=== PATIENT | male | born 1955 | race Caucasian/White ===

== ENCOUNTER 2025-04-08 09:00 | Outpatient (RCR) | payer SELFPAY ==
[2025-04-01 09:08] VITALS: BP 176/82; PULSE 68; RESP 16; TEMP 35.9; BMI 25.4
--- NOTE | 2025-04-01 12:28 | PCM.WC.HP ---
History of Present Illness Date of Service: 04/01/25 Chief Complaint: Right great toe ulceration, left great toe ulceration status post amputation with surgical wound dehiscence History of Wound: Chronic wound to the bilateral lower extremity Progress of Wound: Mr. Pritchard is a 69-year-old diabetic male presenting to wound care center today after being referred by Dr. Silver after he exhausted all surgical and conservative treatment. Per the patient he admits that the initial surgeon was doing wound care in his office and referred the patient to the wound care center [facility] for continued care as well as for expert treatment. The patient was recently hospitalized due to the infection to the bilateral lower extremity. He has a full-thickness wound to the right great toe, with evidence of status post hallux amputation with delayed primary closure with sutures intact to left lower extremity. There is evidence of a mild to moderate surgical wound dehiscence to the left foot. There is mild concern for infection to the left lower extremity when compared to the right. The patient's most recent A1c approximately 1 week ago was greater than 11%. He admits that his blood sugar has been well-controlled between 101 75 mg/dL at home. He denies any trauma. Denies constitutional symptoms. No other pedal complaints at this time. [facility] Home Medications Medication Instructions Recorded Last Taken Type doxycycline hyclate 100 mg tablet 100 mg PO BID 2 weeks #28 tabs 04/01/25 Unknown Rx Social History Smoking Status: Never smoker Vital Signs Vital Signs Vital Signs: 04/01/25 09:08 Temperature 96.7 F L Temperature Source Temporal Pulse Rate 68 Respiratory Rate 16 Blood Pressure 176/82 H Blood Pressure Mean 113 Blood Pressure Source Monitor Blood Pressure Position Sitting Blood Pressure Location Left Arm Oxygen Delivery Method Room Air Weight Weight: 85.275 kg Body Mass Index (BMI) 25.4 Physical Exam Narrative Vascular: DP and PT pulses are palpable to bilateral lower extremity. CFT is brisk. Skin temperature great is warm to warm from proximal ankles to distal digit bilateral. No focal increase in warmth is appreciated bilateral lower extremity. Neurological: Light touch intact. Patient does respond to painful stimuli. Dermatological: Full-thickness wound to the medial aspect of the right hallux measuring 2.5 x 1.3 x 0.2 cm. Wound base is fibrogranular nature. Negative probe to bone. No sign of infection. Full-thickness wound to the amputation site to the left foot at the level of the metatarsophalangeal joint of the first. Mild surgical wound dehiscence is noted. Wound measures on the left foot 0.4 x 3.5 x 0.7 cm. Positive probe to bone. No drainage. No malodor. Excisional debridement down to including subcutaneous tissue with a number 3 mm dermal curette to the right hallux and without incident. Predebridement measurement was 3.3 x 1.0 x 0.1 cm. Postdebridement measurement is 2.5 x 1.3 x 0.2 cm. Excisional debridement down to and including subcutaneous tissue, fascia muscle and bone to the left foot status post left hallux amputation site done with a number 3 mm dermal curette without incident. Predebridement measurement was 0.3 x 3.3 x 0.5 cm. Post right measurement 0.4 x 3.5 x 0.7 cm. Musculoskeletal: Mild pain to palpation to the bilateral full-thickness wounds. No pain with calf pressure. Debridement Note Debridement Note Debridement Free Text: Excisional debridement down to including subcutaneous tissue with a number 3 mm dermal curette to the right hallux and without incident. Predebridement measurement was 3.3 x 1.0 x 0.1 cm. Postdebridement measurement is 2.5 x 1.3 x 0.2 cm. Excisional debridement down to and including subcutaneous tissue, fascia muscle and bone to the left foot status post left hallux amputation site done with a number 3 mm dermal curette without incident. Predebridement measurement was 0.3 x 3.3 x 0.5 cm. Post right measurement 0.4 x 3.5 x 0.7 cm. Post-Debridement Measurements and Additional Note: Post-Debridement Measurements/Treatment - Nurse 1 - General Ulcer Assessment Start: 04/01/25 09:03 Freq: Status: Active Protocol: PETE Activity Type Activity Date Activity User E-sign Co-sign Detail Recorded Client Recorded Date Recorded By Document 04/01/25 09:08 [id number] 04/01/25 09:33 04/01/25 09:08 - Today's Visit Information Type of service Initial Visit Arrival Mode Ambulatory Patient Identification Verified (Name & Yes ) Patient Requires Transmission-Based No Precautions Height and Weight Height 6 ft Weight 85.275 kg Weight in Pounds 188.0 lbs Weight Measurement Method Estimated by Patient Body Mass Index (BMI) 25.4 BMI Classification Overweight Vital Signs Temperature (97.8 F-99.1 F) 96.7 F L Temperature Source Temporal Pulse Rate (60-100) 68 Pulse Location Monitor Respiratory Rate (12-18) 16 Respiratory rate source Observation Oxygen Delivery Method Room Air Blood Pressure (90/60-120/80) 176/82 H Blood Pressure Mean 113 Source Monitor Position Sitting Blood Pressure Location Left Arm History Since Last Visit- (Skip if this is Patient's initial visit) Signs or symptoms of abuse and/or No neglect since last visit Left Footwear Surgical Shoe with pressure relief insole Right Footwear Surgical Shoe with pressure relief insole Pain Scale: 0-10 Numeric Is Patient Pain Free? Yes Lower Extremity Assessment/ Foot Assessment/ Toe Nail Assessment Right -Posterior Tibial Palpable No -Posterior Tibial Doppler Multiphasic -Dorsalis Pedis Palpable No -Dorsalis Pedis Doppler Multiphasic -Extremity Color Red -Hair Growth on Legs Yes -Hair Growth on Toes Yes -Temperature of Extremity Warm -Capillary Refill Less than 3 Seconds -Dependent Rubor No -Blanched when Elevated No -Lipodermatosclerosis No -Other Deformity No -Prior Foot Ulcer No -Charcot Joint No -Prior Amputation No -Thick No -Discolored No -Deformed No -Improper Length & Hygeine No Left -Posterior Tibial Palpable No -Posterior Tibial Doppler Multiphasic -Dorsalis Pedis Palpable No -Dorsalis Pedis Doppler Multiphasic -Extremity Color Red -Hair Growth on Legs Yes -Hair Growth on Toes Yes -Temperature of Extremity Warm -Capillary Refill Less than 3 Seconds -Dependent Rubor No -Blanched when Elevated No -Lipodermatosclerosis No -Other Deformity No -Prior Foot Ulcer No -Charcot Joint No -Prior Amputation Yes -Thick No -Discolored No -Deformed No -Improper Length & Hygeine No Teaching Assessment Preferences Verbal,Written Barriers to Learning None Readiness To Learn Excellent Willingness to Engage in Self Management High Activies Readiness to Engage in Self Management High Activities Anxiety Level Calm Cooperation Cooperative Perception Coherent Interest in Health Problem Asks Questions Education Importance Acknowledges Need Does Patient Smoke tobacco or other No substances Smoking Status Never smoker Is Patient Diabetic Yes Functional Assessment Recent Decline in Ability to Perform Denies Any Declines Assistive Device With Patient No Teaching: Wound Center *Welcome to the Wound Center -Person Taught Patient -Teaching Method Discussion -Response to teaching Verbalize Understanding - Nurse 1 - General Ulcer Measurement Start: 04/01/25 09:03 Freq: Status: Active Protocol: Activity Type Activity Date Activity User E-sign Co-sign Detail Recorded Client Recorded Date Recorded By Document 04/01/25 09:08 [id number] 04/01/25 09:33 04/01/25 09:08 Wound Center Nurse 1 Left Hallux amputation site -Current Size (cm) - Length 0.1 -Current Size (cm) - Width 0.1 -Current Size (cm) - Depth 0.1 -Total Square Cm 0.01 -Date of Last Picture (Recall this 04/01/25 field) -Photo Taken Yes -Tunneling No -Undermining/Tunneling No -Circular Undermining No -Exudate Amt Medium -Exudate Type Yellow/Green -Granulation Amt None Present (0 %) -Slough/Fibrin Yes -Necrosis Amt Large (67-100%) -Necrotic Tissue Type Adherent Slough -Texture (Leda-wound Skin Appearance) Assessed -Moisture (Leda-wound Skin Appearance) Assessed -Color (Leda-wound Skin Appearance) Assessed -Temperature (Leda-wound Skin No Abnormality Appearance) (Pt Warm) -Tenderness on Palpation (Leda-wound Yes Skin Appearance) -Ulcer Cleansing Soap and Water -Foul Odor after Cleansing No -Anesthetic Used 5% Lidocaine Gel Right Hallux -Combined with other wound No -Current Size (cm) - Length 2.5 -Current Size (cm) - Width 1.3 -Current Size (cm) - Depth 0.3 -Total Square Cm 3.25 -Date of Last Picture (Recall this 04/01/25 field) -Photo Taken Yes -Tunneling No -Undermining/Tunneling No -Circular Undermining No -Exudate Amt Medium -Exudate Type Yellow/Green -Wound Margin Distinct, Outline Attached -Slough/Fibrin Yes -Necrosis Amt Large (67-100%) -Necrotic Tissue Type Adherent Slough -Texture (Leda-wound Skin Appearance) Assessed -Moisture (Leda-wound Skin Appearance) Assessed -Color (Leda-wound Skin Appearance) Assessed -Temperature (Leda-wound Skin No Abnormality Appearance) (Pt Warm) -Tenderness on Palpation (Leda-wound Yes Skin Appearance) -Ulcer Cleansing Soap and Water -Foul Odor after Cleansing No -Anesthetic Used 5% Lidocaine Gel Right Calf (cm) 38.5 Right Ankle (cm) 24 Left Calf (cm) 39.2 Left Ankle (cm) 26 WC - Nurse 2 - General Ulcer CM Notes Start: 04/01/25 09:03 Freq: Status: Active Protocol: Activity Type Activity Date Activity User E-sign Co-sign Detail Recorded Client Recorded Date Recorded By Document 04/01/25 09:49 JASPER [id number] 04/01/25 09:57 JASPER 04/01/25 09:49 Wound Center Nurse 2 Left Hallux amputation site -Time 09:49 -Correct Patient Yes -Correct Side, Site, Position Yes -Correct Procedure Yes -Procedure Performed Yes -Type of Procedure Debridement -Clinical Debridement Bone -Tissue Removed Non-viable tissue -Post Debridement (cm) - Length 0.4 -Post Debridement (cm) - Width 3.5 -Post Debridement (cm) - Depth 0.7 -Total Square (Post) (cm) 1.40 -Area of Debridement (cm) - Length 0.4 -Area of Debridement (cm) - Width 3.5 -Total Square (Area) (cm) 1.40 -Tunneling No -Undermining/Tunneling No -Circular Undermining No -Wound/Ulcer Outcome Not Healed -Ulcer Cleansing Rinsed/ Irrigated with Saline -Foul Odor after Cleansing No -Bioengineered Tissue No -Bleeding Controlled with Pressure -Treatment Response Procedure Tolerated Well -Offloading Yes -Type of Offloading Surgical Shoe -Debridement - Bone, 1st 20sq cm Yes Right Hallux -Time 09:49 -Correct Patient Yes -Correct Side, Site, Position Yes -Correct Procedure Yes -Procedure Performed Yes -Type of Procedure Debridement -Clinical Debridement Subcutaneous -Tissue Removed Subcutaneous -Post Debridement (cm) - Length 2.5 -Post Debridement (cm) - Width 1.3 -Post Debridement (cm) - Depth 0.2 -Total Square (Post) (cm) 3.25 -Area of Debridement (cm) - Length 2.5 -Area of Debridement (cm) - Width 1.3 -Total Square (Area) (cm) 3.25 -Tunneling No -Undermining/Tunneling No -Circular Undermining No -Wound/Ulcer Outcome Not Healed -Ulcer Cleansing Rinsed/ Irrigated with Saline -Foul Odor after Cleansing No -Bioengineered Tissue No -Bleeding Controlled with Pressure -Treatment Response Procedure Tolerated Well -Offloading Yes -Type of Offloading Surgical Shoe -Debridement - Subq, 1st 20sq cm Yes Pain Scale: 0-10 Numeric Is Patient Pain Free? Yes WC - Nurse 3 - General Ulcer D/C NN Start: 04/01/25 09:03 Freq: Status: Active Protocol: Activity Type Activity Date Activity User E-sign Co-sign Detail Recorded Client Recorded Date Recorded By Document 04/01/25 10:07 KW [id number] 04/01/25 10:07 KW Edit Result 04/01/25 10:07 KW (1) [id number] 04/01/25 10:08 KW (1) BLE - Tubular Bandage => Single Layer - Size of Tubigrip Used => Size E - Size E ($) => 2 - Other => single layer to => each leg 04/01/25 10:07 Wound Care Center Nurse 3 Left Hallux amputation site -Other Dressing betadine -Primary Dressing Covered/Secured with Dry Gauze & Roll Gauze, Secured with Tape Right Hallux -Other Dressing betadine -Primary Dressing Covered/Secured with Dry Gauze & Roll Gauze, Secured with Tape BLE -Tubular Bandage Single Layer -Size of Tubigrip Used Size E -Size E ($) 2 -Other single layer to each leg Pain Scale: 0-10 Numeric Is Patient Pain Free? Yes WC - Visit Discharge Discharge Condition Stable Ambulatory Status Ambulatory Transportation Private Auto Medication Reconcilliation completed & No provided to patient/care provider Clinical Summary of Care Provided Yes Assessment/Plan Assessment/Plan (1) Type 2 diabetes mellitus with foot ulcer: CODE(S): E11.621 - Type 2 diabetes mellitus with foot ulcer; L97.509 - Non-pressure chronic ulcer of other part of unspecified foot with unspecified severity PLAN: Patient was examined and evaluated. All findings were discussed with the patient. All questions were answered to the patient's satisfaction. Excisional debridement down to including subcutaneous tissue with a number 3 mm dermal curette to the right hallux and without incident. Predebridement measurement was 3.3 x 1.0 x 0.1 cm. Postdebridement measurement is 2.5 x 1.3 x 0.2 cm. Excisional debridement down to and including subcutaneous tissue, fascia muscle and bone to the left foot status post left hallux amputation site done with a number 3 mm dermal curette without incident. Predebridement measurement was 0.3 x 3.3 x 0.5 cm. Post right measurement 0.4 x 3.5 x 0.7 cm. Culture was taken to the bilateral lower extremity. The patient will be placed on doxycycline to cover MRSA due to his diabetes. Patient will continue his Augmentin as prescribed. The wounds were wiped clean and patted dry. All wounds were dressed with Betadine soaked gauze dry sterile dressing and compression wraps were donned. Patient will continue to wear his surgical shoe. Recommend the patient to be off for at least 1 week from work to allow his soft tissue to heal. Stressed the importance of strict blood sugar control between 100-150 mg/dL. Patient did understand the need for better glucose control and we will order HbA1c in approximately 2 months for further evaluation and to see how the patient is responding to his eating habits. Consult through nutrition was made today in office. I did discuss with the patient that there is a chance for additional surgery to the left foot as well as to the right great toe if needed. Conditions were set regarding healing potential and the need for possible surgery if the patient's blood sugar is not controlled as we will need to do first ray amputation to the left foot as needed. Follow-up at the wound care center with Dr. Mcgregor in 1 week. (2) Non-pressure chronic ulcer of other part of right foot with fat layer exposed: CODE(S): L97.512 - Non-pressure chronic ulcer of other part of right foot with fat layer exposed (3) Non-pressure chronic ulcer of other part of left foot with necrosis of bone: CODE(S): L97.524 - Non-pressure chronic ulcer of other part of left foot with necrosis of bone (4) Other specified peripheral vascular diseases: CODE(S): I73.89 - Other specified peripheral vascular diseases
--- NOTE | 2025-04-01 14:15 | WC ---
PHOTO 04/01/25 RIGHT HALLUX
--- NOTE | 2025-04-01 14:18 | WC ---
PHOTO 04/01/25
[2025-04-08 09:12] VITALS: BP 160/82; PULSE 69; RESP 18; TEMP 36; BMI 25.4
--- NOTE | 2025-04-08 12:43 | PN.PCM_ITS ---
History of Present Illness Date of Service: 04/08/25 Chief Complaint: Right great toe ulceration, left great toe ulceration status post amputation with surgical wound dehiscence History of Wound: Chronic wound to the bilateral lower extremity Progress of Wound: Stable bilateral foot wounds. Subjective Subjective Patient is 69-year-old diabetic male presenting to clinic today follow-up rajesh luation of full-thickness wound to the right great toe and full-thickness wound to the surgical wound dehiscence area to the left hallux amputation site. Patient has been doing dressing changes as discussed. He is taking oral antibiotics as prescribed. He admits things are improving. His blood sugars well-controlled. Denies trauma. Denies constitutional symptoms. No other pedal complaints at this time. Objective Data Objective Data Vital Signs: Vital Signs Temp Pulse Resp BP O2 Del Method 96.8 F L 69 18 160/82 H Room Air 04/08/25 09:12 04/08/25 09:12 04/08/25 09:12 04/08/25 09:12 04/08/25 09:12 Oxygen Delivery Method Room Air Weight: 85.275 kg Body Mass Index (BMI) 25.4 Lab / Micro Data Micro: Microbiology 04/01/25 09:47 Ulcer, Decubitus - Right Foot Gram Stain - Final 04/01/25 09:47 Ulcer, Decubitus - Right Foot Wound Culture - Final Escherichia coli Staphylococcus epidermidis Staphylococcus haemolyticus Strep anginosus 04/01/25 09:47 Ulcer, Decubitus - Right Foot Anaerobic Culture - Final Prevotella bivia Physical Exam Narrative Vascular: DP and PT pulses are palpable to bilateral lower extremity. CFT is b risk. Skin temperature great is warm to warm from proximal ankles to distal digit bilateral. No focal increase in warmth is appreciated bilateral lower extremity. No erythema. Neurological: Light touch intact. Patient does respond to painful stimuli. Dermatological: Full-thickness wound to the medial aspect of the right hallux measuring 2.1 x 0.8 x 0.2 cm wound base is fibrogranular nature. Negative probe to bone. No sign of infection. Full-thickness wound to the amputation site of the left hallux at the level of the first metatarsophalangeal joint measuring 0.5 x 3.2 x 1.0 cm. Positive probe to bone. No erythema Excisional debridement down to including subcutaneous tissue with a number 3 mm dermal curette to the right hallux and without incident. Predebridement measurement was 2.0 x 0.7 x 0.1 cm. Postdebridement measurement is 2.1 x 0.8 x 0.2 cm. Excisional debridement down to and including subcutaneous tissue, fascia muscle and bone to the left foot status post left hallux amputation site done with a number 3 mm dermal curette without incident. Predebridement measurement was 0.3 x 3.0 x 0.6 cm.. Post right measurement 0.5 x 3.2 x 1.0 cm. Musculoskeletal: Mild pain to palpation to the bilateral full-thickness wounds. No pain with calf pressure. Debridement Note Debridement Note Debridement Free Text: Excisional debridement down to including subcutaneous tissue with a number 3 mm dermal curette to the right hallux and without incident. Predebridement measurement was 2.0 x 0.7 x 0.1 cm. Postdebridement measurement is 2.1 x 0.8 x 0.2 cm. Excisional debridement down to and including subcutaneous tissue, fascia muscle and bone to the left foot status post left hallux amputation site done with a number 3 mm dermal curette without incident. Predebridement measurement was 0.3 x 3.0 x 0.6 cm.. Post right measurement 0.5 x 3.2 x 1.0 cm. Post-Debridement Measurements and Additional Note: Post-Debridement Measurements/Treatment - Nurse 1 - General Ulcer Assessment Start: 04/01/25 09:03 Freq: Status: Active Protocol: WC.LOWEXT Activity Type Activity Date Activity User E-sign Co-sign Detail Recorded Client Recorded Date Recorded By Document 04/01/25 09:08 [id number] 04/01/25 09:33 Document 04/08/25 09:12 KW [id number] 04/08/25 09:24 KW 04/01/25 04/08/25 09:08 09:12 - Today's Visit Information Type of service Initial Visit Follow-up Visit (Physician/[facility] ) Arrival Mode Ambulatory Ambulatory Patient Identification Verified (Name & Yes Yes ) Patient Requires Transmission-Based No Precautions Height and Weight Height 6 ft Weight 85.275 kg Weight in Pounds 188.0 lbs Weight Measurement Method Estimated by Patient Body Mass Index (BMI) 25.4 25.4 BMI Classification Overweight Overweight Vital Signs Temperature (97.8 F-99.1 F) 96.7 F L 96.8 F L Temperature Source Temporal Temporal Pulse Rate (60-100) 68 69 Pulse Location Monitor Monitor Respiratory Rate (12-18) 16 18 Respiratory rate source Observation Observation Oxygen Delivery Method Room Air Room Air Blood Pressure (90/60-120/80) 176/82 H 160/82 H Blood Pressure Mean (mm Hg) 113 108 Source Monitor Monitor Position Sitting Semi-Fowlers Blood Pressure Location Left Arm Right Arm History Since Last Visit- (Skip if this is Patient's initial visit) Have you changed medications since your No last visit? Any new allergies or adverse reactions No Had a fall/change in ADL's that may No increase risk of falls Signs or symptoms of abuse and/or No No neglect since last visit Have you been in the hospital since your No last visit? Has dressing in place as prescribed Yes Has compression in place as prescribed Yes Has offloadiing in place as prescribed Yes Experienced any changes in pain level or No management Left Footwear Surgical Shoe Surgical Shoe with pressure with pressure relief insole relief insole Right Footwear Surgical Shoe Surgical Shoe with pressure with pressure relief insole relief insole Pain Scale: 0-10 Numeric Is Patient Pain Free? Yes Yes Lower Extremity Assessment/ Foot Assessment/ Toe Nail Assessment Right -Posterior Tibial Palpable No -Posterior Tibial Doppler Multiphasic -Dorsalis Pedis Palpable No -Dorsalis Pedis Doppler Multiphasic -Extremity Color Red -Hair Growth on Legs Yes -Hair Growth on Toes Yes -Temperature of Extremity Warm -Capillary Refill Less than 3 Seconds -Dependent Rubor No -Blanched when Elevated No -Lipodermatosclerosis No -Other Deformity No -Prior Foot Ulcer No -Charcot Joint No -Prior Amputation No -Thick No -Discolored No -Deformed No -Improper Length & Hygeine No Left -Posterior Tibial Palpable No -Posterior Tibial Doppler Multiphasic -Dorsalis Pedis Palpable No -Dorsalis Pedis Doppler Multiphasic -Extremity Color Red -Hair Growth on Legs Yes -Hair Growth on Toes Yes -Temperature of Extremity Warm -Capillary Refill Less than 3 Seconds -Dependent Rubor No -Blanched when Elevated No -Lipodermatosclerosis No -Other Deformity No -Prior Foot Ulcer No -Charcot Joint No -Prior Amputation Yes -Thick No -Discolored No -Deformed No -Improper Length & Hygeine No Teaching Assessment Preferences Verbal,Written Barriers to Learning None Readiness To Learn Excellent Willingness to Engage in Self Management High Activies Readiness to Engage in Self Management High Activities Anxiety Level Calm Cooperation Cooperative Perception Coherent Interest in Health Problem Asks Questions Education Importance Acknowledges Need Does Patient Smoke tobacco or other No substances Smoking Status Never smoker Is Patient Diabetic Yes Functional Assessment Recent Decline in Ability to Perform Denies Any Declines Assistive Device With Patient No Teaching: Wound Center *Welcome to the Wound Center -Person Taught Patient -Teaching Method Discussion -Response to teaching Verbalize Understanding - Nurse 1 - General Ulcer Measurement Start: 04/01/25 09:03 Freq: Status: Active Protocol: Activity Type Activity Date Activity User E-sign Co-sign Detail Recorded Client Recorded Date Recorded By Document 04/01/25 09:08 [id number] 04/01/25 09:33 Document 04/08/25 09:12 [id number] 04/08/25 09:24 04/01/25 04/08/25 09:08 09:12 Wound Center Nurse 1 Left Hallux amputation site -Current Size (cm) - Length 0.1 3 -Current Size (cm) - Width 0.1 0.3 -Current Size (cm) - Depth 0.1 0.7 -Total Square Cm 0.01 0.9 -Date of Last Picture (Recall this 04/01/25 04/08/25 field) -Photo Taken Yes -Tunneling No -Undermining/Tunneling No -Circular Undermining No -Exudate Amt Medium Medium -Exudate Type Yellow/Green Serosanguineous -Wound Margin Distinct, Outline Attached -Granulation Amt None Present (0 Small (1-33%) %) -Granulation Quality Red -Slough/Fibrin Yes -Necrosis Amt Large (67-100%) Large (67-100%) -Necrotic Tissue Type Adherent Slough Adherent Slough -Texture (Leda-wound Skin Appearance) Assessed Assessed -Moisture (Leda-wound Skin Appearance) Assessed Assessed,Dry/ Scaly -Color (Leda-wound Skin Appearance) Assessed Assessed -Temperature (Leda-wound Skin No Abnormality No Abnormality Appearance) (Pt Warm) (Pt Warm) -Tenderness on Palpation (Leda-wound Yes Yes Skin Appearance) -Ulcer Cleansing Soap and Water Soap and Water -Foul Odor after Cleansing No No -Anesthetic Used 5% Lidocaine 5% Lidocaine Gel Gel Right Hallux -Combined with other wound No -Current Size (cm) - Length 2.5 2.2 -Current Size (cm) - Width 1.3 0.8 -Current Size (cm) - Depth 0.3 0.2 -Total Square Cm 3.25 1.76 -Date of Last Picture (Recall this 04/01/25 04/08/25 field) -Photo Taken Yes -Tunneling No -Undermining/Tunneling No -Circular Undermining No -Exudate Amt Medium Small -Exudate Type Yellow/Green Serosanguineous -Wound Margin Distinct, Distinct, Outline Outline Attached Attached -Granulation Amt Small (1-33%) -Granulation Quality Red -Slough/Fibrin Yes -Necrosis Amt Large (67-100%) Large (67-100%) -Necrotic Tissue Type Adherent Slough Adherent Slough -Texture (Leda-wound Skin Appearance) Assessed Assessed -Moisture (Leda-wound Skin Appearance) Assessed Assessed -Color (Leda-wound Skin Appearance) Assessed Assessed -Temperature (Leda-wound Skin No Abnormality No Abnormality Appearance) (Pt Warm) (Pt Warm) -Tenderness on Palpation (Leda-wound Yes Yes Skin Appearance) -Ulcer Cleansing Soap and Water Soap and Water -Foul Odor after Cleansing No No -Anesthetic Used 5% Lidocaine 5% Lidocaine Gel Gel Right Calf (cm) 38.5 Right Ankle (cm) 24 Left Calf (cm) 39.2 Left Ankle (cm) 26 WC - Nurse 2 - General Ulcer CM Notes Start: 04/01/25 09:03 Freq: Status: Active Protocol: Activity Type Activity Date Activity User E-sign Co-sign Detail Recorded Client Recorded Date Recorded By Document 04/01/25 09:49 JF [id number] 04/01/25 09:57 JF Document 04/08/25 10:03 JF [id number] 04/08/25 10:10 04/01/25 04/08/25 09:49 10:03 Wound Center Nurse 2 Left Hallux amputation site -Time 09:49 10:04 -Correct Patient Yes Yes -Correct Side, Site, Position Yes Yes -Correct Procedure Yes Yes -Procedure Performed Yes Yes -Type of Procedure Debridement Debridement -Clinical Debridement Bone Bone -Tissue Removed Non-viable Non-viable tissue tissue -Post Debridement (cm) - Length 0.4 0.5 -Post Debridement (cm) - Width 3.5 3.2 -Post Debridement (cm) - Depth 0.7 1.0 -Total Square (Post) (cm) 1.40 1.60 -Area of Debridement (cm) - Length 0.4 0.5 -Area of Debridement (cm) - Width 3.5 3.2 -Total Square (Area) (cm) 1.40 1.60 -Tunneling No No -Undermining/Tunneling No No -Circular Undermining No No -Wound/Ulcer Outcome Not Healed Not Healed -Ulcer Cleansing Rinsed/ Rinsed/ Irrigated with Irrigated with Saline Saline -Foul Odor after Cleansing No No -Bioengineered Tissue No No -Bleeding Controlled with Pressure Pressure -Treatment Response Procedure Procedure Tolerated Well Tolerated Well -Offloading Yes Yes -Type of Offloading Surgical Shoe Surgical Shoe -Debridement - Bone, 1st 20sq cm Yes Yes Right Hallux -Time 09:49 10:07 -Correct Patient Yes Yes -Correct Side, Site, Position Yes Yes -Correct Procedure Yes Yes -Procedure Performed Yes Yes -Type of Procedure Debridement Debridement -Clinical Debridement Subcutaneous Subcutaneous -Tissue Removed Subcutaneous Subcutaneous -Post Debridement (cm) - Length 2.5 2.1 -Post Debridement (cm) - Width 1.3 0.8 -Post Debridement (cm) - Depth 0.2 0.2 -Total Square (Post) (cm) 3.25 1.68 -Area of Debridement (cm) - Length 2.5 2.1 -Area of Debridement (cm) - Width 1.3 0.8 -Total Square (Area) (cm) 3.25 1.68 -Tunneling No No -Undermining/Tunneling No No -Circular Undermining No No -Wound/Ulcer Outcome Not Healed Not Healed -Ulcer Cleansing Rinsed/ Rinsed/ Irrigated with Irrigated with Saline Saline -Foul Odor after Cleansing No No -Bioengineered Tissue No No -Bleeding Controlled with Pressure Pressure -Treatment Response Procedure Procedure Tolerated Well Tolerated Well -Offloading Yes Yes -Type of Offloading Surgical Shoe Surgical Shoe -Debridement - Subq, 1st 20sq cm Yes Yes Pain Scale: 0-10 Numeric Is Patient Pain Free? Yes Yes - Nurse 3 - General Ulcer D/C NN Start: 04/01/25 09:03 Freq: Status: Active Protocol: Activity Type Activity Date Activity User E-sign Co-sign Detail Recorded Client Recorded Date Recorded By Document 04/01/25 10:07 KW [id number] 04/01/25 10:07 KW Edit Result 04/01/25 10:07 KW (1) [id number] 04/01/25 10:08 KW Document 04/08/25 10:23 KW [id number] 04/08/25 10:25 KW (1) BLE - Tubular Bandage => Single Layer - Size of Tubigrip Used => Size E - Size E ($) => 2 - Other => single layer to => each leg 04/01/25 04/08/25 10:07 10:23 Wound Care Center Nurse 3 Left Hallux amputation site -Other Dressing betadine betadine pack -Primary Dressing Covered/Secured with Dry Gauze & Dry Gauze & Roll Gauze, Roll Gauze, Secured with Secured with Tape Tape Right Hallux -Other Dressing betadine betadine painted -Primary Dressing Covered/Secured with Dry Gauze & Dry Gauze & Roll Gauze, Roll Gauze, Secured with Secured with Tape Tape BLE -Tubular Bandage Single Layer Double Layer -Size of Tubigrip Used Size E Size E -Size E ($) 2 4 -Other single layer to each leg Pain Scale: 0-10 Numeric Is Patient Pain Free? Yes Yes WC - Visit Discharge Discharge Condition Stable Stable Ambulatory Status Ambulatory Ambulatory Transportation Private Auto Private Auto Medication Reconcilliation completed & No No provided to patient/care provider Clinical Summary of Care Provided Yes Yes Assessment/Plan Assessment/Plan (1) Type 2 diabetes mellitus with foot ulcer: CODE(S): E11.621 - Type 2 diabetes mellitus with foot ulcer; L97.509 - Non -pressure chronic ulcer of other part of unspecified foot with unspecified severity PLAN: Patient was examined and evaluated. All findings were discussed with the patient. All questions were answered to the patient's satisfaction. Excisional debridement down to including subcutaneous tissue with a number 3 mm dermal curette to the right hallux and without incident. Predebridement m easurement was 2.0 x 0.7 x 0.1 cm. Postdebridement measurement is 2.1 x 0.8 x 0.2 cm. Excisional debridement down to and including subcutaneous tissue, fascia muscle and bone to the left foot status post left hallux amputation site done with a number 3 mm dermal curette without incident. Predebridement measurement was 0.3 x 3.0 x 0.6 cm.. Post right measurement 0.5 x 3.2 x 1.0 cm. The bilateral lower extremities were cleaned and patted dry. Patient will continue his antibiotic as prescribed. Both incision dressed with Betadine soaked gauze dry sterile dressing and light compression wrap. Patient will continue daily dressing changes and continue strict blood sugar control. Patient will follow-up with me in private office due to the patient not having medical insurance as well as this being more affordable for the patient. (2) Non-pressure chronic ulcer of other part of right foot with fat layer exposed: CODE(S): L97.512 - Non-pressure chronic ulcer of other part of right foot with fat layer exposed (3) Non-pressure chronic ulcer of other part of left foot with necrosis of bone: CODE(S): L97.524 - Non-pressure chronic ulcer of other part of left foot with necrosis of bone (4) Other specified peripheral vascular diseases: CODE(S): I73.89 - Other specified peripheral vascular diseases
--- NOTE | 2025-04-09 10:21 | WC ---
PHOTO 04/08/25 LT TRISTA ACEVEDO
--- NOTE | 2025-04-09 10:25 | WC ---
PHOTO 04/08/25 RIGHT HALLUX
== END 2025-04-20 23:59 | disposition home or self-care (01) ==
LOC: WC 09:00
PROVIDERS: PCP Family Medicine; Referring Provider Podiatrist Foot & Ankle Surgery; Visit Provider Podiatrist Foot & Ankle Surgery
DX: E11.621 Type 2 diabetes mellitus with foot ulcer (principal); L97.524 Non-pressure chronic ulcer of other part of left foot with necrosis of bone; L97.512 Non-pressure chronic ulcer of other part of right foot with fat layer exposed; T87.81 Dehiscence of amputation stump; E11.51 Type 2 diabetes mellitus with diabetic peripheral angiopathy without gangrene; Y83.5 Amputation of limb(s) as the cause of abnormal reaction of the patient, or of later complication, without mention of misadventure at the time of the procedure
CPT/HCPCS: 11042; 11044; 87070; 87075; 87077; 87186; 87205; 99214; G0463

== ENCOUNTER → 2025-05-12 | Outpatient (CLI) | payer SELFPAY | END | disposition home or self-care (01) | PROVIDERS: PCP Family Medicine; Referring Provider Podiatrist Foot & Ankle Surgery; Visit Provider Podiatrist Foot & Ankle Surgery | DX: L97.519 Non-pressure chronic ulcer of other part of right foot with unspecified severity (principal) | CPT/HCPCS: 87070; 87077; 87186; 87205 ==

== ENCOUNTER 2025-05-22 07:03 | Day surgery (SDC) | payer SELFPAY ==
[2025-05-22] VITALS (10 sets, daily range): BP systolic 124–159; BP diastolic 65–85; PULSE 59–93; RESP 16–20; TEMP 36.2–36.7; O2SAT 95–99; BMI 25.0
--- OUTSIDE RECORDS SUMMARY | 2025-05-22 07:15 | XMS RPT_ITS | CCD ---
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 Name Role Phone Unavailable Primary Care Provider UnavailESDRAS Love Attending Unavailable Hesham Alvarez MD Unavailable Romulo GEAR LAPPER, July Unavailable Maurice CONTRERAS, Ángela Saravia Unavailable [phone] Day GEAR LAPPER, Angela Unavailable Unavailable Dev GEAR LAPPER, Carole E Unavailable Unavailable Romel AZUL, Felicia Unavailable Unavailable Tom PASTOR, Narda Wilkinson Unavailable Unavaila ble Bass GEAR LAPPER, Faiza Unavailable Unavailable Wallace, Isi L Unavailable Lizandro REFINERY OPERATOR ASSISTANT, Lani Unavailable Unavailable Marco GEAR LAPPER, Francy M Unavailable Unavailab le Aubrey GEAR LAPPER, Lily Unavailable Unavailab le Zaugg GEAR LAPPER, Mary Unavailable Unavailable Unavailable Unavailable Tj AZUL, Nery Unavailable Unavailable Sissy Borja Unavailable Unavailable Edwin GEAR LAPPER, Melania Unavailable Unavailable [facility] Unavailable Unavailable Unavailable Bruno GEAR LAPPER, Ja Unavailable Unavailable MALLORY COWAN Admitting Unavailable MALLORY COWAN Primary Care Unavailable MALLORY COWAN Attending Unavailable HESHAM ALVAREZ Consulting Unavailable PROVIDER, UNKNOWN Consulting Unavailable PROVIDER, UNKNOWN Consulting Unavailable PROVIDER, UNKNOWN Consulting Unavailable MALLORY COWAN Admitting Unavailable MALLORY COWAN Primary Care Unavailable MALLORY COWAN Attending Unavailable HESHAM ALVAREZ Consulting Unavailable PROVIDER, UNKNOWN Consulting Unavailable PROVIDER, UNKNOWN Consulting Unavailable PROVIDER, UNKNOWN Consulting Unavailable Portillo ANAYA, Dr. Lakesha Vazquez Unavailable HESHAM ALVAREZ MD Primary Care Physician [phone] HESHAM ALVAREZ MD Primary Care Unavailable NEO PÉREZ DPM Attending Unavailable HESHAM ALVAREZ MD Primary Care Unavailable SUPPAN DPM, NEO Almonte Attending Unavailable CHOLO DROP TESTER-SEED CORN PRODUCTION MANAGER, TASHA M Consulting Unavailnathan ALVAREZ MD, HESHAM Khan Primary Care Unavailable SUPPAN DPM, NEO Almonte Attending Unavailable SUPPAN DPM, NEO Almonte Admitting Unavailable ASHUTOSH RAJAN FAC, NEO Cherry Consulting Unavail able KIM RAJAN, HESHAM Khan Primary Care Unavailable SUPPAN DPM, NEO Almonte Attending Unavailable Mcgregor DPM, Dr. Shaw Attending Provider Kim RAJAN, Dr. Dahl Primary Care Provider Suppcassandra DPM, Dr. Larson Referring Provider Amara Bassett Unavailable UnavailBert REAVESM, Dr. Shaw Referring Provider Hesham Alvarez [facility] Care Unavailable Neo Pérez Referring Unavailable Colin Mcgregor Attending Unavailable Colin Mcgregor Attending Unavailable Hesham Alvarez [facility] Unavailable Neo Pérez Referring Unavailable Colin Mcgregor Attending Unavailable Hesham Alvarez [facility] Care Unavailable Colin Mcgregor Referring Unavailable Colin Mcgregor Attending Unavailable Hesham Alvarez [facility] Unavailable Colin Mcgregor Referring Unavailable Allergies Allergy Classification Reported Allergen(s) Allergy Type Date of Onset Reaction(s) Facility Angiotensin Converting Enzyme (KAYLENE) Inhibitors (1 source) Lisinopril Drug Allergy Cough [facility]. (20 sources) Lisinopril Drug Allergy Cough [facility], [facility].; [facility], [facility]. (1 source) Lisinopril Drug Allergy [facility] Repository (1 source) Lisinopril Drug Allergy 05-20-2025 [facility] Repository Medications Current Medications Medication Drug Class(es) Dates Sig (Normalized) Sig (Original) 0.5 ML tirzepatide 10 MG/ML Auto-Injector [Mounjaro] (1 source) Start: 03-19-2025 inject 5 mg by subcutaneous injection every week Mounjaro 5 mg/0.5 mL subcutaneous solution INJECT 5mg DOSE (0.5ml) SUBCUTANEOUSLY ONCE A WEEK Start Date: 03/19/25 Status: Ordered Repeat number: 1 acetaminophen 325 mg / oxyCODONE hydrochloride 5 mg oral tablet (5 sources) Opioid Agonist Start: 05-12-2025 take 1 tablet by mouth every twelve hours as needed for pain Oxycodone-Acetaminop hen (Percocet) 5-325 mg tablet Active 1 {tbl} PO Q12H as needed for pain 28 7 0 May 12, 2025 Right foot pain Pain in right foot Start: 03-24-2025 End: 03-27-2025 take 1 tablet by mouth every six hours as needed for pain acetaminophen-oxyCODONE 325 mg-5 mg oral tablet Dose = 1 tab(s), Oral, q6h, PRN for pain, X 3 day(s), # 12 tab(s), 0 Refill(s), Pharmacy: [facility] Wound of left foot, 182.9, cm, 03/20/25 6:17:00 EDT, Height, 86.4, kg, 03/20/25 6:17:00 EDT, Dosing Weight Start Date: 03/24/25 Stop Date: 03/27/25 Status: Ordered Quantity: 12.0 Unit: tab(s) Repeat number: 1 Indications: Unspecified open wound, left foot, initial encounter; Start: 03-10-2025 take 1 tablet by pretty th every six hours as needed acetaminophen-oxyCODONE 325 mg-5 mg oral tablet TAKE ONE TABLET BY MOUTH EVERY 6 HOURS NEEDED Start Date: 03/19/25 Status: Ordered Repeat number: 1 DME MISCellaneous (1 source) Start: 03-24-2025 DME MISCellane ous See Instructions, Please dispense 30 needle caps for use with Lantus solostart pens - enough for 30 day supply., # 1 EA, 0 Refill(s), Pharmacy: [facility] 182.9, cm, 03/20/25 6:17:00 EDT, Height, 86.4, kg, 03/20/25 6:17:00 EDT, Dosing Weight Start Date: 03/24/25 Status: Ordered Quantity: 1.0 Unit: EA Repeat number: 1 doxycycline hyclate 100 mg oral tablet (3 sources) Tetracycline -class Drug Start: 04-01-2025 take 1 tablet by mouth twice daily Doxycycline Hyclate 100 mg tablet Active 100 mg PO TWICE A DAY 28 14 0 April 01, 2025 12:00am Start: 03-24-2025 End: 03-31-2025 doxycycline hyclate 100 mg o ral capsule Dose : 100 mg = 1 cap(s), Oral, BID, X 7 day(s), # 14 cap(s), 0 Refill(s), 03/31/25 9:57:00 AM EDT, Pharmacy: [facility] 182.9, cm, 03/20/25 6:17:00 EDT, Height, 86.4, kg, 03/20/25 6:17:00 EDT, Dosing Weight Start Date: 03/24/25 Stop Date: 03/31/25 Status: Ordered Quantity: 14.0 Unit: cap(s) Repeat number: 1 FreeStyle Essie 3+ Sensors (1 source) Start: 03-24-2025 FreeStyle Essie 3+ Sensors See Instructions, Place once sensor to the back of the upper arm every 15 days. Use reader or phone rose marie for daily blood sugar checks. 1 month supply, # 2 EA, 0 Refill(s), Pharmacy: [facility] 182.9, cm, 03/20/25 6:17:00 EDT, Height, 86.4, kg, 03/20/25 6:17:00 EDT, Dosing Weight Start Date: 03/24/25 Status: Ordered Quantity: 2.0 Unit: EA Repeat number: 1 3 ml insulin glargine 100 unt/ml pen injector (1 source) Insulin Analog Start: 03-24-2025 inject 1 dose by subcutaneous injection once daily at bedtime Lantus Solostar Pen 100 units/mL 3 mL Pen Dose : 15 unit(s) =, Subcutaneous, qHS, # 3 mL, 0 Refill(s), Pharmacy: [facility] 182.9, cm, 03/20/25 6:17:00 EDT, Height, kg, 03/20/25 6:17:00 EDT, Dosing Weight Start Date: 03/24/25 Status: Ordered Quantity: 3.0 Unit: mL Repeat number: 1 levoFLOXacin 500 mg oral tablet (2 sources) Quinolone Antimicrobial Start: 04-03-2025 take 1 tablet by mouth once daily Levofloxacin 500 mg tablet Active 500 mg PO DAILY 14 April 03, 2025 12:00am losartan potassium 25 mg oral tablet (20 sources) Angiotensin 2 Receptor Rivera Start: 03-10-2025 losartan 25 mg oral tablet Dose : 25 mg = 1 tab(s), Oral, Daily, # 100 tab(s), 0 Refill(s) Start Date: 03/10/25 Status: Ordered Quantity: 100.0 Unit: tab(s) Repeat number: 1 Start: 01-26-2025 losartan 50 mg tablet ; 1 (one) Tablet qd for 0 days Quantity: 90 {Tablet} Refills: 1 Ordered: 26-Jan-2025 MD Hesham Alvarez Start: 26-Jan-2025 Start: 10-23-2024 losartan 50 mg tablet ; 1 (one) Tablet qd for 0 days Quantity: 90 {Tablet} Refills: 1 Ordered: 23-Oct-2024 DIANE Richards Start: 23-Oct-2024 Start: 07-24-2024 losartan 50 mg tablet ; 1 (one) Tablet qd for 0 days Quantity: 90 {Tablet} Refills: 1 Ordered: 24-Jul-2024 MD Venancio Douglas Start: 24-Jul-2024 Start: 07-16-2023 losartan 50 mg tablet ; 1 (one) Tablet qd for 0 days Quantity: 90 {Tablet} Refills: 1 Ordered: 07-Nov-2023 MD Hesham Alvarez Start: 07-Nov-2023 Start: 08-02-2022 take 1 tablet by pretty once daily losartan (COZAAR) 50 mg tablet Take 50 mg by mouth once daily. 0 08/02/2022 Active Comment on above: Take 50 mg by mouth once daily. metFORMIN hydrochloride 500 mg oral tablet (20 sources) Biguanide Start: 03-10-2025 MetFORMIN (Eqv-Fortamet) 500 mg oral tablet, EXTENDED RELEASE Dose : 500 mg = 1 tab(s), Oral, BID, Okay to substitute for generic Glucophage XR, # 30 tab(s), 0 Refill(s) Start Date: 03/10/25 Status: Ordered Quantity: 30.0 Unit: tab(s) Repeat number: 1 Start: 02-20-2025 metFORMIN 500 mg tablet ; 2 Tablet bid for 0 days Quantity: 360 {Tablet} Refills: 1 Ordered: 20-Feb-2025 MD Hesham Alvarez Start: 20-Feb-2025 Start: 10-23-2024 metFORMIN 500 mg tablet ; 2 Tablet bid for 0 days Quantity: 360 {Tablet} Refills: 1 Ordered: 23-Oct-2024 DIANE Richards Start: 23-Oct-2024 Start: 04-28-2024 metFORMIN 500 mg tablet ; 2 Tablet bid for 0 days Quantity: 360 {Tablet} Refills: 1 Ordered: 28-Apr-2024 MD Hesham Alvarez Start: 28-Apr-2024 Start: 05-14-2023 metFORMIN 500 mg tablet ; 2 Tablet bid for 0 days Quantity: 360 {Tablet} Refills: 1 Ordered: 07-Nov-2023 MD Hesham Alvarez Start: 07-Nov-2023 Mounjaro 2.5 mg/0.5 mL subcutaneous pen injector (4 sources) Start: 10-13-2024 inject 2.5 mg by subcutaneous injection every week Mounjaro 2.5 mg/0.5 mL subcutaneous pen injector ; 2.5 Milligram q week for 0 days Quantity: 4 {Each} Refills: 1 Ordered: 13-Oct-2024 MD Hesham Alvarez Start: 13-Oct-2024 Comments: prefilled pen syringes Start: 09-16-2024 inject 2.5 mg by sub cutaneous injection every week Mounjaro 2.5 mg/0.5 mL subcutaneous pen injector ; 2.5 Milligram q week for 0 days Quantity: 4 {Each} Refills: 0 Ordered: 16-Sep-2024 MD Hesham Alvarez Start: 16-Sep-2024 Comments: prefilled pen syringes Start: 08-22-2024 inject 2.5 mg by sub cutaneous injection every week Mounjaro 2.5 mg/0.5 mL subcutaneous pen injector ; 2.5 Milligram q week for 0 days Quantity: 4 {Each} Refills: 0 Ordered: 22-Aug-2024 MD Hesham Alvarez Start: 22-Aug-2024 Comments: prefilled pen syringes Comment on above: prefilled pen syring es Mounjaro 5 mg/0.5 mL subcutaneous pen injector (20 sources) Start: 2024 inject 5 mg by subcutaneous injection every week Mounjaro 5 mg/0.5 mL subcutaneous pen injector ; 5 mg q week for 0 days Quantity: 4 {Each} Refills: 5 Ordered: 05-Nov-2024 MD Hesham Alvarez Start: 05-Nov-2024 Comments: prefilled pens injectors Comment on above: prefilled pens injec tors sulfamethoxazole 800 mg / trimethoprim 160 mg oral tablet (20 sources) Dihydrofolate Reductase Inhibitor Antibacterial, Sulfonamide Antimicrobial Start: 2024 take 1 tablet by mouth twice daily sulfamethoxazole-t rimethoprim 800 mg-160 mg oral tablet TAKE ONE TABLET BY MOUTH TWICE DAILY Start Date: 03/19/25 Status: Ordered Repeat number: 1 Start: 07-04-2017 End: 07-14-2017 take 1 tablet by mouth twice daily Bactrim DS 800-160 MG Oral Tablet ; 1 Tab Tab two times daily for 10 days Quantity: 20 {Tablet} Refills: 0 Ordered: 04-Jul-2017 TYRONE Méndez Start: 04-Jul-2017 End: 14-Jul-2017 Status: Inactive Trulicity 3 mg/0.5 mL subcutaneous pen injector (4 sources) Start: 05-05-2024 inject 3 mg by subcutaneous injection every week Trulicity 3 mg/0.5 mL subcutaneous pen injector ; 3 (three) Milligram q week for 0 days Quantity: 4 {Each} Refills: 5 Ordered: 05-May-2024 MD Hesham Alvarez Start: 05-May-2024 Comments: predosed pen injectors Start: 04-28-2024 inject 3 mg by subcu taneous injection every week Trulicity 3 mg/0.5 mL subcutaneous pen injector ; 3 (three) Milligram q week for 0 days Quantity: 4 {Each} Refills: 5 Ordered: 28-Apr-2024 MD Hesham Alvarez Start: 28-Apr-2024 Comments: predosed pen injectors Start: 02-13-2024 inject 3 mg by subcu taneous injection every week Trulicity 3 mg/0.5 mL subcutaneous pen injector ; 3 (three) Milligram q week for 0 days Quantity: 4 {Each} Refills: 5 Ordered: 13-Feb-2024 MD Hesham Alvarez Start: 13-Feb-2024 Comments: predosed pen injectors Comment on above: predosed pen injecto rs Completed/Discontinued Medications Medication Drug Class(es) Dates Sig (Normalized) Sig (Original) acyclovir 800 mg oral tablet (20 sources) Herpesvirus Nucleoside Analog DNA Polymerase Inhibitor, Herpes Simplex Virus Nucleoside Analog DNA Polymerase Inhibitor, Herpes Zoster Virus Nucleoside Analog DNA Polymerase Inhibitor Start: 11-18-2021 End: 01-05-2022 Acyclovir 800 MG Oral Tablet ; 1 (one) Tablet 5 times a day ( every 4 hours) for 0 days Quantity: 35 {Tablet} Refills: 0 Ordered: 05-Jan-2022 Lizandro, CHRISTINE Lani Start: 18-Nov-2021 End: 05-Jan-2022 Status: Discontinued amoxicillin 875 mg / clavulanate 125 mg oral tablet (20 sources) Penicillin-class Antibacterial Start: 12-19-2024 End: 12-26-2024 amoxicillin 875 mg-potassium clavulanate 125 mg tablet ; 1 (one) Tablet bid for 7 days Quantity: 14 {Tablet} Refills: 0 Ordered: 19-Dec-2024 MD Hesham Alvarez Start: 19-Dec-2024 End: 26-Dec-2024 Status: Inactive Comments: take w food Start: 12-08-2024 amoxicillin 87 5 mg-potassium clavulanate 125 mg tablet ; 1 (one) Tablet bid for 10 days Quantity: 20 {Tablet} Refills: 0 Ordered: 08-Dec-2024 MD Hesham Alvarez Start: 08-Dec-2024 Comments: take w food Start: 03-29-2021 End: 04-08-2021 take 1 tablet by mouth twice daily Amoxicillin-Pot Clavulanate 875-125 MG Oral Tablet ; 1 (one) Tablet bid for 10 days Quantity: 20 {Tablet} Refills: 0 Ordered: 29-Mar-2021 MD Hesham Alvarez Start: 29-Mar-2021 End: 08-Apr-2021 Status: Inactive Comments: take w food Comment on above: take w food cephalexin 500 mg oral capsule (20 sources) Cephalosporin Antibacterial Start: End: cephALEXin 500 mg capsule ; 2 (two) capsule bid for 10 days Quantity: 40 {Capsule} Refills: 0 Ordered: 07-Nov-2023 MD Hesham Alvarez Start: 07-Nov-2023 End: 17-Nov-2023 Status: Inactive 0.5 ml dulaglutide 3 mg/ml auto-injector (20 sources) GLP-1 Receptor Agonist Start: 024 End: inject 1.5 mg by subcutaneous injection every week Trulicity 1.5 mg/0.5 mL subcutaneous pen injector ; 1.5 Milligram q week for 0 days Quantity: 4 {Each} Refills: 5 Ordered: 22-Aug-2024 MD Hesham Alvarez Start: 03-Jun-2024 End: 22-Aug-2024 Status: Inactive Comments: prefilled pens Start: 05-14-2024 inject 1.5 mg by sub cutaneous injection every week Trulicity 1.5 mg/0.5 mL subcutaneous pen injector ; 1.5 Milligram q week for 0 days Quantity: 4 {Film} Refills: 5 Ordered: 14-May-2024 MD Hesham Alvarez Start: 14-May-2024 Comments: prefilled pens Start: 05-14-2024 inject 1.5 mg by sub cutaneous injection every week Trulicity 1.5 mg/0.5 mL subcutaneous pen injector ; 1.5 Milligram q week for 0 days Quantity: 4 {Film} Refills: 5 Ordered: 14-May-2024 MD Hesham Alvarez Start: 14-May-2024 Comments: prefilled pens Start: 05-05-2024 inject 0.75 mg by graham bcutaneous injection every week Trulicity 0.75 mg/0.5 mL subcutaneous pen injector ; 0.75 mg every week for 0 days Quantity: 2 {Each} Refills: 0 Ordered: 05-May-2024 MD Hesham Alvarez Start: 05-May-2024 Comments: pre filled pen syringes Start: 11-07-2023 inject 0.75 mg by graham bcutaneous injection every week Trulicity 0.75 mg/0.5 mL subcutaneous pen injector ; 0.75 Milligram q week for 0 days Quantity: 4 {Each} Refills: 5 Ordered: 07-Nov-2023 MD Hesham Alvarez Start: 07-Nov-2023 Comments: predosed pen injectors Comment on above: predosed pen injecto rs pre filled pen syrin ges prefilled pens famciclovir 500 mg oral tablet (20 sources) Herpes Simplex Virus Nucleoside Analog DNA Polymerase Inhibitor Start: End: take 1 tablet by mouth twice daily Famciclovir 500 MG Oral Tablet ; 1 (one) Tablet two times daily for 7 days Quantity: 14 {Tablet} Refills: 0 Ordered: 01-Dec-2021 DIANE Richards Start: 01-Dec-2021 End: 08-Dec-2021 Status: Inactive gabapentin 300 mg oral capsule (20 sources) Anti-epileptic Agent Start: End: gabapentin 300 mg capsule ; 1 (one) Capsule tid prn for 0 days Quantity: 90 {Capsule} Refills: 1 Ordered: 06-Jun-2023 TYRONE Lara Start: 13-Jun-2022 End: 06-Jun-2023 Status: Inactive lidocaine hydrochloride 0.02 mg/mg topical gel (1 source) Antiarrhythmic, Amide Local Anesthetic Start: End: lidocaine urojet 2 % 10 mL topical gel (XYLOCAINE, GLYDO) lisinopril 5 mg oral tablet (20 sources) Angiotensin Converting Enzyme Inhibitor Start: End: take 1 tablet by mouth once daily Lisinopril 5 MG Oral Tablet ; 1 (one) Tablet qd for 0 days Quantity: 90 {Tablet} Refills: 1 Ordered: 05-Dec-2017 MD Hesham Alvarez Start: 15-May-2017 End: 05-Dec-2017 Status: Inactive pioglitazone 45 mg oral tablet (20 sources) Peroxisome Proliferator Receptor alpha Agonist, Peroxisome Proliferator Receptor gamma Agonist, Thiazolidinedione Start: End: pioglitazone 45 mg tablet ; 1 (one) Tablet qd for 0 days Quantity: 90 {Tablet} Refills: 1 Ordered: 07-Nov-2023 MD Hesham Alvarez Start: 06-Jun-2023 End: 07-Nov-2023 Status: Inactive sildenafil 20 mg oral tablet (20 sources) Phosphodiesterase 5 Inhibitor Start: 023 End: sildenafil (pulmonary hypertension) 20 mg tablet ; 5 Tablet qd prn for 0 days Quantity: 60 {Tablet} Refills: 5 Ordered: 23-Oct-2023 TYRONE Burgos Savanah Stone Start: 10-Jan-2023 End: 23-Oct-2023 Status: Inactive tadalafil 20 mg oral tablet (20 sources) Phosphodiesterase 5 Inhibitor Start: 023 End: 025 Cialis 20 mg tablet ; 1 (one) tablet q 3 days prn , take 60 minutes prior to intercourse for 0 days Quantity: 4 {Tablet} Refills: 0 Ordered: 05-Nov-2024 Bruno TYRONE Ja Start: 24-Sep-2023 End: 05-Nov-2024 Status: Inactive Problems Active Problems Problem Classification Problem Date Documented Da te Episodic/Chronic Acute and unspecified renal failure (3 sources) Acute kidney failure, unspecified; Translations: [Acute renal failure syndrome] Onset: 03-19-2025 Episodic Chronic ulcer of skin (16 sources) Non-pressure chronic ulcer of other part of right foot with unspecified severity; Translations: [Non-pressure chronic ulcer of other part of left foot with necrosis of bone] Onset: 03-19-2025 04-01-2025 Chronic Complications of surgical procedures or medical care (4 sources) Postoperative urethral stricture; Translations: [Postprocedural fossa navicularis urethral stricture] Onset: 09-25-2022 Episodic Diabetes mellitus with complications (20 sources) Hyperglycemia due to type 2 diabetes mellitus; Translations: [Type 2 diabetes mellitus with hyperglycemia] Onset: 03-19-2025 06-06-2023 Chronic Comment on above: 12.3 to 11.6 to 10.9 Diabetes mellitus without complication (20 sources) Diabetes mellitus without mention of complication, type II or unspecified type, not stated as uncontrolled; Translations: [Diabetes mellitus] Onset: 03-19-2025 01-05-2022 Chronic E Codes: Natural/environment (20 sources) Tick bite; Translations: [Bitten or stung by nonvenomous insect and other nonvenomous arthropods, initial encounter] 01-05-2022 Episodic Essential hypertension (20 sources) Benign hypertension; Translations: [Essential (primary) hypertension] Onset: 03-19-2025 06-06-2023 Chronic Genitourinary symptoms and ill-defined conditions (20 sources) Urinary symptoms ; Translations: [Unspecified symptoms and signs involving the genitourinary system] 01-05-2022 Episodic Hyperplasia of prostate (20 sources) Benign prostatic hypertrophy with outflow obstruction; Translations: [Benign prostatic hyperplasia with lower urinary tract symptoms] Onset: 09-25-2022 Chronic Immunizations and screening for infectious disease (20 sources) Requires varicella vaccination; Translations: [Encounter for immunization] 01-05-2022 Episodic Infective arthritis and osteomyelitis (except that caused by tuberculosis or sexually transmitted disease) (2 sources) Other acute osteomyelitis, left ankle and foot; Translations: [Other acute osteomyelitis, left ankle and foot] Onset: 03-18-2025 Chronic Inflammatory conditions of male genital organs (20 sources) Epididymitis; Translations: [Epididymitis] 01-05-2022 Episodic Open wounds of extremities (20 sources) Laceration of upper limb; Translations: [Laceration without foreign body of unspecified upper arm, initial encounter] Onset: 03-19-2025 01-05-2022 Episodic Other aftercare (1 source) 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) use of oral hypoglycemic drugs; Translations: [correction (current) use of oral hypoglycemic drugs] Onset: 03-19-2025 Episodic Other bone disease and musculoskeletal deformities (1 source) Acquired absence of left great toe; Translations: [Acquired absence of left great toe] Onset: 03-19-2025 Chronic Other bone disease and musculoskeletal deformities (8 sources) Absence of toe; Translations: [Acquired absence of left great toe] 05-05-2025 Chronic Other circulatory disease (4 sources) Peripheral vascular disease; Translations: [Other specified peripheral vascular diseases] 04-01-2025 Chronic Other circulatory disease (2 sources) Other specified peripheral vascular diseases; Translations: [Other specified peripheral vascular diseases] Onset: 04-21-2025 Chronic Other connective tissue disease (1 source) Foot pain; Translations: [Pain in right foot] 05-12-2025 Episodic Other diseases of bladder and urethra (2 sources) Overactive bladder; Translations: [Overactive bladder] Onset: 09-25-2022 Chronic Other diseases of bladder and urethra (1 source) Overactive bladder; Translations: [OAB (overactive bladder)] Onset: 09-25-2022 Chronic Other diseases of kidney and ureters (1 source) Other obstructive and reflux uropathy; Translations: [BPH with obstruction/lower urinary tract symptoms] Onset: 09-25-2022 Episodic Other gastrointestinal disorders (1 source) Constipation, unspecified; Translations: [Constipation, unspecified] Onset: 03-19-2025 Episodic Other injuries and conditions due to external causes (20 sources) Knee, leg, ankle, and foot injury 09-27-2012 Episodic Other male genital disorders (20 sources) Male erectile dysfunction, unspecified; Translations: [Impotence of organic origin] 09-24-2023 Chronic Other male genital disorders (20 sources) Swelling of testicle; Translations: [Other specified disorders of the male genital organs] 01-05-2022 Episodic Other male genital disorders (20 sources) Disorder of male genital organ; Translations: [Hydrocele, unspecified] 07-06-2017 Episodic Other screening for suspected conditions (not mental disorders or infectious disease) (20 sources) Patient encounter status; Translations: [Encounter for screening for malignant neoplasm of prostate] 10-25-2023 Episodic Other skin disorders (20 sources) Skin lesion; Translations: [Disorder of the skin and subcutaneous tissue, unspecified] 05-14-2024 Episodic Other skin disorders (1 source) Disorder of the skin and subcutaneous tissue, unspecified; Translations: [Disorder of the skin and subcutaneous tissue, unspecified] Onset: 05-29-2024 Episodic Other upper respiratory infections (20 sources) Sinusitis; Translations: [Chronic sinusitis, unspecified] 11-07-2023 Chronic Residual codes; unclassified (20 sources) Influenza vaccination declined; Translations: [Immunization not carried out because of patient refusal] 08-13-2018 Episodic Screening and history of mental health and substance abuse codes (1 source) Personal history of nicotine dependence; Translations: [Personal history of nicotine dependence] Onset: 03-19-2025 Episodic Skin and subcutaneous tissue infections (20 sources) Cellulitis; Translations: [Cellulitis, unspecified] 03-29-2021 Episodic Unclassified (20 sources) Follow up for multiple chronic conditions - The patient is here for follow-up of diabetes and hypertension. The patient always takes the prescribed medications. No side effects noted. The patient engages in regular exercise program 1-3 times per week. The patient's out of office blood pressure checks occur rarely and dietary compliance is fair often eating foods not normally recommended. The patient states that there is no recent angina or dyspnea, weight is unchanged and they do not have headaches. The patient states that the disease has no overall impact. Note for Multiple chronic conditions follow-up: reviewed by [facility] 06-06-2023 Unclassified (20 sources) Follow Up for Multiple Chronic Conditions - The patient is here for follow-up of diabetes, hypertension and other condition(s) (BPH, Ed). The patient always takes the prescribed medications. No side effects noted (does not need refills). The patient engages in regular exercise program 3-5 times per week (elliptical and walks). The patient's glucose levels are monitored on rare occasion, out of office blood pressure checks occur rarely and dietary compliance is fairly good usually adhering to recommendations. The patient states that there is no recent angina or dyspnea, weight is unchanged and headaches are rarely noted. 02-14-2023 Unclassified (20 sources) Follow up for multiple chronic conditions - The patient is here for follow-up of diabetes and hypertension. The patient usually takes the prescribed medications. No side effects noted. The patient has an active lifestyle but no regular exercise program. The patient's out of office blood pressure checks occur rarely. Note for Multiple chronic conditions follow-up: reviewed by [facility] 10-18-2022 Unclassified (20 sources) Follow Up for Multiple Chronic Conditions - The patient is here for follow-up of diabetes and hypertension. The patient always takes the prescribed medications. No side effects noted (needs refill). The patient engages in regular exercise program 3-5 times per week (stationary bike). The patient's glucose levels are monitored on rare occasion and out of office blood pressure checks occur rarely. The patient states that there is no recent angina or dyspnea, there are no vision changes or weakness (up to date with eye exam), weight has decreased (down 6 pounds) and headaches have been noticed occasionally. Note for Multiple chronic conditions follow-up: reviewed by [facility] 06-15-2022 Unclassified (20 sources) Follow Up for Multiple Chronic Conditions - The patient is here for follow-up of diabetes and hypertension. The patient always takes the prescribed medications. No side effects noted (would like a refill on medication for nerve pain due to s/p shingles). The patient engages in regular exercise program 1-3 times per week. The patient's glucose levels are monitored several time(s) per week, out of office blood pressure checks occur occasionally and dietary compliance is fairly good usually adhering to recommendations. The patient states that weight has decreased. 01-05-2022 Unclassified (20 sources) Follow Up for Multiple Chronic Conditions - The patient is here for follow-up of diabetes and hypertension. The patient always takes the prescribed medications. No side effects noted (does not need refills). The patient has an active lifestyle but no regular exercise program. The patient's glucose levels are monitored several time(s) per week, out of office blood pressure checks occur occasionally and dietary compliance is fairly good usually adhering to recommendations. The patient states that weight has decreased (1#). 06-30-2021 Unclassified (20 sources) Follow Up for Multiple Chronic Conditions - The patient is here for follow-up of diabetes, hypertension and other condition(s) (ED). The patient always takes the prescribed medications. No side effects noted (needs refill). The patient engages in regular exercise program 3-5 times per week (eliptical). The patient's glucose levels are monitored on rare occasion, out of office blood pressure checks occur rarely and dietary compliance is fairly good usually adhering to recommendations. The patient states that there is no recent angina or dyspnea, there are no vision changes or weakness (Last eye exam 07/2019.), weight has increased (up 3 pounds) and headaches are rarely noted. Note for Multiple chronic conditions follow-up: reviewed by [facility] 09-30-2019 Unclassified (20 sources) Follow Up for Multiple Chronic Conditions - The patient is here for follow-up of diabetes and hypertension. The patient always takes the prescribed medications. No side effects noted (does not need refills). The patient has an active lifestyle but no regular exercise program. The patient's glucose levels are monitored several time(s) a month (checks once a week) and out of office blood pressure checks occur occasionally. The patient states that there is no recent angina or dyspnea, there are no vision changes or weakness (up to date with eye exam), weight has decreased (down 3 pounds) and headaches are rarely noted. Note for Multiple chronic conditions follow-up: reviewed by [facility] 04-08-2019 Unclassified (20 sources) Follow Up for Multiple Chronic Conditions - The patient is here for follow-up of diabetes and hypertension. The patient usually takes the prescribed medications. No side effects noted (needs refills). The patient engages in regular exercise program 1-3 times per week (eliptical). The patient's glucose levels are monitored several time(s) per week, out of office blood pressure checks occur rarely and dietary compliance is fairly good usually adhering to recommendations. The patient states that there is no recent angina or dyspnea, there are no vision changes or weakness (Last eye exam 05/2018.), weight has decreased (down 9 pounds) and headaches are rarely noted. 12-10-2018 Unclassified (20 sources) Follow Up for Multiple Chronic Conditions - The patient is here for follow-up of diabetes, hypertension and other condition(s). The patient usually takes the prescribed medications. No side effects noted (does not need refills). The patient engages in regular exercise program 3-5 times per week (stationary bike). The patient's glucose levels are monitored on rare occasion, out of office blood pressure checks occur rarely and dietary compliance is fairly good usually adhering to recommendations. The patient states that there is no recent angina or dyspnea, there are no vision changes or weakness (last eye exam 05/2018.), weight has decreased (down 1 pound) and headaches are rarely noted. Note for Multiple chronic conditions follow-up: reviewed by [facility] 08-13-2018 Unclassified (20 sources) Follow Up for Multiple Chronic Conditions - The patient is here for follow-up of diabetes and hypertension. The patient often forgets doses of medications. No other problems have been observed (will forget a couple of times a week.). The patient engages in regular exercise program 3-5 times per week (stationary bike). The patient's glucose levels are monitored on rare occasion, out of office blood pressure checks occur rarely and dietary compliance is fairly good usually adhering to recommendations. The patient states that there is no recent angina or dyspnea, there are no vision changes or weakness (is up to date with eye exam.), weight has decreased (down 2 pounds) and headaches are rarely noted. 04-09-2018 Unclassified (20 sources) Follow up for multiple chronic conditions - The patient is here for follow-up of diabetes and hypertension. The patient always takes the prescribed medications. No side effects noted. The patient has an active lifestyle but no regular exercise program. The patient's glucose levels are monitored on rare occasion, out of office blood pressure checks occur rarely and dietary compliance is fairly good usually adhering to recommendations. The patient states that there is no recent angina or dyspnea, there are no vision changes or weakness and they do not have headaches. Note for Multiple chronic conditions follow-up: has been to eye dr in past year. He had not been exercising due to a knee injury. 12-05-2017 Unclassified (20 sources) Follow Up for Multiple Chronic Conditions - The patient is here for follow-up of hypertension and diabetes. The patient always takes the prescribed medications. No side effects noted (needs refills.). The patient has an active lifestyle but no regular exercise program. The patient's glucose levels are monitored several time(s) a month (4 times per month. FBS 146 this morning.), out of office blood pressure checks occur rarely and dietary compliance is fairly good usually adhering to recommendations. The patient states that there is no recent angina or dyspnea, there are no vision changes or weakness (Last eye exam April 30 2017.), weight has decreased (down 12 pounds) and headaches are rarely noted. Note for Multiple chronic conditions follow-up: Is fasting today. 05-15-2017 Unclassified (20 sources) Follow Up for Multiple Chronic Conditions - The patient is here for follow-up of hypertension and diabetes. The patient often forgets doses of medications. No other problems have been observed (needs refill). The patient has an active lifestyle but no regular exercise program. The patient's glucose levels are monitored on rare occasion and out of office blood pressure checks occur occasionally. The patient states that there is no recent angina or dyspnea, there are no vision changes or weakness (Has early eye exam. Will be due this spring.), weight has increased (up 4 pounds) and headaches are rarely noted. Note for Multiple chronic conditions follow-up: reviewed by [facility] 01-16-2017 Unclassified (20 sources) Follow Up for Multiple Chronic Conditions - The patient is here for follow-up of hypertension and diabetes. The patient engages in regular exercise program 3-5 times per week. The patient's dietary compliance is fair often eating foods not normally recommended. The patient states that there is no recent angina or dyspnea, there are no vision changes or weakness (Was at eye doctor 2 months ago. No changes at that time.) and weight has increased (up 4# from last visit.). The patient states that the disease has no overall impact. Note for Multiple chronic conditions follow-up: UTD with Pneumovax and TDAP. Pt is not currently on any medication. Diet and exercise controlled for DM and HTN. Does not take out of office BP's or Blood Sugars. reviewed by [facility] 07-17-2016 Unclassified (20 sources) Follow Up for Multiple Chronic Conditions - The patient is here for follow-up of hypertension and diabetes. The patient engages in regular exercise program 3-5 times per week (exercise bike ). The patient's glucose levels are monitored on rare occasion, out of office blood pressure checks occur occasionally and dietary compliance is fairly good usually adhering to recommendations. The patient states that there is no recent angina or dyspnea, there are no vision changes or weakness (Is up to date with eye exam), weight has decreased (down 7 pounds) and headaches are rarely noted. Note for Multiple chronic conditions follow-up: reviewed by [facility] 11-16-2015 Unclassified (20 sources) Follow Up for Multiple Chronic Conditions - The patient is here for follow-up of hypertension and diabetes. The patient engages in regular exercise program 3-5 times per week (stationary bike). The patient's glucose levels are monitored on rare occasion, out of office blood pressure checks occur rarely and dietary compliance is fairly good usually adhering to recommendations. The patient states that there is no recent angina or dyspnea, there are no vision changes or weakness (Last eye exam was in the end of February.), weight has decreased (down 5 pounds.) and headaches are rarely noted. Note for Multiple chronic conditions follow-up: reviewed by [facility] 04-21-2015 Unclassified (20 sources) Follow Up for Multiple Chronic Conditions - The patient is here for follow-up of hypertension and diabetes. The patient engages in regular exercise program 3-5 times per week (stationary bike 5 to 6 mornings a week.). The patient's out of office blood pressure checks occur rarely and dietary compliance is fairly good usually adhering to recommendations. The patient states that there is no recent angina or dyspnea, there are no vision changes or weakness, weight has increased (Up 8 pounds) and they do not have headaches. Note for Multiple chronic conditions follow-up: Is fasting today. 12-11-2014 Unclassified (20 sources) Follow Up for Multiple Chronic Conditions - The patient is here for follow-up of hypertension and diabetes (Type II.). The patient engages in regular exercise program 3-5 times per week (Pt ties to exercise 4-5 times a week however past couple months he has not been exercising as he should.). The patient's dietary compliance is fairly good usually adhering to recommendations. The patient states that there is no recent angina or dyspnea, there are no vision changes or weakness, weight has decreased (Down 5# from last visit.) and they do not have headaches. The patient states that the disease has no overall impact (Pt states is doing well. Pt built a new house so he has just been very busy.). Note for Multiple chronic conditions follow-up: Pt is not on any medication. He has been watching diet and exercising. Does not check out office BP's or Blood sugars. FBS today is 188 and HGB A1C is 7.8. Pt up once a night to urinate. No excessive thirst. Declines flu vaccine. UTD with Tdap and Pneumovax. reviewed by [facility] 08-14-2014 Unclassified (20 sources) Follow Up for Multiple Chronic Conditions - The patient is here for follow-up of hypertension and diabetes. The patient engages in regular exercise program 3-5 times per week. The patient's glucose levels are monitored on rare occasion and out of office blood pressure checks occur rarely. The patient states that there is no recent angina or dyspnea, there are no vision changes or weakness (LAst eye exam was last Fall. No changes made at that time. Is due for 6 month f/u.), weight has increased (Weight up 3# from last visit.) and they do not have headaches. Note for Multiple chronic conditions follow-up: Pt is diet and exercise controlled for both HTN abd DM. UTD on Tdap and Pneumovax. Has no concerns for today- feels is doing well. 04-10-2014 Unclassified (20 sources) Follow Up for Multiple Chronic Conditions - The patient is here for follow-up of hypertension and depression. The patient engages in regular exercise program 3-5 times per week (stationary bike). The patient's glucose levels are monitored on rare occasion, out of office blood pressure checks occur rarely and dietary compliance is fairly good usually adhering to recommendations. The patient states that there are no vision changes or weakness (Is due for eye exam in Nov.), weight has increased (Up 3 pounds.) and they do not have headaches. Note for Multiple chronic conditions follow-up: Is fasting today. reviewed by [facility] 10-03-2013 Unclassified (20 sources) Follow Up for Multiple Chronic Conditions - The patient is here for follow-up of hypertension and diabetes. The patient engages in regular exercise program 3-5 times per week (DOes exercise bike at home). The patient's dietary compliance is fairly good usually adhering to recommendations. The patient states that there is no recent angina or dyspnea, there are no vision changes or weakness (Last visit to eye doctor was about 6-8 weeks ago. No changes in eyes.), weight is unchanged and they do not have headaches. Note for Multiple chronic conditions follow-up: DOes not Pt is diet controlled for DM and HTN. Does not check Home Blood sugars or Blood pressures. Todays FBS was 158. Pt feels he is doing well. No concerns today. reviewed by [facility] 03-28-2013 Unclassified (20 sources) Follow Up for Multiple Chronic Conditions - The patient is here for follow-up of hypertension and diabetes. The patient engages in regular exercise program 3-5 times per week. The patient's glucose levels are monitored on rare occasion (Average at home 150's.) and dietary compliance is good with close adherance to recommendations. The patient states that there is no recent angina or dyspnea, there are no vision changes or weakness (Pt goes yearly and will be due in 2012. Pt does not see a technical proposal writer.), weight has decreased (Pt is down 13# from last visit.) and they do not have headaches. Note for Multiple chronic conditions follow-up: Diet and exercise control for both HTN and DM. Pt doing well.Declines flu shot.Pt has been having right knee pain. He took a fall about 2 months ago and landed right on a stone. Says he can feel something moving around. DOes not notice much of anything until he knees on that knee. Swollen at initial fall but no swelling since then. reviewed by [facility] 09-27-2012 Unclassified (20 sources) Follow Up for Multiple Chronic Conditions - The patient is here for follow-up of hypertension and diabetes. The patient engages in regular exercise program 3-5 times per week. The patient's glucose levels are monitored on rare occasion (and average is about 140-150's. Todays fasting was 151.), out of office blood pressure checks occur rarely and dietary compliance is fair often eating foods not normally recommended. The patient states that there is no recent angina or dyspnea, there are no vision changes or weakness (was just at eye doctor couple months ago and no changes. Has never been to technical proposal writer.), weight has increased (Up about 4#.) and they are still having trouble sleeping. Note for Follow Up for Multiple Chronic Conditions: Pt is diet and exercised controlled at this point. Pt has no concerns. States is doing fairly well. Has been fasting today. reviewed by [facility] 03-22-2012 Unclassified (20 sources) Follow Up for Multiple Chronic Conditions - The patient is here for follow-up of hypertension and diabetes. The patient engages in regular exercise program 3-5 times per week. The patient's glucose levels are monitored on rare occasion (Average fasting at home is about 122-150. Today was 177.) and out of office blood pressure checks occur rarely (Average BP's been running high 130's/80's. Today was 142/85.). The patient states that there is no recent angina or dyspnea, there are no vision changes or weakness, weight is unchanged and they do not have headaches. Note for Follow Up for Multiple Chronic Conditions: Pt is not on medication. Trying to control by diet and exercise. Pt has no concerns today. Declines flu shot. 09-29-2011 Unclassified (20 sources) Follow up for multiple chronic conditions - The patient is here for follow-up of hypertension (Pt on no medications at this time.) and other condition(s) (Diabestes and proteinuria.). The patient engages in regular exercise program 3-5 times per week (Averages 5-6 mornings a week on exercise bike- goes 10 miles per day.). The patient's glucose levels are monitored daily (Pt states that it was 153 at home today but has not checked it much since last visit. Does not have any list with him.) and out of office blood pressure checks occur rarely (Checks BP very seldom. Was 130 /80 couple weeks ago before giving blood.). The patient states that they do not have headaches (Also denies chest pain or sob. States is doing well. Will obtain urine today for proteinuria. HGB A1c is 6.5.). Note for Follow up for multiple chronic conditions: Pt gets yearly eye exams and has been normal. 03-31-2011 Unclassified (20 sources) Follow up for multiple chronic conditions - The patient is here for follow-up of diabetes, hypertension and other condition(s) (ED). The patient always takes the prescribed medications. No side effects noted. The patient has an active lifestyle but no regular exercise program. The patient states that the disease has no overall impact. Note for Multiple chronic conditions follow-up: Pt has area on left upper arm he wants looked at, present fro several years 05-14-2024 Unclassified (20 sources) Well adult male - The patient feels well with no complaints. The patient has a balanced diet. The patient exercises none (Active). The patient sleeps 7 hours per night. 11-05-2024 Unclassified (4 sources) Follow up for multiple chronic conditions - The patient is here for follow-up of diabetes and hypertension. The patient always takes the prescribed medications. No side effects noted. The patient has a sedentary lifestyle. The patient's glucose levels are monitored daily, out of office blood pressure checks occur rarely and dietary compliance is fairly good usually adhering to recommendations. 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 05-05-2025 Viral infection (20 sources) Herpes zoster; Translations: [Zoster without complications] 01-05-2022 Episodic Past or Other Problems Problem Classification Problem Date Documented Da te Episodic/Chronic Unclassified (20 sources) Rash - The onset of the rash has been sudden and has been occurring in a persistent pattern for 2 weeks. The course has been increasing. The rash is characterized as red. There has been associated itching and pain, while there has been no associated drainage, erythema or edema. Note for Rash: He was in the office on 11/03/2021 and diagnosed with shingles he was started on acyclovir and he has completed the course of that antiviral. Reports that it greatly helped his symptoms for the week that he was taking it.He now reports that the rash on the back of his neck never fully resolved and has started to become painful and itchy again through this week. He denies any swelling, discharge, fever, or chills. 11-18-2021 Unclassified (20 sources) Rash - The onset of the rash has been gradual and has been occurring in a persistent pattern for 1 week. The course has been increasing. The rash is characterized as red, pustular, raised above the skin and grouped in crops. The rash was first seen on the scalp (left back side of head). It spread to the scalp, the neck, the trunk (upper left chest) and the upper extremity (left shoulder). There has been associated itching, pain, drainage (Little damp) and erythema, while there has been no associated edema. There has been associated itching and pain, while there has been no alopecia, anorexia, chills, fatigue, fever, kidney disease, liver disease, loss of sensation, lymphadenopathy, malaise, mucous membrane lesions, nail changes or weight loss. 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 Went to [facility] and got stitches. Was not prescribed an antibiotic. Started with left hand pain and swelling yesterday.). Note for Hand pain: reviewed by [facility] 03-29-2021 Unclassified (20 sources) Follow Up for Multiple Chronic Conditions - The patient is here for follow-up of diabetes and hypertension. The patient always takes the prescribed medications. No side effects noted (stopped Metformin in June and is taking something natural instead. Has also been out of Losartan for several months.). The patient has an active lifestyle but no regular exercise program. The patient's glucose levels are monitored several time(s) per week, out of office blood pressure checks occur occasionally and dietary compliance is fairly good usually adhering to recommendations. The patient states that weight has increased (Up 6 pounds). 12-21-2020 Unclassified (20 sources) [ADDITIONAL REASON] Transition into care - The patient is transitioning into care from another physician (Urology) and a summary of care was reviewed. 12-21-2020 Unclassified (20 sources) Foot pain - The pain is in the right foot. The onset of the foot pain was sudden following no specific incident and has been occurring in a persistent pattern for 4 days. The course has been increasing. The pain is moderate. The pain is characterized as a dull aching. The symptoms have been associated with muscle swelling. Note for Foot pain: reviewed by [facility] 07-01-2019 Unclassified (20 sources) Insect Bite/Sting - This occurred 5 day(s) ago while hiking. The patient sustained the insect bite/sting to the abdomen (belly button). The insect causing the bite/sting is thought to be a tick. Presenting symptoms included insect bite/sting. Current symptoms include pain at the site of the bite or sting and redness at the site of the bite or sting. Onset was sudden. Associated symptoms do not include fever. Note for Insect bite/sting: patient has tick with him. pull out this am reviewed by B 09-12-2017 Unclassified (20 sources) Follow up diagnostic procedure results - Diagnostic tests performed on : (07/05/2017.) include ultrasound (Scrotal). Note for Diagnostic procedure results follow-up: Pain has improved but still of left testivcle. Currently on Bactrim for UTI symptoms. Only for UTI is some frequency which has improved as well. reviewed by B 07-06-2017 Unclassified (20 sources) Testicular symptoms - Symptoms include testicular pain. Symptoms are located in the left testicle. Onset was sudden 2 week(s) ago (bladder symptoms 2 weeks, testicularl pain days). There is no known event that preceded symptom onset. The symptoms occur frequently. The episodes occur daily. The patient describes this as moderate in severity and worsening. Symptoms are not exacerbated by prolonged sitting or urination. Symptoms are relieved by rest. Associated symptoms include fever and chills. Note for Testicular symptoms: has not taken lisinopril in 1 week, also having urinary frequency . Chilling at night as well. 06-22-2017 Unclassified (20 sources) Routine for NIDDM and HTN - Pt here for routine visit for NIDDM and HTN. FAstings blood sugars at home average about 125-130. Fasting today was 158. Does not moitor home BP very often so does not have an average for those. Denies chest pain or SOB. Denies vision changes or dizziness. Is due for annual eye axam. Does not see a technical proposal writer at all. Diet and exericse controlled for DM and HTN and is doing ok with that although not as well as he should. No major problems or concerns today. 12-02-2010 Unclassified (17 sources) Transition into care - The patient is transitioning into care from another physician (Urology) and a summary of care was reviewed. 12-21-2020 Unclassified (17 sources) [ADDITIONAL REASON] Follow Up for Multiple Chronic Conditions - The patient is here for follow-up of diabetes and hypertension. The patient always takes the prescribed medications. No side effects noted (stopped Metformin in June and is taking something natural instead. Has also been out of Losartan for several months.). The patient has an active lifestyle but no regular exercise program. The patient's glucose levels are monitored several time(s) per week, out of office blood pressure checks occur occasionally and dietary compliance is fairly good usually adhering to recommendations. The patient states that weight has increased (Up 6 pounds). 12-21-2020 Unclassified (1 source) Well adult male 11-07-2023 Unclassified (1 source) [ADDITIONAL REASON] MCR Well Adult 11-07-2023 Unclassified (20 sources) Well adult male - The patient feels well with minor complaints (has a cold for the last 3 weeks), has good energy level and is sleeping well. The patient has a balanced diet. The patient exercises 3 - 4 times per week. The patient sleeps 7 (7.5) hours per night. 11-07-2023 Unclassified (20 sources) Skin ulcer/open sore - Symptoms include drainage, erythema, an open sore, pain, skin ulceration, swelling and tenderness. Onset was 2 week(s) ago. Onset followed a blister. The patient describes this as worsening. Note for Skin ulceration: Left great toe. Pt denies pain. Pt Diabetic. reviewed by [facility] 12-08-2024 Unclassified (18 sources) Toe infection - Pt seen for left great toe infection 12/08/24 given amoxicillin. Pt completed ATX, wants rechecked. It has been about 1 month, has been on Augmentin, overall he feels it is improved 01-05-2025 Results Test Name Value Interpretation Reference Range Facility Wound Cultureon 05-16-2025 WC RIGHT FOOT ULCER Wound Culture Pseudomonas aeruginosa Amount Growth Rare Pseudomonas aeruginosa: REACTION Cefepime Islt LUIS CARLOS 0.5 Ciprofloxacin Islt LUIS CARLOS 2 R levoFLOXacin Islt LUIS CARLOS 4 I Meropenem Islt LUIS CARLOS 1 S Pip+Tazo Islt LUIS CARLOS <=4 S Pseudomonas aeruginosa: REACTION Amikacin Islt LUIS CARLOS <=1 Imipenem Islt LUIS CARLOS 1 S Tobramycin Islt LUIS CARLOS <=1 S Normal [facility] Comment on above: Performed By: #### M 100.2000, M100.3000 #### [facility] [address] [place], [address] Gram Stainon 05-13-2025 GS RIGHT FOOT ULCER Gram Stain No organisms seen 1+ White Blood Cells 3+ Red Blood Cells Normal [facility] Comment on above: Performed By: #### M 100.2000, M100.3000 #### [facility] [address] [place], [address] Gram stainOrdered By: Marry Mcgregor on 05-12-2025 Microscopic observation Gram stain Nom (Unsp spec) [facility] - Hematology and Cell countson 05-05-2025 HbA1c (Bld) [Mass fraction] 7.5 % Abnormal 4.6 - 7.1 % [facility], [facility], [facility]. Culture, Anaerobic Any Sourc reina 04-06-2025 CUAN RIGHT FOOT ULCER Prevotella species are generally SUSCEPTIBLE to Cefoxitin, Chloramphenicol, and Metronidazole and are usually RESISTANT to Penicillin. Prevotella bivia Beta Lactamase-Reportable Positive Normal [facility] Comment on above: Performed By: #### M 100.3000, M100.2000, M100.4001 #### [facility] [address] [place], [place], [address] Wound Cultureon 04-05-2025 WC RIGHT FOOT ULCER Escherichia coli Amount Growth 1+ Staphylococcus epidermidis Staphylococcus epidermidis GAURANG Amount Growth 1+ Staphylococcus haemolyticus Amount Growth 1+ Escherichia coli: REACTION Strep anginosus Ampicillin+Sulbac Islt LUIS CARLOS 8 Cefepime Islt LUIS CARLOS <=0.12 S cefTRIAXone Islt LUIS CARLOS <=0.25 Ciprofloxacin Islt LUIS CARLOS <=0.06 S B-Lactamase Extended Susc Islt NEG Gentamicin Islt LUIS CARLOS <=1 S levoFLOXacin Islt LUIS CARLOS <=0.12 S Meropenem Islt LUIS CARLOS <=0.25 S Pip+Tazo Islt LUIS CARLOS <=4 S TMP SMX Islt LUIS CAROLS >=320 R Staphylococcus epidermidis: REACTION cefOXitin Susc Islt POS Doxycycline Islt LUIS CARLOS 8 I Clindamycin Islt LUIS CARLOS <=0.12 S Clindamycin.induced Susc Islt Erythromycin Islt LUIS CARLOS >=8 R Gentamicin Islt LUIS CARLOS <=0.5 S Linezolid Islt LUIS CARLOS 1 S Oxacillin Susc Islt >=4 R Tetracycline Islt LUIS CARLOS >=16 R TMP SMX Islt LUIS CARLOS <=10 S Vancomycin Islt LUIS CARLOS 1 S Staphylococcus haemolyticus: REACTION cefOXitin Susc Islt POS Doxycycline Islt LUIS CARLOS >=16 R Clindamycin Islt LUIS CARLOS 0.25 S Clindamycin.induced Susc Islt Erythromycin Islt LUIS CARLOS <=0.25 S Gentamicin Islt LUIS CARLOS 1 S Linezolid Islt LUIS CARLOS 2 S Oxacillin Susc Islt >=4 R Tetracycline Islt LUIS CARLOS >=16 R TMP SMX Islt LUIS CARLOS >=320 R Vancomycin Islt LUIS CARLOS <=0.5 S Strep anginosus: REACTION Ampicillin Islt LUIS CARLOS <=0.25 S Penicillin G Islt LUIS CARLOS <=0.06 S Cefotaxime Islt LUIS CARLOS <=0.12 S cefTRIAXone Islt LUIS CARLOS <=0.12 Clindamycin Islt LUIS CARLOS <=0.25 S Erythromycin Islt LUIS CARLOS 0.5 I Vancomycin Islt LUIS CARLOS 0.5 S Normal [facility] Comment on above: Performed By: #### M 100.3000, M100.2000, M100.4001 #### [facility] [address] [place], [place], [id number] Gram Stainon 04-02-2025 GS RIGHT FOOT ULCER Gram Stain No organisms seen No White Blood Cells No Epithelial cells Normal [facility] Comment on above: Performed By: #### M 100.3000, M100.2000, M100.4001 #### [facility] [address] [place], [address] Anaerobic cultureOrdered By: Colin Mcgregor on 04-01-2025 Bacteria identified Anaer cx Nom (Unsp spec) Prevotella bivia Abnormal [facility] Gram stainOrdered By: Marry Mcgregor on 04-01-2025 Microscopic observation Gram stain Nom (Unsp spec) [facility] Routine wound cultureOrdered By: Colin Mcgregor on 04-01-2025 Microbial culture, routine Staphylococcus epidermidis Abnormal [facility] Microbial culture, routine Staphylococcus haemolyticus Abnormal [facility] History AND Physic vianey 04-01-2025 Wound Ctr History & Physical [facility] [address] [place] [address] H P Exam - Wound Care 04/01/25 1228 MR#: [id number] Acct: [id number] Name: JORY PRITCHARD Rep #: [id number] : 1955 69 From: Colin Mcgregor DPM PCP: Dr. Hesham Alvarez MD Status:REG RCR Location: History of Present Illness Date of Service: 04/01/25 Chief Complaint: Right great toe ulceration, left great toe ulceration status post amputation with surgical wound dehiscence History of Wound: Chronic wound to the bilateral lower extremity Progress of Wound: Mr. Pritchard is a 69-year-old diabetic male presenting to wound care center today after being referred by Dr. Pérez after he exhausted all surgical and conservative treatment. Per the patient he admits that the initial surgeon was doing wound care in his office and referred the patient to the wound care center [facility] for continued care as well as for expert treatment. The patient was recently hospitalized due to the infection to the bilateral lower extremity. He has a full- thickness wound to the right great toe, with evidence of status post hallux amputation with delayed primary closure with sutures intact to left lower extremity. There is evidence of a mild to moderate surgical wound dehiscence to the left foot. There is mild concern for infection to the left lower extremity when compared to the right. The patient's most recent A1c approximately 1 week ago was greater than 11%. He admits that his blood sugar has been well-controlled between 101 75 mg/dL at home. He denies any trauma. Denies constitutional symptoms. No other pedal complaints at this time. PFSH Home Medications ???Medication ???Instructions ???Recorded ???Last Taken ???Type doxycycline hyclate 100 mg tablet 100 mg PO BID 2 weeks #28 tabs Unknown Rx Social History Smoking Status: Never smoker Vital Signs Vital Signs Vital Signs: 04/01/25 09:08 Temperature 96.7 F L Temperature Source Temporal Pulse Rate 68 Respiratory Rate 16 Blood Pressure 176/82 H Blood Pressure Mean 113 Blood Pressure Source Monitor Blood Pressure Position Sitting Blood Pressure Location Left Arm Oxygen Delivery Method Room Air Weight Weight: 85.275 kg Body Mass Index (BMI) 25.4 Physical Exam Narrative Vascular: DP and PT pulses are palpable to bilateral lower extremity. CFT is brisk. Skin temperature great is warm to warm from proximal ankles to distal digit bilateral. No focal increase in warmth is appreciated bilateral lower extremity. Neurological: Light touch intact. Patient does respond to painful stimuli. Dermatological: Full-thickness wound to the medial aspect of the right hallux measuring 2.5 x 1.3 x 0.2 cm. Wound base is fibrogranular nature. Negative probe to bone. No sign of infection. Full- thickness wound to the amputation site to the left foot at the level of the metatarsophalangeal joint of the first. Mild surgical wound dehiscence is noted. Wound measures on the left foot 0.4 x 3.5 x 0.7 cm. Positive probe to bone. No drainage. No malodor. Excisional debridement down to including subcutaneous tissue with a number 3 mm dermal curette to the right hallux and without incident. Predebridement measurement was 3.3 x 1.0 x 0.1 cm. Postdebridement measurement is 2.5 x 1.3 x 0.2 cm. Excisional debridement down to and including subcutaneous tissue, fascia muscle and bone to the left foot status post left hallux amputation site done with a number 3 mm dermal curette without incident. Predebridement measurement was 0.3 x 3.3 x 0.5 cm. Post right measurement 0.4 x 3.5 x 0.7 cm. Musculoskeletal: Mild pain to palpation to the bilateral full-thickness wounds. No pain with calf pressure. Debridement Note Debridement Note Debridement Free Text: Excisional debridement down to including subcutaneous tissue with a number 3 mm dermal curette to the right hallux and without incident. Predebridement measurement was 3.3 x 1.0 x 0.1 cm. Postdebridement measurement is 2.5 x 1.3 x 0.2 cm. Excisional debridement down to and including subcutaneous tissue, fascia muscle and bone to the left foot status post left hallux amputation site done with a number 3 mm dermal curette without incident. Predebridement measurement was 0.3 x 3.3 x 0.5 cm. Post right measurement 0.4 x 3.5 x 0.7 cm. Post-Debridement Measurements and Additional Note: Post-Debridement Measurements/Treatment WC - Nurse 1 - General Ulcer Assessment Start: 04/01/25 09:03 Freq: Status: Active Protocol: PETE Activity Type Activity Date Activity User E-sign Co-sign Detail Recorded Client Recorded Date Recorded By Document 04/01/25 09:08 [id number] 04/01/25 09:33 04/01/25 09:08 - Today's Visit I (more content not included)... Normal [facility] LABORATORYOrdered By: Alisha Meelndez on 03-24-2025 Blood Glucose Testing Reason Routine (03/24/25 7:43 AM) [facility] Glucose [Mass/Vol] 170 mg/dL High 82 - 115 mg/dL [facility] .GFRon 03-23-2025 Estimated Glomerular Filtration Rate 66 ml/min/1.73sqm Normal [facility] Comment on above: Result Comment: Stages of Chronic Kidney Disease (CKD) Stage Description eGFR(ml/min/1.73 sq.m.) CKD 1 Normal kidney function or >=90 normal kindney function with possible kidney damage (ex. Proteinuria) CKD 2 Kidney damage with mild loss 60-89 of kidney function CKD 3a Mild to moderate loss of kidney 45-59 function CKD 3b Moderate to severe loss of 30-44 of kindey function CKD 4 Severe loss of kidney function 15-29 CKD 5 Kidney failure <15 Note: (go live 2024) the eGFR calculation was updated to the 2020 CKD-EPI creatinine equation without a race factor to calculate the eGFR results. Performed By: #### A SMITH, CBC, ADIFF, BMP, MG, GFR #### [id number] [place], [place] [address] BMPon 03-23-2025 BUN/Creatinine Ratio 19 ratio Normal 7-27 [facility] Comment on above: Performed By: #### A SMITH, CBC, ADIFF, BMP, MG, GFR #### [facility] [address] [place], [place] [address] Calcium [Mass/Vol] 9.4 mg/dL Normal 8.4-10.2 [facility] Comment on above: Performed By: #### A SMITH, CBC, ADIFF, BMP, MG, GFR #### [address] [address] Chloride [Moles/Vol] 100 mmol/L Normal 98-107 [facility] Comment on above: Performed By: #### A SMITH, CBC, ADIFF, BMP, MG, GFR #### [address] [address] CO2 [Moles/Vol] 28 mmol/L Normal 23-31 [facility] Comment on above: Performed By: #### A SMITH, CBC, ADIFF, BMP, MG, GFR #### [address] [address] Creatinine [Mass/Vol] 1.18 mg/dL High 0.67-1.17 [facility] Comment on above: Performed By: #### A SMITH, CBC, ADIFF, BMP, MG, GFR #### [address] [address] Electrolyte Balance 5.0 mEq/L Normal 4.0-15.0 [facility] Comment on above: Performed By: #### A SMITH, CBC, ADIFF, BMP, MG, GFR #### [address] [address] Glucose [Mass/Vol] 193 mg/dL High 83-110 [facility] Comment on above: Performed By: #### A SMITH, CBC, ADIFF, BMP, MG, GFR #### [address] [address] Potassium [Moles/Vol] 4.2 mmol/L Normal 3.5-5.1 [facility] Comment on above: Performed By: #### A SMITH, CBC, ADIFF, BMP, MG, GFR #### [address] [address] Sodium [Moles/Vol] 133 mmol/L Low 136-145 [facility] Comment on above: Performed By: #### A SMITH, CBC, ADIFF, BMP, MG, GFR #### [address] [place], [place] [address] Urea nitrogen [Mass/Vol] 22 mg/dL High 7-18 [facility] Comment on above: Performed By: #### A SMITH, CBC, ADIFF, BMP, MG, GFR #### [address] [place], [place] [address] LABORATORYOrdered By: John Rivero on 03-23-2025 Blood Glucose Testing Reason Routine (03/23/25 9:10 PM) [facility] Glucose [Mass/Vol] 260 mg/dL High 82 - 115 mg/dL [facility] LABORATORYOrdered By: Pedro Palmer on 03-23-2025 Blood Glucose Testing Reason Routine (03/23/25 4:15 PM) [facility] Glucose [Mass/Vol] 186 mg/dL High 82 - 115 mg/dL [facility] LABORATORYOrdered By: SYSTEM SYSTEM on 03-23-2025 Calcium [Mass/Vol] 9.4 mg/dL Normal 8.4 - 10. 2 mg/dL AO ADM SS Chloride [Moles/Vol] 100 mmol/L Normal 98 - 10 7 mmol/L AO ADM SS CO2 [Moles/Vol] 28 mmol/L Normal 23 - 31 mmol/L AO ADM SS Creatinine [Mass/Vol] 1.18 mg/dL High 0.67 - 1.17 mg/dL AO ADM SS Electrolyte Balance 5.0 mEq/L Normal 4.0 - 15 .0 mEq/L AO ADM SS Estimated Glomerular Filtration Rate 66 ml/min/1.73sqm Invalid Interpretation Code AO Chemistry S Comment on above: Interpretive Data: Stages of Chronic Kidney Disease (CKD) Stage Description eGFR(ml/min/1.73 sq.m.) CKD 1 Normal kidney function or >=90 normal kindney function with possible kidney damage (ex. Proteinuria) CKD 2 Kidney damage with mild loss 60-89 of kidney function CKD 3a Mild to moderate loss of kidney 45-59 function CKD 3b Moderate to severe loss of 30-44 of kindey function CKD 4 Severe loss of kidney function 15-29 CKD 5 Kidney failure <15 Note: (go live 2024) the eGFR calculation was updated to the 2020 CKD-EPI creatinine equation without a race factor to calculate the eGFR results. Glucose [Mass/Vol] 193 mg/dL High 83 - 110 mg/dL AO ADM SS Magnesium [Mass/Vol] 1.5 mg/dL Low 1.8 - 2 .4 mg/dL AO ADM SS Potassium [Moles/Vol] 4.2 mmol/L Normal 3.5 - 5.1 mmol/L AO ADM SS Sodium [Moles/Vol] 133 mmol/L Low 136 - 145 mmol/L AO ADM SS Urea nitrogen [Mass/Vol] 22 mg/dL High 7 - 18 mg/dL AO ADM SS Urea nitrogen/Creatinine [Mass ratio] 19 ratio Normal 7 - 27 ratio AO ADM SS Vancomycin trough [Mass/Vol] 12.9 ug/mL Normal 10.0 - 20.0 mcg/mL AO ADM SS LABORATORYOrdered By: Colleen Winters on 03-23-2025 LDose Vancomycin:(trough) See eMAR (03/23/25 5:24 AM) Normal AO Chemistry S MGon 03-23-2025 Magnesium [Mass/Vol] 1.5 mg/dL Low 1.8-2.4 [facility] Comment on above: Performed By: #### A SMITH, CBC, ADIFF, BMP, MG, GFR #### [address] [address] [facility] 03-23-2025 LDose Vancomycin:(trough) See eMAR Normal [facility] Comment on above: Performed By: #### A SMITH, CBC, ADIFF, BMP, MG, GFR #### [address] [address] Vancomycin Tr 12.9 mcg/mL Normal 10.0-20.0 [facility] Comment on above: Performed By: #### A SMITH, CBC, ADIFF, BMP, MG, GFR #### Lauren [address] [address] .GFRon 03-22-2025 Estimated Glomerular Filtration Rate 61 ml/min/1.73sqm Normal [facility] Comment on above: Result Comment: Stages of Chronic Kidney Disease (CKD) Stage Description eGFR(ml/min/1.73 sq.m.) CKD 1 Normal kidney function or >=90 normal kindney function with possible kidney damage (ex. Proteinuria) CKD 2 Kidney damage with mild loss 60-89 of kidney function CKD 3a Mild to moderate loss of kidney 45-59 function CKD 3b Moderate to severe loss of 30-44 of kindey function CKD 4 Severe loss of kidney function 15-29 CKD 5 Kidney failure <15 Note: (go live 2024) the eGFR calculation was updated to the 2020 CKD-EPI creatinine equation without a race factor to calculate the eGFR results. Performed By: #### H H, BMP, GFR #### [address] [address] BMPon 03-22-2025 BUN/Creatinine Ratio 17 ratio Normal 7-27 [facility] Comment on above: Performed By: #### H H, BMP, GFR #### [address] [address] Calcium [Mass/Vol] 9.2 mg/dL Normal 8.4-10.2 [facility] Comment on above: Performed By: #### H H, BMP, GFR #### [address] [address] Chloride [Moles/Vol] 101 mmol/L Normal 98-107 [facility] Comment on above: Performed By: #### H H, BMP, GFR #### [address] [address] CO2 [Moles/Vol] 26 mmol/L Normal 23-31 [facility] Comment on above: Performed By: #### H H, BMP, GFR #### [address] [address] Creatinine [Mass/Vol] 1.26 mg/dL High 0.67-1.17 [facility] Comment on above: Performed By: #### H H, BMP, GFR #### [address] [address] Electrolyte Balance 6.0 mEq/L Normal 4.0-15.0 [facility] Comment on above: Performed By: #### H H, BMP, GFR #### [address] [address] Glucose [Mass/Vol] 167 mg/dL High 83-110 [facility] Comment on above: Performed By: #### H H, BMP, GFR #### [address] [address] Potassium [Moles/Vol] 4.1 mmol/L Normal 3.5-5.1 [facility] Comment on above: Performed By: #### H H, BMP, GFR #### [address] [address] Sodium [Moles/Vol] 133 mmol/L Low 136-145 [facility] Comment on above: Performed By: #### H H, BMP, GFR #### [address] [address] Urea nitrogen [Mass/Vol] 21 mg/dL High 7-18 [facility] Comment on above: Performed By: #### H H, BMP, GFR #### [address] [address] [facility] 03-22-2025 Hematocrit (Bld) [Volume fraction] 35.6 % Low 40.0-52.0 [facility] Comment on above: Performed By: #### H H, BMP, GFR #### [address] [address] Hgb 12.3 G/dL Low 13.0-17.5 [facility] Comment on above: Performed By: #### H H, BMP, GFR #### [address] [address] LABORATORYOrdered By: SYSTEM SYSTEM on 03-22-2025 Calcium [Mass/Vol] 9.2 mg/dL Normal 8.4 - 10. 2 mg/dL AO ADM SS Chloride [Moles/Vol] 101 mmol/L Normal 98 - 10 7 mmol/L AO ADM SS CO2 [Moles/Vol] 26 mmol/L Normal 23 - 31 mmol/L AO ADM SS Creatinine [Mass/Vol] 1.26 mg/dL High 0.67 - 1.17 mg/dL AO ADM SS Electrolyte Balance 6.0 mEq/L Normal 4.0 - 15 .0 mEq/L AO ADM SS Estimated Glomerular Filtration Rate 61 ml/min/1.73sqm Invalid Interpretation Code AO Chemistry S Comment on above: Interpretive Data: Stages of Chronic Kidney Disease (CKD) Stage Description eGFR(ml/min/1.73 sq.m.) CKD 1 Normal kidney function or >=90 normal kindney function with possible kidney damage (ex. Proteinuria) CKD 2 Kidney damage with mild loss 60-89 of kidney function CKD 3a Mild to moderate loss of kidney 45-59 function CKD 3b Moderate to severe loss of 30-44 of kindey function CKD 4 Severe loss of kidney function 15-29 CKD 5 Kidney failure <15 Note: (go live 2024) the eGFR calculation was updated to the 2020 CKD-EPI creatinine equation without a race factor to calculate the eGFR results. Glucose [Mass/Vol] 167 mg/dL High 83 - 110 mg/dL AO ADM SS Hematocrit (Bld) [Volume fraction] 35.6 % Low 40.0 - 52.0 % AO Workflow SS Hemoglobin (Bld) [Mass/Vol] 12.3 G/dL Low 13.0 - 17.5 G/dL AO Workflow SS Potassium [Moles/Vol] 4.1 mmol/L Normal 3.5 - 5.1 mmol/L AO ADM SS Sodium [Moles/Vol] 133 mmol/L Low 136 - 145 mmol/L AO ADM SS Urea nitrogen [Mass/Vol] 21 mg/dL High 7 - 18 mg/dL AO ADM SS Urea nitrogen/Creatinine [Mass ratio] 17 ratio Normal 7 - 27 ratio AO ADM SS No Panel Informationon 03-22 Culture Wound Deep Panel No growth to date [facility] GS 2+ Polymorphonuclear cells 2+ Mononuclear cells No organisms seen. [facility] LABORATORYOrdered By: Mar Wilcox on 03-21-2025 LDose Vancomycin:(trough) See eMAR (03/21/25 12:23 PM) Normal AO Chemistry S LABORATORYOrdered By: SYSTEM SYSTEM on 03-21-2025 Vancomycin trough [Mass/Vol] 6.5 ug/mL Low 10.0 - 20.0 mcg/mL AO ADM SS [facility] 03-21-2025 LDose Vancomycin:(trough) See eMAR Normal [facility] Comment on above: Order Comment: Pleas e draw trough prior to hanging dose. Performed By: #### A SMITH, CBC, ADIFF, BMP, MG, GFR #### [address] [address] Vancomycin Tr 6.5 mcg/mL Low 10.0-20.0 [facility] Comment on above: Order Comment: Pleas e draw trough prior to hanging dose. Performed By: #### A SMITH, CBC, ADIFF, BMP, MG, GFR #### [address] [address] .Auto Diffon 03-20-2025 Basophil, Absolute 0.0 10 3/mcL Normal 0.0-0.3 [facility] Comment on above: Performed By: #### A SMITH, CBC, ADIFF, BMP, MG, GFR #### [address] [address] Basophils/100 WBC (Bld) 0.6 % Normal 0.0-2.5 [facility] Comment on above: Performed By: #### A SMITH, CBC, ADIFF, BMP, MG, GFR #### [address] [address] Eosinophil, Absolute 0.1 10 3/mcL Normal 0.0-0.7 [facility] Comment on above: Performed By: #### A SMITH, CBC, ADIFF, BMP, MG, GFR #### [address] [address] Eosinophils/100 WBC (Bld) 1.9 % Normal 0.0-6.0 [facility] Comment on above: Performed By: #### A SMITH, CBC, ADIFF, BMP, MG, GFR #### [address] [address] Lymphocyte, Absolute 1.3 10 3/mcL Normal 0.9-4.3 [facility] Comment on above: Performed By: #### A SMITH, CBC, ADIFF, BMP, MG, GFR #### [address] [address] Lymphocytes/100 WBC (Bld) 17.2 % Low 20.0-40.0 [facility] Comment on above: Performed By: #### A SMITH, CBC, ADIFF, BMP, MG, GFR #### [address] [address] Monocyte, Absolute 0.5 10 3/mcL Normal 0.1-1.4 [facility] Comment on above: Performed By: #### A SMITH, CBC, ADIFF, BMP, MG, GFR #### [address] [address] Monocytes/100 WBC (Bld) 6.4 % Normal 2.0-13.0 [facility] Comment on above: Performed By: #### A SMITH, CBC, ADIFF, BMP, MG, GFR #### [address] [address] Neutrophils/100 WBC (Bld) 73.9 % Normal 50.0-75.0 [facility] Comment on above: Performed By: #### A SMITH, CBC, ADIFF, BMP, MG, GFR #### [address] [address] .GFRon 03-20-2025 Estimated Glomerular Filtration Rate 52 ml/min/1.73sqm Normal [facility] Comment on above: Result Comment: Stages of Chronic Kidney Disease (CKD) Stage Description eGFR(ml/min/1.73 sq.m.) CKD 1 Normal kidney function or >=90 normal kindney function with possible kidney damage (ex. Proteinuria) CKD 2 Kidney damage with mild loss 60-89 of kidney function CKD 3a Mild to moderate loss of kidney 45-59 function CKD 3b Moderate to severe loss of 30-44 of kindey function CKD 4 Severe loss of kidney function 15-29 CKD 5 Kidney failure <15 Note: (go live 2024) the eGFR calculation was updated to the 2020 CKD-EPI creatinine equation without a race factor to calculate the eGFR results. Performed By: #### A SMITH, CBC, ADIFF, BMP, MG, GFR #### [address] [address] .NEUABSon 03-20-2025 Neutrophil, Absolute 5.8 10 3/mcL Normal 2.3-8.1 [facility] Comment on above: Performed By: #### A SMITH, CBC, ADIFF, BMP, MG, GFR #### [place] [address] BMPon 03-20-2025 BUN/Creatinine Ratio 19 ratio Normal 7-27 [facility] Comment on above: Performed By: #### A SMITH, CBC, ADIFF, BMP, MG, GFR #### [address] [address] Calcium [Mass/Vol] 8.9 mg/dL Normal 8.4-10.2 [facility] Comment on above: Performed By: #### A SMITH, CBC, ADIFF, BMP, MG, GFR #### [address] [address] Chloride [Moles/Vol] 102 mmol/L Normal 98-107 [facility] Comment on above: Performed By: #### A SMITH, CBC, ADIFF, BMP, MG, GFR #### [address] [address] CO2 [Moles/Vol] 24 mmol/L Normal 23-31 [facility] Comment on above: Performed By: #### A SMITH, CBC, ADIFF, BMP, MG, GFR #### [address] [address] Creatinine [Mass/Vol] 1.45 mg/dL High 0.67-1.17 [facility] Comment on above: Performed By: #### A SMITH, CBC, ADIFF, BMP, MG, GFR #### [address] [address] Electrolyte Balance 11.0 mEq/L Normal 4.0-15.0 [facility] Comment on above: Performed By: #### A SMITH, CBC, ADIFF, BMP, MG, GFR #### [address] [address] Glucose [Mass/Vol] 196 mg/dL High 83-110 [facility] Comment on above: Performed By: #### A SMITH, CBC, ADIFF, BMP, MG, GFR #### [address] [address] Potassium [Moles/Vol] 4.3 mmol/L Normal 3.5-5.1 [facility] Comment on above: Performed By: #### A SMITH, CBC, ADIFF, BMP, MG, GFR #### [place] [address] Sodium [Moles/Vol] 137 mmol/L Normal 136-145 [facility] Comment on above: Performed By: #### A SMITH, CBC, ADIFF, BMP, MG, GFR #### [place] [address] Urea nitrogen [Mass/Vol] 28 mg/dL High 7-18 [facility] Comment on above: Performed By: #### A SMITH, CBC, ADIFF, BMP, MG, GFR #### [place] [id number] CBCon 03-20-2025 Erythrocyte distribution width (RBC) [Ratio] 12.7 % Normal 11.5-15.5 [facility] Comment on above: Performed By: #### A SMITH, CBC, ADIFF, BMP, MG, GFR #### [place] [address] Hematocrit (Bld) [Volume fraction] 36.8 % Low 40.0-52.0 [facility] Comment on above: Performed By: #### A SMITH, CBC, ADIFF, BMP, MG, GFR #### [address] [address] Hgb 12.8 G/dL Low 13.0-17.5 [facility] Comment on above: Performed By: #### A SMITH, CBC, ADIFF, BMP, MG, GFR #### [address] [address] MCH (RBC) [Entitic mass] 31.3 pg Normal 27.0-33.0 [facility] Comment on above: Performed By: #### A SMITH, CBC, ADIFF, BMP, MG, GFR #### [address] [address] MCHC 34.7 G/dL Normal 32.0-36.0 [facility] Comment on above: Performed By: #### A SMITH, CBC, ADIFF, BMP, MG, GFR #### [address] [address] MCV (RBC) [Entitic vol] 90.5 fL Normal 81.0-100.0 [facility] Comment on above: Performed By: #### A SMITH, CBC, ADIFF, BMP, MG, GFR #### [address] [address] Platelet 327 10 3/mcL Normal 150-450 [facility] Comment on above: Performed By: #### A SMITH, CBC, ADIFF, BMP, MG, GFR #### [address] [address] Platelet mean volume (Bld) [Entitic vol] 6.6 fL Normal 6.4-10.5 [facility] Comment on above: Performed By: #### A SMITH, CBC, ADIFF, BMP, MG, GFR #### [address] [address] RBC 4.07 10 6/mcL Low 4.50-6.00 [facility] Comment on above: Performed By: #### A SMITH, CBC, ADIFF, BMP, MG, GFR #### [place] [id number] WBC 7.8 10 3/mcL Normal 4.5-10.8 [facility] Comment on above: Performed By: #### A SMITH, CBC, ADIFF, BMP, MG, GFR #### [place] [id number] [place], [place] [address] LABORATORYOrdered By: SYSTEM SYSTEM on 03-20-2025 Basophils (Bld) [#/Vol] 0.0 103/mcL Normal 0.0 - 0.3 10^3/mcL AO Workflow SS Basophils/100 WBC (Bld) 0.6 % Normal 0.0 - 2.5 % AO Workflow SS Calcium [Mass/Vol] 8.9 mg/dL Normal 8.4 - 10. 2 mg/dL AO ADM SS Chloride [Moles/Vol] 102 mmol/L Normal 98 - 10 7 mmol/L AO ADM SS CO2 [Moles/Vol] 24 mmol/L Normal 23 - 31 mmol/L AO ADM SS Creatinine [Mass/Vol] 1.45 mg/dL High 0.67 - 1.17 mg/dL AO ADM SS Electrolyte Balance 11.0 mEq/L Normal 4.0 - 15 .0 mEq/L AO ADM SS Eosinophil, Absolute 0.1 103/mcL Normal 0.0 - 0 .7 10^3/mcL AO Workflow SS Eosinophils/100 WBC (Bld) 1.9 % Normal 0.0 - 6.0 % AO Workflow SS Erythrocyte distribution width (RBC) [Ratio] 12.7 % Normal 11.5 - 15.5 % AO Workflow SS Estimated Glomerular Filtration Rate 52 ml/min/1.73sqm Invalid Interpretation Code AO Chemistry S Comment on above: Interpretive Data: Stages of Chronic Kidney Disease (CKD) Stage Description eGFR(ml/min/1.73 sq.m.) CKD 1 Normal kidney function or >=90 normal kindney function with possible kidney damage (ex. Proteinuria) CKD 2 Kidney damage with mild loss 60-89 of kidney function CKD 3a Mild to moderate loss of kidney 45-59 function CKD 3b Moderate to severe loss of 30-44 of kindey function CKD 4 Severe loss of kidney function 15-29 CKD 5 Kidney failure <15 Note: (go live 2024) the eGFR calculation was updated to the 2020 CKD-EPI creatinine equation without a race factor to calculate the eGFR results. Glucose [Mass/Vol] 196 mg/dL High 83 - 110 mg/dL AO ADM SS Hematocrit (Bld) [Volume fraction] 36.8 % Low 40.0 - 52.0 % AO Workflow SS Hemoglobin (Bld) [Mass/Vol] 12.8 G/dL Low 13.0 - 17.5 G/dL AO Workflow SS Lymphocytes (Bld) [#/Vol] 1.3 103/mcL Normal 0.9 - 4.3 10^3/mcL AO Workflow SS Lymphocytes/100 WBC (Bld) 17.2 % Low 20.0 - 40.0 % AO Workflow SS Magnesium [Mass/Vol] 1.7 mg/dL Low 1.8 - 2 .4 mg/dL AO ADM SS MCH (RBC) [Entitic mass] 31.3 pg Normal 27.0 - 33.0 pg AO Workflow SS MCHC 34.7 G/dL Normal 32.0 - 36.0 G/dL AO Workflow SS MCV (RBC) [Entitic vol] 90.5 fL Normal 81.0 - 100.0 fL AO Workflow SS Monocytes (Bld) [#/Vol] 0.5 103/mcL Normal 0.1 - 1.4 10^3/mcL AO Workflow SS Monocytes/100 WBC (Bld) 6.4 % Normal 2.0 - 13.0 % AO Workflow SS Neutrophils (Bld) [#/Vol] 5.8 103/mcL Normal 2.3 - 8.1 10^3/mcL AO Workflow SS Neutrophils/100 WBC (Bld) 73.9 % Normal 50.0 - 75.0 % AO Workflow SS Platelet mean volume (Bld) [Entitic vol] 6.6 fL Normal 6.4 - 10.5 fL AO Workflow SS Platelets (Bld) [#/Vol] 327 103/mcL Normal 150 - 450 10^3/mcL AO Workflow SS Potassium [Moles/Vol] 4.3 mmol/L Normal 3.5 - 5.1 mmol/L AO ADM SS RBC (Bld) [#/Vol] 4.07 106/mcL Low 4.50 - 6.0 0 10^6/mcL AO Workflow SS Sodium [Moles/Vol] 137 mmol/L Normal 136 - 145 mmol/L AO ADM SS Urea nitrogen [Mass/Vol] 28 mg/dL High 7 - 18 mg/dL AO ADM SS Urea nitrogen/Creatinine [Mass ratio] 19 ratio Normal 7 - 27 ratio AO ADM SS WBC (Bld) [#/Vol] 7.8 103/mcL Normal 4.5 - 10.8 10^3/mcL AO Workflow SS MGon 03-20-2025 Magnesium [Mass/Vol] 1.7 mg/dL Low 1.8-2.4 [facility] Comment on above: Performed By: #### A SMITH, CBC, ADIFF, BMP, MG, GFR #### [facility] [address] [place], [place] [address] XR FOOT MINIMUM 3 VIEWS LEFT on 03-19-2025 XR FOOT MINIMUM 3 VIEWS LEFT ORIGINAL EXAMINATION: THREE XRAY VIEWS OF THE LEFT FOOT03/19/2025 12:21 pm COMPARISON: None HISTORY: ORDERING SYSTEM PROVIDED HISTORY: Reason for Exam: pain FINDINGS: Amputation changes of the 1st digit. No cortical lucencies or erosions at the head of the 1st metatarsal to suggest osteomyelitis. No fracture or dislocation is seen. Vascular calcifications. Soft tissue swelling about the amputation site. IMPRESSION: No radiographic evidence of osteomyelitis about the 1st digit amputation site. I have personally reviewed the images of this examination and agree with the resident's findings and interpretation. Interpreted by: Jose Dewitt Preliminary Report By: Norma Lang Electronically signed By Jose Dewitt Dictated Date: 03/19/2025 2:36:42 PM Prelim Date: 03/19/2025 2:51:03 PM Sign Date: 03/19/2025 2:51:03 PM Ordering Provider: NEO Bray [facility] XR FOOT MINIMUM 3 VIEWS RIGH Ton 03-19-2025 XR FOOT MINIMUM 3 VIEWS RIGHT ORIGINAL EXAMINATION: THREE XRAY VIEWS OF THE RIGHT FOOT03/19/2025 12:21 pm COMPARISON: None HISTORY: ORDERING SYSTEM PROVIDED HISTORY: Reason for Exam: pain FINDINGS: No fracture or dislocation is seen. Cortical haziness and erosive changes are noted at the medial base of the 1st distal phalanx. The joint spaces are preserved and normal alignment. Widespread atherosclerotic calcifications. No suspicious osseous lesions seen. Soft tissue swelling of the 1st distal phalanx.. IMPRESSION: No acute fracture or dislocation. Erosive changes at the base of the 1st distal phalanx concerning for osteomyelitis. I have personally reviewed the images of this examination and agree with the resident's findings and interpretation. Interpreted by: Jose Dewitt Preliminary Report By: Norma Lang Electronically signed By Jose Dewitt Dictated Date: 03/19/2025 1:13:34 PM Prelim Date: 03/19/2025 1:48:20 PM Sign Date: 03/19/2025 1:48:20 PM Ordering Provider: NEO Bray [facility] .Auto Diffon 03-18-2025 Basophil, Absolute 0.0 10 3/mcL Normal 0.0-0.3 [facility] Comment on above: Performed By: #### A SMITH, CBC, ADIFF, BMP, MG, GFR #### [address] [address] Basophils/100 WBC (Bld) 0.5 % Normal 0.0-2.5 [facility] Comment on above: Performed By: #### A SMITH, CBC, ADIFF, BMP, MG, GFR #### [address] [address] Eosinophil, Absolute 0.2 10 3/mcL Normal 0.0-0.7 [facility] Comment on above: Performed By: #### A SMITH, CBC, ADIFF, BMP, MG, GFR #### [address] [address] Eosinophils/100 WBC (Bld) 1.5 % Normal 0.0-6.0 [facility] Comment on above: Performed By: #### A SMITH, CBC, ADIFF, BMP, MG, GFR #### [address] [address] Lymphocyte, Absolute 1.3 10 3/mcL Normal 0.9-4.3 [facility] Comment on above: Performed By: #### A SMITH, CBC, ADIFF, BMP, MG, GFR #### [address] [address] Lymphocytes/100 WBC (Bld) 12.4 % Low 20.0-40.0 [facility] Comment on above: Performed By: #### A SMITH, CBC, ADIFF, BMP, MG, GFR #### [address] [address] Monocyte, Absolute 0.6 10 3/mcL Normal 0.1-1.4 [facility] Comment on above: Performed By: #### A SMITH, CBC, ADIFF, BMP, MG, GFR #### [address] [address] Monocytes/100 WBC (Bld) 5.9 % Normal 2.0-13.0 [facility] Comment on above: Performed By: #### A SMITH, CBC, ADIFF, BMP, MG, GFR #### [address] [address] Neutrophils/100 WBC (Bld) 79.7 % High 50.0-75.0 [facility] Comment on above: Performed By: #### A SMITH, CBC, ADIFF, BMP, MG, GFR #### [address] [address] .GFRon 03-18-2025 Estimated Glomerular Filtration Rate 54 ml/min/1.73sqm Normal [facility] Comment on above: Result Comment: Stages of Chronic Kidney Disease (CKD) Stage Description eGFR(ml/min/1.73 sq.m.) CKD 1 Normal kidney function or >=90 normal kindney function with possible kidney damage (ex. Proteinuria) CKD 2 Kidney damage with mild loss 60-89 of kidney function CKD 3a Mild to moderate loss of kidney 45-59 function CKD 3b Moderate to severe loss of 30-44 of kindey function CKD 4 Severe loss of kidney function 15-29 CKD 5 Kidney failure <15 Note: (go live 2024) the eGFR calculation was updated to the 2020 CKD-EPI creatinine equation without a race factor to calculate the eGFR results. Performed By: #### A SMITH, CBC, ADIFF, BMP, MG, GFR #### [address] [address] .NEUABSon 03-18-2025 Neutrophil, Absolute 8.3 10 3/mcL High 2.3-8.1 [facility] Comment on above: Performed By: #### A SMITH, CBC, ADIFF, BMP, MG, GFR #### [place] [address] A1Con 03-18-2025 Glucose [Mass/Vol] 272 mg/dL Normal [facility] Comment on above: Result Comment: Angelita mated Average Glucose calculated by equation ((28.7xA1C)-46.7) Estimated average glucose (eAG) is a calculated value from Hemoglobin A1C and is sales representative meats of the average blood glucose level in the last 2-3 month period. Normal range: less than 114 mg/dL Performed By: #### A SMITH, CBC, ADIFF, BMP, MG, GFR #### [place] [address] HbA1c (Bld) [Mass fraction] 11.1 % High 4.3-6.4 [facility] Comment on above: Performed By: #### A SMITH, CBC, ADIFF, BMP, MG, GFR #### [place] [address] CBCon 03-18-2025 Erythrocyte distribution width (RBC) [Ratio] 12.2 % Normal 11.5-15.5 [facility] Comment on above: Performed By: #### A SMITH, CBC, ADIFF, BMP, MG, GFR #### [place] [address] Hematocrit (Bld) [Volume fraction] 37.7 % Low 40.0-52.0 [facility] Comment on above: Performed By: #### A SMITH, CBC, ADIFF, BMP, MG, GFR #### [place] [address] Hgb 13.0 G/dL Normal 13.0-17.5 [facility] Comment on above: Performed By: #### A SMITH, CBC, ADIFF, BMP, MG, GFR #### [place] [address] MCH (RBC) [Entitic mass] 31.4 pg Normal 27.0-33.0 [facility] Comment on above: Performed By: #### A SMITH, CBC, ADIFF, BMP, MG, GFR #### [address] [address] MCHC 34.6 G/dL Normal 32.0-36.0 [facility] Comment on above: Performed By: #### A SMITH, CBC, ADIFF, BMP, MG, GFR #### [address] [address] MCV (RBC) [Entitic vol] 90.7 fL Normal 81.0-100.0 [facility] Comment on above: Performed By: #### A SMITH, CBC, ADIFF, BMP, MG, GFR #### [address] [address] Platelet 353 10 3/mcL Normal 150-450 [facility] Comment on above: Performed By: #### A SMITH, CBC, ADIFF, BMP, MG, GFR #### [address] [address] Platelet mean volume (Bld) [Entitic vol] 6.8 fL Normal 6.4-10.5 [facility] Comment on above: Performed By: #### A SMITH, CBC, ADIFF, BMP, MG, GFR #### [address] [address] RBC 4.15 10 6/mcL Low 4.50-6.00 [facility] Comment on above: Performed By: #### A SMITH, CBC, ADIFF, BMP, MG, GFR #### [address] [address] WBC 10.5 10 3/mcL Normal 4.5-10.8 [facility] Comment on above: Performed By: #### A SMITH, CBC, ADIFF, BMP, MG, GFR #### [address] [address] CMPon 03-18-2025 Albumin Level 3.0 G/dL Low 3.4-4.8 [facility] Comment on above: Performed By: #### A SMITH, CBC, ADIFF, BMP, MG, GFR #### [address] [address] Albumin/Globulin [Mass ratio] 0.7 {ratio} Low 1.1-2.5 [facility] Comment on above: Performed By: #### A SMITH, CBC, ADIFF, BMP, MG, GFR #### [address] [address] ALP [Catalytic activity/Vol] 89 U/L Normal 40-135 [facility] Comment on above: Performed By: #### A SMITH, CBC, ADIFF, BMP, MG, GFR #### [place] [address] ALT [Catalytic activity/Vol] 26 U/L Normal 16-63 [facility] Comment on above: Performed By: #### A SMITH, CBC, ADIFF, BMP, MG, GFR #### [place] [address] AST [Catalytic activity/Vol] 14 U/L Normal 10-40 [facility] Comment on above: Performed By: #### A SMITH, CBC, ADIFF, BMP, MG, GFR #### [place] [address] Bili Total 0.6 mg/dL Normal 0.2-1.0 [facility] Comment on above: Result Comment: Use of this assay is not recommended for patients undergoing treatment with eltrombopag due to the potential for falsely elevated results. Performed By: #### A SMITH, CBC, ADIFF, BMP, MG, GFR #### [place] [address] BUN/Creatinine Ratio 21 ratio Normal 7-27 [facility] Comment on above: Performed By: #### A SMITH, CBC, ADIFF, BMP, MG, GFR #### [place] [address] Calcium [Mass/Vol] 9.6 mg/dL Normal 8.4-10.2 [facility] Comment on above: Performed By: #### A SMITH, CBC, ADIFF, BMP, MG, GFR #### [place] [id number] Chloride [Moles/Vol] 97 mmol/L Low 98-107 [facility] Comment on above: Performed By: #### A SMITH, CBC, ADIFF, BMP, MG, GFR #### [address] [address] CO2 [Moles/Vol] 28 mmol/L Normal 23-31 [facility] Comment on above: Performed By: #### A SMITH, CBC, ADIFF, BMP, MG, GFR #### [address] [address] Creatinine [Mass/Vol] 1.40 mg/dL High 0.67-1.17 [facility] Comment on above: Performed By: #### A SMITH, CBC, ADIFF, BMP, MG, GFR #### [address] [address] Electrolyte Balance 6.0 mEq/L Normal 4.0-15.0 [facility] Comment on above: Performed By: #### A SMITH, CBC, ADIFF, BMP, MG, GFR #### [address] [address] Globulin 4.5 G/dL High 2.7-4.4 [facility] Comment on above: Performed By: #### A SMITH, CBC, ADIFF, BMP, MG, GFR #### [address] [address] Glucose [Mass/Vol] 300 mg/dL High 83-110 [facility] Comment on above: Performed By: #### A SMITH, CBC, ADIFF, BMP, MG, GFR #### [address] [address] Potassium [Moles/Vol] 4.5 mmol/L Normal 3.5-5.1 [facility] Comment on above: Performed By: #### A SMITH, CBC, ADIFF, BMP, MG, GFR #### [place] [id number] Sodium [Moles/Vol] 131 mmol/L Low 136-145 [facility] Comment on above: Performed By: #### A SMITH, CBC, ADIFF, BMP, MG, GFR #### [place] [address] [place], [place] [address] Total Protein 7.5 G/dL Normal 6.4-8.2 [facility] Comment on above: Performed By: #### A SMITH, CBC, ADIFF, BMP, MG, GFR #### [place] [address] [place], [place] [address] Urea nitrogen [Mass/Vol] 30 mg/dL High 7-18 [facility] Comment on above: Performed By: #### A SMITH, CBC, ADIFF, BMP, MG, GFR #### [place] [id number] LABORATORYOrdered By: SYSTEM SYSTEM on 03-18-2025 25-hydroxyvitamin D3 [Mass/Vol] 84.9 ng/mL Invalid Interpretation Code AO ADM SS Comment on above: Interpretive Data: I nterpretive Values Based on Total 25(OH) Vitamin D: Deficient <20 ng/mL Insufficient 20 - <30 ng/mL Sufficient 30-100 ng/mL Albumin BCP dye [Mass/Vol] 3.0 G/dL Low 3.4 - 4.8 G/dL AO ADM SS Albumin/Globulin [Mass ratio] 0.7 {ratio} Low 1.1 - 2.5 ratio AO ADM SS ALP [Catalytic activity/Vol] 89 U/L Normal 40 - 135 U/L AO ADM SS ALT With P-5'-P [Catalytic activity/Vol] 26 U/L Normal 16 - 63 U/L AO ADM SS AST With P-5'-P [Catalytic activity/Vol] 14 U/L Normal 10 - 40 U/L AO ADM SS Basophils (Bld) [#/Vol] 0.0 103/mcL Normal 0.0 - 0.3 10^3/mcL AO Workflow SS Basophils/100 WBC (Bld) 0.5 % Normal 0.0 - 2.5 % AO Workflow SS Bilirubin [Mass/Vol] 0.6 mg/dL Normal 0.2 - 1 .0 mg/dL AO ADM SS Comment on above: Interpretive Data: U se of this assay is not recommended for patients undergoing treatment with eltrombopag due to the potential for falsely elevated results. Calcium [Mass/Vol] 9.6 mg/dL Normal 8.4 - 10. 2 mg/dL AO ADM SS Chloride [Moles/Vol] 97 mmol/L Low 98 - 10 7 mmol/L AO ADM SS CO2 [Moles/Vol] 28 mmol/L Normal 23 - 31 mmol/L AO ADM SS Creatinine [Mass/Vol] 1.40 mg/dL High 0.67 - 1.17 mg/dL AO ADM SS Electrolyte Balance 6.0 mEq/L Normal 4.0 - 15 .0 mEq/L AO ADM SS Eosinophil, Absolute 0.2 103/mcL Normal 0.0 - 0 .7 10^3/mcL AO Workflow SS Eosinophils/100 WBC (Bld) 1.5 % Normal 0.0 - 6.0 % AO Workflow SS Erythrocyte distribution width (RBC) [Ratio] 12.2 % Normal 11.5 - 15.5 % AO Workflow SS Estimated Glomerular Filtration Rate 54 ml/min/1.73sqm Invalid Interpretation Code AO Chemistry S Comment on above: Interpretive Data: Stages of Chronic Kidney Disease (CKD) Stage Description eGFR(ml/min/1.73 sq.m.) CKD 1 Normal kidney function or >=90 normal kindney function with possible kidney damage (ex. Proteinuria) CKD 2 Kidney damage with mild loss 60-89 of kidney function CKD 3a Mild to moderate loss of kidney 45-59 function CKD 3b Moderate to severe loss of 30-44 of kindey function CKD 4 Severe loss of kidney function 15-29 CKD 5 Kidney failure <15 Note: (go live 2024) the eGFR calculation was updated to the 2020 CKD-EPI creatinine equation without a race factor to calculate the eGFR results. Globulin 4.5 G/dL High 2.7 - 4.4 G/dL AO ADM SS Glucose [Mass/Vol] 300 mg/dL High 83 - 110 mg/dL AO ADM SS Glucose [Mass/Vol] 272 mg/dL Invalid Interpretation Code AO Chemistry S Comment on above: Interpretive Data: E stimated average glucose (eAG) is a calculated value from Hemoglobin A1C and is sales representative meats of the average blood glucose level in the last 2-3 month period. Normal range: less than 114 mg/dL HbA1c (Bld) [Mass fraction] 11.1 % High 4.3 - 6.4 % AO ADM SS Hematocrit (Bld) [Volume fraction] 37.7 % Low 40.0 - 52.0 % AO Workflow SS Hemoglobin (Bld) [Mass/Vol] 13.0 G/dL Normal 13.0 - 17.5 G/dL AO Workflow SS Lymphocytes (Bld) [#/Vol] 1.3 103/mcL Normal 0.9 - 4.3 10^3/mcL AO Workflow SS Lymphocytes/100 WBC (Bld) 12.4 % Low 20.0 - 40.0 % AO Workflow SS MCH (RBC) [Entitic mass] 31.4 pg Normal 27.0 - 33.0 pg AO Workflow SS MCHC 34.6 G/dL Normal 32.0 - 36.0 G/dL AO Workflow SS MCV (RBC) [Entitic vol] 90.7 fL Normal 81.0 - 100.0 fL AO Workflow SS Monocytes (Bld) [#/Vol] 0.6 103/mcL Normal 0.1 - 1.4 10^3/mcL AO Workflow SS Monocytes/100 WBC (Bld) 5.9 % Normal 2.0 - 13.0 % AO Workflow SS Neutrophils (Bld) [#/Vol] 8.3 103/mcL High 2.3 - 8.1 10^3/mcL AO Workflow SS Neutrophils/100 WBC (Bld) 79.7 % High 50.0 - 75.0 % AO Workflow SS Platelet mean volume (Bld) [Entitic vol] 6.8 fL Normal 6.4 - 10.5 fL AO Workflow SS Platelets (Bld) [#/Vol] 353 103/mcL Normal 150 - 450 10^3/mcL AO Workflow SS Potassium [Moles/Vol] 4.5 mmol/L Normal 3.5 - 5.1 mmol/L AO ADM SS Protein [Mass/Vol] 7.5 G/dL Normal 6.4 - 8.2 G/dL AO ADM SS RBC (Bld) [#/Vol] 4.15 106/mcL Low 4.50 - 6.0 0 10^6/mcL AO Workflow SS Sodium [Moles/Vol] 131 mmol/L Low 136 - 145 mmol/L AO ADM SS Urea nitrogen [Mass/Vol] 30 mg/dL High 7 - 18 mg/dL AO ADM SS Urea nitrogen/Creatinine [Mass ratio] 21 ratio Normal 7 - 27 ratio AO ADM SS WBC (Bld) [#/Vol] 10.5 103/mcL Normal 4.5 - 10.8 10^3/mcL AO Workflow SS No Panel Informationon 03-18 Culture Wound Deep Panel 1 colony normal skin cassandra present. Sensitivity testing not indicated. No anaerobes isolated to date. [facility] GS 3+ Gram Positive [facility] VIDHon 03-18-2025 Vit. D 25-Hydroxy 84.9 ng/mL Normal [facility] Comment on above: Result Comment: Inte rpretive Values Based on Total 25(OH) Vitamin D: Deficient <20 ng/mL Insufficient 20 - <30 ng/mL Sufficient 30-100 ng/mL Performed By: #### A SMITH, CBC, ADIFF, BMP, MG, GFR #### [place] [id number] [place], [place] [address] Final Surgical Pathology Rep [facility] 03-13-2025 Final Surgical Pathology Report . Pathology Reports Accession: Collected Date/Time: Received Date/Time: Pathologist: [id number] 03/10/2025 11:45 EDT 03/11/2025 09:03 EDT ONEAL ZELAYA MD Final Surgical Pathology Report DIAGNOSIS: LEFT GREAT TOE: - NECROTIZING INFLAMMATION OF SKIN AND SUBCUTANEOUS TISSUE OF TOE - UNDERLYING BONE WITH OSTEOMYELITIS CLINICAL INFORMATION: Procedure: AMPUTATION GREAT TOE, LEFT Preoperative diagnosis: OSTEOMYELITIS, LEFT GREAT TOE Postoperative diagnosis: OSTEOMYELITIS, LEFT GREAT TOE SPECIMEN: A LEFT GREAT TOE GROSS DESCRIPTION: All parts labelled with patient name and [id number] Received in formalin and designated left great toe is a portion of great toe, 7.3 x 3.5 x 3.0 cm. The skin and soft tissue margin of resection grossly appears to be viable. The bone margin of resection is firm and hard. The toenail is absent. Identified on the medial aspect of the toe is a joseph-rehman ulcerative area, 3.0 x 2.5 cm. The underlying bone is firm. The remainder of the skin is joseph and unremarkable. Correction Officer sections are submitted with cassette A1 having the skin ulcer and underlying bone for decalcification in cassette A2 having the bone margin of resection for decalcification.. RS-[address], Pathologists ' Acquisitions Analyst (ASCP) Performed by Narda Lane MICROSCOPIC DESCRIPTION: The microscopic examination is performed, except in the case of Gross Only. Verified by Pathology Report verified by [facility] ONEAL ZELAYA Sign out Date: 03/13/2025 14:40 Performing Lab: [facility], [facility] [address] [place] [address] Pathology Dept Disclaimer If ancillary studies were utilized, the following Laboratory Developed Test (LDT) disclaimer will apply: Under CLIA requirements, [facility]ology Laboratory is qualified to perform high complexity testing. For all ancillary stains, positive and negative controls stain appropriately. Performance characteristics of immunohistochemical and chromogenic in-situ hybridization tests have been determined by [facility]. These tests are used for clinical purposes, They should not be regarded as investigational or for research. Normal [facility]dered By: Savanah Russell on 03-10-2025 Glucose [Mass/Vol] 189 mg/dL High 82 - 115 mg/dL [facility] No Panel Informationon 03-10 GS 1+ Polymorphonuclear cells 3+ Gram Positive Cocci [facility] LIPID PANEL, STANDARDon 10-22 Cholesterol [Mass/Vol] 189 mg/dL Normal <200 [facility] Comment on above: Performed By: #### 2 [id number], 3507 #### [facility] [address], [address] [place] [phone] Electrical Continuity Tester: Chandra Bella MD Cholesterol in HDL [Mass/Vol] 44 mg/dL Normal > OR = 40 [facility] Comment on above: Performed By: #### 5 004, 4154 #### [facility] [address], [address] [place] [phone] Electrical Continuity Tester: Chandra Bella MD Cholesterol in LDL [Mass/Vol] 117 mg/dL High [facility] Comment on above: Result Comment: Refe rence range: <100 Desirable range <100 mg/dL for primary prevention; <70 mg/dL for patients with CHD or diabetic patients with > or = 2 CHD risk factors. LDL-C is now calculated using the Leida calculation, which is a validated novel method providing better accuracy than the Friedewald equation in the estimation of LDL-C. Denis GOMEZ et al. JENNA. 2013;310(19): 8019-9116 (http://education.[employer]/faq/CUL488) Performed By: #### 5 153, 5780 #### [facility] [place] [address] Electrical Continuity Tester: Chandra Bella MD Cholesterol.total/Ch olesterol in HDL [Mass ratio] 4.3 {ratio} Normal <5.0 [facility] Comment on above: Performed By: #### 5 363, 7600 #### [facility] [place] [address] Electrical Continuity Tester: Chandra Bella MD NON HDL CHOLESTEROL 145 mg/dL (calc) High <130 [facility] Comment on above: Result Comment: For patients with diabetes plus 1 major ASCVD risk factor, treating to a non-HDL-C goal of <100 mg/dL (LDL-C of <70 mg/dL) is considered a therapeutic option. Performed By: #### 5 528, 7600 #### [facility] [place] [address] Electrical Continuity Tester: Chandra Bella MD Triglyceride [Mass/Vol] 160 mg/dL High <150 [facility] Comment on above: Performed By: #### 5 363, 7600 #### [facility] [place] [address] Electrical Continuity Tester: Chandra Bella MD PSA, TOTALon 11-06-2024 PSA, TOTAL 2.40 ng/mL Normal < OR = 4.00 [facility] Comment on above: Result Comment: The total PSA value from this assay system is standardized against the WHO standard. The test result will be approximately 20% lower when compared to the equimolar-standardized total PSA (Lily Cristal). Comparison of serial PSA results should be interpreted with this fact in mind. This test was performed using the Siemens chemiluminescent method. Values obtained from different assay methods cannot be used interchangeably. PSA levels, regardless of value, should not be interpreted as absolute evidence of the presence or absence of disease. Performed By: #### 5 363, 3367 #### [facility] [address] [facility], [address] [place] [address] Electrical Continuity Tester: Chandra Bella MD Laboratory - Chemistry and C hemistry - challengeon 11-05-2024 Cholesterol [Mass/Vol] 189 mg/dL Normal [facility]. Cholesterol in HDL [Mass/Vol] 44 mg/dL Normal [employer]. Cholesterol in LDL [Mass/Vol] 117 mg/dL Abnormal [employer].; [employer], [employer]. Triglyceride [Mass/Vol] 160 mg/dL Abnormal [employer].; [employer]. Laboratory - Hematology and Cell countson 11-05-2024 HbA1c (Bld) [Mass fraction] 10.3 % Abnormal 4.6 - 7.1 % [employer] [facility].; [facility]. No Panel Informationon 11-05 CHOL/HDLC RATIO 4.3 Normal [email or web address].; [employer]. NON HDL CHOLESTEROL 145 Abnormal [facility] [employer] [facility].; [employer]. PSA, TOTAL 2.40 ng/mL Normal [employer].; [employer]. Final Surgical Pathology Rep [facility] 06-05-2024 Final Surgical Pathology Report . Pathology Reports Accession: Collected Date/Time: Received Date/Time: Pathologist: [id number] 06/04/2024 09:00 EDT 06/04/2024 14:04 EDT FAUSTINO CHRISTENSEN MD Final Surgical Pathology Report DIAGNOSIS: LEFT UPPER ARM STITCH SUPERIOR: - BASAL CELL CARCINOMA. MARGINS ARE FREE. COMMENT: [facility] [id number] CLINICAL INFORMATION: BENIGN NEOPLASM OF UHNSPECIFIED UPPER LIMB SPECIMEN: A. LEFT UPPER AMR SKIN LESION - SUPERIOR STITCH GROSS DESCRIPTION: All parts labelled with patient name and [id number] Received in formalin labelled left upper arm stitch superior Is a oriented wide skin ellipse measuring 5.9 x 3.5 and excised to maximum depth of 1.6 cm. Skin surface is a a joseph-rehman raised lesion measuring 2.4 x 2.3 cm. The skin is inked: Superior tip -blue, inferior tip -green, medial -orange, lateral -yellow and deep-black. A1 -blue inked superior skin tip, A2 -orange inked medial margin with tumor, A3 -lateral margin with tumor, A4 -A5 -tumor with black inked posterior margin, A6 -green inked inferior skin tip. RS-6 Janice Rgoers, Pathologists' Acquisitions Analyst (ASCP) Performed by JANICE ROGERS MICROSCOPIC DESCRIPTION: The microscopic examination is performed, except in the case of Gross Only. Electronically Signed by Pathology Report verified by [facility] FAUSTINO CHRISTENSEN Sign out Date: 06/05/2024 14:54 Performing Lab: [facility], [address] [place] [address] Pathology Dept Disclaimer If ancillary studies were utilized, the following Laboratory Developed Test (LDT) disclaimer will apply: Under CLIA requirements, [facility] Pathology Laboratory is qualified to perform high complexity testing. For all ancillary stains, positive and negative controls stain appropriately. Performance characteristics of immunohistochemical and chromogenic in-situ hybridization tests have been determined by [facility]. These tests are used for clinical purposes, They should not be regarded as investigational or for research. Normal [facility] ([place]) Laboratory - Hematology and Cell countson 05-14-2024 HbA1c (Bld) [Mass fraction] 10.3 % Abnormal 4.6 - 7.1 % [facility], [facility].; [employer] [employer] Laboratory - Hematology and Cell countsOrdered By: Nery Spencer on 01-03-2024 HbA1c (Bld) [Mass fraction] 11.2 % Abnormal 4.6 - 7.1 % [facility], [facility].; [employer] [facility] Laboratory - Chemistry and C hemistry - challengeon 10-31-2023 Albumin [Mass/Vol] 4.1 g/dL Normal 3.6 - 5.1 g/dL [facility], [facility].; [employer] Albumin/Globulin [Mass ratio] 1.6 {ratio} Normal 1.0 - 2.5 [email or web address].; [email or web address]. ALP [Catalytic activity/Vol] 76 U/L Normal 35 - 144 U/L [email or web address].; [facility], [facility]. ALT [Catalytic activity/Vol] 18 U/L Normal 9 - 46 U/L [facility], [facility].; [facility], [facility]. AST [Catalytic activity/Vol] 14 U/L Normal 10 - 35 U/L [email or web address].; [place] [employer] [email or web address]. Bilirubin [Mass/Vol] 1.2 mg/dL Normal 0.2 - 1 .2 mg/dL [email or web address].; [facility], [facility]. Calcium [Mass/Vol] 9.2 mg/dL Normal 8.6 - 10. 3 mg/dL [email or web address].; [facility], [facility]. Chloride [Moles/Vol] 101 mmol/L Normal 98 - 11 0 mmol/L [email or web address].; [facility] [employer], [facility]. Cholesterol [Mass/Vol] 216 mg/dL Abnormal [email or web address].; [facility], [facility]. Cholesterol in HDL [Mass/Vol] 52 mg/dL Normal [email or web address].; [facility]. Cholesterol in LDL [Mass/Vol] 129 mg/dL Abnormal [email or web address].; [employer], [employer]. CO2 [Moles/Vol] 25 mmol/L Normal 20 - 32 mmol/L [email or web address].; [employer], [employer]. Creatinine [Mass/Vol] 1.12 mg/dL Normal 0.70 - 1.35 mg/dL [email or web address].; [place] [employer] [facility], [facility]. GFR/1.73 sq M.predicted among non-blacks MDRD (S/P/Bld) [Vol rate/Area] 72 mL/min/{1.73_m2} Normal [facility], [facility].; [employer] Glucose [Mass/Vol] 305 mg/dL Abnormal 65 - 99 mg/dL [email or web address].; [employer], [employer]. Potassium [Moles/Vol] 4.1 mmol/L Normal 3.5 - 5.3 mmol/L [facility].; [email or web address] Protein [Mass/Vol] 6.6 g/dL Normal 6.1 - 8.1 g/dL [facility]; [facility], [facility] Sodium [Moles/Vol] 137 mmol/L Normal 135 - 146 mmol/L [facility]; [facility], [facility] Triglyceride [Mass/Vol] 213 mg/dL Abnormal [facility]; [email or web address] Urea nitrogen [Mass/Vol] 17 mg/dL Normal 7 - 25 mg/dL [facility]; [employer] [email or web address] Laboratory - Hematology and Cell countson 10-31-2023 HbA1c (Bld) [Mass fraction] 11.6 % Abnormal [facility]; [employer] [facility], [facility] No Panel Informationon 10-31 BUN/CREATININE RATIO SEE NOTE: Normal 6 - 22 [facility]; [facility], [facility] CHOL/HDLC RATIO 4.2 Normal [facility]; [email or web address] GLOBULIN 2.5 Normal 1.9 - 3.7 [facility]; [employer] [email or web address] NON HDL CHOLESTEROL 164 Abnormal [facility]; [employer] [email or web address] PSA, TOTAL 2.46 ng/mL Normal [facility]; [employer] [email or web address]. Laboratory - Hematology and Cell countson 06-06-2023 HbA1c (Bld) [Mass fraction] 10.9 % Abnormal 4.6 - 7.1 % [email or web address]; [place] [employer] [facility]. Laboratory - Chemistry and C hemistry - challengeon 02-14-2023 Albumin DL <= 20 mg/L (U) [Mass/Vol] 30 mg/dL Abnormal [email or web address].; [place] [employer] [facility], [facility]. Albumin/Creatinine (U) [Mass ratio] 30-300 mg/g Abnormal [email or web address].; [employer], [employer]. Creatinine (U) [Mass/Vol] 300 mg/dL Normal [email or web address].; [place] [employer] [facility]. Laboratory - Hematology and Cell countson 02-14-2023 HbA1c (Bld) [Mass fraction] 11.6 % Abnormal 4.6 - 7.1 % [facility], [facility].; [facility], [facility]. Laboratory - Hematology and Cell countson 10-18-2022 HbA1c (Bld) [Mass fraction] 12.3 % Abnormal 4.6 - 7.1 % [facility], [facility].; [facility], [facility]. CNOVon 09-25-2022 CNOV Office Visit (URMASS ) JORY PRITCHARD ([id number]) 1955 M Date Time Provider Department 09/25/22 2:30 PM SEDRAS HENDRICKSON During your visit today, we recorded the following information about you: Respiration Weight Height 16/minute 93 kg 1.829 m Esdras Hendrickson MD 09/25/2022 3:55 PM Signed ESTABLISHED PATIENT OFFICE VISIT The patient is here for evaluation of lower urinary tract symptoms. He is status post aqua ablation approximately 3 years ago. Over the past 6 months he has noticed an increase in urinary urgency and frequency as well as nocturia. He does have a good force of stream. He denies hematuria. LAB RESULTS Creatinine Date Value Ref Range Status 11/17/2020 1.17 0.5 - 1.4 MG/DL Final Comment: NOTE NEW NORMAL RANGE DUE TO REAGENT CHANGE Patients receiving either N-Acetylcysteine (NAC) or Metamizole prior to venipuncture, may have falsely depressed results. No results found for: PSA, PSASC GLUCOSE UA (POCT) (mg/dL) Date Value 09/25/2022 >=1000 (A) BILIRUBIN UA (POCT) (no units) Date Value 09/25/2022 Negative KETONE UA (POCT) (mg/dL) Date Value 09/25/2022 Negative SPECIFIC GRAVITY UA (POCT) (no units) Date Value 09/25/2022 1.020 HEMOGLOBIN/BLOOD UA (POCT) (no units) Date Value 09/25/2022 Negative PH UA (POCT) (no units) Date Value 09/25/2022 5.0 PROTEIN UA (POCT) (mg/dL) Date Value 09/25/2022 Negative UROBILINOGEN UA (POCT) (E.U./dL) Date Value 09/25/2022 0.2 NITRITE UA (POCT) (no units) Date Value 09/25/2022 Negative LEUKOCYTES UA (POCT) (no units) Date Value 09/25/2022 Negative COLOR UA (POCT) (no units) Date Value 09/25/2022 Yellow CLARITY UA (POCT) (no units) Date Value 09/25/2022 Clear ] ALLERGIES No Known Allergies MEDICATIONS: losartan (COZAAR) 50 mg tablet Take 50 mg by mouth once daily. REVIEW OF SYSTEMS GENERAL: No unintentional weight loss, malaise or fevers. NEUROLOGIC: pt is alert and oriented GASTROINTESTINAL: No nausea, vomiting, or diarrhea GENITOURINARY: See history of present illness MUSCULOSKELETAL: Negative for joint pain or swelling, back pain or muscle pain SKIN: Negative for lesions, rash, and itching. 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 No family history on file. No past surgical history on file. SOCIAL HISTORY Social History Tobacco Use Smoking status: Never Smokeless tobacco: Never PHYSICAL EXAMINATION General appearance: Well appearing, alert, in no acute distress, well-hydrated, well nourished Psych Alert and oriented to person, place and time ASSESSMENT/PLAN: 1. BPH with obstruction/lower urinary tract symptoms - ICD9: 600.01, 599.69, ICD10: N40.1, N13.8 (primary diagnosis) Cystoscopy today showed his prostatic urethra was open. He did have narrowing at the fossa navicularis which I dilated with Erica sounds. 2. 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 3. OAB (overactive bladder) - ICD9: 596.51, ICD10: N32.81 I discussed Kegel exercises. I will trial oxybutynin XR 10 mg. MD Esdras Acuña MD 09/25/2022 3:55 PM Signed CYSTOSCOPY PROCEDURE NOTE : Jory Pritchard is a 66 year old male who presents with urinary urgency and frequency. PRE-OP/PRE-PROCEDURE DIAGNOSIS: Urinary frequency POST-OP/POST-PROCEDURE DIAGNOSIS: Urinary frequency; fossa navicularis stricture SURGERY/PROCEDURE(S): Urethral dilation and cystoscopy Pt ID verified with patient: Yes Procedure verified with patient: Yes Procedure confirmed with physician and customer support coordinator: Yes The benefits, risks, alternatives of the cystoscopy procedure and personnel were discussed with the patient. The verbal consent was obtained and the patient agrees to proceed. Procedure: The patient was placed on the procedure table in the supine position and prepped and draped in the usual sterile fashion. 2% Lidocaine Jelly was placed per urethra as an anesthetic in the standard fashion. Once adequate local anesthesia was achieved, I attempted to place the flexible cystoscope however the meatus would not accept this. I dilated the fossa navicularis with [place] sounds starting with 10 Barbadian up to 20 Barb[place]. The tip of the flexible cystoscope was carefully placed into the urethra under direct visual guidance. The scope was negotiated through the pendulous urethra to the level of the bulbar urethra with no evidence of stricture. The verumontanum came into view and the scope was negotiated through the prostatic urethra which showed evidence of a patent prostatic urethra. The bladder was entered and careful murcia endoscopy was carried out. (more content not included)... Normal [facility] UA DIP, URINE (POC)on 2021 BILIRUBIN UA (POCT) Negative Negative [facility] CLARITY UA (POCT) Clear [facility] COLOR UA (POCT) Yellow [facility] GLUCOSE UA (POCT) >=1000 Abnormal Negative mg/dL [facility] HEMOGLOBIN/BLOOD UA (POCT) Negative Negative [facility] KETONE UA (POCT) Negative Negative mg/dL [facility] LEUKOCYTES UA (POCT) Negative Negative [facility] NITRITE UA (POCT) Negative Negative [facility] PH UA (POCT) 5.0 4.5 - 8.0 [facility] Protein Ql (U) Negative Negative mg/dL [facility] SPECIFIC GRAVITY UA (POCT) 1.020 1.005 - 1.030 [facility] UROBILINOGEN UA (POCT) 0.2 E.U./dL Normal E.U./dL [facility] Laboratory - Hematology and Cell countson 06-15-2022 HbA1c (Bld) [Mass fraction] 11.3 % Abnormal 4.6 - 7.1 % [facility]; [email or web address] Laboratory - Chemistry and C hemistry - challengeon 01-05-2022 Albumin/Creatinine DL <= 20 mg/L (U) [Mass ratio] mg/g Normal [facility]; [email or web address] Creatinine (U) [Mass/Vol] 200 mg/dL Normal [facility]; [email or web address] Laboratory - Hematology and Cell countson 01-05-2022 HbA1c (Bld) [Mass fraction] 8.8 % Abnormal 4.6 - 7.1 % [facility]; [email or web address] Laboratory - Urinalysison Protein Ql (U) Negative Normal [facility]; [employer] [email or web address] Laboratory - Hematology and Cell countson 06-30-2021 HbA1c (Bld) [Mass fraction] 7.1 % Normal 4.6 - 7.1 % [facility]; [email or web address] Laboratory - Chemistry and C hemistry - challengeon 12-21-2020 Albumin [Mass/Vol] 4.6 g/dL Normal 3.6 - 5.1 g/dL [facility]; [facility], [facility] Albumin/Creatinine DL <= 20 mg/L (U) [Mass ratio] 30-300 mg/g Abnormal [facility]; [facility], [facility] Albumin/Globulin [Mass ratio] 1.8 {ratio} Normal 1.0 - 2.5 [facility]; [email or web address] ALP [Catalytic activity/Vol] 59 U/L Normal 35 - 144 U/L [facility]; [employer] [email or web address] ALT [Catalytic activity/Vol] 23 U/L Normal 9 - 46 U/L [email or web address]; [facility] AST [Catalytic activity/Vol] 18 U/L Normal 10 - 35 U/L [facility], [facility].; [facility], [facility]. Bilirubin [Mass/Vol] 1.2 mg/dL Normal 0.2 - 1 .2 mg/dL [facility], [facility].; [facility], [facility]. Calcium [Mass/Vol] 9.5 mg/dL Normal 8.6 - 10. 3 mg/dL [facility].; [facility], [facility]. Chloride [Moles/Vol] 100 mmol/L Normal 98 - 11 0 mmol/L [facility].; [facility], [facility]. Cholesterol [Mass/Vol] 205 mg/dL Abnormal [facility].; [facility], [facility]. Cholesterol in HDL [Mass/Vol] 53 mg/dL Normal [facility].; [facility], [facility]. Cholesterol in LDL [Mass/Vol] 124 mg/dL Abnormal [facility].; [facility], [facility]. CO2 [Moles/Vol] 26 mmol/L Normal 20 - 32 mmol/L [email or web address].; [facility], [facility]. Creatinine (U) [Mass/Vol] 200 mg/dL Normal [email or web address].; [facility], [facility]. Creatinine [Mass/Vol] 1.08 mg/dL Normal 0.70 - 1.25 mg/dL [facility], [facility].; [facility], [facility]. GFR/1.73 sq M.predicted among blacks MDRD (S/P/Bld) [Vol rate/Area] 82 mL/min/{1.73_m2} Normal [facility], [facility].; [employer] [facility], [facility]. Glucose [Mass/Vol] 190 mg/dL Abnormal 65 - 99 mg/dL [facility], [facility].; [facility], [facility]. Potassium [Moles/Vol] 4.4 mmol/L Normal 3.5 - 5.3 mmol/L [facility], [facility].; [employer] [facility], [facility]. Protein [Mass/Vol] 7.1 g/dL Normal 6.1 - 8.1 g/dL [facility], [facility].; [facility], [facility]. Sodium [Moles/Vol] 135 mmol/L Normal 135 - 146 mmol/L [email or web address]; [employer] Triglyceride [Mass/Vol] 167 mg/dL Abnormal [email or web address]; [employer] [email or web address] Urea nitrogen [Mass/Vol] 19 mg/dL Normal 7 - 25 mg/dL [email or web address]; [employer] Laboratory - Hematology and Cell countson 12-21-2020 HbA1c (Bld) [Mass fraction] 6.9 % Normal 4.6 - 7.1 % [email or web address]; [employer] [facility] - Urinalysison Protein Ql (U) 30 mg/dL Abnormal [email or web address]; [place] [employer] [facility] No Panel Informationon 12-21 BUN/CREATININE RATIO NOT APPLICABLE Normal 6 - [email or web address]; [place] [employer] CHOL/HDLC RATIO 3.9 Normal [facility]; [place] [employer] eGFR NON-AFR. PERUVIAN 71 Normal [email or web address]; [place] [employer] GLOBULIN 2.5 Normal 1.9 - 3.7 [email or web address]; [place] [employer] NON HDL CHOLESTEROL 152 Abnormal [facility]; [place] [employer] Laboratory - Hematology and Cell countson 09-30-2019 HbA1c (Bld) [Mass fraction] 8.1 % Abnormal 4.6 - 7.1 % [email or web address]; [place] [employer]. Laboratory - Chemistry and C hemistry - challengeon 04-01-2019 Albumin [Mass/Vol] 4.2 g/dL Normal 3.6 - 5.1 g/dL [email or web address].; [place] [employer]. Albumin/Globulin [Mass ratio] 1.7 {ratio} Normal 1.0 - 2.5 [email or web address]; [employer]. ALP [Catalytic activity/Vol] 59 U/L Normal 40 - 115 U/L [email or web address].; [employer]. ALT [Catalytic activity/Vol] 18 U/L Normal 9 - 46 U/L [email or web address].; [facility], [facility]. AST [Catalytic activity/Vol] 15 U/L Normal 10 - 35 U/L [facility].; [facility], [facility]. Bilirubin [Mass/Vol] 1.1 mg/dL Normal 0.2 - 1 .2 mg/dL [facility].; [facility], [facility]. Calcium [Mass/Vol] 9.3 mg/dL Normal 8.6 - 10. 3 mg/dL [facility].; [facility], [facility]. Chloride [Moles/Vol] 104 mmol/L Normal 98 - 11 0 mmol/L [facility].; [facility], [facility]. Cholesterol [Mass/Vol] 196 mg/dL Normal [facility].; [facility], [facility]. Cholesterol in HDL [Mass/Vol] 50 mg/dL Normal [facility].; [facility], [facility]. Cholesterol in LDL [Mass/Vol] 117 mg/dL Abnormal 0 - 100 mg/dL [facility].; [facility], [facility]. Cholesterol non HDL [Mass/Vol] 146 mg/dL Abnormal [email or web address].; [facility], [facility]. Cholesterol.total/Ch olesterol in HDL [Mass ratio] 3.9 {ratio} Normal [facility].; [facility], [facility]. CO2 [Moles/Vol] 26 mmol/L Normal 20 - 32 mmol/L [facility].; [facility], [facility]. Creatinine [Mass/Vol] 1.12 mg/dL Normal 0.70 - 1.25 mg/dL [facility], [facility].; [facility], [facility]. GFR/1.73 sq M.predicted among blacks MDRD (S/P/Bld) [Vol rate/Area] 80 {ML/MIN/1.73M2} Normal [facility], [facility].; [facility], [facility]. GFR/1.73 sq M.predicted MDRD (S/P/Bld) [Vol rate/Area] 69 {ML/MIN/1.73M2} Normal [facility], [facility].; [facility], [facility]. Globulin (S) [Mass/Vol] 2.5 g/dL Normal 1.9 - 3.7 g/dL [facility].; [email or web address] Glucose [Mass/Vol] 186 mg/dL Abnormal 65 - 99 mg/dL [facility]; [email or web address] Potassium [Moles/Vol] 4.3 mmol/L Normal 3.5 - 5.3 mmol/L [facility]; [facility] Protein [Mass/Vol] 6.7 g/dL Normal 6.1 - 8.1 g/dL [facility]; [email or web address] Sodium [Moles/Vol] 138 mmol/L Normal 135 - 146 mmol/L [facility]; [email or web address] Triglyceride [Mass/Vol] 171 mg/dL Abnormal [email or web address]; [facility] Urea nitrogen [Mass/Vol] 24 mg/dL Normal 7 - 25 mg/dL [facility]; [facility] Urea nitrogen/Creatinine [Mass ratio] 21.5 mg/mg Normal 6 - 22 [facility]; [place] [employer] [facility] Laboratory - Hematology and Cell countson 04-01-2019 HbA1c (Bld) [Mass fraction] 7.3 % Abnormal 0 - 5.6 % [facility]; [facility] Laboratory - Chemistry and C hemistry - challengeon 12-10-2018 Albumin/Creatinine DL <= 20 mg/L (U) [Mass ratio] mg/g Normal [facility]; [facility] Creatinine (U) [Mass/Vol] 200 mg/dL Normal [email or web address]; [place] [employer] [facility] Laboratory - Hematology and Cell countson 12-10-2018 HbA1c (Bld) [Mass fraction] 7.5 % Abnormal 4.6 - 7.1 % [facility]; [place] [employer] [facility] Laboratory - Urinalysison Protein Ql (U) Negative Normal [facility].; [place] [employer] Laboratory - Hematology and Cell countson 08-13-2018 HbA1c (Bld) [Mass fraction] 9.6 % Abnormal 4.6 - 7.1 % [facility].; [place] [employer] Laboratory - Hematology and Cell countson 04-09-2018 HbA1c (Bld) [Mass fraction] 10.1 % Abnormal 4.6 - 7.1 % [facility].; [place] [employer] Laboratory - Chemistry and C hemistry - challengeon 12-05-2017 Albumin/Creatinine DL <= 20 mg/L (U) [Mass ratio] mg/g Normal [email or web address].; [place] [employer] Creatinine (U) [Mass/Vol] 100 mg/dL Normal [place] [employer] [facility].; [employer]. Laboratory - Hematology and Cell countson 12-05-2017 HbA1c (Bld) [Mass fraction] 10.6 % Abnormal 4.6 - 7.1 % [facility].; [employer]. Laboratory - Urinalysison Protein Ql (U) 80 mg/dL Normal [facility] [employer] Laboratory - Chemistry and C hemistry - challengeon 06-22-2017 Bilirubin Ql (U) Negative Normal [facility].; [employer]. Ketones Ql (U) Negative Normal [facility].; [employer]. pH (U) 5.5 [pH] Normal [facility].; [employer]. Specific gravity (U) [Rel density] 1.020 Normal [place] [employer].; [employer]. Urobilinogen Qn (U) 0.2 mg/dL Normal [facility].; [employer]. Laboratory - Hematology and Cell countson 06-22-2017 Hemoglobin Ql (U) trace, hemolyzed Abnormal [facility].; [place] [employer] Laboratory - Specimen inform ationon 06-22-2017 Appearance (U) cloudy Abnormal [facility].; [employer]. Color (U) yellow Normal [place] [employer].; [employer]. Laboratory - Urinalysison Glucose Test strip (U) [Mass/Vol] Negative Normal [facility].; [place] [employer]. Leukocyte esterase Test strip Ql (U) moderate Abnormal [facility].; [place] [employer]. Nitrite Ql (U) Positive Abnormal [facility].; [place] [employer]. Protein Ql (U) Negative Normal [facility].; [place] [employer] Laboratory - Hematology and Cell countson 05-15-2017 HbA1c (Bld) [Mass fraction] 7.0 % Normal 4.6 - 7.1 % [facility].; [place] [employer] Laboratory - Hematology and Cell countson 01-16-2017 HbA1c (Bld) [Mass fraction] 9.3 % Abnormal 4.6 - 7.1 % [facility].; [place] [employer] Laboratory - Chemistry and C hemistry - challengeon 07-17-2016 Albumin/Creatinine DL <= 20 mg/L (U) [Mass ratio] mg/g Normal [facility].; [place] [employer] Creatinine (U) [Mass/Vol] 200 mg/dL Normal [facility].; [employer]. Laboratory - Hematology and Cell countson 07-17-2016 HbA1c (Bld) [Mass fraction] 9.1 % Abnormal 4.6 - 7.1 % [facility].; [employer]. Laboratory - Urinalysison Protein Ql (U) 30 mg/dL Abnormal [facility].; [place] [employer] Laboratory - Hematology and Cell countson 11-16-2015 HbA1c (Bld) [Mass fraction] 8.1 % Abnormal 4.6 - 7.1 % [facility].; [employer]. Laboratory - Chemistry and C hemistry - challengeon 04-21-2015 Albumin/Creatinine DL <= 20 mg/L (U) [Mass ratio] mg/g Normal [email or web address].; [place] [employer]. Cholesterol [Mass/Vol] 183 mg/dL Normal 0 - 200.0 mg/dL [facility] [employer] [place] [employer]. Cholesterol in HDL [Mass/Vol] 43 mg/dL Abnormal 30.0 - 40.0 mg/dL [facility]; [facility] Cholesterol in LDL [Mass/Vol] 100 mg/dL Normal 50.0 - 130.0 mg/dL [facility]; [facility] Cholesterol non HDL [Mass/Vol] 100 mg/dL Normal [facility]; [facility] Cholesterol.total/Ch olesterol in HDL [Mass ratio] 4.4 {ratio} Normal 0 - 5.0 [facility]; [facility] Creatinine (U) [Mass/Vol] 300 mg/dL Normal [facility]; [facility] Triglyceride [Mass/Vol] 218 mg/dL Abnormal 40 - 150 mg/dL [facility]; [place] [employer] [facility] Laboratory - Hematology and Cell countson 04-21-2015 HbA1c (Bld) [Mass fraction] 7.6 % Abnormal 4.6 - 7.1 % [facility]; [place] [employer] [facility] Laboratory - Urinalysison Protein Ql (U) Negative Normal [facility]; [facility] Laboratory - Hematology and Cell countson 12-11-2014 HbA1c (Bld) [Mass fraction] 9.9 % Abnormal 4.6 - 7.1 % [facility]; [facility] Laboratory - Chemistry and C hemistry - challengeon 08-14-2014 Glucose Glucometer (BldC) [Moles/Vol] 188 Abnormal 60 - 120 [facility]; [place] [employer] [facility] Laboratory - Hematology and Cell countson 08-14-2014 HbA1c (Bld) [Mass fraction] 7.2 % Abnormal 4.6 - 7.1 % [facility]; [facility] Laboratory - Chemistry and C hemistry - challengeon 04-10-2014 Albumin/Creatinine DL <= 20 mg/L (U) [Mass ratio] mg/g Normal [facility]; [facility] Creatinine (U) [Mass/Vol] 300 mg/dL Normal [facility].; [place] [employer] Laboratory - Hematology and Cell countson 04-10-2014 HbA1c (Bld) [Mass fraction] 8.9 % Abnormal 4.6 - 7.1 % [facility].; [place] [employer] Laboratory - Urinalysison Protein Ql (U) 30 mg/dL Abnormal [facility].; [place] [employer] Laboratory - Hematology and Cell countson 10-03-2013 HbA1c (Bld) [Mass fraction] 7.0 % Normal 4.6 - 7.1 % [facility].; [place] [employer] [facility]. Laboratory - Chemistry and C hemistry - challengeon 03-28-2013 Albumin/Creatinine DL <= 20 mg/L (U) [Mass ratio] mg/g Normal [facility].; [place] [employer] Creatinine (U) [Mass/Vol] 200 mg/dL Normal [facility].; [place] [employer]. Glucose Glucometer (BldC) [Moles/Vol] 158 Abnormal 60 - 120 [facility].; [place] [employer] Laboratory - Hematology and Cell countson 03-28-2013 HbA1c (Bld) [Mass fraction] 6.7 % Normal 4.6 - 7.1 % [facility].; [employer] Laboratory - Urinalysison Protein Ql (U) 30 mg/dL Abnormal [facility].; [place] [employer] Laboratory - Chemistry and C hemistry - challengeon 09-27-2012 Glucose Glucometer (BldC) [Moles/Vol] 147 Abnormal 60 - 120 [facility].; [employer]. Laboratory - Hematology and Cell countson 09-27-2012 HbA1c (Bld) [Mass fraction] 6.8 % Normal 4.6 - 7.1 % [facility].; [employer]. Laboratory - Chemistry and C hemistry - challengeon 03-22-2012 Albumin/Creatinine DL <= 20 mg/L (U) [Mass ratio] Normal Normal [facility].; [place] [employer] Bilirubin Ql (U) Negative Normal [facility].; [employer] Cholesterol [Mass/Vol] 169 mg/dL Normal 0 - 200.0 mg/dL [facility].; [place] [employer] [facility]. Cholesterol in HDL [Mass/Vol] 32 mg/dL Normal 30.0 - 40.0 mg/dL [facility].; [place] [employer] Cholesterol in LDL [Mass/Vol] 96 mg/dL Normal 50.0 - 130.0 mg/dL [facility].; [employer] Cholesterol non HDL [Mass/Vol] 136 mg/dL Normal [place] [employer] [facility].; [employer] Cholesterol.total/Ch olesterol in HDL [Mass ratio] 5.2 {ratio} Abnormal 0 - 5.0 [facility]; [employer] Creatinine (U) [Mass/Vol] 200 mg/dL Abnormal [place] [employer]; [employer]. Ketones Ql (U) Negative Normal [facility].; [employer]. pH (U) 5.5 [pH] Normal 4.6 - 8.0 [place] [employer]; [employer] Specific gravity (U) [Rel density] 1.030 Abnormal 1.001 - 1.[address] [place] [employer] [facility].; [employer] Triglyceride [Mass/Vol] 198 mg/dL Abnormal 40 - 150 mg/dL [place] [employer].; [employer]. Laboratory - Hematology and Cell countson 03-22-2012 HbA1c (Bld) [Mass fraction] 7.3 % Abnormal 4.6 - 7.1 % [place] [employer].; [employer]. Hemoglobin Ql (U) Negative Normal [employer].; [employer]. Laboratory - Specimen inform ationon 03-22-2012 Appearance (U) Clear Normal [facility] [employer].; [employer] Color (U) Yellow Normal [email or web address]; [employer]. Laboratory - Urinalysison Glucose Test strip (U) [Mass/Vol] Negative Normal [facility].; [place] [employer] [facility]. Leukocyte esterase Test strip Ql (U) Negative Normal [facility].; [place] [employer] [facility]. Nitrite Ql (U) Negative Normal [facility].; [place] [employer] [facility], [employer]. Protein Ql (U) Negative Normal [facility].; [place] [employer]. No Panel Informationon 03-22 UA - UROBILINOGEN 0.2 mg/dL Normal [facility].; [place] [employer] [facility]. Laboratory - Chemistry and C hemistry - challengeon 09-29-2011 Glucose Glucometer (BldC) [Moles/Vol] 177 Abnormal 60 - 120 [facility]; [facility] Laboratory - Hematology and Cell countson 09-29-2011 HbA1c (Bld) [Mass fraction] 6.6 % Normal 4.6 - 7.1 % [facility]; [place] [employer] Laboratory - Chemistry and C hemistry - challengeon 03-31-2011 Albumin/Creatinine DL <= 20 mg/L (U) [Mass ratio] Normal Normal [facility].; [place] [employer]. Creatinine (U) [Mass/Vol] 200mg Normal [facility].; [place] [employer] Laboratory - Hematology and Cell countson 03-31-2011 HbA1c (Bld) [Mass fraction] 6.5 % Normal 4.6 - 7.1 % [facility].; [place] [employer] Laboratory - Urinalysison Protein Ql (U) Negative Normal [facility].; [place] [employer] Laboratory - Chemistry and C hemistry - challengeon 12-02-2010 Albumin DL <= 20 mg/L (U) [Mass/Vol] - Normal [facility].; [place] [employer]. Creatinine (U) [Mass/Vol] 200mg Normal [place] [employer] [facility].; [employer], [employer]. Laboratory - Hematology and Cell countson 12-02-2010 HbA1c (Bld) [Mass fraction] 6.9 % Normal 4.6 - 7.1 % [facility].; [facility] Laboratory - Chemistry and C hemistry - challengeon 12-30-2007 Cholesterol [Mass/Vol] 176 mg/dL Normal 0 - 200 mg/dL [facility]; [facility] Cholesterol in HDL [Mass/Vol] 43 mg/dL Normal 40 - 60 mg/dL [facility].; [facility] Cholesterol in LDL [Mass/Vol] 96 mg/dL Normal 50.0 - 130.0 mg/dL [facility].; [facility] Cholesterol.total/Ch olesterol in HDL [Mass ratio] 4.1 {ratio} Normal 0 - 5.0 [facility].; [place] [employer] [facility] Triglyceride [Mass/Vol] 184 mg/dL Abnormal 40 - 150 mg/dL [facility].; [place] [employer] Vital Signs Date Time Vital Sign Value Performing Clinician Facility 05-05-2025 08:00-0400 Body weight 86.14 kg Hesham Alvarez MD Work Phone: [facility].; [place] [employer] [facility] 05-05-2025 08:00-0400 Diastolic blood pressure 70 mm[Hg] Hesham Alvarez MD Work Phone: [facility].; [place] [employer] [facility]. Comment on above: Patient Position: Sitting; Cuff Location : Left Arm; Cuff Size: Standard 05-05-2025 08:00-0400 Heart rate 73 /min Hesham Alvarez MD Work Phone: [facility].; [place] [employer]. Comment on above: Pattern: Regular 05-05-2025 08:00-0400 Systolic blood pressure 132 mm[Hg] Hesham Alvarez MD Work Phone: [facility].; [place] [employer]. Comment on above: Patient Position: Sitting; Cuff Location : Left Arm; Cuff Size: Standard 04-08-2025 09:12-0400 Body mass index (BMI) [Ratio] 25.4 kg/m2 Dr. Hesham Alvarez MD Work Phone: [facility] 04-08-2025 09:12-0400 Body temperature 96.8 [degF] Dr. Hesham Alvarez MD Work Phone: [facility] 04-08-2025 09:12-0400 Diastolic blood pressure 82 mm[Hg] Dr. Hesham Alvarez MD Work Phone: [facility] 04-08-2025 09:12-0400 Heart rate 69 /min Dr. Hesham lAvarez MD Work Phone: [phone] [place] [address] 04-08-2025 09:12-0400 Respiratory rate 18 /min Dr. Hesham Alvarez MD Work Phone: [phone] [place] [address] 04-08-2025 09:12-0400 Systolic blood pressure 160 mm[Hg] Dr. Hesham Alvarez MD Work Phone: 4([phone] [place] [address] 04-01-2025 09:08-0400 Body height 182.[address] Hesham Alvarez MD Work Phone: 4([phone])[phone] [place] [address] 04-01-2025 09:08-0400 Body weight 85.[address] Hesham Alvarez MD Work Phone: [phone] [address] 01-05-2025 09:34-0400 Body height 185.42 cm Ja Carr LPN [facility], [facility].; [facility], [facility]. 01-05-2025 09:34-0400 Body mass index (BMI) [Ratio] 25.73 kg/m2 Ja Carr [employer] [facility], [facility].; [facility]. 01-05-2025 09:34-0400 Body surface area Derived from formula 2.13 m2 Ja Carr [employer] [facility], [facility].; [facility]. 01-05-2025 09:34-0400 Body weight 88.45 kg Ja Carr [employer] [facility], [facility].; [facility], [facility]. 01-05-2025 09:34-0400 Diastolic blood pressure 77 mm[Hg] Ja Carr [employer] [facility], [facility].; [facility], [facility]. Comment on above: Patient Position: Sitting; Cuff Location : Left Arm; Cuff Size: Standard 01-05-2025 09:34-0400 Heart rate 89 /min Ja Carr LPN [facility] [place] [employer] [facility], [employer]. Comment on above: Pattern: Regular 01-05-2025 09:34-0400 Systolic blood pressure 164 mm[Hg] Ja Carr LPN [facility] [place] [employer] [facility], [employer]. Comment on above: Patient Position: Sitting; Cuff Location : Left Arm; Cuff Size: Standard 12-08-2024 14:37-0500 Body height 185.42 cm Ja Carr LPN [facility], [facility].; [facility], [facility]. 12-08-2024 14:37-0500 Body mass index (BMI) [Ratio] 26.65 kg/m2 Ja Carr LPN [facility] [place] [employer] [facility], [facility]. 12-08-2024 14:37-0500 Body surface area Derived from formula 2.16 m2 Ja Carr LPN [facility], [facility].; [place] [employer] [facility], [facility]. 12-08-2024 14:37-0500 Body temperature 96.2 [degF] Ja Carr LPN [facility], [facility].; [facility], [facility]. 12-08-2024 14:37-0500 Body weight 91.63 kg aJ Carr LPN [facility] [place] [employer] [facility], [facility]. 12-08-2024 14:37-0500 Diastolic blood pressure 76 mm[Hg] Ja Carr LPN [facility], [facility].; [employer] [facility], [employer]. Comment on above: Patient Position: Sitting; Cuff Location : Left Arm; Cuff Size: Standard 12-08-2024 14:37-0500 Heart rate 73 /min Ja Carr LPN [facility] [facility] [employer] [facility], [facility]. Comment on above: Pattern: Regular 12-08-2024 14:37-0500 Systolic blood pressure 162 mm[Hg] Ja Carr LPN [facility] [employer], [employer]. Comment on above: Patient Position: Sitting; Cuff Location : Left Arm; Cuff Size: Standard 11-05-2024 08:13-0500 Body height 185.42 cm Ja Carr [facility], [facility].; [facility], [facility]. 11-05-2024 08:13-0500 Body mass index (BMI) [Ratio] 27.05 kg/m2 Ja Carr [facility], [facility].; [facility], [facility]. 11-05-2024 08:13-0500 Body surface area Derived from formula 2.17 m2 Ja Carr [facility], [facility].; [facility], [facility]. 11-05-2024 08:13-0500 Body weight 92.99 kg Ja Carr [facility], [facility].; [facility], [facility]. 11-05-2024 08:13-0500 Diastolic blood pressure 75 mm[Hg] Ja Carr [facility], [facility].; [facility], [facility]. Comment on above: Patient Position: Sitting; Cuff Location : Left Arm; Cuff Size: Standard 11-05-2024 08:13-0500 Heart rate 74 /min Ja Carr [facility], [facility].; [facility], [facility]. Comment on above: Pattern: Regular 11-05-2024 08:13-0500 Systolic blood pressure 138 mm[Hg] Ja Carr [facility], [facility].; [facility], [facility]. Comment on above: Patient Position: Sitting; Cuff Location : Left Arm; Cuff Size: Standard 05-14-2024 06:59-0400 Body height 185.42 cm Hesham Alvarez MD Work Phone: [facility], [facility].; [facility], [facility]. 05-14-2024 06:59-0400 Body mass index (BMI) [Ratio] 27.05 kg/m2 Hesham Alvarez MD Work Phone: [facility], [facility].; [facility], [facility]. 05-14-2024 06:59-0400 Body surface area Derived from formula 2.17 m2 Hesham Alvarez MD Work Phone: [facility], [facility].; [facility], [facility]. 05-14-2024 06:59-0400 Body weight 92.99 kg Hesham Alvaerz MD Work Phone: [employer] [facility] 05-14-2024 06:59-0400 Diastolic blood pressure 72 mm[Hg] Hesham Alvarez MD Work Phone: [employer] [facility]. Comment on above: Patient Position: Sitting; Cuff Location : Left Arm; Cuff Size: Standard 05-14-2024 06:59-0400 Heart rate 68 /min Hesham Alvarez MD Work Phone: [employer] [facility]. Comment on above: Pattern: Regular 05-14-2024 06:59-0400 Systolic blood pressure 134 mm[Hg] Hesham Alvarez MD Work Phone: [employer] [facility]. Comment on above: Patient Position: Sitting; Cuff Location : Left Arm; Cuff Size: Standard 11-07-2023 08:28-0500 Body height 185.42 cm Hesham Alvarez MD Work Phone: [employer] [facility]. 11-07-2023 08:28-0500 Body mass index (BMI) [Ratio] 27.57 kg/m2 Hesham Alvarez MD Work Phone: [employer]. 11-07-2023 08:28-0500 Body surface area Derived from formula 2.19 m2 Hesham Alvarez MD Work Phone: [employer]. 11-07-2023 08:28-0500 Body weight 94.8 kg Hesham Alvarez MD Work Phone: [employer].; [facility]. 11-07-2023 08:28-0500 Diastolic blood pressure 72 mm[Hg] Hesham Alvarez MD Work Phone: [employer]. Comment on above: Patient Position: Sitting; Cuff Location : Left Arm; Cuff Size: Standard 11-07-2023 08:28-0500 Heart rate 76 /min Hesham Alvarez MD Work Phone: [facility]. Comment on above: Pattern: Regular 11-07-2023 08:28-0500 Systolic blood pressure 136 mm[Hg] Hesham Alvarez MD Work Phone: [facility]. Comment on above: Patient Position: Sitting; Cuff Location : Left Arm; Cuff Size: Standard 06-06-2023 07:02-0400 Body height 185.42 cm Hesham Alvarez MD Work Phone: [facility] 06-06-2023 07:02-0400 Body mass index (BMI) [Ratio] 27.71 kg/m2 Hesham Alvarez MD Work Phone: [facility] 06-06-2023 07:02-0400 Body surface area Derived from formula 2.2 m2 Hesham Alvarez MD Work Phone: [facility].; [facility]. 06-06-2023 07:02-0400 Body weight 95.26 kg Hesham Alvarez MD Work Phone: [facility]. 06-06-2023 07:02-0400 Diastolic blood pressure 76 mm[Hg] Hesham Alvarez MD Work Phone: [facility]. Comment on above: Patient Position: Sitting; Cuff Location : Left Arm; Cuff Size: Standard 06-06-2023 07:02-0400 Heart rate 81 /min Hesham Alvarez MD Work Phone: [facility]. Comment on above: Pattern: Regular 06-06-2023 07:02-0400 Systolic blood pressure 136 mm[Hg] Hesham Alvarez MD Work Phone: [facility]. Comment on above: Patient Position: Sitting; Cuff Location : Left Arm; Cuff Size: Standard 02-14-2023 06:57-0400 Body height 185.42 cm Hesham Alvarez MD Work Phone: [email or web address]; [facility]. 02-14-2023 06:57-0400 Body mass index (BMI) [Ratio] 27.44 kg/m2 Hesham Alvarez MD Work Phone: [employer] 02-14-2023 06:57-0400 Body surface area Derived from formula 2.19 m2 Hesham Alvarez MD Work Phone: [employer].; [employer] 02-14-2023 06:57-0400 Body weight 94.35 kg Hesham Alvarez MD Work Phone: [employer].; [employer] 02-14-2023 06:57-0400 Diastolic blood pressure 78 mm[Hg] Hesham Alvarez MD Work Phone: [employer]. Comment on above: Patient Position: Sitting; Cuff Location : Left Arm; Cuff Size: Large 02-14-2023 06:57-0400 Heart rate 75 /min Hesham Alvarez MD Work Phone: [employer].; [facility]. Comment on above: Pattern: Regular 02-14-2023 06:57-0400 Systolic blood pressure 142 mm[Hg] Hesham Alvarez MD Work Phone: [employer]. Comment on above: Patient Position: Sitting; Cuff Location : Left Arm; Cuff Size: Large 10-18-2022 06:58-0500 Body height 185.42 cm Hesham Alvarez MD Work Phone: [employer].; [facility]. 10-18-2022 06:58-0500 Body mass index (BMI) [Ratio] 27.44 kg/m2 Hesham Alvarez MD Work Phone: [facility] [place] [employer] 10-18-2022 06:58-0500 Body surface area Derived from formula 2.19 m2 Hesham Alvarez MD Work Phone: [facility] [employer]. 10-18-2022 06:58-0500 Body weight 94.35 kg Hesham Alvarez MD Work Phone: [facility] [employer] 10-18-2022 06:58-0500 Diastolic blood pressure 76 mm[Hg] Hesham Alvarez MD Work Phone: [facility] [employer].; [employer]. Comment on above: Patient Position: Sitting; Cuff Location : Left Arm; Cuff Size: Standard 10-18-2022 06:58-0500 Heart rate 72 /min Hesham Alvarez MD Work Phone: [facility] [employer]; [employer]. Comment on above: Pattern: Regular 10-18-2022 06:58-0500 Systolic blood pressure 132 mm[Hg] Hesham Alvarez MD Work Phone: [facility]; [employer]. Comment on above: Patient Position: Sitting; Cuff Location : Left Arm; Cuff Size: Standard 09-25-2022 14:52-0500 Body height 182.9 cm Esdras Hendrickson MD Work Phone: [facility] 09-25-2022 14:52-0500 Body weight 92.99 kg Esdras Hendrickson MD Work Phone: [facility] 09-25-2022 14:52-0500 Respiratory rate 16 /min Esdras Hendrickson MD Work Phone: [facility] 06-15-2022 06:57-0400 Body height 185.42 cm Hesham Alvarez MD Work Phone: [facility] [employer].; [employer] 06-15-2022 06:57-0400 Body mass index (BMI) [Ratio] 27.84 kg/m2 Hesham Alvarez MD Work Phone: [employer] 06-15-2022 06:57-0400 Body surface area Derived from formula 2.2 m2 Hesham Alvarez MD Work Phone: [employer]. 06-15-2022 06:57-0400 Body weight 95.71 kg Hesham Alvarez MD Work Phone: [employer]. 06-15-2022 06:57-0400 Diastolic blood pressure 76 mm[Hg] Hesham Alvarez MD Work Phone: [facility]. Comment on above: Patient Position: Sitting; Cuff Location : Left Arm; Cuff Size: Large 06-15-2022 06:57-0400 Heart rate 77 /min Hesham Alvarez MD Work Phone: [employer] [facility]. Comment on above: Pattern: Regular 06-15-2022 06:57-0400 Systolic blood pressure 134 mm[Hg] Hesham Alvarez MD Work Phone: [facility]. Comment on above: Patient Position: Sitting; Cuff Location : Left Arm; Cuff Size: Large 01-05-2022 07:11-0400 Body weight 98.43 kg Hesham Alvarez MD Work Phone: [employer]. 01-05-2022 07:11-0400 Diastolic blood pressure 78 mm[Hg] Hesham Alvarez MD Work Phone: [employer] [facility]. Comment on above: Patient Position: Sitting; Cuff Location : Left Arm; Cuff Size: Standard 01-05-2022 07:11-0400 Heart rate 74 /min Hesham Alvarez MD Work Phone: [employer].; [facility]. Comment on above: Pattern: Regular 01-05-2022 07:11-0400 Systolic blood pressure 145 mm[Hg] Hesham Alvarez MD Work Phone: [facility].; [employer] [facility] Comment on above: Patient Position: Sitting; Cuff Location : Left Arm; Cuff Size: Standard 11-18-2021 08:16-0500 Body height 558.8 cm Faiza Bass LPN [facility], [facility].; [employer] [facility], [facility]. 11-18-2021 08:16-0500 Body mass index (BMI) [Ratio] 1.06 kg/m2 Faiza Bass LPN [facility], [facility].; [employer] [facility], [facility]. 11-18-2021 08:16-0500 Body surface area Derived from formula 3.12 m2 Faiza Bass LPN [facility].; [employer] [facility], [facility]. 11-18-2021 08:16-0500 Body temperature 97.8 [degF] Faiza Bass [facility], [facility].; [facility] [employer] [facility]. Comment on above: Method: Tympanic 11-18-2021 08:16-0500 Body weight 33.11 kg Faiza Bass LPN [facility], [facility].; [employer], [employer]. 11-18-2021 08:16-0500 Diastolic blood pressure 78 mm[Hg] Faiza Bass LPN [facility], [facility].; [employer]. Comment on above: Patient Position: Sitting; Cuff Location : Left Arm; Cuff Size: Standard 11-18-2021 08:16-0500 Heart rate 73 /min Faiza Bass LPN [facility], [facility].; [employer]. Comment on above: Pattern: Regular 11-18-2021 08:16-0500 Systolic blood pressure 151 mm[Hg] Faiza Bass LPN [facility], [facility].; [employer]. Comment on above: Patient Position: Sitting; Cuff Location : Left Arm; Cuff Size: Standard 11-03-2021 15:23-0500 Body height 185.42 cm Lani Bone CMA [facility], [facility].; [employer] 11-03-2021 15:23-0500 Body mass index (BMI) [Ratio] 29.03 kg/m2 [facility] 11-03-2021 15:23-0500 Body surface area Derived from formula 2.24 m2 [facility] 11-03-2021 15:23-0500 Body temperature 99 [degF] [facility]ani [facility]. Comment on above: Method: Tympanic 11-03-2021 15:23-0500 Body weight 99.79 kg [facility]ani [facility] 11-03-2021 15:23-0500 Diastolic blood pressure 90 mm[Hg] [facility]ani [facility]. Comment on above: Patient Position: Sitting; Cuff Location : Left Arm; Cuff Size: Small 11-03-2021 15:23-0500 Heart rate 100 /min [facility]ani Bone [facility]. Comment on above: Pattern: Regular 11-03-2021 15:23-0500 Systolic blood pressure 164 mm[Hg] [facility]ani [facility]. Comment on above: Patient Position: Sitting; Cuff Location : Left Arm; Cuff Size: Small 06-30-2021 07:00-0400 Body height 185.42 cm Hesham Alvarez MD Work Phone: [email or web address]; [facility] 06-30-2021 07:00-0400 Body mass index (BMI) [Ratio] 28.76 kg/m2 Hesham Alvarez MD Work Phone: [employer]. 06-30-2021 07:00-0400 Body surface area Derived from formula 2.23 m2 Hesham Alvarez MD Work Phone: [employer].; [facility]. 06-30-2021 07:00-0400 Body weight 98.88 kg Hesham Alvarez MD Work Phone: [facility].; [facility] 06-30-2021 07:00-0400 Diastolic blood pressure 88 mm[Hg] Hesham Alvarez MD Work Phone: [facility].; [place] [employer] [facility] Comment on above: Patient Position: Sitting; Cuff Location : Left Arm; Cuff Size: Standard 06-30-2021 07:00-0400 Heart rate 80 /min Hesham Alvarez MD Work Phone: [email or web address].; [employer] Comment on above: Pattern: Regular 06-30-2021 07:00-0400 Systolic blood pressure 154 mm[Hg] Hesham Alvarez MD Work Phone: [facility].; [employer] Comment on above: Patient Position: Sitting; Cuff Location : Left Arm; Cuff Size: Standard 03-29-2021 09:11-0400 Body height 185.42 cm Lily Aubrey [facility], [facility].; [place] [employer] [facility], [facility]. 03-29-2021 09:11-0400 Body mass index (BMI) [Ratio] 28.89 kg/m2 [facility], [facility].; [place] [employer] [facility] 03-29-2021 09:11-0400 Body surface area Derived from formula 2.24 m2 [facility], [facility].; [employer] [facility], [facility]. 03-29-2021 09:11-0400 Body temperature 97.6 [degF] [facility].; [employer]. Comment on above: Method: Tympanic 03-29-2021 09:11-0400 Body weight 99.[address] [facility] Aubrey [facility], [facility].; [place] [employer] [facility], [facility]. 03-29-2021 09:11-0400 Diastolic blood pressure 87 mm[Hg] Lily Stuckey [facility], [facility].; [employer]. Comment on above: Patient Position: Sitting; Cuff Location : Left Arm; Cuff Size: Large 03-29-2021 09:11-0400 Heart rate 76 /min [facility]. Comment on above: Pattern: Regular 03-29-2021 09:11-0400 Systolic blood pressure 165 mm[Hg] Savanah Burgos [employer].; [facility]. Comment on above: Patient Position: Sitting; Cuff Location : Left Arm; Cuff Size: Large 12-21-2020 07:58-0500 Body height 185.42 cm Hesham Alvarez MD Work Phone: [facility] 12-21-2020 07:58-0500 Body mass index (BMI) [Ratio] 28.23 kg/m2 Hesham Alvarez MD Work Phone: [facility].; [facility] 12-21-2020 07:58-0500 Body surface area Derived from formula 2.21 m2 Hesham Alvarez MD Work Phone: [facility].; [facility] 12-21-2020 07:58-0500 Body weight 97.07 kg Hesham Alvarez MD Work Phone: [facility] 12-21-2020 07:58-0500 Diastolic blood pressure 88 mm[Hg] Hesham Alvarez MD Work Phone: [facility]. Comment on above: Patient Position: Sitting; Cuff Location : Left Arm; Cuff Size: Large 12-21-2020 07:58-0500 Heart rate 83 /min Hesham Alvarez MD Work Phone: [facility]. Comment on above: Pattern: Regular 12-21-2020 07:58-0500 Systolic blood pressure 152 mm[Hg] Hesham Alvarez MD Work Phone: [facility]. Comment on above: Patient Position: Sitting; Cuff Location : Left Arm; Cuff Size: Large 12-10-2019 08:13-0500 Body height 185.42 cm Hesham Alvarez MD Work Phone: [facility] 09-30-2019 08:13-0500 Body mass index (BMI) [Ratio] 27.44 kg/m2 Hesham Alvarez MD Work Phone: [facility] 09-30-2019 08:13-0500 Body surface area Derived from formula 2.19 m2 Hesham Alvarez MD Work Phone: [facility] 09-30-2019 08:13-0500 Body weight 94.35 kg Hesham Alvarez MD Work Phone: [facility] 09-30-2019 08:13-0500 Diastolic blood pressure 78 mm[Hg] Hesham Alvarez MD Work Phone: [facility].; [facility]. Comment on above: Patient Position: Sitting; Cuff Location : Left Arm; Cuff Size: Standard 09-30-2019 08:13-0500 Heart rate 72 /min Hesham Alvarez MD Work Phone: [facility]. Comment on above: Pattern: Regular 09-30-2019 08:13-0500 Systolic blood pressure 132 mm[Hg] Hesham Alvarez MD Work Phone: [facility]. Comment on above: Patient Position: Sitting; Cuff Location : Left Arm; Cuff Size: Standard 07-01-2019 10:30-0400 Body height 185.42 cm Savanah Burgos [employer] [facility] 07-01-2019 10:30-0400 Body mass index (BMI) [Ratio] 27.05 kg/m2 Savanah Burgos [employer] [facility] 07-01-2019 10:30-0400 Body surface area Derived from formula 2.17 m2 Savanah Burgos LPN [employer] [facility] [employer] 07-01-2019 10:30-0400 Body temperature 98.7 [degF] Savanah Burgos [employer] [place] [employer] [facility] [employer] Comment on above: Method: Tympanic 07-01-2019 10:30-0400 Body weight 92.99 kg Savanah Burgos [employer] [facility] [employer] 07-01-2019 10:30-0400 Diastolic blood pressure 75 mm[Hg] Savanah Burgos [facility] [employer] [facility] [employer] Comment on above: Patient Position: Sitting; Cuff Location : Left Arm; Cuff Size: Large 07-01-2019 10:30-0400 Heart rate 80 /min Savanah Burgos [employer] [facility] [employer] Comment on above: Pattern: Regular 07-01-2019 10:30-0400 Systolic blood pressure 124 mm[Hg] Savanah Burgos LPN [employer] [facility] [employer] Comment on above: Patient Position: Sitting; Cuff Location : Left Arm; Cuff Size: Large 04-08-2019 07:52-0400 Body height 185.42 cm Savanah Burgos [employer] [facility] [employer] 04-08-2019 07:52-0400 Body mass index (BMI) [Ratio] 26.39 kg/m2 Savanah Burgos [facility] [employer] [facility] [employer] 04-08-2019 07:52-0400 Body surface area Derived from formula 2.15 m2 Savanah Burgos [facility] [employer] [facility] [employer] 04-08-2019 07:52-0400 Body weight 90.72 kg Savanah Burgos [employer] [facility] [employer] 04-08-2019 07:52-0400 Diastolic blood pressure 75 mm[Hg] Savanah Burgos [facility] [employer] [facility] [employer] Comment on above: Patient Position: Sitting; Cuff Location : Left Arm; Cuff Size: Large 04-08-2019 07:52-0400 Heart rate 75 /min Savanah Burgos [employer] [facility]. Comment on above: Pattern: Regular 04-08-2019 07:52-0400 Systolic blood pressure 134 mm[Hg] Savanah Burgos LPN [facility]. Comment on above: Patient Position: Sitting; Cuff Location : Left Arm; Cuff Size: Large 12-10-2018 08:03-0500 Body height 185.42 cm Hesham Alvarez MD Work Phone: [facility] 12-10-2018 08:03-0500 Body mass index (BMI) [Ratio] 26.78 kg/m2 Hesham Alvarez MD Work Phone: [facility] 12-10-2018 08:03-0500 Body surface area Derived from formula 2.17 m2 Hesham Alvarez MD Work Phone: [facility] 12-10-2018 08:03-0500 Body weight 92.08 kg Hesham Alvarez MD Work Phone: [facility] 12-10-2018 08:03-0500 Diastolic blood pressure 76 mm[Hg] Hesham Alvarez MD Work Phone: [facility] Comment on above: Patient Position: Sitting; Cuff Location : Left Arm; Cuff Size: Large 12-10-2018 08:03-0500 Heart rate 66 /min Hesham Alvarez MD Work Phone: [facility]. Comment on above: Pattern: Regular 12-10-2018 08:03-0500 Systolic blood pressure 136 mm[Hg] Hesham Alvarez MD Work Phone: [facility]. Comment on above: Patient Position: Sitting; Cuff Location : Left Arm; Cuff Size: Large 08-13-2018 07:49-0400 Body height 185.42 cm Hesham Alvarez MD Work Phone: [facility] 08-13-2018 07:49-0400 Body mass index (BMI) [Ratio] 27.97 kg/m2 Hesham Alvarez MD Work Phone: [facility] 08-13-2018 07:49-0400 Body surface area Derived from formula 2.21 m2 Hesham Alvarez MD Work Phone: [facility] 08-13-2018 07:49-0400 Body weight 96.16 kg Hesham Alvarez MD Work Phone: [facility] 08-13-2018 07:49-0400 Diastolic blood pressure 78 mm[Hg] Hesham Alvarez MD Work Phone: [facility]. Comment on above: Patient Position: Sitting; Cuff Location : Left Arm; Cuff Size: Large 08-13-2018 07:49-0400 Heart rate 75 /min Hesham Alvarez MD Work Phone: [facility]. Comment on above: Pattern: Regular 08-13-2018 07:49-0400 Systolic blood pressure 130 mm[Hg] Hesham Alvarez MD Work Phone: [facility]. Comment on above: Patient Position: Sitting; Cuff Location : Left Arm; Cuff Size: Large 04-09-2018 07:58-0400 Body height 185.42 cm Hesham Alvarez MD Work Phone: [facility] 04-09-2018 07:58-0400 Body mass index (BMI) [Ratio] 28.1 kg/m2 Hesham Alvarez MD Work Phone: [facility].; [facility] 04-09-2018 07:58-0400 Body surface area Derived from formula 2.21 m2 Hesham Alvarez MD Work Phone: [facility] 04-09-2018 07:58-0400 Body weight 96.62 kg Hesham Alvarez MD Work Phone: [facility] [employer] 04-09-2018 07:58-0400 Diastolic blood pressure 76 mm[Hg] Hesham Alvarez MD Work Phone: [facility]. Comment on above: Patient Position: Sitting; Cuff Location : Left Arm; Cuff Size: Large 04-09-2018 07:58-0400 Heart rate 80 /min Hesham Alvarez MD Work Phone: [facility]. Comment on above: Pattern: Regular 04-09-2018 07:58-0400 Systolic blood pressure 134 mm[Hg] Hesham Alvarez MD Work Phone: [facility].; [facility]. Comment on above: Patient Position: Sitting; Cuff Location : Left Arm; Cuff Size: Large 12-05-2017 07:32-0500 Body height 185.42 cm Hesham Alvarez MD Work Phone: [facility] 12-05-2017 07:32-0500 Body mass index (BMI) [Ratio] 28.37 kg/m2 Hesham Alvarez MD Work Phone: [facility] 12-05-2017 07:32-0500 Body surface area Derived from formula 2.22 m2 Hesham Alvarez MD Work Phone: [facility] 12-05-2017 07:32-0500 Body weight 97.52 kg Hesham Alvarez MD Work Phone: [facility] 12-05-2017 07:32-0500 Diastolic blood pressure 78 mm[Hg] Hesham Alvarez MD Work Phone: [facility].; [facility]. Comment on above: Patient Position: Sitting; Cuff Location : Left Arm; Cuff Size: Standard 12-05-2017 07:32-0500 Heart rate 76 /min Hesham Alvarez MD Work Phone: [facility]. Comment on above: Pattern: Regular 12-05-2017 07:32-0500 Systolic blood pressure 132 mm[Hg] Hesham Alvarez MD Work Phone: [facility]. Comment on above: Patient Position: Sitting; Cuff Location : Left Arm; Cuff Size: Standard 09-12-2017 10:57-0500 Body height 185.42 cm Hesham Alvarez MD Work Phone: [facility] 09-12-2017 10:57-0500 Body mass index (BMI) [Ratio] 27.97 kg/m2 Heshma Alvarez MD Work Phone: [facility] 09-12-2017 10:57-0500 Body surface area Derived from formula 2.21 m2 Hesham Alvarez MD Work Phone: [facility] 09-12-2017 10:57-0500 Body temperature 97.7 [degF] Hesham Alvarez MD Work Phone: [facility] 09-12-2017 10:57-0500 Body weight 96.16 kg Hesham Alvarez MD Work Phone: [facility] 07-06-2017 10:38-0400 Body temperature 97.5 [degF] Carole Méndez LPN [facility] 07-06-2017 10:38-0400 Body weight 90.27 kg Carole Méndez LPN [facility] 07-06-2017 10:38-0400 Diastolic blood pressure 71 mm[Hg] Carole Méndez [employer] [facility] Comment on above: Patient Position: Sitting; Cuff Location : Left Arm; Cuff Size: Standard 07-06-2017 10:38-0400 Heart rate 73 /min Carole Méndez [employer] [facility] [employer] Comment on above: Pattern: Regular 07-06-2017 10:38-0400 Systolic blood pressure 122 mm[Hg] Carole Méndez [employer] Comment on above: Patient Position: Sitting; Cuff Location : Left Arm; Cuff Size: Standard 06-22-2017 08:55-0400 Body temperature 98.6 [degF] Hesham Alvarez MD Work Phone: [employer] 06-22-2017 08:55-0400 Body weight 92.08 kg Hesham Alvarez MD Work Phone: [employer] [facility] 06-22-2017 08:55-0400 Diastolic blood pressure 82 mm[Hg] Hesham Alvarez MD Work Phone: [employer] [facility]. Comment on above: Patient Position: Sitting; Cuff Location : Left Arm; Cuff Size: Standard 06-22-2017 08:55-0400 Heart rate 80 /min Hesham Alvarez MD Work Phone: [employer] [facility] Comment on above: Pattern: Regular 06-22-2017 08:55-0400 Systolic blood pressure 144 mm[Hg] Hesham Alvarez MD Work Phone: [employer] [facility]. Comment on above: Patient Position: Sitting; Cuff Location : Left Arm; Cuff Size: Standard 05-15-2017 08:18-0400 Body height 185.42 cm Savanah Burgos [employer] 05-15-2017 08:18-0400 Body mass index (BMI) [Ratio] 26.78 kg/m2 Savanah Burgos [employer] [facility] [employer] 05-15-2017 08:18-0400 Body surface area Derived from formula 2.17 m2 Savanah Burgos [employer] 05-15-2017 08:18-0400 Body weight 92.08 kg Savanah Burgos [employer] 05-15-2017 08:18-0400 Diastolic blood pressure 77 mm[Hg] [facility] [employer]. Comment on above: Patient Position: Sitting; Cuff Location : Left Arm; Cuff Size: Large 05-15-2017 08:18-0400 Heart rate 71 /min Savanah Burgos GE[employer] [facility] [employer]. Comment on above: Pattern: Regular 05-15-2017 08:18-0400 Systolic blood pressure 122 mm[Hg] Savanah Burgos GE[employer] Comment on above: Patient Position: Sitting; Cuff Location : Left Arm; Cuff Size: Large 01-16-2017 07:57-0400 Body height 185.42 cm Hesham Alvarez MD Work Phone: [employer] 01-16-2017 07:57-0400 Body mass index (BMI) [Ratio] 28.37 kg/m2 Hesham Alvarez MD Work Phone: [facility] [employer] 01-16-2017 07:57-0400 Body surface area Derived from formula 2.22 m2 Hesham Alvarez MD Work Phone: [employer] 01-16-2017 07:57-0400 Body weight 97.52 kg Hesham Alvarez MD Work Phone: [facility] 01-16-2017 07:57-0400 Diastolic blood pressure 86 mm[Hg] Hesham Alvarez MD Work Phone: [employer] [facility] Comment on above: Patient Position: Sitting; Cuff Location : Left Arm; Cuff Size: Large 01-16-2017 07:57-0400 Heart rate 70 /min Hesham Alvarez MD Work Phone: [employer] Comment on above: Pattern: Regular 01-16-2017 07:57-0400 Systolic blood pressure 152 mm[Hg] Hesham Alvarez MD Work Phone: [facility]. Comment on above: Patient Position: Sitting; Cuff Location : Left Arm; Cuff Size: Large 07-17-2016 08:29-0400 Body weight 95.71 kg Hesham Alvarez MD Work Phone: [facility] 07-17-2016 08:29-0400 Diastolic blood pressure 82 mm[Hg] Hesham Alvarez MD Work Phone: [facility]. Comment on above: Patient Position: Sitting; Cuff Location : Left Arm; Cuff Size: Standard 07-17-2016 08:29-0400 Heart rate 80 /min Hesham Alvarez MD Work Phone: [facility]. Comment on above: Pattern: Regular 07-17-2016 08:29-0400 Systolic blood pressure 136 mm[Hg] Hesham Alvarez MD Work Phone: [facility]. Comment on above: Patient Position: Sitting; Cuff Location : Left Arm; Cuff Size: Standard 11-16-2015 08:00-0500 Body height 185.42 cm Hesham Alvarez MD Work Phone: [facility] 11-16-2015 08:00-0500 Body mass index (BMI) [Ratio] 27.31 kg/m2 Hesham Alvarez MD Work Phone: [facility] 11-16-2015 08:00-0500 Body surface area Derived from formula 2.18 m2 Hesham Alvarez MD Work Phone: [facility] 11-16-2015 08:00-0500 Body weight 93.9 kg Hesham Alvarez MD Work Phone: [facility] 11-16-2015 08:00-0500 Diastolic blood pressure 83 mm[Hg] Hesham Alvarez MD Work Phone: [employer] [facility]. Comment on above: Patient Position: Sitting; Cuff Location : Left Arm; Cuff Size: Large 11-16-2015 08:00-0500 Heart rate 68 /min Hesham Alvarez MD Work Phone: [employer] [facility] Comment on above: Pattern: Regular 11-16-2015 08:00-0500 Systolic blood pressure 132 mm[Hg] Hesham Alvarez MD Work Phone: [facility]. Comment on above: Patient Position: Sitting; Cuff Location : Left Arm; Cuff Size: Large 04-21-2015 07:15-0400 Body height 185.42 cm Hesham Alvarez MD Work Phone: [facility] 04-21-2015 07:15-0400 Body mass index (BMI) [Ratio] 28.23 kg/m2 Hesham Alvarez MD Work Phone: [facility] 04-21-2015 07:15-0400 Body surface area Derived from formula 2.21 m2 Hesham Alvarez MD Work Phone: [facility]. 04-21-2015 07:15-0400 Body weight 97.07 kg Hesham Alvarez MD Work Phone: [facility] 04-21-2015 07:15-0400 Diastolic blood pressure 78 mm[Hg] Hesham Alvarez MD Work Phone: [employer] [facility]. Comment on above: Patient Position: Sitting; Cuff Location : Left Arm; Cuff Size: Large 04-21-2015 07:15-0400 Heart rate 70 /min Hesham Alvarez MD Work Phone: [employer] [facility]. Comment on above: Pattern: Regular 04-21-2015 07:15-0400 Systolic blood pressure 122 mm[Hg] Hesham Alvarez MD Work Phone: [employer] [facility]. Comment on above: Patient Position: Sitting; Cuff Location : Left Arm; Cuff Size: Large 12-11-2014 07:19-0500 Body height 185.42 cm Hesham Alvarez MD Work Phone: [employer] [facility] 12-11-2014 07:19-0500 Body mass index (BMI) [Ratio] 28.89 kg/m2 Hesham Alvarez MD Work Phone: [employer] [facility]. 12-11-2014 07:19-0500 Body surface area Derived from formula 2.24 m2 Hesham Alvarez MD Work Phone: [employer] [facility]. 12-11-2014 07:19-0500 Body weight 99.34 kg Hesham Alvarez MD Work Phone: [employer] [facility]. 12-11-2014 07:19-0500 Diastolic blood pressure 80 mm[Hg] Hesham Alvarez MD Work Phone: [employer] [facility]. Comment on above: Patient Position: Sitting; Cuff Location : Left Arm; Cuff Size: Large 12-11-2014 07:19-0500 Heart rate 69 /min Hesham Alvarez MD Work Phone: [employer] [facility]. Comment on above: Pattern: Regular 12-11-2014 07:19-0500 Systolic blood pressure 132 mm[Hg] Hesham Alvarez MD Work Phone: [employer] [facility]. Comment on above: Patient Position: Sitting; Cuff Location : Left Arm; Cuff Size: Large 08-14-2014 07:39-0400 Body weight 95.71 kg Carole Méndez LPN [employer] [facility] 08-14-2014 07:39-0400 Diastolic blood pressure 80 mm[Hg] Carole Méndez LPN [employer] [facility]. Comment on above: Patient Position: Sitting; Cuff Location : Left Arm; Cuff Size: Standard 08-14-2014 07:39-0400 Heart rate 65 /min Carole Méndez LPN [employer] [facility]. Comment on above: Pattern: Regular 08-14-2014 07:39-0400 Systolic blood pressure 127 mm[Hg] Carole Méndez LPN [employer] [facility]. Comment on above: Patient Position: Sitting; Cuff Location : Left Arm; Cuff Size: Standard 04-10-2014 07:06-0400 Body weight 97.98 kg Hesham Alvarez MD Work Phone: [employer] [facility]. 04-10-2014 07:06-0400 Diastolic blood pressure 82 mm[Hg] Hesham Alvarez MD Work Phone: [employer] [facility]. Comment on above: Patient Position: Sitting; Cuff Location : Left Arm; Cuff Size: Standard 04-10-2014 07:06-0400 Heart rate 73 /min Hesham Alvarez MD Work Phone: [employer] [facility]. Comment on above: Pattern: Regular 04-10-2014 07:06-0400 Systolic blood pressure 135 mm[Hg] Hesham Alvarez MD Work Phone: [employer] Comment on above: Patient Position: Sitting; Cuff Location : Left Arm; Cuff Size: Standard 10-03-2013 07:02-0500 Body weight 96.62 kg Hesham Alvarez MD Work Phone: [employer] [facility] 10-03-2013 07:02-0500 Diastolic blood pressure 84 mm[Hg] Hesham Alvarez MD Work Phone: [employer] [facility]. Comment on above: Patient Position: Sitting; Cuff Location : Left Arm; Cuff Size: Large 10-03-2013 07:02-0500 Heart rate 77 /min Hesham Alvarez MD Work Phone: [employer] [facility]. Comment on above: Pattern: Regular 10-03-2013 07:02-0500 Systolic blood pressure 126 mm[Hg] Hesham Alvarez MD Work Phone: [employer] [facility]. Comment on above: Patient Position: Sitting; Cuff Location : Left Arm; Cuff Size: Large 03-28-2013 07:03-0400 Body weight 95.26 kg Hesham Alvarez MD Work Phone: [employer] [facility] 03-28-2013 07:03-0400 Diastolic blood pressure 78 mm[Hg] Hesham Alvarez MD Work Phone: [employer] [facility]. Comment on above: Patient Position: Sitting; Cuff Location : Left Arm; Cuff Size: Standard 03-28-2013 07:03-0400 Heart rate 80 /min Hesham Alvarez MD Work Phone: [employer] [facility]. Comment on above: Pattern: Regular 03-28-2013 07:03-0400 Systolic blood pressure 126 mm[Hg] Hesham Alvarez MD Work Phone: [employer] [facility]. Comment on above: Patient Position: Sitting; Cuff Location : Left Arm; Cuff Size: Standard 09-27-2012 06:58-0500 Body weight 95.26 kg Hesham Alvarez MD Work Phone: [facility] 09-27-2012 06:58-0500 Diastolic blood pressure 80 mm[Hg] Hesham Alvarez MD Work Phone: [facility]. Comment on above: Patient Position: Sitting; Cuff Location : Left Arm; Cuff Size: Standard 09-27-2012 06:58-0500 Heart rate 76 /min Hesham Alvarez MD Work Phone: [facility]. Comment on above: Pattern: Regular 09-27-2012 06:58-0500 Systolic blood pressure 132 mm[Hg] Hesham Alvarez MD Work Phone: [facility]. Comment on above: Patient Position: Sitting; Cuff Location : Left Arm; Cuff Size: Standard 03-22-2012 07:03-0400 Body weight 101.15 kg Hesham Alvarez MD Work Phone: [facility] 03-22-2012 07:03-0400 Diastolic blood pressure 86 mm[Hg] Hesham Alvarez MD Work Phone: [facility]. Comment on above: Patient Position: Sitting; Cuff Location : Left Arm; Cuff Size: Standard 03-22-2012 07:03-0400 Heart rate 72 /min Hesham Alvarez MD Work Phone: [facility]. Comment on above: Pattern: Regular 03-22-2012 07:03-0400 Systolic blood pressure 126 mm[Hg] Hesham Alvarez MD Work Phone: [facility]. Comment on above: Patient Position: Sitting; Cuff Location : Left Arm; Cuff Size: Standard 09-29-2011 07:46-0500 Body weight 99.34 kg Hesham Alvarez MD Work Phone: [employer] [facility]. 09-29-2011 07:46-0500 Diastolic blood pressure 80 mm[Hg] Hesham Alvarez MD Work Phone: [employer] [facility]. Comment on above: Patient Position: Sitting; Cuff Location : Left Arm; Cuff Size: Standard 09-29-2011 07:46-0500 Heart rate 87 /min Hesham Alvarez MD Work Phone: [employer] [facility]. Comment on above: Pattern: Regular 09-29-2011 07:46-0500 Systolic blood pressure 132 mm[Hg] Hesham Alvarez MD Work Phone: [employer] [facility]. Comment on above: Patient Position: Sitting; Cuff Location : Left Arm; Cuff Size: Standard 03-31-2011 07:10-0400 Body weight 99.34 kg Hesham Alvarez MD Work Phone: [employer] [facility]. 03-31-2011 07:10-0400 Diastolic blood pressure 68 mm[Hg] Hesham Alvarez MD Work Phone: [employer] [facility]. Comment on above: Patient Position: Sitting; Cuff Location : Left Arm; Cuff Size: Standard 03-31-2011 07:10-0400 Heart rate 73 /min Hesham Alvarez MD Work Phone: [employer] [facility]. Comment on above: Pattern: Regular 03-31-2011 07:10-0400 Systolic blood pressure 128 mm[Hg] Hesham Alvarez MD Work Phone: [employer] [facility]. Comment on above: Patient Position: Sitting; Cuff Location : Left Arm; Cuff Size: Standard 12-02-2010 07:12-0500 Body weight 101.61 kg Carole Méndez LPN [facility] 12-02-2010 07:12-0500 Diastolic blood pressure 67 mm[Hg] Carole Méndez LPN [facility], [facility], [employer]. Comment on above: Patient Position: Sitting; Cuff Location : Left Arm; Cuff Size: Standard 12-02-2010 07:12-0500 Heart rate 77 /min Carole Jaden Méndez LPN [facility] [employer] [facility] Comment on above: Pattern: Regular 12-02-2010 07:12-0500 Systolic blood pressure 122 mm[Hg] Carole Méndez GEAR LAP[employer] [facility] [employer] [facility], [employer]. Comment on above: Patient Position: Sitting; Cuff Location : Left Arm; Cuff Size: Standard Encounters Encounter Date Encounter Type Care Provider Facility Start: 05-22-2025 ambulatory [facility] Facility: [facility] Start: 05-21-2025 Encounter for other preprocedural examination [facility] Start: 05-19-2025 Review Hesham Alvarez MD Work Phone: [facility], [facility] Start: 05-12-2025 End: 05-12-[address] Hesham Alvarez MD Work Phone: -Laboratory Specimen Start: 05-12-2025 End: 05-12-[address] Colin Mcgregor DPM -Laboratory Specimen Work Phone: Start: 05-12-2025 End: 05-12-2025 [facility] Facility:[facility] Start: 05-05-2025 End: 05-05-2025 Office outpatient visit 15 minutes Hesham Alvarez MD Work Phone: [facility], [facility] Start: 05-01-2025 ambulatory [facility] Facility: [facility] Start: 04-28-2025 End: 04-28-2025 Historical Summary [facility]esham Alvarez MD [email or web address] Start: 04-08-2025 End: 04-20-[address] Hesham Alvarez MD Work Phone: [facility] Start: 04-08-2025 End: 04-20-[address] [facility] Work Phone: Start: 03-25-2025 End: 03-25-2025 Telephone follow-up Hesham Alvarez MD Work Phone: [employer] Start: 03-19-2025 End: 03-24-2025 Evaluation and management of inpatient TASHA EMMANUEL [employer] Facility:[facility] Start: 03-18-2025 End: 03-18-2025 Patient encounter procedure NEO PÉREZ DPM [facility] Start: 03-18-2025 End: 03-22-2025 ambulatory HESHAM ALVAREZ MD Facility:[facility] Start: 03-18-2025 End: 03-22-2025 Outreach Lab NEO P[facility]REZ DPM [facility] Start: 03-10-2025 End: 03-10-2025 ambulatory HESHAM ALVAREZ MD Facility:[facility] Start: 03-10-2025 End: 03-10-2025 SAME DAY STAY NEO PÉERZ DPM [facility] Start: 01-05-2025 End: 01-05-2025 Office outpatient visit 10 minutes Hesham Alvarez MD Work Phone: [employer] Start: 12-08-2024 End: 12-08-2024 Office outpatient visit 15 minutes Hesham Alvarez MD Work Phone: [employer] Start: 11-24-2024 End: 11-24-2024 Historical Summary Hesham Alvarez MD Work Phone: [employer] Start: 11-05-2024 End: 11-05-2024 Orders Hesham Alvarez MD Work Phone: [employer] Start: 11-05-2024 End: 11-05-2024 Periodic preventive med est patient 65yrs& older Hesham Alvarez MD Work Phone: [employer] Start: 11-05-2024 End: 11-05-2024 Physical examination Hesham Alvarez MD Work Phone: [employer] [facility] Start: 08-22-2024 End: 08-22-2024 Medication Hesham Alvarez MD Work Phone: [employer] Start: 06-04-2024 End: 06-04-2024 ambulatory [facility] Start: 05-29-2024 End: 05-29-2024 ambulatory [facility] Start: 05-14-2024 End: 05-14-2024 Patient encounter procedure Hesham Alvarez MD Work Phone: [employer] Start: 05-14-2024 Follow-up encounter Hesham almonte MD Work Phone: [employer] Start: 05-05-2024 Review Hesham Alvarez MD Work Phone: [facility] Start: 11-07-2023 End: 11-07-2023 Periodic preventive med est patient 65yrs& older Hesham Alvarez MD Work Phone: [facility] Start: 11-07-2023 End: 11-07-2023 Physical examination Hesham Alvarez MD Work Phone: [employer] [facility] Start: 11-07-2023 Physical examination Melania Pineda LPN [employer] Start: 10-31-2023 End: 10-31-2023 Orders Hesham Alvarez MD Work Phone: [facility] Start: 10-25-2023 End: 10-26-2023 Orders Hesham Alvarez MD Work Phone: [facility] Start: 09-24-2023 End: 09-24-2023 Medication Hesham Alvarez MD Work Phone: [employer] Start: 06-06-2023 End: 08-16-2023 Office outpatient visit 15 minutes Hesham Alvarez MD Work Phone: [employer] Start: 02-14-2023 End: 02-14-2023 Office outpatient visit 15 minutes Hesham Alvarez MD Work Phone: [employer] Start: 10-18-2022 End: 10-18-2022 Patient encounter procedure Hesham Alvarez MD Work Phone: [employer] Start: 10-18-2022 End: 10-18-2022 Office outpatient visit 15 minutes Hesham Alvarez MD Work Phone: [employer] 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 Start: 01-05-2022 End: 01-05-2022 Office outpatient visit 15 minutes Hesham Alvarez MD Work Phone: [employer] Start: 12-19-2021 End: 12-19-2021 Medication Hesham Alvarez MD Work Phone: [facility] Start: 12-01-2021 End: 12-01-2021 Medication Hesham Alvarez MD Work Phone: [facility] Start: 11-25-2021 End: 11-25-2021 Orders Hesham Alvarez MD Work Phone: [employer] Start: 11-18-2021 End: 11-18-2021 Office outpatient visit 15 minutes Hesham Alvarez MD Work Phone: [employer] Start: 11-03-2021 End: 11-03-2021 Office outpatient visit 15 minutes Hesham Alvarez MD Work Phone: [facility] Start: 06-30-2021 End: 06-30-2021 Office outpatient visit 15 minutes Hesham Alvarez MD Work Phone: [facility] Start: 04-12-2021 End: 04-12-2021 Telephone follow-up Hesham Alvarez MD Work Phone: [facility] Start: 03-29-2021 End: 03-29-2021 Office outpatient visit 15 minutes Hesham Alvarez MD Work Phone: [facility] Start: 12-21-2020 End: 12-21-2020 Office outpatient visit 15 minutes Hesham Alvarez MD Work Phone: [facility] Start: 05-21-2020 End: 05-21-2020 Medication Hesham Alvarez MD Work Phone: [facility] Start: 09-30-2019 End: 09-30-2019 Office outpatient visit 25 minutes Hesham Alvarez MD Work Phone: [facility] Start: 07-01-2019 End: 07-01-2019 Office outpatient visit 15 minutes Hesham Alvarez MD Work Phone: [employer] Start: 04-08-2019 End: 04-07-2019 Historical Summary Hesham Alvarez MD Work Phone: [facility] Start: 04-08-2019 End: 04-08-2019 Office outpatient visit 15 minutes Hesham Alvarez MD Work Phone: [facility] Start: 04-01-2019 End: 04-01-2019 Orders Hesham Alvarez MD Work Phone: [facility] Start: 12-10-2018 End: 12-10-2018 Office outpatient visit 15 minutes Hesham Alvarez MD Work Phone: [facility] Start: 10-04-2018 End: 10-04-2018 Nursing evaluation of patient and report Hesham Alvarez MD Work Phone: [facility] Start: 09-27-2018 End: 09-27-2018 Office outpatient visit 15 minutes Hesham Alvarez MD Work Phone: [facility] Start: 08-13-2018 End: 08-13-2018 Office outpatient visit 15 minutes Hesham Alvarez MD Work Phone: [facility] Start: 06-11-2018 End: 06-11-2018 Medication Hesham Alvarez MD Work Phone: [facility] Start: 04-09-2018 End: 04-09-2018 Office outpatient visit 15 minutes Hesham Alvarez MD Work Phone: [facility] Start: 12-05-2017 End: 12-05-2017 Office outpatient visit 15 minutes Hesham Alvarez MD Work Phone: [facility] Start: 09-12-2017 End: 09-12-2017 Office outpatient visit 15 minutes Hesham Alvarez MD Work Phone: [facility] Start: 07-06-2017 End: 07-06-2017 Office outpatient visit 15 minutes Hesham Alvarez MD Work Phone: [facility]. Start: 07-04-2017 End: 07-04-2017 Orders Hesham Alvarez MD Work Phone: [facility]. Start: 06-22-2017 End: 06-22-2017 Office outpatient visit 15 minutes Hesham Alvarez MD Work Phone: [facility] Start: 05-15-2017 End: 05-15-2017 Office outpatient visit 15 minutes Hesham Alvarez MD Work Phone: [facility] Start: 01-16-2017 End: 01-16-2017 Office outpatient visit 15 minutes Hesham Alvarez MD Work Phone: [facility] Start: 07-17-2016 End: 07-17-2016 Office outpatient visit 15 minutes Hesham Alvarez MD Work Phone: [facility] Start: 11-16-2015 End: 11-16-2015 Office outpatient visit 15 minutes Hesham Alvarez MD Work Phone: [employer] Start: 04-21-2015 End: 04-21-2015 Office outpatient visit 15 minutes Hesham Alvarez MD Work Phone: [facility] Start: 12-11-2014 End: 12-11-2014 Office outpatient visit 15 minutes Hesham Alvarez MD Work Phone: [facility] Start: 08-14-2014 End: 08-14-2014 Office outpatient visit 15 minutes Hesham Alvarez MD Work Phone: [employer] Start: 04-10-2014 End: 04-10-2014 Patient encounter procedure Hesham Alvarez MD Work Phone: [employer] Start: 10-03-2013 End: 10-03-2013 Patient encounter procedure Hesham Alvarez MD Work Phone: [employer] Start: 05-12-2013 End: 05-12-2013 Historical Summary Hesham Alvarez MD Work Phone: [employer] Start: 03-28-2013 End: 03-28-2013 Patient encounter procedure Hesham Alvarez MD Work Phone: [facility] Start: 03-25-2013 End: 03-25-2013 Historical Summary Hesham Alvarez MD Work Phone: [employer] Start: 09-27-2012 End: 09-27-2012 Patient encounter procedure Hesham Alvarez MD Work Phone: [facility]. Start: 03-25-2012 End: 03-25-2012 Laboratory examination ordered as part of a routine general medical examination Hesham Alvarez MD Work Phone: [employer] [facility] Start: 03-25-2012 End: 03-25-2012 Orders Hesham Alvarez MD Work Phone: [employer] Start: 03-22-2012 End: 03-22-2012 Patient encounter procedure Hesham Alvarez MD Work Phone: [employer] Start: 09-29-2011 End: 09-29-2011 Orders Hesham Alvarez MD Work Phone: [email or web address] Start: 09-29-2011 End: 09-29-2011 Patient encounter procedure Hesham Alvarez MD Work Phone: [employer] Start: 03-31-2011 End: 03-31-2011 Patient encounter procedure Hesham Alvarez MD Work Phone: [employer] Start: 12-02-2010 End: 12-02-2010 Patient encounter procedure Hesham Alvarez MD Work Phone: [employer] Start: 11-29-2010 End: 11-29-2010 Historical Summary Hesham Alvarez MD Work Phone: [employer] Laboratory examinati on ordered as part of a routine general medical examination Lani Bone CMA [email or web address]; [facility] Physical examination Hesham marks MD Work Phone: [email or web address]; Drug Response Dx Procedures Date Procedure Procedure Detail Performing Clinician Start: 05-12-2025 Gram stain microscopy Anil Alvarez MD Work Phone: Start: 05-12-2025 End: 05-12-2025 Microbial culture, routine Dr. Hesham marks MD Work Phone: Start: 04-28-2025 End: 04-28-2025 Most Recent Endo Report Hesham Alvarez MD Work Phone: Comment on above: no records Start: 04-01-[address] Hesham Alvarez MD Work Phone: Start: 04-01-2025 Gram stain microscopy Anil Alvarez MD Work Phone: Start: 04-01-2025 End: 04-01-2025 Microbial culture, routine Dr. Hesham marks MD Work Phone: Start: 03-20-2025 Debridement NEO SUPP AN DPM Comment on above: bilateral foot wound s Start: 11-21-2024 End: 11-21-2024 FIT DNA test Felicia Urena LATHA Comment on above: Normal. Negative Fin ding. Cologuard Start: 11-05-2024 End: 11-24-2024 Oncology colorectal screening jules 10 dna markrs Hesham Alvarez MD Work Phone: Start: 11-05-2024 End: 11-04-2024 Pt falls assess docd w/o fall/injury past year Hesham Alvarez MD Work Phone: Start: 11-05-2024 End: 11-04-2024 Scr dep neg, no plan reqd Hesham Alvarez MD Work Phone: Start: 11-07-2023 End: 11-07-2023 Depression screening Hesham Alvarez MD Work Phone: Start: 11-07-2023 End: 11-07-2023 Flu imm no admin doc uriel Hesham Ma Work Phone: Start: 11-07-2023 End: 11-07-2023 Pos clin depres scrn f/u doc Hesham Alvarez MD Work Phone: Start: 11-07-2023 End: 11-07-2023 Scr dep neg, no plan reqd Hesham Alvarez MD Work Phone: Start: 10-31-2023 End: 10-31-2023 Hemoglobin A1c/Hemoglobin.total in Blood Melania Pineda LPN Comment on above: Results:. 11.6 Start: 10-31-2023 End: 10-31-2023 Lipid panel Melania Pineda LPN Comment on above: Abnormal. Start: 10-31-2023 End: 10-31-2023 Prostate specific antigen measurement Melania Pineda LPN Comment on above: 2.46 Start: 02-14-2023 End: 02-14-2023 Hemoglobin A1c/Hemoglobin.total in Blood Savanah Burgos TYRONE Comment on above: Results:. 11.6 Start: 09-25-2022 Urnls dip stick/tabl et rgnt auto w/o microscopy Esdras Hendrickson MD Work Phone: Start: 12-21-2020 End: 12-21-2020 UA PC:Ratio Savanah Burgos LP N Start: 09-30-2019 End: 09-30-2019 Flu imm no admin doc uriel Hesham Ma Work Phone: Start: 08-13-2019 End: 08-13-2019 Examination of retina Savanah Burgos LPN Comment on above: Within Normal Limits . Negative Finding. negative exam, Dr Cramer at [facility] Start: 04-01-2019 End: 04-01-2019 Lipid panel Savanah Burgos LP N Start: 10-04-2018 End: 10-04-2018 Removal sutures under anesthesia same surgeon Hesham Alvarez MD Work Phone: Start: 09-27-2018 End: 09-27-2018 Simple repair scalp/neck/ax/genit/trunk 2.5cm/< Hesham Alvarez MD Work Phone: Start: 08-13-2018 End: 08-13-2018 Flu imm no admin doc uriel Hesham Ma Work Phone: Start: 07-04-2017 End: 07-06-2017 Us scrotum & contents Hesham Alvarez MD Work Phone: Start: 02-19-2015 End: 02-19-2015 Ophthalmic examination and evaluation Savanah Burgos LPN Comment on above: Within Normal Limits . Start: 01-20-2010 End: 01-20-2010 Screening colonoscopy Hesham Alvarez MD Work Phone: Start: 01-07-2009 End: 01-07-2009 TDAP Savanah Burgos LP N Appendectomy NEO REAVES M Hernia repair NEO Ma PM Comment on above: left Plan of Treatment Date Care Activity Detail Author Start: 11-03-2025 Patient encounter procedure Medical; RTN OFFICE VISIT - 6 mo rtn [employer] Start: 03-Nov-2025 08:40-05:00 MD Hesham Alvarez Appointment Request [employer] Start: 05-05-2025 Hemoglobin glycosylated a1c Hgb A1c (fingerstick)(84915) Start: 05-May-2025 10:06-04:00 Request Drug Response Dx.; Drug Response Dx. Start: 05-05-2025 Patient encounter procedure Medical; RTN OFFICE VISIT - 6 mo rtn Drug Response Dx. Start: 05-May-2025 08:00-04:00 MD Hesham Alvarez Appointment Request Drug Response Dx. Start: 11-05-2024 Oncology colorectal screening jules 10 dna markrs COLOGUARD COLON CANCER SCREENING USING STOOL DNA AT POINT OF CARE ([id number]) Start: 05-Nov-2024 Intent Drug Response Dx.; Drug Response Dx. Start: 11-05-2024 Assay of prostate specific antigen total PSA TOTAL (PROSTATE SPECIFIC ANTIGEN) (19448) Start: 05-Nov-2024 08:20-05:00 Request Drug Response Dx.; [employer] Start: 11-05-2024 Lipid panel LIPID PANEL (39040) Start: 05-Nov-2024 08:20-05:00 Request Drug Response Dx.; [employer] Start: 11-05-2024 Patient encounter procedure Medical; PHYSICAL - AWV & will be fasting Drug Response Dx. Start: 05-Nov-2024 08:00-05:00 MD Hesham Alvarez Appointment Request Drug Response Dx. Start: 05-14-2024 Patient encounter procedure Drug Response Dx. Start: 02-13-2024 Nursing evaluation of patient and report Medical; Nurse visit - fasting labs- [facility] Drug Response Dx. Start: 13-Feb-2024 8:20 NURSE, FLOAT Appointment Request Drug Response Dx. Start: 01-03-2024 Hemoglobin glycosylated a1c Hgb A1c (fingerstick)(10421) Start: 03-Jan-2024 Request Drug Response Dx.; [employer] Start: 11-17-2023 DIABETES SCREEN DIABETES SCREEN [facility] Start: 11-07-2023 Patient encounter procedure Medical; PHYSICAL - PHYSICAL Drug Response Dx. Start: 07-Nov-2023 8:20 MD Hesham Alvarez Appointment Request Drug Response Dx. Start: 10-31-2023 Hemoglobin glycosylated a1c HEMOGLOBIN A1C* (17939) Start: 31-Oct-2023 Request [employer] Drug Response Dx. Start: 10-31-2023 Nursing evaluation of patient and report Medical; Nurse visit - fasting labs-[facility]B [employer] Start: 31-Oct-2023 8:20 ROOM, PROCEDURE (DRAW) Appointment Request [facility] Start: 10-31-2023 Assay of prostate specific antigen total [email or web address]; [employer] Start: 10-31-2023 Comprehensive metabolic panel [employer] Drug Response Dx. Start: 10-31-2023 Lipid panel [employer]; [employer] Start: 06-22-2022 Influenza vaccination INFLUENZA (#1) [facility] Start: 10-22-2021 ADVANCE DIRECTIVE DISCUSSION ADVANCE DIRECTIVE DISCUSSION [facility] Start: 10-22-2021 DEPRESSION ASSESSMENT DEPRESSION ASSESSMENT [facility] Start: 2019 PNEUMOCOCCAL: 65+ (1 - PCV) PNEUMOCOCCAL: 65+ (1 - PCV) [facility] Start: 2009 PROSTATE CANCER SCREENING DISCUSSION PROSTATE CANCER SCREENING DISCUSSION [facility] Start: 2004 SHINGRIX VACCINE (1 of 2) SHINGRIX VACCINE (1 of 2) [facility] Start: 1999 COLOGUARD (FIT-DNA) COLOGUARD (FIT-DNA) [facility] Start: 1999 Colonoscopy COLONOSCOPY [facility] Start: 1999 COLORECTAL CANCER SCREENING COLORECTAL CANCER SCREENING [facility] Start: [address] COLONOGRAPHY [facility] Start: 1999 FECAL OCCULT BLOOD FECAL OCCULT BLOOD [facility] Start: 1999 SIGMOIDOSCOPY SIGMOIDOSCOPY [facility] Start: 1989 LIPID SCREEN LIPID SCREEN [facility] Start: 1973 Urine microalbumin profile DTAP,TDAP,TD (1 - Tdap) [facility] Start: 1972 HEPATITIS C SCREENING HEPATITIS C SCREENING [facility] Start: 05-12-1955 COVID-19 VACCINE (#1) COVID-19 VACCINE (#1) [facility] Immunizations Immunization Date Immunization Notes Care Provider Jonna cao 09-27-2018 tetanus toxoid, redu nir diphtheria toxoid, and acellular pertussis vaccine, adsorbed Hesham Alvarez MD Work Phone[facility]; [facility] Comment on above: Site: Left DeltoidVI S Given: * Tdap (Tetanus, Diphtheria, Pertussis) (12/15/14) 01-07-2009 tetanus toxoid, redu nir diphtheria toxoid, and acellular pertussis vaccine, adsorbed Hesham Alvarez MD Work Phone: [facility] [employer]; [employer] 12-30-2007 pneumococcal Conjuga te, unspecified formulation Hesham Alvarez MD Work Phone: [facility]; [facility] 12-30-2007 pneumococcal polysaccharide vaccine, 23 valent Hesham Alvarez MD Work Phone: [facility]; [email or web address] Payers Date Payer Category Payer Self-pay [id number] 1955 Unknown [id number] [id number] 1955 Unknown [id number] 2.16.8 [id number] 1955 Unknown [id number] 2.16.8 [id number] 1955 Unknown [id number] 2.16.8 [id number] Unknown [id number] 2.16.8 [id number] Unknown [id number] 2.16.8 [id number] Unknown [id number] 2.16.8 [id number] Unknown [id number] 2.16.8 [id number] Social History Date Type Detail Facility Start: 09-25-2022 End: 04-01-2025 Tobacco smoking status NHIS Never smoked tobacco [facility] Start: 09-25-2022 Tobacco use and exposure Smoke less tobacco non-user [facility] Start: 1955 Sex Assigned At Not on file C [facility] Tobacco Use: Tobacco Use: ; F ormer smoker. [facility], [facility]. Start: 1955 Male Laurenkatlyn jean Start: 03-10-2025 [facility] Sexual Orientation Rienzi Lorelei ospisebas [facility] Start: 06-04-2024 Sex Male (finding) [facility] Clinical Notes 09-25-2022 to 04-08-2025 Note Date & Type Note Facility 04-08-2025 Progress note Note Date/Time April 08, 2025 12:47pm [facility] [address] [place] [id number] Progress Note - Wound Care 04/08/25 1243 MR#: [id number] Acct: [id number] Name: JORY PRITCHARD Rep #:[id number] : 1955 69 From: Colin GARDNER PCP: Dr. Hesham Alvarez MD Status:REG RC R Location: History of Present Illness Date of Service: 04/08/25 Chief Complaint: Right great toe ulceration, left great toe ulceration status post amputation with surgical wound dehiscence History of Wound: Chronic wound to the bilateral lower extremity Progress of Wound: Stable bilateral foot wounds. Subjective Subjective Patient is 69-year-old diabetic male presenting to clinic today follow-up evaluation of full-thickness wound to the right great toe and full-thickness wound to the surgical wound dehiscence area to the left hallux amputation site. Patient has been doing dressing changes as discussed. He is taking oral antibiotics as prescribed. He admits things are improving. His blood sugars well-controlled. Denies trauma. Denies constitutional symptoms. No other pedal complaints at this time. Objective Data Objective Data Vital Signs: Vital Signs Temp Pulse Resp BP O2 Del Method 96.8 F L 69 18 160/82 H Room Air 04/08/25 09:12 04/08/25 09:12 04/08/25 09:12 04/08/25 09:12 04/08/25 09:12 Oxygen Delivery Method Room Air Weight: 85.275 kg Body Mass Index (BMI) 25.4 Lab / Micro Data Micro: Microbiology 04/01/25 09:47 Ulcer, Decubitus - Right Foot Gram Stain - Final 04/01/25 09:47 Ulcer, Decubitus - Right Foot Wound Culture - Final Escherichia coli Staphylococcus epidermidis Staphylococcus haemolyticus Strep anginosus 04/01/25 09:47 Ulcer, Decubitus - Right Foot Anaerobic Culture - Final Prevotella bivia Physical Exam Narrative Vascular: DP and PT pulses are palpable to bilateral lower extremity. CFT is brisk. Skin temperature great is warm to warm from proximal ankles to distal digit bilateral. No focal increase in warmth is appreciated bilateral lower extremity. No erythema. Neurological: Light touch intact. Patient does respond to painful stimuli. Dermatological: Full-thickness wound to the medial aspect of the right hallux measuring 2.1 x 0.8 x 0.2 cm wound base is fibrogranular nature. Negative probeto bone. No sign of infection. Full-thickness wound to the amputation site of the left hallux at the level of the first metatarsophalangeal joint measuring 0.5 x 3.2 x 1.0 cm. Positive probe to bone. No erythema Excisional debridement down to including subcutaneous tissue with a number 3 mm dermal curette to the right hallux and without incident. Predebridement measurement was 2.0 x 0.7 x 0.1 cm. Postdebridement measurement is 2.1 x 0.8 x 0.2 cm. Excisional debridement down to and including subcutaneous tissue, fascia muscle and bone to the left foot status post left hallux amputation site done with a number 3 mm dermal curette without incident. Predebridement measurement was 0.3x 3.0 x 0.6 cm.. Post right measurement 0.5 x 3.2 x 1.0 cm. Musculoskeletal: Mild pain to palpation to the bilateral full-thickness wounds. No pain with calf pressure. Debridement Note Debridement Note Debridement Free Text: Excisional debridement down to including subcutaneous tissue with a number 3 mm dermal curette to the right hallux and without incident. Predebridement measurement was 2.0 x 0.7 x 0.1 cm. Postdebridement measurement is 2.1 x 0.8 x 0.2 cm. Excisional debridement down to and including subcutaneous tissue, fascia muscle and bone to the left foot status post left hallux amputation site done with a number 3 mm dermal curette without incident. Predebridement measurement was 0.3x 3.0 x 0.6 cm.. Post right measurement 0.5 x 3.2 x 1.0 cm. Post-Debridement Measurements and Additional Note: Post-Debridement Measurements/Treatment WC - Nurse 1 - General Ulcer Assessment Start: 04/01/25 09:03 Freq: Status: Active Protocol: [employer] Activity Type Activity Date Activity User E-sign Co-sign Detail Recorded Client Recorded Date Recorded By Document 04/01/25 09:08 [id number] 04/01/25 09:33 Document 04/08/25 09:12 KW [id number] 04/08/25 09:24 04/01/25 04/08/25 09:08 09:12 - Today's Visit Information Type of service Initial Visit Follow-up Visit (Physician/[employer] ) Arrival Mode Ambulatory Ambulatory Patient Identification Verified (Name & Yes Yes ) Patient Requires Transmission-Based No Precautions Height and Weight Height 6 ft Weight 85.275 kg Weight in Pounds 188.0 lbs Weight Measurement Method Estimated by Patient Body Mass Index (BMI) 25.4 25.4 BMI Classification Overweight Overweight Vital Signs Temperature (97.8 F-99.1 F) 96.7 F L 96.8 F L Temperature Source Temporal Temporal Pulse Rate (60-100) 68 69 Pulse Location Monitor Monitor Respiratory Rate (12-18) 16 18 Respiratory rate source Observation Observation Oxygen Delivery Method Room Air Room Air Blood Pressure (90/60-120/80) 176/82 H 160/82 H Blood Pressure Mean (mm Hg) 113 108 Source Monitor Monitor Position Sitting Semi-Fowlers Blood Pressure Location Left Arm Right Arm History Since Last Visit- (Skip if this is Patient's initial visit) Have you changed medications since your No last visit? Any new allergies or adverse reactions No Had a fall/change in ADL's that may No increase risk of falls Signs or symptoms of abuse and/or No No neglect since last visit Have you been in the hospital since your No last visit? Has dressing in place as prescribed Yes Has compression in place as prescribed Yes Has offloadiing in place as prescribed Yes Experienced any changes in pain level or No management Left Footwear Surgical Shoe Surgical Shoe with pressure with pressure relief insole relief insole Right Footwear Surgical Shoe Surgical Shoe with pressure with pressure relief insole relief insole Pain Scale: 0-10 Numeric Is Patient Pain Free? Yes Yes Lower Extremity Assessment/ Foot Assessment/ Toe Nail Assessment Right -Posterior Tibial Palpable No -Posterior Tibial Doppler Multiphasic -Dorsalis Pedis Palpable No -Dorsalis Pedis Doppler Multiphasic -Extremity Color Red -Hair Growth on Legs Yes -Hair Growth on Toes Yes -Temperature of Extremity Warm -Capillary Refill Less than 3 Seconds -Dependent Rubor No -Blanched when Elevated No -Lipodermatosclerosis No -Other Deformity No -Prior Foot Ulcer No -Charcot Joint No -Prior Amputation No -Thick No -Discolored No -Deformed No -Improper Length & Hygeine No Left -Posterior Tibial Palpable No -Posterior Tibial Doppler Multiphasic -Dorsalis Pedis Palpable No -Dorsalis Pedis Doppler Multiphasic -Extremity Color Red -Hair Growth on Legs Yes -Hair Growth on Toes Yes -Temperature of Extremity Warm -Capillary Refill Less than 3 Seconds -Dependent Rubor No -Blanched when Elevated No -Lipodermatosclerosis No -Other Deformity No -Prior Foot Ulcer No -Charcot Joint No -Prior Amputation Yes -Thick No -Discolored No -Deformed No -Improper Length & Hygeine No Teaching Assessment Preferences Verbal,Written Barriers to Learning None Readiness To Learn Excellent Willingness to Engage in Self Management High Activies Readiness to Engage in Self Management High Activities Anxiety Level Calm Cooperation Cooperative Perception Coherent Interest in Health Problem Asks Questions Education Importance Acknowledges Need Does Patient Smoke tobacco or other No substances Smoking Status Never smoker Is Patient Diabetic Yes Functional Assessment Recent Decline in Ability to Perform Denies Any Declines Assistive Device With Patient No Teaching: Wound Center *Welcome to the Wound Center -Person Taught Patient -Teaching Method Discussion -Response to teaching Verbalize Understanding WC - Nurse 1 - General Ulcer Measurement Start: 04/01/25 09:03 Freq: Status: Active Protocol: Activity Type Activity Date Activity User E-sign Co-sign Detail Recorded Client Recorded Date Recorded By Document 04/01/25 09:08 [id number] 04/01/25 09:33 GM Document 04/08/25 09:12 KW [id number] 04/08/25 09:24 KW 04/01/25 04/08/25 09:08 09:12 Wound Center Nurse 1 Left Hallux amputation site -Current Size (cm) - Length 0.1 3 -Current Size (cm) - Width 0.1 0.3 -Current Size (cm) - Depth 0.1 0.7 -Total Square Cm 0.01 0.9 -Date of Last Picture (Recall this 04/01/25 04/08/25 field) -Photo Taken Yes -Tunneling No -Undermining/Tunneling No -Circular Undermining No -Exudate Amt Medium Medium -Exudate Type Yellow/Green Serosanguineous -Wound Margin Distinct, Outline Attached -Granulation Amt None Present (0 Small (1-33%) %) -Granulation Quality Red -Slough/Fibrin Yes -Necrosis Amt Large (67-100%) Large (67-100%) -Necrotic Tissue Type Adherent Slough Adherent Slough -Texture (Leda-wound Skin Appearance) Assessed Assessed -Moisture (Leda-wound Skin Appearance) Assessed Assessed,Dry/ Scaly -Color (Leda-wound Skin Appearance) Assessed Assessed -Temperature (Leda-wound Skin No Abnormality No Abnormality Appearance) (Pt Warm) (Pt Warm) -Tenderness on Palpation (Leda-wound Yes Yes Skin Appearance) -Ulcer Cleansing Soap and Water Soap and Water -Foul Odor after Cleansing No No -Anesthetic Used 5% Lidocaine 5% Lidocaine Gel Gel Right Hallux -Combined with other wound No -Current Size (cm) - Length 2.5 2.2 -Current Size (cm) - Width 1.3 0.8 -Current Size (cm) - Depth 0.3 0.2 -Total Square Cm 3.25 1.76 -Date of Last Picture (Recall this 04/01/25 04/08/25 field) -Photo Taken Yes -Tunneling No -Undermining/Tunneling No -Circular Undermining No -Exudate Amt Medium Small -Exudate Type Yellow/Green Serosanguineous -Wound Margin Distinct, Distinct, Outline Outline Attached Attached -Granulation Amt Small (1-33%) -Granulation Quality Red -Slough/Fibrin Yes -Necrosis Amt Large (67-100%) Large (67-100%) -Necrotic Tissue Type Adherent Slough Adherent Slough -Texture (Leda-wound Skin Appearance) Assessed Assessed -Moisture (Leda-wound Skin Appearance) Assessed Assessed -Color (Leda-wound Skin Appearance) Assessed Assessed -Temperature (Leda-wound Skin No Abnormality No Abnormality Appearance) (Pt Warm) (Pt Warm) -Tenderness on Palpation (Leda-wound Yes Yes Skin Appearance) -Ulcer Cleansing Soap and Water Soap and Water -Foul Odor after Cleansing No No -Anesthetic Used 5% Lidocaine 5% Lidocaine Gel Gel Right Calf (cm) 38.5 Right Ankle (cm) 24 Left Calf (cm) 39.2 Left Ankle (cm) 26 WC - Nurse 2 - General Ulcer CM Notes Start: 04/01/25 09:03 Freq: Status: Active Protocol: Activity Type Activity Date Activity User E-sign Co-sign Detail Recorded Client Recorded Date Recorded By Document 04/01/25 09:49 [id number] 04/01/25 09:57 Document 04/08/25 10:03 [id number] 04/08/25 10:10 04/01/25 04/08/25 09:49 10:03 Wound Center Nurse 2 Left Hallux amputation site -Time 09:49 10:04 -Correct Patient Yes Yes -Correct Side, Site, Position Yes Yes -Correct Procedure Yes Yes -Procedure Performed Yes Yes -Type of Procedure Debridement Debridement -Clinical Debridement Bone Bone -Tissue Removed Non-viable Non-viable tissue tissue -Post Debridement (cm) - Length 0.4 0.5 -Post Debridement (cm) - Width 3.5 3.2 -Post Debridement (cm) - Depth 0.7 1.0 -Total Square (Post) (cm) 1.40 1.60 -Area of Debridement (cm) - Length 0.4 0.5 -Area of Debridement (cm) - Width 3.5 3.2 -Total Square (Area) (cm) 1.40 1.60 -Tunneling No No -Undermining/Tunneling No No -Circular Undermining No No -Wound/Ulcer Outcome Not Healed Not Healed -Ulcer Cleansing Rinsed/ Rinsed/ Irrigated with Irrigated with Saline Saline -Foul Odor after Cleansing No No -Bioengineered Tissue No No -Bleeding Controlled with Pressure Pressure -Treatment Response Procedure Procedure Tolerated Well Tolerated Well -Offloading Yes Yes -Type of Offloading Surgical Shoe Surgical Shoe -Debridement - Bone, 1st 20sq cm Yes Yes Right Hallux -Time 09:49 10:07 -Correct Patient Yes Yes -Correct Side, Site, Position Yes Yes -Correct Procedure Yes Yes -Procedure Performed Yes Yes -Type of Procedure Debridement Debridement -Clinical Debridement Subcutaneous Subcutaneous -Tissue Removed Subcutaneous Subcutaneous -Post Debridement (cm) - Length 2.5 2.1 -Post Debridement (cm) - Width 1.3 0.8 -Post Debridement (cm) - Depth 0.2 0.2 -Total Square (Post) (cm) 3.25 1.68 -Area of Debridement (cm) - Length 2.5 2.1 -Area of Debridement (cm) - Width 1.3 0.8 -Total Square (Area) (cm) 3.25 1.68 -Tunneling No No -Undermining/Tunneling No No -Circular Undermining No No -Wound/Ulcer Outcome Not Healed Not Healed -Ulcer Cleansing Rinsed/ Rinsed/ Irrigated with Irrigated with Saline Saline -Foul Odor after Cleansing No No -Bioengineered Tissue No No -Bleeding Controlled with Pressure Pressure -Treatment Response Procedure Procedure Tolerated Well Tolerated Well -Offloading Yes Yes -Type of Offloading Surgical Shoe Surgical Shoe -Debridement - Subq, 1st 20sq cm Yes Yes Pain Scale: 0-10 Numeric Is Patient Pain Free? Yes Yes - Nurse 3 - General Ulcer D/C NN Start: 04/01/25 09:03 Freq: Status: Active Protocol: Activity Type Activity Date Activity User E-sign Co-sign Detail Recorded Client Recorded Date Recorded By Document 04/01/25 10:07 KW [id number] 04/01/25 10:07 KW Edit Result 04/01/25 10:07 KW (1) [id number] 04/01/25 10:08 KW Document 04/08/25 10:23 KW [id number] 04/08/25 10:25 KW (1) BLE - Tubular Bandage => Single Layer - Size of Tubigrip Used => Size E - Size E ($) => 2 - Other => single layer to => each leg 04/01/25 04/08/25 10:07 10:23 Wound Care Center Nurse 3 Left Hallux amputation site -Other Dressing betadine betadine pack -Primary Dressing Covered/Secured with Dry Gauze & Dry Gauze & Roll Gauze, Roll Gauze, Secured with Secured with Tape Tape Right Hallux -Other Dressing betadine betadine painted -Primary Dressing Covered/Secured with Dry Gauze & Dry Gauze & Roll Gauze, Roll Gauze, Secured with Secured with Tape Tape BLE -Tubular Bandage Single Layer Double Layer -Size of Tubigrip Used Size E Size E -Size E ($) 2 4 -Other single layer to each leg Pain Scale: 0-10 Numeric Is Patient Pain Free? Yes Yes WC - Visit Discharge Discharge Condition Stable Stable Ambulatory Status Ambulatory Ambulatory Transportation Private Auto Private Auto Medication Reconcilliation completed & No No provided to patient/care provider Clinical Summary of Care Provided Yes Yes Assessment/Plan Assessment/Plan (1) Type 2 diabetes mellitus with foot ulcer: CODE(S): E11.621 - Type 2 diabetes mellitus with foot ulcer; L97.509 - Non-pressure chronic ulcer of other part of unspecified foot with unspecified severity PLAN: Patient was examined and evaluated. All findings were discussed with the patient. All questions were answered to the patient's satisfaction. Excisional debridement down to including subcutaneous tissue with a number 3 mm dermal curette to the right hallux and without incident. Predebridement measurement was 2.0 x 0.7 x 0.1 cm. Postdebridement measurement is 2.1 x 0.8 x 0.2 cm. Excisional debridement down to and including subcutaneous tissue, fascia muscle and bone to the left foot status post left hallux amputation site done with a number 3 mm dermal curette without incident. Predebridement measurement was 0.3x 3.0 x 0.6 cm.. Post right measurement 0.5 x 3.2 x 1.0 cm. The bilateral lower extremities were cleaned and patted dry. Patient will continue his antibiotic as prescribed. Both incision dressed with Betadine soaked gauze dry sterile dressing and light compression wrap. Patient will continue daily dressing changes and continue strict blood sugar control. Patient will follow-up with me in private office due to the patient not having medical insurance as well as this being more affordable for the patient. (2) Non-pressure chronic ulcer of other part of right foot with fat layer exposed: CODE(S): L97.512 - Non-pressure chronic ulcer of other part of right foot with fat layer exposed (3) Non-pressure chronic ulcer of other part of left foot with necrosis of bone: CODE(S): L97.524 - Non-pressure chronic ulcer of other part of left foot with necrosis of bone (4) Other specified peripheral vascular diseases: CODE(S): I73.89 - Other specified peripheral vascular diseases 04/08/25 1247 <Electronically signed by Colin Mcgregor DPM> Cosigner Signature (if applicable): CC: ~ Signed [facility] Work Phone: [phone]) [phone] Progress note [facility] [address] [place] [address] Progress Note - Wound Care 04/08/25 1243 MR#: [id number] Acct: [id number] Name: JORY PRITCHARD Rep #:[id number] : 1955 69 From: Colin GARDNER PCP: Dr. Hesham Alvarez MD Status:REG R Location: History of Present Illness Date of Service: 04/08/25 Chief Complaint: Right great toe ulceration, left great toe ulceration status post amputation with surgical wound dehiscence History of Wound: Chronic wound to the bilateral lower extremity Progress of Wound: Stable bilateral foot wounds. Subjective Subjective Patient is 69-year-old diabetic male presenting to clinic today follow-up evaluation of full-thickness wound to the right great toe and full-thickness wound to the surgical wound dehiscence area to the left hallux amputation site. Patient has been doing dressing changes as discussed. He is taking oral antibiotics as prescribed. He admits things are improving. His blood sugars well-controlled. Denies trauma. Denies constitutional symptoms. No other pedal complaints at this time. Objective Data Objective Data Vital Signs: Vital Signs Temp Pulse Resp BP O2 Del Method 96.8 F L 69 18 160/82 H Room Air 04/08/25 09:12 04/08/25 09:12 04/08/25 09:12 04/08/25 09:12 04/08/25 09:12 Oxygen Delivery Method Room Air Weight: 85.275 kg Body Mass Index (BMI) 25.4 Lab / Micro Data Micro: Microbiology 04/01/25 09:47 Ulcer, Decubitus - Right Foot Gram Stain - Final 04/01/25 09:47 Ulcer, Decubitus - Right Foot Wound Culture - Final Escherichia coli Staphylococcus epidermidis Staphylococcus haemolyticus Strep anginosus 04/01/25 09:47 Ulcer, Decubitus - Right Foot Anaerobic Culture - Final Prevotella bivia Physical Exam Narrative Vascular: DP and PT pulses are palpable to bilateral lower extremity. CFT is brisk. Skin temperature great is warm to warm from proximal ankles to distal digit bilateral. No focal increase in warmth is appreciated bilateral lower extremity. No erythema. Neurological: Light touch intact. Patient does respond to painful stimuli. Dermatological: Full-thickness wound to the medial aspect of the right hallux measuring 2.1 x 0.8 x0.2 cm wound base is fibrogranular nature. Negative probeto bone. No sign of infection. Full-thickness wound to the amputation site of the left hallux at the level of the first metatarsophalangeal joint measuring 0.5 x 3.2 x 1.0 cm. Positive probe to bone. No erythema Excisional debridement down to including subcutaneous tissue with a number 3 mm dermal curette to the right hallux and without incident. Predebridement measurement was 2.0 x 0.7 x 0.1 cm. Postdebridement measurement is 2.1 x 0.8 x 0.2 cm. Excisional debridement down to and including subcutaneous tissue, fascia muscle and bone to the left foot status post left hallux amputation site done with a number 3 mm dermal curette without incident. Predebridement measurement was 0.3x 3.0 x 0.6 cm.. Post right measurement 0.5 x 3.2 x 1.0 cm. Musculoskeletal: Mild pain to palpation to the bilateral full-thickness wounds. No pain with calf pressure. Debridement Note Debridement Note Debridement Free Text: Excisional debridement down to including subcutaneous tissue with a number 3mm dermal curette to the right hallux and without incident. Predebridement measurement was 2.0 x 0.7 x 0.1 cm. Postdebridement measurement is 2.1 x 0.8 x 0.2 cm. Excisional debridement down to and including subcutaneous tissue, fascia muscle and bone to the left foot status post left hallux amputation site done with a number 3 mm dermal curette without incident. Predebridement measurement was 0.3x 3.0 x 0.6 cm.. Post right measurement 0.5 x 3.2 x 1.0 cm. Post-Debridement Measurements and Additional Note: Post-Debridement Measurements/Treatment WC - Nurse 1 - General Ulcer Assessment Start: 04/01/25 09:03 Freq: Status: Active Protocol: VIKA.LOWEXT Activity Type Activity Date Activity User E-sign Co-sign Detail Recorded Client Recorded Date Recorded By Document 04/01/25 09:08 [id number] 04/01/25 09:33 Document 04/08/25 09:12 KW [id number] 04/08/25 09:24 KW 04/01/25 04/08/25 09:08 09:12 - Today's Visit Information Type of service Initial Visit Follow-up Visit (Physician/[employer] ) Arrival Mode Ambulatory Ambulatory Patient Identification Verified (Name & Yes Yes ) Patient Requires Transmission-Based No Precautions Height and Weight Height 6 ft Weight 85.275 kg Weight in Pounds 188.0 lbs Weight Measurement Method Estimated by Patient Body Mass Index (BMI) 25.4 25.4 BMI Classification Overweight Overweight Vital Signs Temperature (97.8 F-99.1 F) 96.7 F L 96.8 F L Temperature Source Temporal Temporal Pulse Rate (60-100) 68 69 Pulse Location Monitor Monitor Respiratory Rate (12-18) 16 18 Respiratory rate source Observation Observation Oxygen Delivery Method Room Air Room Air Blood Pressure (90/60-120/80) 176/82 H 160/82 H Blood Pressure Mean (mm Hg) 113 108 Source Monitor Monitor Position Sitting Semi-Fowlers Blood Pressure Location Left Arm Right Arm History Since Last Visit- (Skip if this is Patient's initial visit) Have you changed medications since your No last visit? Any new allergies or adverse reactions No Had a fall/change in ADL's that may No increase risk of falls Signs or symptoms of abuse and/or No No neglect since last visit Have you been in the hospital since your No last visit? Has dressing in place as prescribed Yes Has compression in place as prescribed Yes Has offloadiing in place as prescribed Yes Experienced any changes in pain level or No management Left Footwear Surgical Shoe Surgical Shoe with pressure with pressure relief insole relief insole Right Footwear Surgical Shoe Surgical Shoe with pressure with pressure relief insole relief insole Pain Scale: 0-10 Numeric Is Patient Pain Free? Yes Yes Lower Extremity Assessment/ Foot Assessment/ Toe Nail Assessment Right -Posterior Tibial Palpable No -Posterior Tibial Doppler Multiphasic -Dorsalis Pedis Palpable No -Dorsalis Pedis Doppler Multiphasic -Extremity Color Red -Hair Growth on Legs Yes -Hair Growth on Toes Yes -Temperature of Extremity Warm -Capillary Refill Less than 3 Seconds -Dependent Rubor No -Blanched when Elevated No -Lipodermatosclerosis No -Other Deformity No -Prior Foot Ulcer No -Charcot Joint No -Prior Amputation No -Thick No -Discolored No -Deformed No -Improper Length & Hygeine No Left -Posterior Tibial Palpable No -Posterior Tibial Doppler Multiphasic -Dorsalis Pedis Palpable No -Dorsalis Pedis Doppler Multiphasic -Extremity Color Red -Hair Growth on Legs Yes -Hair Growth on Toes Yes -Temperature of Extremity Warm -Capillary Refill Less than 3 Seconds -Dependent Rubor No -Blanched when Elevated No -Lipodermatosclerosis No -Other Deformity No -Prior Foot Ulcer No -Charcot Joint No -Prior Amputation Yes -Thick No -Discolored No -Deformed No -Improper Length & Hygeine No Teaching Assessment Preferences Verbal,Written Barriers to Learning None Readiness To Learn Excellent Willingness to Engage in Self Management High Activies Readiness to Engage in Self Management High Activities Anxiety Level Calm Cooperation Cooperative Perception Coherent Interest in Health Problem Asks Questions Education Importance Acknowledges Need Does Patient Smoke tobacco or other No substances Smoking Status Never smoker Is Patient Diabetic Yes Functional Assessment Recent Decline in Ability to Perform Denies Any Declines Assistive Device With Patient No Teaching: Wound Center *Welcome to the Wound Center -Person Taught Patient -Teaching Method Discussion -Response to teaching Verbalize Understanding - Nurse 1 - General Ulcer Measurement Start: 04/01/25 09:03 Freq: Status: Active Protocol: Activity Type Activity Date Activity User E-sign Co-sign Detail Recorded Client Recorded Date Recorded By Document 04/01/25 09:08 [id number] 04/01/25 09:33 Document 04/08/25 09:12 KW [id number] 04/08/25 09:24 KW 04/01/25 04/08/25 09:08 09:12 Wound Center Nurse 1 Left Hallux amputation site -Current Size (cm) - Length 0.1 3 -Current Size (cm) - Width 0.1 0.3 -Current Size (cm) - Depth 0.1 0.7 -Total Square Cm 0.01 0.9 -Date of Last Picture (Recall this 04/01/25 04/08/25 field) -Photo Taken Yes -Tunneling No -Undermining/Tunneling No -Circular Undermining No -Exudate Amt Medium Medium -Exudate Type Yellow/Green Serosanguineous -Wound Margin Distinct, Outline Attached -Granulation Amt None Present (0 Small (1-33%) %) -Granulation Quality Red -Slough/Fibrin Yes -Necrosis Amt Large (67-100%) Large (67-100%) -Necrotic Tissue Type Adherent Slough Adherent Slough -Texture (Leda-wound Skin Appearance) Assessed Assessed -Moisture (Leda-wound Skin Appearance) Assessed Assessed,Dry/ Scaly -Color (Leda-wound Skin Appearance) Assessed Assessed -Temperature (Leda-wound Skin No Abnormality No Abnormality Appearance) (Pt Warm) (Pt Warm) -Tenderness on Palpation (Leda-wound Yes Yes Skin Appearance) -Ulcer Cleansing Soap and Water Soap and Water -Foul Odor after Cleansing No No -Anesthetic Used 5% Lidocaine 5% Lidocaine Gel Gel Right Hallux -Combined with other wound No -Current Size (cm) - Length 2.5 2.2 -Current Size (cm) - Width 1.3 0.8 -Current Size (cm) - Depth 0.3 0.2 -Total Square Cm 3.25 1.76 -Date of Last Picture (Recall this 04/01/25 04/08/25 field) -Photo Taken Yes -Tunneling No -Undermining/Tunneling No -Circular Undermining No -Exudate Amt Medium Small -Exudate Type Yellow/Green Serosanguineous -Wound Margin Distinct, Distinct, Outline Outline Attached Attached -Granulation Amt Small (1-33%) -Granulation Quality Red -Slough/Fibrin Yes -Necrosis Amt Large (67-100%) Large (67-100%) -Necrotic Tissue Type Adherent Slough Adherent Slough -Texture (Leda-wound Skin Appearance) Assessed Assessed -Moisture (Leda-wound Skin Appearance) Assessed Assessed -Color (Leda-wound Skin Appearance) Assessed Assessed -Temperature (Leda-wound Skin No Abnormality No Abnormality Appearance) (Pt Warm) (Pt Warm) -Tenderness on Palpation (Leda-wound Yes Yes Skin Appearance) -Ulcer Cleansing Soap and Water Soap and Water -Foul Odor after Cleansing No No -Anesthetic Used 5% Lidocaine 5% Lidocaine Gel Gel Right Calf (cm) 38.5 Right Ankle (cm) 24 Left Calf (cm) 39.2 Left Ankle (cm) 26 - Nurse 2 - General Ulcer CM Notes Start: 04/01/25 09:03 Freq: Status: Active Protocol: Activity Type Activity Date Activity User E-sign Co-sign Detail Recorded Client Recorded Date Recorded By Document 04/01/25 09:49 [id number] 04/01/25 09:57 Document 04/08/25 10:03 [id number] 04/08/25 10:10 04/01/25 04/08/25 09:49 10:03 Wound Center Nurse 2 Left Hallux amputation site -Time 09:49 10:04 -Correct Patient Yes Yes -Correct Side, Site, Position Yes Yes -Correct Procedure Yes Yes -Procedure Performed Yes Yes -Type of Procedure Debridement Debridement -Clinical Debridement Bone Bone -Tissue Removed Non-viable Non-viable tissue tissue -Post Debridement (cm) - Length 0.4 0.5 -Post Debridement (cm) - Width 3.5 3.2 -Post Debridement (cm) - Depth 0.7 1.0 -Total Square (Post) (cm) 1.40 1.60 -Area of Debridement (cm) - Length 0.4 0.5 -Area of Debridement (cm) - Width 3.5 3.2 -Total Square (Area) (cm) 1.40 1.60 -Tunneling No No -Undermining/Tunneling No No -Circular Undermining No No -Wound/Ulcer Outcome Not Healed Not Healed -Ulcer Cleansing Rinsed/ Rinsed/ Irrigated with Irrigated with Saline Saline -Foul Odor after Cleansing No No -Bioengineered Tissue No No -Bleeding Controlled with Pressure Pressure -Treatment Response Procedure Procedure Tolerated Well Tolerated Well -Offloading Yes Yes -Type of Offloading Surgical Shoe Surgical Shoe -Debridement - Bone, 1st 20sq cm Yes Yes Right Hallux -Time 09:49 10:07 -Correct Patient Yes Yes -Correct Side, Site, Position Yes Yes -Correct Procedure Yes Yes -Procedure Performed Yes Yes -Type of Procedure Debridement Debridement -Clinical Debridement Subcutaneous Subcutaneous -Tissue Removed Subcutaneous Subcutaneous -Post Debridement (cm) - Length 2.5 2.1 -Post Debridement (cm) - Width 1.3 0.8 -Post Debridement (cm) - Depth 0.2 0.2 -Total Square (Post) (cm) 3.25 1.68 -Area of Debridement (cm) - Length 2.5 2.1 -Area of Debridement (cm) - Width 1.3 0.8 -Total Square (Area) (cm) 3.25 1.68 -Tunneling No No -Undermining/Tunneling No No -Circular Undermining No No -Wound/Ulcer Outcome Not Healed Not Healed -Ulcer Cleansing Rinsed/ Rinsed/ Irrigated with Irrigated with Saline Saline -Foul Odor after Cleansing No No -Bioengineered Tissue No No -Bleeding Controlled with Pressure Pressure -Treatment Response Procedure Procedure Tolerated Well Tolerated Well -Offloading Yes Yes -Type of Offloading Surgical Shoe Surgical Shoe -Debridement - Subq, 1st 20sq cm Yes Yes Pain Scale: 0-10 Numeric Is Patient Pain Free? Yes Yes WC - Nurse 3 - General Ulcer D/C NN Start: 04/01/25 09:03 Freq: Status: Active Protocol: Activity Type Activity Date Activity User E-sign Co-sign Detail Recorded Client Recorded Date Recorded By Document 04/01/25 10:07 KW [id number] 04/01/25 10:07 KW Edit Result 04/01/25 10:07 KW (1) [id number] 04/01/25 10:08 KW Document 04/08/25 10:23 KW [id number] 04/08/25 10:25 KW (1) BLE - Tubular Bandage => Single Layer - Size of Tubigrip Used => Size E - Size E ($) => 2 - Other => single layer to => each leg 04/01/25 04/08/25 10:07 10:23 Wound Care Center Nurse 3 Left Hallux amputation site -Other Dressing betadine betadine pack -Primary Dressing Covered/Secured with Dry Gauze & Dry Gauze & Roll Gauze, Roll Gauze, Secured with Secured with Tape Tape Right Hallux -Other Dressing betadine betadine painted -Primary Dressing Covered/Secured with Dry Gauze & Dry Gauze & Roll Gauze, Roll Gauze, Secured with Secured with Tape Tape BLE -Tubular Bandage Single Layer Double Layer -Size of Tubigrip Used Size E Size E -Size E ($) 2 4 -Other single layer to each leg Pain Scale: 0-10 Numeric Is Patient Pain Free? Yes Yes WC - Visit Discharge Discharge Condition Stable Stable Ambulatory Status Ambulatory Ambulatory Transportation Private Auto Private Auto Medication Reconcilliation completed & No No provided to patient/care provider Clinical Summary of Care Provided Yes Yes Assessment/Plan Assessment/Plan (1) Type 2 diabetes mellitus with foot ulcer: CODE(S): E11.621 - Type 2 diabetes mellitus with foot ulcer; L97.509 - Non- pressure chronic ulcer of other part of unspecified foot with unspecified severity PLAN: Patient was examined and evaluated. All findings were discussed with the patient. All questions were answered to the patient's satisfaction. Excisional debridement down to including subcutaneous tissue with a number 3 mm dermal curette to the right hallux and without incident. Predebridement measurement was 2.0 x 0.7 x 0.1 cm. Postdebridement measurement is 2.1 x 0.8 x 0.2 cm. Excisional debridement down to and including subcutaneous tissue, fascia muscle and bone to the left foot status post left hallux amputation site done with a number 3 mm dermal curette without incident. Predebridement measurement was 0.3x 3.0 x 0.6 cm.. Post right measurement 0.5 x 3.2 x 1.0 cm. The bilateral lower extremities were cleaned and patted dry. Patient will continue his antibiotic as prescribed. Both incision dressed with Betadine soaked gauze dry sterile dressing and light compression wrap. Patient will continue daily dressing changes and continue strict blood sugar control. Patient will follow-up with me in private office due to the patient not having medical insurance aswell as this being more affordable for the patient. (2) Non-pressure chronic ulcer of other part of right foot with fat layer exposed: CODE(S): L97.512 - Non-pressure chronic ulcer of other part of right foot with fat layer exposed (3) Non-pressure chronic ulcer of other part of left foot with necrosis of bone: CODE(S): L97.524 - Non-pressure chronic ulcer of other part of left foot with necrosis of bone (4) Other specified peripheral vascular diseases: CODE(S): I73.89 - Other specified peripheral vascular diseases 04/08/25 1247 Cosigner Signature (if applicable): CC: ~ Signed [facility]06-18-2025 Evaluation note* Diagnosis Onset Date Resolution Status Admit Date Other specified peripheral vascular diseases acute April 08 9:00am Type 2 diabetes mellitus wit h foot ulcer acute April 08, 2025 9:00am 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 chronic April 08, 2025 9:00am Non-pressure chronic ulcer o f other part of right foot with fat layer exposed chronic April 08 9:00am [facility] Work Phone: [phone]) 879-928206-11-2025 History and physical note Author Colin Mcgergor [facility] Note Date/Time April 01, 2025 12:3 8pm [facility] [address] [place] [address] H&P Exam - Wound Care 04/01/25 1228 MR#: [id number] Acct: [id number] Name: JORY PRITCHARD Rep #:[id number] : 1955 69 From: Colin GARDNER PCP: Dr. Hesham Alvarez MD Status:REG RC R Location: History of Present Illness Date of Service: 04/01/25 Chief Complaint: Right great toe ulceration, left great toe ulceration status post amputation with surgical wound dehiscence History of Wound: Chronic wound to the bilateral lower extremity Progress of Wound: Mr. Pritchard is a 69-year-old diabetic male presenting to wound care center today after being referred by Dr. Pérez after he exhausted all surgical and conservative treatment. Per the patient he admits that the initial surgeon was doing wound care in his office [facility]. The patient was recently hospitalized due to the infection to the bilateral lower extremity. He has a full-thickness wound to the right great toe, with evidence of status post hallux amputation with delayed primary closure with sutures intact to left lower extremity. There is evidence of a mild to moderate surgical wound dehiscence to the left foot. There is mild concern for infectionto the left lower extremity when compared to the right. The patient's most recent A1c approximately 1 week ago was greater than 11%. He admits that his blood sugar has been well-controlled between 101 75 mg/dL at home. He denies any trauma. Denies constitutional symptoms. No other pedal complaints at this time. [facility] Home Medications ?Medication ?Instructions ?Recorded ?Last Taken ?Type doxycycline hyclate 100 mg tablet 100 mg PO BID 2 week s #28 tabs 04/01/25 Unknown Rx Social History Smoking Status: Never smoker Vital Signs Vital Signs Vital Signs: 04/01/25 09:08 Temperature 96.7 F L Temperature Source Temporal Pulse Rate 68 Respiratory Rate 16 Blood Pressure 176/82 H Blood Pressure Mean 113 Blood Pressure Source Monitor Blood Pressure Position Sitting Blood Pressure Location Left Arm Oxygen Delivery Method Room Air Weight Weight: 85.275 kg Body Mass Index (BMI) 25.4 Physical Exam Narrative Vascular: DP and PT pulses are palpable to bilateral lower extremity. CFT is brisk. Skin temperature great is warm to warm from proximal ankles to distal digit bilateral. No focal increase in warmth is appreciated bilateral lower extremity. Neurological: Light touch intact. Patient does respond to painful stimuli. Dermatological: Full-thickness wound to the medial aspect of the right hallux measuring 2.5 x 1.3 x 0.2 cm. Wound base is fibrogranular nature. Negative probe to bone. No sign of infection. Full-thickness wound to the amputation site to the left foot at the level of the metatarsophalangeal joint of the first. Mild surgical wound dehiscence is noted. Wound measures on the left foot 0.4 x 3.5 x 0.7 cm. Positive probe to bone. No drainage. No malodor. Excisional debridement down to including subcutaneous tissue with a number 3 mm dermal curette to the right hallux and without incident. Predebridement measurement was 3.3 x 1.0 x 0.1 cm. Postdebridement measurement is 2.5 x 1.3 x 0.2 cm. Excisional debridement down to and including subcutaneous tissue, fascia muscle and bone to the left foot status post left hallux amputation site done with a number 3 mm dermal curette without incident. Predebridement measurement was 0.3x 3.3 x 0.5 cm. Post right measurement 0.4 x 3.5 x 0.7 cm. Musculoskeletal: Mild pain to palpation to the bilateral full-thickness wounds. No pain with calf pressure. Debridement Note Debridement Note Debridement Free Text: Excisional debridement down to including subcutaneous tissue with a number 3 mm dermal curette to the right hallux and without incident. Predebridement measurement was 3.3 x 1.0 x 0.1 cm. Postdebridement measurement is 2.5 x 1.3 x 0.2 cm. Excisional debridement down to and including subcutaneous tissue, fascia muscle and bone to the left foot status post left hallux amputation site done with a number 3 mm dermal curette without incident. Predebridement measurement was 0.3x 3.3 x 0.5 cm. Post right measurement 0.4 x 3.5 x 0.7 cm. Post-Debridement Measurements and Additional Note: Post-Debridement Measurements/Treatment - Nurse 1 - General Ulcer Assessment Start: 04/01/25 09:03 Freq: Status: Active Protocol: VIKA.LOWEXT Activity Type Activity Date Activity User E-sign Co-sign Detail Recorded Client Recorded Date Recorded By Document 04/01/25 09:08 [id number] 04/01/25 09:33 04/01/25 09:08 - Today's Visit Information Type of service Initial Visit Arrival Mode Ambulatory Patient Identification Verified (Name & Yes ) Patient Requires Transmission-Based No Precautions Height and Weight Height 6 ft Weight 85.275 kg Weight in Pounds 188.0 lbs Weight Measurement Method Estimated by Patient Body Mass Index (BMI) 25.4 BMI Classification Overweight Vital Signs Temperature (97.8 F-99.1 F) 96.7 F L Temperature Source Temporal Pulse Rate (60-100) 68 Pulse Location Monitor Respiratory Rate (12-18) 16 Respiratory rate source Observation Oxygen Delivery Method Room Air Blood Pressure (90/60-120/80) 176/82 H Blood Pressure Mean 113 Source Monitor Position Sitting Blood Pressure Location Left Arm History Since Last Visit- (Skip if this is Patient's initial visit) Signs or symptoms of abuse and/or No neglect since last visit Left Footwear Surgical Shoe with pressure relief insole Right Footwear Surgical Shoe with pressure relief insole Pain Scale: 0-10 Numeric Is Patient Pain Free? Yes Lower Extremity Assessment/ Foot Assessment/ Toe Nail Assessment Right -Posterior Tibial Palpable No -Posterior Tibial Doppler Multiphasic -Dorsalis Pedis Palpable No -Dorsalis Pedis Doppler Multiphasic -Extremity Color Red -Hair Growth on Legs Yes -Hair Growth on Toes Yes -Temperature of Extremity Warm -Capillary Refill Less than 3 Seconds -Dependent Rubor No -Blanched when Elevated No -Lipodermatosclerosis No -Other Deformity No -Prior Foot Ulcer No -Charcot Joint No -Prior Amputation No -Thick No -Discolored No -Deformed No -Improper Length & Hygeine No Left -Posterior Tibial Palpable No -Posterior Tibial Doppler Multiphasic -Dorsalis Pedis Palpable No -Dorsalis Pedis Doppler Multiphasic -Extremity Color Red -Hair Growth on Legs Yes -Hair Growth on Toes Yes -Temperature of Extremity Warm -Capillary Refill Less than 3 Seconds -Dependent Rubor No -Blanched when Elevated No -Lipodermatosclerosis No -Other Deformity No -Prior Foot Ulcer No -Charcot Joint No -Prior Amputation Yes -Thick No -Discolored No -Deformed No -Improper Length & Hygeine No Teaching Assessment Preferences Verbal,Written Barriers to Learning None Readiness To Learn Excellent Willingness to Engage in Self Management High Activies Readiness to Engage in Self Management High Activities Anxiety Level Calm Cooperation Cooperative Perception Coherent Interest in Health Problem Asks Questions Education Importance Acknowledges Need Does Patient Smoke tobacco or other No substances Smoking Status Never smoker Is Patient Diabetic Yes Functional Assessment Recent Decline in Ability to Perform Denies Any Declines Assistive Device With Patient No Teaching: Wound Center *Welcome to the Wound Center -Person Taught Patient -Teaching Method Discussion -Response to teaching Verbalize Understanding - Nurse 1 - General Ulcer Measurement Start: 04/01/25 09:03 Freq: Status: Active Protocol: Activity Type Activity Date Activity User E-sign Co-sign Detail Recorded Client Recorded Date Recorded By Document 04/01/25 09:08 [id number] 04/01/25 09:33 04/01/25 09:08 Wound Center Nurse 1 Left Hallux amputation site -Current Size (cm) - Length 0.1 -Current Size (cm) - Width 0.1 -Current Size (cm) - Depth 0.1 -Total Square Cm 0.01 -Date of Last Picture (Recall this 04/01/25 field) -Photo Taken Yes -Tunneling No -Undermining/Tunneling No -Circular Undermining No -Exudate Amt Medium -Exudate Type Yellow/Green -Granulation Amt None Present (0 %) -Slough/Fibrin Yes -Necrosis Amt Large (67-100%) -Necrotic Tissue Type Adherent Slough -Texture (Leda-wound Skin Appearance) Assessed -Moisture (Leda-wound Skin Appearance) Assessed -Color (Leda-wound Skin Appearance) Assessed -Temperature (Leda-wound Skin No Abnormality Appearance) (Pt Warm) -Tenderness on Palpation (Leda-wound Yes Skin Appearance) -Ulcer Cleansing Soap and Water -Foul Odor after Cleansing No -Anesthetic Used 5% Lidocaine Gel Right Hallux -Combined with other wound No -Current Size (cm) - Length 2.5 -Current Size (cm) - Width 1.3 -Current Size (cm) - Depth 0.3 -Total Square Cm 3.25 -Date of Last Picture (Recall this 04/01/25 field) -Photo Taken Yes -Tunneling No -Undermining/Tunneling No -Circular Undermining No -Exudate Amt Medium -Exudate Type Yellow/Green -Wound Margin Distinct, Outline Attached -Slough/Fibrin Yes -Necrosis Amt Large (67-100%) -Necrotic Tissue Type Adherent Slough -Texture (Leda-wound Skin Appearance) Assessed -Moisture (Leda-wound Skin Appearance) Assessed -Color (Leda-wound Skin Appearance) Assessed -Temperature (Leda-wound Skin No Abnormality Appearance) (Pt Warm) -Tenderness on Palpation (Leda-wound Yes Skin Appearance) -Ulcer Cleansing Soap and Water -Foul Odor after Cleansing No -Anesthetic Used 5% Lidocaine Gel Right Calf (cm) 38.5 Right Ankle (cm) 24 Left Calf (cm) 39.2 Left Ankle (cm) 26 WC - Nurse 2 - General Ulcer CM Notes Start: 04/01/25 09:03 Freq: Status: Active Protocol: Activity Type Activity Date Activity User E-sign Co-sign Detail Recorded Client Recorded Date Recorded By Document 04/01/25 09:49 JASPER [id number] 04/01/25 09:57 JASPER 04/01/25 09:49 Wound Center Nurse 2 Left Hallux amputation site -Time 09:49 -Correct Patient Yes -Correct Side, Site, Position Yes -Correct Procedure Yes -Procedure Performed Yes -Type of Procedure Debridement -Clinical Debridement Bone -Tissue Removed Non-viable tissue -Post Debridement (cm) - Length 0.4 -Post Debridement (cm) - Width 3.5 -Post Debridement (cm) - Depth 0.7 -Total Square (Post) (cm) 1.40 -Area of Debridement (cm) - Length 0.4 -Area of Debridement (cm) - Width 3.5 -Total Square (Area) (cm) 1.40 -Tunneling No -Undermining/Tunneling No -Circular Undermining No -Wound/Ulcer Outcome Not Healed -Ulcer Cleansing Rinsed/ Irrigated with Saline -Foul Odor after Cleansing No -Bioengineered Tissue No -Bleeding Controlled with Pressure -Treatment Response Procedure Tolerated Well -Offloading Yes -Type of Offloading Surgical Shoe -Debridement - Bone, 1st 20sq cm Yes Right Hallux -Time 09:49 -Correct Patient Yes -Correct Side, Site, Position Yes -Correct Procedure Yes -Procedure Performed Yes -Type of Procedure Debridement -Clinical Debridement Subcutaneous -Tissue Removed Subcutaneous -Post Debridement (cm) - Length 2.5 -Post Debridement (cm) - Width 1.3 -Post Debridement (cm) - Depth 0.2 -Total Square (Post) (cm) 3.25 -Area of Debridement (cm) - Length 2.5 -Area of Debridement (cm) - Width 1.3 -Total Square (Area) (cm) 3.25 -Tunneling No -Undermining/Tunneling No -Circular Undermining No -Wound/Ulcer Outcome Not Healed -Ulcer Cleansing Rinsed/ Irrigated with Saline -Foul Odor after Cleansing No -Bioengineered Tissue No -Bleeding Controlled with Pressure -Treatment Response Procedure Tolerated Well -Offloading Yes -Type of Offloading Surgical Shoe -Debridement - Subq, 1st 20sq cm Yes Pain Scale: 0-10 Numeric Is Patient Pain Free? Yes WC - Nurse 3 - General Ulcer D/C NN Start: 04/01/25 09:03 Freq: Status: Active Protocol: Activity Type Activity Date Activity User E-sign Co-sign Detail Recorded Client Recorded Date Recorded By Document 04/01/25 10:07 KW [id number] 04/01/25 10:07 KW Edit Result 04/01/25 10:07 KW (1) [id number] 04/01/25 10:08 KW (1) BLE - Tubular Bandage => Single Layer - Size of Tubigrip Used => Size E - Size E ($) => 2 - Other => single layer to => each leg 04/01/25 10:07 Wound Care Center Nurse 3 Left Hallux amputation site -Other Dressing betadine -Primary Dressing Covered/Secured with Dry Gauze & Roll Gauze, Secured with Tape Right Hallux -Other Dressing betadine -Primary Dressing Covered/Secured with Dry Gauze & Roll Gauze, Secured with Tape BLE -Tubular Bandage Single Layer -Size of Tubigrip Used Size E -Size E ($) 2 -Other single layer to each leg Pain Scale: 0-10 Numeric Is Patient Pain Free? Yes WC - Visit Discharge Discharge Condition Stable Ambulatory Status Ambulatory Transportation Private Auto Medication Reconcilliation completed & No provided to patient/care provider Clinical Summary of Care Provided Yes Assessment/Plan Assessment/Plan (1) Type 2 diabetes mellitus with foot ulcer: CODE(S): E11.621 - Type 2 diabetes mellitus with foot ulcer; L97.509 - Non- pressure chronic ulcer of other part of unspecified foot with unspecified severity PLAN: Patient was examined and evaluated. All findings were discussed with the patient. All questions were answered to the patient's satisfaction. Excisional debridement down to including subcutaneous tissue with a number 3 mm dermal curette to the right hallux and without incident. Predebridement measurement was 3.3 x 1.0 x 0.1 cm. Postdebridement measurement is 2.5 x 1.3 x 0.2 cm. Excisional debridement down to and including subcutaneous tissue, fascia muscle and bone to the left foot status post left hallux amputation site done with a number 3 mm dermal curette without incident. Predebridement measurement was 0.3x 3.3 x 0.5 cm. Post right measurement 0.4 x 3.5 x 0.7 cm. Culture was taken to the bilateral lower extremity. The patient will be placed on doxycycline to cover MRSA due to his diabetes. Patient will continue his Augmentin as prescribed. The wounds were wiped clean and patted dry. All wounds were dressed with Betadine soaked gauze dry sterile dressing and compression wraps were donned. Patient will continue to wear his surgical shoe. Recommend the patient to be off for at least 1 week from work to allow his soft tissue to heal. Stressed the importance of strict blood sugar control between 100-150 mg/dL. Patient didunderstand the need for better glucose control and we will order HbA1c in approximately 2 months for further evaluation and to see how the patient is responding to his eating habits. Consult through nutrition was made today in office. I did discuss with the patient that there is a chance for additional surgery to the left foot as well as to the right great toe if needed. Conditions were set regarding healing potential and the need for possible surgery if the patient's blood sugar is not controlled as we will need to do first ray amputation to the left foot as needed. Follow-up at the wound care center with Dr. Mcgregor in 1 week. (2) Non-pressure chronic ulcer of other part of right foot with fat layer exposed: CODE(S): L97.512 - Non-pressure chronic ulcer of other part of right foot with fat layer exposed (3) Non-pressure chronic ulcer of other part of left foot with necrosis of bone: CODE(S): L97.524 - Non-pressure chronic ulcer of other part of left foot with necrosis of bone (4) Other specified peripheral vascular diseases: CODE(S): I73.89 - Other specified peripheral vascular diseases 04/01/25 1238 <Electronically signed by Colin Mcgregor DPKelby> Cosigner Signature (if applicable): CC: ~ Signed [facility] Work Phone: [phone] History and physical note [facility] [address] [place] [id number] H&P Exam - Wound Care 04/01/25 1228 MR#: [id number] Acct: [id number] Name: JORY PRITCHARD Rep #:[id number] : 1955 69 From: Colin Ma PM PCP: Dr. Hesham Alvarez MD Status:REG RC R Location: History of Present Illness Date of Service: 04/01/25 Chief Complaint: Right great toe ulceration, left great toe ulceration status post amputation with surgical wound dehiscence History of Wound: Chronic wound to the bilateral lower extremity Progress of Wound: Mr. Pritchard is a 69-year-old diabetic male presenting to wound care center today after being referredby Dr. Pérez after he exhausted all surgical and conservative treatment. Per the patient he admitsthat the initial surgeon was doing wound care in his office [facility] treatment. The patient was recently hospitalized due to the infection to the bilateral lower extremity. He has a full-thickness wound to the right great toe, with evidence of status post hallux amputation with delayed primary closure with sutures intact to left lower extremity. There is evidence of a mild to moderate surgical wound dehiscence to the left foot. There is mild concern for infectionto the left lower extremity when compared to the right. The patient's most recent A1c approximately 1 week ago was greater than 11%. He admits that his blood sugar has been well-controlled between 101 75 mg/dL at home. He denies any trauma. Denies constitutional symptoms. No other pedal complaints at this time. PFSH Home Medications ?Medication ?Instructions ?Recorded ?Last Taken ?Type doxycycline hyclate 100 mg tablet 100 mg PO BID 2 week s #28 tabs 04/01/25 Unknown Rx Social History Smoking Status: Never smoker Vital Signs Vital Signs Vital Signs: 04/01/25 09:08 Temperature 96.7 F L Temperature Source Temporal Pulse Rate 68 Respiratory Rate 16 Blood Pressure 176/82 H Blood Pressure Mean 113 Blood Pressure Source Monitor Blood Pressure Position Sitting Blood Pressure Location Left Arm Oxygen Delivery Method Room Air Weight Weight: 85.275 kg Body Mass Index (BMI) 25.4 Physical Exam Narrative Vascular: DP and PT pulses are palpable to bilateral lower extremity. CFT is brisk. Skin temperature great is warm to warm from proximal ankles to distal digit bilateral. No focal increase in warmth is appreciated bilateral lower extremity. Neurological: Light touch intact. Patient does respond to painful stimuli. Dermatological: Full-thickness wound to the medial aspect of the right hallux measuring 2.5 x 1.3 x0.2 cm. Wound base is fibrogranular nature. Negative probe to bone. No sign of infection. Full-thickness wound to the amputation site to the left foot at the level of the metatarsophalangeal joint ofthe first. Mild surgical wound dehiscence is noted. Wound measures on the left foot 0.4 x 3.5 x 0.7cm. Positive probe to bone. No drainage. No malodor. Excisional debridement down to including subcutaneous tissue with a number 3 mm dermal curette to the right hallux and without incident. Predebridement measurement was 3.3 x 1.0 x 0.1 cm. Postdebridement measurement is 2.5 x 1.3 x 0.2 cm. Excisional debridement down to and including subcutaneous tissue, fascia muscle and bone to the left foot status post left hallux amputation site done with a number 3 mm dermal curette without incident. Predebridement measurement was 0.3x 3.3 x 0.5 cm. Post right measurement 0.4 x 3.5 x 0.7 cm. Musculoskeletal: Mild pain to palpation to the bilateral full-thickness wounds. No pain with calf pressure. Debridement Note Debridement Note Debridement Free Text: Excisional debridement down to including subcutaneous tissue with a number 3mm dermal curette to the right hallux and without incident. Predebridement measurement was 3.3 x 1.0 x 0.1 cm. Postdebridement measurement is 2.5 x 1.3 x 0.2 cm. Excisional debridement down to and including subcutaneous tissue, fascia muscle and bone to the left foot status post left hallux amputation site done with a number 3 mm dermal curette without incident. Predebridement measurement was 0.3x 3.3 x 0.5 cm. Post right measurement 0.4 x 3.5 x 0.7 cm. Post-Debridement Measurements and Additional Note: Post-Debridement Measurements/Treatment - Nurse 1 - General Ulcer Assessment Start: 04/01/25 09:03 Freq: Status: Active Protocol: WC.LOWBRADLYT Activity Type Activity Date Activity User E-sign Co-sign Detail Recorded Client Recorded Date Recorded By Document 04/01/25 09:08 [id number] 04/01/25 09:33 04/01/25 09:08 - Today's Visit Information Type of service Initial Visit Arrival Mode Ambulatory Patient Identification Verified (Name & Yes ) Patient Requires Transmission-Based No Precautions Height and Weight Height 6 ft Weight 85.275 kg Weight in Pounds 188.0 lbs Weight Measurement Method Estimated by Patient Body Mass Index (BMI) 25.4 BMI Classification Overweight Vital Signs Temperature (97.8 F-99.1 F) 96.7 F L Temperature Source Temporal Pulse Rate (60-100) 68 Pulse Location Monitor Respiratory Rate (12-18) 16 Respiratory rate source Observation Oxygen Delivery Method Room Air Blood Pressure (90/60-120/80) 176/82 H Blood Pressure Mean 113 Source Monitor Position Sitting Blood Pressure Location Left Arm History Since Last Visit- (Skip if this is Patient's initial visit) Signs or symptoms of abuse and/or No neglect since last visit Left Footwear Surgical Shoe with pressure relief insole Right Footwear Surgical Shoe with pressure relief insole Pain Scale: 0-10 Numeric Is Patient Pain Free? Yes Lower Extremity Assessment/ Foot Assessment/ Toe Nail Assessment Right -Posterior Tibial Palpable No -Posterior Tibial Doppler Multiphasic -Dorsalis Pedis Palpable No -Dorsalis Pedis Doppler Multiphasic -Extremity Color Red -Hair Growth on Legs Yes -Hair Growth on Toes Yes -Temperature of Extremity Warm -Capillary Refill Less than 3 Seconds -Dependent Rubor No -Blanched when Elevated No -Lipodermatosclerosis No -Other Deformity No -Prior Foot Ulcer No -Charcot Joint No -Prior Amputation No -Thick No -Discolored No -Deformed No -Improper Length & Hygeine No Left -Posterior Tibial Palpable No -Posterior Tibial Doppler Multiphasic -Dorsalis Pedis Palpable No -Dorsalis Pedis Doppler Multiphasic -Extremity Color Red -Hair Growth on Legs Yes -Hair Growth on Toes Yes -Temperature of Extremity Warm -Capillary Refill Less than 3 Seconds -Dependent Rubor No -Blanched when Elevated No -Lipodermatosclerosis No -Other Deformity No -Prior Foot Ulcer No -Charcot Joint No -Prior Amputation Yes -Thick No -Discolored No -Deformed No -Improper Length & Hygeine No Teaching Assessment Preferences Verbal,Written Barriers to Learning None Readiness To Learn Excellent Willingness to Engage in Self Management High Activies Readiness to Engage in Self Management High Activities Anxiety Level Calm Cooperation Cooperative Perception Coherent Interest in Health Problem Asks Questions Education Importance Acknowledges Need Does Patient Smoke tobacco or other No substances Smoking Status Never smoker Is Patient Diabetic Yes Functional Assessment Recent Decline in Ability to Perform Denies Any Declines Assistive Device With Patient No Teaching: Wound Center *Welcome to the Wound Center -Person Taught Patient -Teaching Method Discussion -Response to teaching Verbalize Understanding - Nurse 1 - General Ulcer Measurement Start: 04/01/25 09:03 Freq: Status: Active Protocol: Activity Type Activity Date Activity User E-sign Co-sign Detail Recorded Client Recorded Date Recorded By Document 04/01/25 09:08 [id number] 04/01/25 09:33 04/01/25 09:08 Wound Center Nurse 1 Left Hallux amputation site -Current Size (cm) - Length 0.1 -Current Size (cm) - Width 0.1 -Current Size (cm) - Depth 0.1 -Total Square Cm 0.01 -Date of Last Picture (Recall this 04/01/25 field) -Photo Taken Yes -Tunneling No -Undermining/Tunneling No -Circular Undermining No -Exudate Amt Medium -Exudate Type Yellow/Green -Granulation Amt None Present (0 %) -Slough/Fibrin Yes -Necrosis Amt Large (67-100%) -Necrotic Tissue Type Adherent Slough -Texture (Leda-wound Skin Appearance) Assessed -Moisture (Leda-wound Skin Appearance) Assessed -Color (Leda-wound Skin Appearance) Assessed -Temperature (Leda-wound Skin No Abnormality Appearance) (Pt Warm) -Tenderness on Palpation (Leda-wound Yes Skin Appearance) -Ulcer Cleansing Soap and Water -Foul Odor after Cleansing No -Anesthetic Used 5% Lidocaine Gel Right Hallux -Combined with other wound No -Current Size (cm) - Length 2.5 -Current Size (cm) - Width 1.3 -Current Size (cm) - Depth 0.3 -Total Square Cm 3.25 -Date of Last Picture (Recall this 04/01/25 field) -Photo Taken Yes -Tunneling No -Undermining/Tunneling No -Circular Undermining No -Exudate Amt Medium -Exudate Type Yellow/Green -Wound Margin Distinct, Outline Attached -Slough/Fibrin Yes -Necrosis Amt Large (67-100%) -Necrotic Tissue Type Adherent Slough -Texture (Leda-wound Skin Appearance) Assessed -Moisture (Leda-wound Skin Appearance) Assessed -Color (Leda-wound Skin Appearance) Assessed -Temperature (Leda-wound Skin No Abnormality Appearance) (Pt Warm) -Tenderness on Palpation (Leda-wound Yes Skin Appearance) -Ulcer Cleansing Soap and Water -Foul Odor after Cleansing No -Anesthetic Used 5% Lidocaine Gel Right Calf (cm) 38.5 Right Ankle (cm) 24 Left Calf (cm) 39.2 Left Ankle (cm) 26 WC - Nurse 2 - General Ulcer CM Notes Start: 04/01/25 09:03 Freq: Status: Active Protocol: Activity Type Activity Date Activity User E-sign Co-sign Detail Recorded Client Recorded Date Recorded By Document 04/01/25 09:49 JASPER [id number] 04/01/25 09:57 JASPER 04/01/25 09:49 Wound Center Nurse 2 Left Hallux amputation site -Time 09:49 -Correct Patient Yes -Correct Side, Site, Position Yes -Correct Procedure Yes -Procedure Performed Yes -Type of Procedure Debridement -Clinical Debridement Bone -Tissue Removed Non-viable tissue -Post Debridement (cm) - Length 0.4 -Post Debridement (cm) - Width 3.5 -Post Debridement (cm) - Depth 0.7 -Total Square (Post) (cm) 1.40 -Area of Debridement (cm) - Length 0.4 -Area of Debridement (cm) - Width 3.5 -Total Square (Area) (cm) 1.40 -Tunneling No -Undermining/Tunneling No -Circular Undermining No -Wound/Ulcer Outcome Not Healed -Ulcer Cleansing Rinsed/ Irrigated with Saline -Foul Odor after Cleansing No -Bioengineered Tissue No -Bleeding Controlled with Pressure -Treatment Response Procedure Tolerated Well -Offloading Yes -Type of Offloading Surgical Shoe -Debridement - Bone, 1st 20sq cm Yes Right Hallux -Time 09:49 -Correct Patient Yes -Correct Side, Site, Position Yes -Correct Procedure Yes -Procedure Performed Yes -Type of Procedure Debridement -Clinical Debridement Subcutaneous -Tissue Removed Subcutaneous -Post Debridement (cm) - Length 2.5 -Post Debridement (cm) - Width 1.3 -Post Debridement (cm) - Depth 0.2 -Total Square (Post) (cm) 3.25 -Area of Debridement (cm) - Length 2.5 -Area of Debridement (cm) - Width 1.3 -Total Square (Area) (cm) 3.25 -Tunneling No -Undermining/Tunneling No -Circular Undermining No -Wound/Ulcer Outcome Not Healed -Ulcer Cleansing Rinsed/ Irrigated with Saline -Foul Odor after Cleansing No -Bioengineered Tissue No -Bleeding Controlled with Pressure -Treatment Response Procedure Tolerated Well -Offloading Yes -Type of Offloading Surgical Shoe -Debridement - Subq, 1st 20sq cm Yes Pain Scale: 0-10 Numeric Is Patient Pain Free? Yes WC - Nurse 3 - General Ulcer D/C NN Start: 04/01/25 09:03 Freq: Status: Active Protocol: Activity Type Activity Date Activity User E-sign Co-sign Detail Recorded Client Recorded Date Recorded By Document 04/01/25 10:07 KW [id number] 04/01/25 10:07 KW Edit Result 04/01/25 10:07 KW (1) [id number] 04/01/25 10:08 KW (1) BLE - Tubular Bandage => Single Layer - Size of Tubigrip Used => Size E - Size E ($) => 2 - Other => single layer to => each leg 04/01/25 10:07 Wound Care Center Nurse 3 Left Hallux amputation site -Other Dressing betadine -Primary Dressing Covered/Secured with Dry Gauze & Roll Gauze, Secured with Tape Right Hallux -Other Dressing betadine -Primary Dressing Covered/Secured with Dry Gauze & Roll Gauze, Secured with Tape BLE -Tubular Bandage Single Layer -Size of Tubigrip Used Size E -Size E ($) 2 -Other single layer to each leg Pain Scale: 0-10 Numeric Is Patient Pain Free? Yes WC - Visit Discharge Discharge Condition Stable Ambulatory Status Ambulatory Transportation Private Auto Medication Reconcilliation completed & No provided to patient/care provider Clinical Summary of Care Provided Yes Assessment/Plan Assessment/Plan (1) Type 2 diabetes mellitus with foot ulcer: CODE(S): E11.621 - Type 2 diabetes mellitus with foot ulcer; L97.509 - Non- pressure chronic ulcer of other part of unspecified foot with unspecified severity PLAN: Patient was examined and evaluated. All findings were discussed with the patient. All questions were answered to the patient's satisfaction. Excisional debridement down to including subcutaneous tissue with a number 3 mm dermal curette to the right hallux and without incident. Predebridement measurement was 3.3 x 1.0 x 0.1 cm. Postdebridement measurement is 2.5 x 1.3 x 0.2 cm. Excisional debridement down to and including subcutaneous tissue, fascia muscle and bone to the left foot status post left hallux amputation site done with a number 3 mm dermal curette without incident. Predebridement measurement was 0.3x 3.3 x 0.5 cm. Post right measurement 0.4 x 3.5 x 0.7 cm. Culture was taken to the bilateral lower extremity. The patient will be placed on doxycycline to cover MRSA due to his diabetes. Patient will continue his Augmentin as prescribed. The wounds were wiped clean and patted dry. All wounds were dressed with Betadine soaked gauze dry sterile dressing and compression wraps were donned. Patient will continue to wear his surgical shoe.Recommend the patient to be off for at least 1 week from work to allow his soft tissue to heal. Stressed the importance of strict blood sugar control between 100-150 mg/dL. Patient didunderstand the need for better glucose control and we will order HbA1c in approximately 2 months for further evaluation and to see how the patient is responding to his eating habits. Consult through nutrition was made today in office. I did discuss with the patient that there is a chance for additional surgery to the left foot as well as to the right great toe if needed. Conditions were set regarding healing potential and the needfor possible surgery if the patient's blood sugar is not controlled as we will need to do first rayamputation to the left foot as needed. Follow-up at the wound care center with Dr. Mcgregor in 1 week. (2) Non-pressure chronic ulcer of other part of right foot with fat layer exposed: CODE(S): L97.512 - Non-pressure chronic ulcer of other part of right foot with fat layer exposed (3) Non-pressure chronic ulcer of other part of left foot with necrosis of bone: CODE(S): L97.524 - Non-pressure chronic ulcer of other part of left foot with necrosis of bone (4) Other specified peripheral vascular diseases: CODE(S): I73.89 - Other specified peripheral vascular diseases 04/01/25 1238 Cosigner Signature (if applicable): CC: ~ Signed [facility]06-06-2025 Note. MICRO - Microbiology PROCEDURE: Culture Wound Deep Aerobe/Anaerobe w Gram Stain [*1] SOURCE: Incision BODY SITE: Foot L COLLECTED DATE/TIME: 03/22/2025 09:48 EDT RECEIVED DATE/TIME: 03/22/2025 15:51 EDT START DATE/TIME: 03/22/2025 15:51 EDT FREE TEXT SOURCE: FINAL REPORTS Final Report [] Verified Date/Time/Personnel: 03/27/2025 14:06 EDT Few Finegoldia magna Susceptibility testing on anaerobic bacteria not done. Many technical and interpretive difficulties are associated with this testing and in many cases antimicrobial therapy is used as an adjunct to primary surgical management. Please contact Microbiology with any questions ([phone]). PRELIMINARY REPORTS Preliminary Report [] Verified Date/Time/Personnel: 03/26/2025 14:31 EDT Few Finegoldia magna Susceptibility testing on anaerobic bacteria not done. Many technical and interpretive difficulties are associated with this testing and in many cases antimicrobial therapy is used as an adjunct to primary surgical management. Please contact Microbiology with any questions ([phone]). Final report to follow. Preliminary Report [] Verified Date/Time/Personnel: 03/25/2025 10:51 EDT Culture results pending. Preliminary Report [] Verified Date/Time/Personnel: 03/23/2025 10:29 EDT No growth to date STAINS GS [] Verified Date/Time/Personnel: 03/22/2025 16:43 EDT 2+ Polymorphonuclear cells 2+ Mononuclear cells No organisms seen. SUSCEPTIBILITY RESULTS Finegoldia magna Antibiotic LUIS CARLOS Dilut LUIS CARLOS Inter ID Panel Not Not Applicable Applicable Performing Locations *1: This test was performed at: [facility], [address] [place] [address], [facility] , [facility]06-03-2025 Hospital Discharge instructions Patient Education 03/24/2025 09:35:18 Surgical Wound Debridement, Care After Surgical Wound Debridement, Care After This sheet gives you information about how to care for yourself after your procedure. Your health care provider may also give you more specific instructions. If you have problems or questions, contact your health care provider. What can I expect after the procedure? After the procedure, it is common to have: Pain or soreness. Fluid that leaks from the wound. Stiffness. A larger wound. This is because the tissue has been removed. Follow these instructions at home: Medicines Take [id number] and prescription medicines only as told by your health care provider. If you were prescribed an antibiotic medicine, take it or apply it as told by your health care provider. Do not stop using the antibiotic even if you start to feel better. Wound care Follow instructions from your health care provider about how to take care of your wound. Make sure you: ?Wash your hands with soap and water before and after you change your bandage (dressing). If soap and water are not available, use hand executive vp. ?Change your dressing as told by your health care provider. ?If your dressing is dry and stuck when you try to remove it, moisten or wet the dressing with saline or water so that it can be removed without harming your skin or wound tissue. Check your wound for signs of infection every time your dressing is changed. Have someone help you do this if you are not able. Watch for: ?More redness, swelling, or pain. ?More fluid or blood. ?Warmth. ?Pus. ?A bad smell coming from your wound even after you clean it. Do not take baths, swim, or use a hot tub until your health care provider approves. Ask your healthcare provider if you may take showers. You may only be allowed to take sponge baths. Activity Do not drive or use heavy machinery while taking prescription pain medicine. Return to your normal activities as told by your health care provider. Ask your health care provider what activities are safe for you. General instructions Eat a healthy diet with lots of protein such as meats, cheese, nuts and beans. Ask your health careprovider to suggest the best diet for you. Do not use any products that contain nicotine or tobacco, such as cigarettes, e- cigarettes, and chewing tobacco. These can delay wound healing after surgery. If you need help quitting, ask your health care provider. Keep all follow-up visits as told by your health care provider. This is important. Contact a health care provider if: You have a fever. Your pain medicine is not helping. Your wound is more red and swollen. You have increased bleeding. You have pus coming from your wound. You have a bad smell coming from your wound. Your wound is not getting better after 1 2 weeks of treatment. You develop a new medical condition, such as diabetes, peripheral vascular disease, or conditions that affect your defense system (immune system). Summary After the procedure, it is common to have pain, soreness, stiffness, or fluid leaking from the wound. Follow instructions from your health care provider about how to take care of your wound. Check your wound for signs of infection every time your dressing is changed. Eat a healthy diet with lots of protein. Ask your health care provider to suggest the best diet foryou. Contact a health care provider if you have fever, more swelling and redness, increased bleeding, ora bad smell from the wound. This information is not intended to replace advice given to you by your health care provider. Make sure you discuss any questions you have with your health care provider. Document Released: 09/24/2013 Document Revised: 09/30/2019 Document Reviewed: 09/30/2019 Status Overload Patient Education 2019 [employer]. Follow Up Care 03/19/2025 11:45:10 With:NEO PÉREZ DPM, Surgery Address: [address] [place] [address], [address] [facility] [place] [place] [address]- When:5 to 7 days Comments:call office to schedule follow-up in one week [facility] 06-03-2025 Note Date of Service 03/24/2025 Chief Complaint left foot wound Subjective Patient seen and evaluated while sitting in recliner. Patient advised that Dr. Pérez stated he could discharge home today. Patient had arterial dopplers yesterday which revealed normal arterial blood flow in both legs. Wound culture of 03/10 was growing staph aureus so patient has been treated withVancomycin IV since admission. Repeat wound culture done on Sunday is showing no growth to date. Wewill continue to follow those cultures. Dr. Pérez recommends that patient go home on Doxycycline 100 mg PO BID x 7 days. He also wants daily dressing changes at home and follow-up in the office in one week. His blood sugars have been fairly well controlled since admission, however, have been creeping up in the last 24 hours. It is possible that the Mounjaro is starting to leave his system. We will increase the Lantus to 15 units sc qhs. Discussed wearable glucometer with patient and he is interested in trying that. Call placed to patient's pharmacy to check on cost and patient is agreeable to the cost of 2 sensors. Patient also realizes that he can use an rose marie on his phone with the sensor to monitor his blood sugars. He was strongly encouraged to follow-up with his PCP to recheck his HgbA1c every 3 months to make sure that it is decreasing. He can continue his Metformin as at home. Patient to stop the Mounjaro as he did not like the side effects of that particular medication. He can discuss this further with his PCP. Prescriptions sent in to Lantus pen, caps for pen, Essie 3+ sensors (2), doxycycline and a short supply of Percocet PRN for pain. All questions answered. Patient is medically optimized for discharge today. Objective Vitals and Measurements T: 36.4 C (Oral) TMIN: 36.4 C (Oral) TMAX: 36.8 C (Oral) HR: 76 RR: 16 BP: 182/86 SpO2: 96% Intake and Output 7AM Yesterday to 7AM Today Intake and Output (Last 24 hours) Intake Output Total Summary Total Intake 0.00 Total Output 0.00 Fluid Balance 0.00 Physical Exam General: No acute distress. Patient is alert and appropriate. Skin: No rash. Skin is warm, dry and intact. HEENT: Head is normocephalic, atraumatic. Pupils are equal, round and reactive. Neck: Supple. No lymphadenopathy, thyromegaly. Lungs: Bilaterally clear but diminished without crepitation or wheeze. Unlabored. Heart: Heart is regular rhythm, S1, S2. No murmurs, gallops or rubs. Abdomen: Abdomen is soft, nontender. Bowels sounds present in all quadrants. Extremities: No clubbing, cyanosis, or edema. Peripheral pulses palpable. No calf tenderness. Dressing to right great toe and left foot dry and intact. Neurological: Patient is awake and alert to person, place and time. Following simple commands, moving all extremities. Weight Dosing Weight: 86.4 kg (03/20/25) Dosing Weight: 86.4 kg (03/19/25) Medications Medications (16) Active Scheduled: (6) docusate sodium 100 mg Capsule 100 mg 1 cap(s), Oral, BID insulin glargine 100 units/ml solution 15 unit(s) 0.15 mL, Subcutaneous, qHS losartan 25 mg tablet 25 mg 1 tab(s), Oral, Daily magnesium oxide 400 mg Tablet 400 mg 1 tab(s), Oral, qDay metformin 500 mg ER tablet 1,000 mg 2 tab(s), Oral, BID vancomycin 1 gram(s) 20 mL, IV Piggyback, q12h Continuous: (0) PRN: (10) acetaminophen 325 mg Tablet 650 mg 2 tab(s), Oral, q4h acetaminophen 325 mg Tablet 650 mg 2 tab(s), Oral, q4h acetaminophen-OXYcodone 325 mg-5 mg Tablet 2 tab(s), Oral, q6h acetaminophen-OXYcodone 325 mg-5 mg Tablet 1 tab(s), Oral, q6h benzonatate 100 mg Capsule 100 mg 1 cap(s), Oral, TID calcium carbonate 500 mg Chewable 500 mg 1 tab(s), Chewed, TID guaifenesin 100 mg/5 mL Liquid 120 mL 200 mg 10 mL, Oral, q4h melatonin 3 mg tablet 6 mg 2 tab(s), Oral, qHS ondansetron 2 mg/ 1 mL 2 mL INJ 4 mg 2 mL, IV Push, q4h polyethylene glycol 3350 - UD packet 17 gram(s) 15 mL, Oral, BID Lab Results 03/23 05:24 Glucose Level: 193 H Sodium Level: 133 L Potassium Level: 4.2 BUN: 22 H Creatinine Lvl (s): 1.18 H Imaging Results and Diagnostics XR Foot Minimum 3 Views Right Result Date: March 19, 2025 Verified By: JOSE DEWITT MD CLINICAL STATEMENT: IMPRESSION: No acute fracture or dislocation. Erosive changes at the base of the 1st distal phalanxconcerning for osteomyelitis. I have personally reviewed the images of this examination and agree with the resident's findings and interpretation. XR Foot Minimum 3 Views Left Result Date: March 19, 2025 Verified By: JOSE DEWITT MD CLINICAL STATEMENT: IMPRESSION: No radiographic evidence of osteomyelitis about the 1st digit amputation site. I have personally reviewed the images of this examination and agree with the resident's findings and interpretation. EKG No qualifying data available. Assessment/Plan 1. Wound of left foot Management per primary team. POD #4. Dr. Pérez performed surgical debridement 03/20. Dr. Pérez wants patient to dc on doxycycline 100 mg PO BID x 7 days. Continue daily dressing changes to left footand right great toe. Follow-up with Dr. Pérez in 1 week. Prescription sent in for Percocet as needed for pain. Ordered: 2. Acute kidney injury Resolved. GFR 66 yesterday am. Near baseline. 3. Diabetes mellitus Chronic, uncontrolled. A1c on 03/18 was 11.1%. ADA diet. Blood glucose goal of 180 or less and avoidhypoglycemia. Patient was below goal - running 160's to 170's but blood sugars creeping up closer to 200 today. Patient took his Mounjaro on 03/19 prior to admission so that may be clearing his system. Increase Lantus to 15 units sc qhs. Continue Metformin to 500 mg PO BID. In looking at external fills, patient may already be on 1000 mg PO BID. Follow-up closely with PCP for any adjustments. Prescription sent in for Essie 3+ sensors. Patient aware that he can use his cell phone to monitor blood sugars. Patient encouraged to keep a log of blood sugars so his PCP can see how he is doing on current regimen. 4. Hypertension Chronic. Continue current antihypertensive. SBP goal of 140 or less. constipation - Continue colace 100 mg PO BID and Miralax 17 grams PO BID PRN. DVT prophylaxis with SCDs. Code status: Full Code. Labs, diagnostic test and progress notes reviewed as noted in HPI. Plan of care discussed with patient. All questions answered. Patient verbalizes understanding and is agreeable with plan of care. This case was discussed with collaborating physician, Dr. Kerwin Allen. Anticipated Date of Discharge today Time Spent 43 minutes spent reviewing past diagnostic tests, reviewing lab results, vital sign trends, medicalhistory, reviewing medications and ordering home medications, examining patient, discussed discharge plan at length with patient, sent prescriptions in to pharmacy, call placed to pharmacy to check on wallace of Essie 3+ sensors, updated patient on cost, discussed plan of care with care team, collaborating with physician, and documenting in chart. Digitally Signed by TASHA EMMANUEL on 03/24/2025 11:14 AM [facility]06-03-2025 Note Discharge Instructions Thank you for allowing [facility] to assist you with your healthcare needs. The following is importantdischarge information regarding your hospital visit. Your Care Team Dr Neo Pérez and [facility] Your Diagnosis Acute kidney injury Diabetes mellitus Hypertension Wound of left foot What to do next Instructions From Your Doctor You were admitted due to non-healing surgical wound of the left foot. Dr. Pérez ordered arterial dopplers yesterday and they indicated that you have normal arterial blood flow in both legs. The wound culture taken on Sunday is showing no growth to date but is not final yet. This is hopeful that the bacterial growth seen on the previous culture is being eliminated. You were given Vancomycin IV while you were in the hospital and this provides excellent coverage for multiple bacterial organisms. Dr. Pérez would like you to go home on doxycycline 100 mg oral twice daily for one week. Dr. Almanzartates that you will need to do daily dressing changes at home. He would like to see you in the office in one week for follow-up. Dr. Pérez checked a HgbA1c before admission. It was 11.1%. As you are aware, that is very high anddoes impact your wound healing. You took your Mounjaro before you came to the hospital but stated that you really do not like the side effects of this medication. We started Lantus on admission and this seems to have been very successful in controlling your blood sugars. Your blood sugars have jasmin little more elevated over the last 24 hours but this may be due to the Mounjaro wearing off. We increased your Lantus to 15 units subcutaneous daily in the evening. Please follow-up closely with your primary care doctor to monitor the HgbA1c. He may need to adjust the dosage. It may be helpful toyour doctor if you keep a log of your blood sugars to take with your to see your doctor. We talked about using the wearable glucose sensors so that you can watch your blood sugars closely. You were willing to try that. A prescription will be sent to your pharmacy for the Essie 3 sensors. You can wear a sensor for 15 days so they will dispense 2 for a month's supply. That will give you time to decide if this will work better for you in keeping tabs on your glucose. 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 Please let us know if you need anything else. We wish you well as you discharge home today! Follow Up Appointments Follow Up with NEO PÉREZ DPM, Surgery When:Within 5 to 7 days Where:[address] [facility], [address] [facility] [place] [address]- Additional Information: call office to schedule follow-up in one week The Following Activity and Diet Have Been Ordered for You Discharge Activity - Ordered -- Resume your pre-hospitalization activity, 03/24/25 9:59:00 EDT Discharge Diet - Ordered -- No changes were made to your diet during your hospital stay. Please resume your pre hospitalization diet on discharge., 03/24/25 9:59:00 EDT Someone Will Contact You Regarding These Home Health Referrals No home referrals have been ordered for you. No one will call you. Allergies No Known Medication Allergies Medications Please ask your primary doctor or pharmacist before taking any other medication not listed, including over the counter drugs, herbal medications, vitamins and or supplements as they may interact withyour home medications. What How Much When Why Instructions Last Dose New DME (DME MISCellaneous) See instructions Please dispense 30 needle caps for use with Lantus solostart pens - enough for 30 day supply. Pickup at [facility] New DME ([employer]Style Essie 3+ Sensors) See instructions Place once sensor to the back of the upper arm every 15 days. Use reader or phone rose marie for daily blood sugar checks. 1 month supply Pickup at [facility] New doxycycline (doxycycline hyclate 100 mg oral capsule) 1 cap by mouth Two (2) times a day Duration: 7 Days Pickup at [facility] Start today New insulin glargine (Lantus Solostar Pen 100 units/ mL 3 mL Pen) 15 unit(s) Subcutaneous Daily at bedtime Pickup at [facility] 03/23/25 0856PM Changed acetaminophen-oxyCODONE (acetaminophen-oxyCODONE 325 mg-5 mg oral tablet) 1 tab(s) by mouth Every 6 hours as needed for for pain Wound of left foot Duration: 3 Days Pickup at [facility] 03/23/25 0902PM Unchanged losartan (losartan 25 mg oral tablet) 1 tab(s) by mouth Every day 03/24/25 0737AM Unchanged metFORMIN (MetFORMIN (Eqv-Fortamet) 500 mg oral tablet, EXTENDED RELEASE) 1 tab(s) by mouth Two (2) times a day Okay to substitute for generic Glucophage XR 03/24/25 0931AM Pharmacy Information [facility] [id number] [place], [place] [id number] [phone] What When Comments Stop Taking sulfamethoxazole-trimethoprim (sulfamethoxazole- trimethoprim 800 mg-160 mg oral tablet) TAKE ONE TABLET BY MOUTH TWICE DAILY Stop Taking tirzepatide (Mounjaro 5 mg/ 0.5 mL subcutaneous solution) INJECT 5mg DOSE (0.5ml) SUBCUTANEOUSLY ONCE A WEEK Please take this list to your next doctor s visit. Bring all medications you take, including over the counter medications, herbals and other supplements with you to your doctor s visit. Patients and families are reminded to discard old lists and to update any records with all medication providers or retail pharmacies. Medication Leaflets doxycycline (oral/injection) (DOX kindra marrero) Acticlate, Adoxa, Alodox, Avidoxy, Doryx, Lymepak, Mondoxyne NL, Monodox, Morgidox, Okebo, Oracea, Targadox What is the most important information I should know about doxycycline? You should not take this medicine if you are allergic to any tetracycline antibiotic. Children younger than 8 years old should use doxycycline only in cases of severe or life-threatening conditions. This medicine can affect tooth development and growth and cause permanent yellowing orgraying of the teeth in children. Using doxycycline during could harm the unborn baby or cause permanent tooth discoloration later in the baby's life. What is doxycycline? Doxycycline is used to treat many different bacterial infections, such as acne, urinary tract infections, intestinal infections, respiratory infections, eye infections, certain sexually transmitted infections, periodontitis (gum disease), and others. Doxycycline is also used to treat blemishes, bumps, and acne-like lesions caused by rosacea. Doxycycline will not treat facial redness caused by rosacea. Some forms of doxycycline are used to prevent malaria, to treat anthrax, or to treat infections caused by mites, ticks, or lice. Doxycycline may also be used for purposes not listed in this medication guide. What should I discuss with my healthcare provider before using doxycycline? You should not use this medicine if you are allergic to doxycycline or other tetracycline antibiotics such as demeclocycline, minocycline, tetracycline, or tigecycline. Tell your doctor if you have or have ever had: increased pressure inside your skull; diarrhea or diarrhea that is watery; stomach surgery; vision problems; vagina infection; take iron supplements, multivitamins, calcium supplements, laxatives, medicine containing bismuth subsalicylate, or antacids containing aluminum, calcium, or magnesium; use a proton pump inhibitor (such as omeprazole, esomeprazole, Nexium, Prevacid, Prilosec, or Protonix); if you also take isotretinoin or acitretin, seizure medicine, or a blood thinner such as warfarin (Coumadin); or liver or kidney disease. If you are using doxycycline to treat gonorrhea, your doctor may test you to make sure you do not also have syphilis, another sexually transmitted disease. Taking this medicine during may affect tooth and bone development in the unborn baby. Taking doxycycline during the last half of can cause permanent tooth discoloration later in the baby's life. Tell your doctor if you are or plan to become . Doxycycline can make control pills less effective. Ask your doctor about other control options such as an injection, implant, skin patch, vaginal ring, condom, diaphragm, cervical cap, orcontraceptive sponge. Doxycycline can pass into breast milk and may affect bone and tooth development in a nursing . Do not breastfeed while you are taking doxycycline, and for at least 5 days after your last dose. Doxycycline can affect tooth development and growth and cause permanent yellowing or graying of theteeth in children younger than 8 years old. Children should use doxycycline only in cases of severeor life-threatening conditions such as anthrax or [place] spotted fever. The benefit of treating a serious condition may outweigh any risks to the child's tooth development. How should I use doxycycline? Follow all directions on your prescription label and read all medication guides or instruction sheets. Use the medicine exactly as directed. Your doctor will perform tests to make sure doxycycline is the right treatment for you. Take doxycycline with a full glass of water. Drink plenty of liquids while you are taking doxycycline. Most brand forms of doxycyline may be taken with food or milk if the medicine upsets your stomach. Different brand forms of doxycycline may have different instructions about taking them with or without food. Take Oracea on an empty stomach, at least 1 hour before or 2 hours after a meal. Swallow a delayed-release capsule or tablet whole. Do not crush, chew, break, or open it. Measure liquid medicine with the supplied measuring device (not a kitchen spoon). If you take doxycycline to prevent malaria: Start taking the medicine 1 or 2 days before entering an area where malaria is common. Continue taking the medicine every day during your stay and for at least 4 weeks after you leave the area. Doxycycline may be given as an infusion into a vein. A healthcare provider will give you this injection. Keep using this medicine even if your symptoms quickly improve. Skipping doses could make your infection resistant to medication. Doxycycline will not treat a viral infection (flu or a common cold). Store at room temperature away from moisture, heat, and light. What happens if I miss a dose? Call your doctor for instructions if you miss a dose or if you miss an appointment for your doxycycline injection. What happens if I overdose? Seek emergency medical attention or call the Poison Help line at . What should I avoid while using doxycycline? Do not take iron supplements, multivitamins, calcium supplements, laxatives, bismuth subsalicylate,or antacids containing aluminum, calcium, or magnesium within 2 hours before or after using doxycycline. Avoid taking any other antibiotics with doxycycline unless your doctor has told you to. Doxycycline could make you sunburn more easily. Avoid sunlight or tanning beds. Wear protective clothing and use sunscreen (SPF 30 or higher) when you are outdoors. Antibiotic medicines can cause diarrhea, which may be a sign of a new infection. If you have diarrhea that is watery or bloody, call your doctor. Do not use anti-diarrhea medicine unless your doctor tells you to. What are the possible side effects of doxycycline? Get emergency medical help if you have signs of an allergic reaction (hives, difficult breathing, swelling in your face or throat) or a severe skin reaction (fever, sore throat, burning eyes, skin pain, red or purple skin rash with blistering and peeling). Seek medical treatment if you have a serious drug reaction that can affect many parts of your body.Symptoms may include: skin rash, fever, swollen glands, flu- like symptoms, muscle aches, severe weakness, unusual bruising, or yellowing of your skin or eyes. This reaction may occur several weeks after you began using doxycycline. Call your doctor at once if you have: fever, chills, rapid breathing, headaches, rapid heart rate, skin lesion, low blood pressure; severe stomach pain, diarrhea that is watery or bloody; throat irritation, trouble swallowing; chest pain, irregular heart rhythm, feeling short of breath; little or no urination; low white blood cell counts--fever, chills, swollen glands, body aches, weakness, pale skin, easy bruising or bleeding; increased pressure inside the skull--severe headaches, ringing in your ears, dizziness, nausea, vision problems, pain behind your eyes; or signs of liver or pancreas problems--loss of appetite, upper stomach pain (that may spread to your back), tiredness, nausea or vomiting, fast heart rate, dark urine, jaundice (yellowing of the skin or eyes). Common side effects may include: headache, sinus infection, pain in the nose and throat; reversible discoloration of the surface of adult teeth; flu-like symptoms; high blood pressure; nausea, vomiting, upset stomach, loss of appetite; stomach pain or bloating; change in certain blood tests; diarrhea; skin rash or itching; darkened skin color; or vaginal itching or discharge. This is not a complete list of side effects and others may occur. Call your doctor for medical advice about side effects. You may report side effects to FDA at 9-528-QOC-5559. What other drugs will affect doxycycline? Sometimes it is not safe to use certain medicines at the same time. Some drugs can affect your blood levels of other drugs you use, which may increase side effects or make the medicines less effective. Other drugs may affect doxycycline, including prescription and notd-jmt-ywrdxly medicines, vitamins, and herbal products. Tell your doctor about all other medicines you use. Where can I get more information? Your doctor or pharmacist can provide more information about doxycycline. Remember, keep this and all other medicines out of the reach of children, never share your medicines with others, and use this medication only for the indication prescribed. Every effort has been made to ensure that the information provided by [employer]. ('[employer]') is accurate, up-to-date, and complete, but no guarantee is made to that effect. Drug information contained herein may be time sensitive. [employer] information has been compiled for use by healthcare practitioners and consumers in the [place] and therefore [employer] does not warrant that uses outside of the [place] are appropriate, unless specifically indicated otherwise. [employer]'s drug information does not endorse drugs, diagnose patients or recommend therapy. bright [employer]s drug information isan informational resource designed to assist licensed healthcare practitioners in caring for their p atients and/or to serve consumers viewing this service as a supplement to, and not a substitute for, the expertise, skill, knowledge and judgment of healthcare practitioners. The absence of a warningfor a given drug or drug combination in no way should be construed to indicate that the drug or drug combination is safe, effective or appropriate for any given patient. [facility] does not assume any responsibility for any aspect of healthcare administered with the aid of information [facility] provides. The information contained herein is not intended to cover all possible uses, directions, precautions, warnings, drug interactions, allergic reactions, or adverse effects. If you have questions about the drugs you are taking, check with your doctor, nurse or pharmacist. Copyright 0680-4208 [facility] [employer]. Version: 25.03. Revision Date: 02/03/2025. Education Materials Surgical Wound Debridement, Care After This sheet gives you information about how to care for yourself after your procedure. Your health care provider may also give you more specific instructions. If you have problems or questions, contact your health care provider. What can I expect after the procedure? After the procedure, it is common to have: Pain or soreness. Fluid that leaks from the wound. Stiffness. A larger wound. This is because the tissue has been removed. Follow these instructions at home: Medicines Take zocm-lug-qjjpsbw and prescription medicines only as told by your health care provider. If you were prescribed an antibiotic medicine, take it or apply it as told by your health care provider. Do not stop using the antibiotic even if you start to feel better. Wound care Follow instructions from your health care provider about how to take care of your wound. Make sure you: ? Wash your hands with soap and water before and after you change your bandage (dressing). If soap and water are not available, use hand executive vp. ? Change your dressing as told by your health care provider. ? If your dressing is dry and stuck when you try to remove it, moisten or wet the dressing with saline or water so that it can be removed without harming your skin or wound tissue. Check your wound for signs of infection every time your dressing is changed. Have someone help you do this if you are not able. Watch for: ? More redness, swelling, or pain. ? More fluid or blood. ? Warmth. ? Pus. ? A bad smell coming from your wound even after you clean it. Do not take baths, swim, or use a hot tub until your health care provider approves. Ask your healthcare provider if you may take showers. You may only be allowed to take sponge baths. Activity Do not drive or use heavy machinery while taking prescription pain medicine. Return to your normal activities as told by your health care provider. Ask your health care provider what activities are safe for you. General instructions Eat a healthy diet with lots of protein such as meats, cheese, nuts and beans. Ask your health careprovider to suggest the best diet for you. Do not use any products that contain nicotine or tobacco, such as cigarettes, e- cigarettes, and chewing tobacco. These can delay wound healing after surgery. If you need help quitting, ask your health care provider. Keep all follow-up visits as told by your health care provider. This is important. Contact a health care provider if: You have a fever. Your pain medicine is not helping. Your wound is more red and swollen. You have increased bleeding. You have pus coming from your wound. You have a bad smell coming from your wound. Your wound is not getting better after 1 2 weeks of treatment. You develop a new medical condition, such as diabetes, peripheral vascular disease, or conditions that affect your defense system (immune system). Summary After the procedure, it is common to have pain, soreness, stiffness, or fluid leaking from the wound. Follow instructions from your health care provider about how to take care of your wound. Check your wound for signs of infection every time your dressing is changed. Eat a healthy diet with lots of protein. Ask your health care provider to suggest the best diet foryou. Contact a health care provider if you have fever, more swelling and redness, increased bleeding, ora bad smell from the wound. This information is not intended to replace advice given to you by your health care provider. Make sure you discuss any questions you have with your health care provider. Document Released: 09/24/2013 Document Revised: 09/30/2019 Document Reviewed: 09/30/2019 [employer] Patient Education 2020 [employer] Additional Information VACCINATE! IT SAVES LIVES! Members of the community who have not yet received the COVID-19 vaccine and would like to receive it can visit one of [facility] vaccine clinics. There are many vaccine clinic locations within the State. For locations and available times, please visit https://gettheshot.coronavirus.[place].gov/. It is important to note that some COVID mobile vaccine clinics are held outdoors and may be canceled in rainy or stormy conditions. To learn more about pediatric vaccinations (ages 5-11), we invite you to visit the [facility] webpage. https://www.[employer].org/pages/[email or web address]-Mhzrx-Avdtchwcnhi-Nfzblfakav-Yzulf-Gct stions.htmlTo learn more about the COVID-19 vaccine, we invite you to visit the CDC website for a list of frequently asked questions.https://www.cdc.gov/coronavirus/2019-ncov/vaccines/faq.html [employer] Patient Portal Access Instructions: Stay connected with your healthcare team and access your personal medical information anytime with the [employer] Patient Portal. Please follow the directions below to create your [employer] account: 1.Access the email account you provided upon registration to the hospital/physician office.2.Look for an invitation email from [facility].3.Open the email and access the invitation link: AcceptInvitation to [employer].4.Fill in the required simmons to create your account. To access your account, visit [employer]. Click the blue button labeled Access Patient Portal and then log in with the username and password that you created in the steps above. You will be able to view your test results, lab results, a summary of your visits, upcoming appointments and more. There is also a convenient messaging option where you can send secure messages to your p rovider. In addition, you will have the ability to download any documents or summaries to your computer and/or send the information securely to a physician. Remember that your healthcare information is confidential, so carefully consider who you will allowto register on the [employer] Patient Portal for access to your information. You can also access the [facility] Patient Portal on the [employer] rose marie. Simply click on Patient Portal and then log into your account. If you would like to receive a full copy of your medical records, please contact the [facility] Medical Records Department by calling [phone], Sunday through Sunday between 8 a.m. and 4:30 p.m. HOW TO SAFELY DISPOSE OF PRESCRIPTION MEDICATIONS Please use one of the following methods to safely dispose of your unused medications. 1.Use a drug disposal kit: the drug disposal pouch allows you to safely discard your old and unuseddrugs. Ask your nurse to give you one when you are discharged.2.Visit a local take-back location: Many local pharmacies and police departments have programs that collect old and unwanted prescriptiondrugs. Call your local pharmacy or go to http://A vida é feita de [place].[employer]/9T3Vi3x to find one close to you.3.Make use of household items: Use cat litter or old coffee grounds to dispose medications if other options arenot available. Mix your drugs with these household products, seal them in an airtight container andthrow it into the garbage. Call [facility]: [phone] to be sure your drugs can be disposed of in this way. Some medicines may require a different approach.4.Never flush your medications down the toilet. IF YOU HAVE BEEN PRESCRIBED AN OPIOID FOR PAIN If you have been prescribed an opioid (such as hydrocodone, oxycodone or morphine), it is critical to understand the possible side effects and risks of opioid pain medications. Even when taken as directed, opioids can have several side effects including: Tolerance, meaning you might need to take more of a medication for the same pain relief. Nausea, vomiting and/or constipation. Sleepiness, dizziness, dry mouth, confusion, depression or itching. Physical dependence, meaning you have withdrawal symptoms when a medication is stopped, can develop within a few days. KNOW YOUR RESPONSIBILITIES It is important to know exactly how much and how often to take the opioid pain medications you are prescribed. Never take opioids in higher amounts or more often than prescribed. Do not combine opioids with alcohol or other drugs that cause drowsiness, such as benzodiazepines, also known as benzos, including diazepam and alprazolam, muscle relaxants or sleep aids. Never sell or share prescription opioids. This is illegal. Store opioids in a secure place and out of reach of others (including children, family, friends and visitors). The last page of this document has been signed and retained as a CHART COPY. Signatures Patient Education Materials Surgical Wound Debridement, Care After Medication Leaflets doxycycline (oral/injection) My discharge plan and instructions have been reviewed and explained to me and I,FELISAARMANDO JORY understand my current condition and have read and understand these discharge instructions. I have received a written copy of the plan/instructions. If I have questions, I am aware that I should contact my doc tor. Patient/Correction Officer Signature: Date/Time: Relationship to Patient: Witness Name/Signature: Date/Time: [facility]06-03-2025 Note Date of Service 03/24/2025 Subjective doing ok, no fever, no NVD, pain under control Objective Vitals and Measurements T: 36.4 C (Oral) TMIN: 36.4 C (Oral) TMAX: 36.8 C (Oral) HR: 76 RR: 16 BP: 182/86 SpO2: 96% Intake and Output 7AM Yesterday to 7AM Today Intake and Output (Last 24 hours) Intake Output Total Summary Total Intake 0.00 Total Output 0.00 Fluid Balance 0.00 Physical Exam status quo, some granular tissue evident in wound bed of both feet, no extending redness, no fluctuance, no purulence. Weight Dosing Weight: 86.4 kg (03/20/25) Dosing Weight: 86.4 kg (03/19/25) Medications Medications (16) Active Scheduled: (6) docusate sodium 100 mg Capsule 100 mg 1 cap(s), Oral, BID insulin glargine 100 units/ml solution 10 unit(s) 0.1 mL, Subcutaneous, qHS losartan 25 mg tablet 25 mg 1 tab(s), Oral, Daily magnesium oxide 400 mg Tablet 400 mg 1 tab(s), Oral, qDay metformin 500 mg ER tablet 500 mg 1 tab(s), Oral, BID vancomycin 1 gram(s) 20 mL, IV Piggyback, q12h Continuous: (0) PRN: (10) acetaminophen 325 mg Tablet 650 mg 2 tab(s), Oral, q4h acetaminophen 325 mg Tablet 650 mg 2 tab(s), Oral, q4h acetaminophen-OXYcodone 325 mg-5 mg Tablet 2 tab(s), Oral, q6h acetaminophen-OXYcodone 325 mg-5 mg Tablet 1 tab(s), Oral, q6h benzonatate 100 mg Capsule 100 mg 1 cap(s), Oral, TID calcium carbonate 500 mg Chewable 500 mg 1 tab(s), Chewed, TID guaifenesin 100 mg/5 mL Liquid 120 mL 200 mg 10 mL, Oral, q4h melatonin 3 mg tablet 6 mg 2 tab(s), Oral, qHS ondansetron 2 mg/ 1 mL 2 mL INJ 4 mg 2 mL, IV Push, q4h polyethylene glycol 3350 - UD packet 17 gram(s) 15 mL, Oral, BID Lab Results 03/23 05:24 Glucose Level: 193 H Sodium Level: 133 L Potassium Level: 4.2 BUN: 22 H Creatinine Lvl (s): 1.18 H EKG No qualifying data available. Assessment/Plan Acute kidney injury Diabetes mellitus Hypertension Wound of left foot improved, culture negative/no growth. normal ASHLEY bilateral. couldn't get toe pressures Orders: vancomycin, Start: 03/23/25 14:00:00 EDT, Dose = 1 gram(s), = 20 mL, IV Piggyback, q12h, Rate: 250 mL/hr, Infuse over: 1 hour(s), 0 Vital Signs, 03/23/25 6:00:00 EDT, q8h VL Arterial Dopplers Both Legs Rest/PVR, 03/23/25 15:00:00 EDT, PVD, No Physician specified to read, Ambulatory, [facility], 03/23/25 15:00:00 EDT, AO Ordering Location Anticipated Date of Discharge today. Time Spent 30 minutes Digitally Signed by NEO PÉREZ DPM on 03/24/2025 07:13 AM [facility]06-02-2025 Note* Exam Date Time Procedure Performing Provider Status 03/23/25 1:56 PM VL Arterial Dopplers Both Legs Rest/PVR- ELA YOON MD; Auth (Verified) [facility]06-02-2025 Note. MICRO - Microbiology PROCEDURE: Culture Wound Deep Aerobe/Anaerobe w Gram Stain [*1] SOURCE: Surgical Wound (Deep) BODY SITE: Toe COLLECTED DATE/TIME: 03/18/2025 11:48 EDT RECEIVED DATE/TIME: 03/18/2025 15:21 EDT START DATE/TIME: 03/18/2025 15:21 EDT FREE TEXT SOURCE: FINAL REPORTS Final Report [] Verified Date/Time/Personnel: 03/23/2025 13:43 EDT 1 colony normal skin cassandra present. Sensitivity testing not indicated. No anaerobes isolated at 5 days. PRELIMINARY REPORTS Preliminary Report [] Verified Date/Time/Personnel: 03/20/2025 07:51 EDT 1 colony normal skin cassandra present. Sensitivity testing not indicated. No anaerobes isolated to date. Preliminary Report [] Verified Date/Time/Personnel: 03/19/2025 11:58 EDT Culture results pending. STAINS GS [] Verified Date/Time/Personnel: 03/18/2025 15:35 EDT 3+ Gram Positive Cocci Performing Locations *1: This test was performed at: [address], [facility] , [facility]06-02-2025 Note Date of Service 03/23/2025 Subjective resting comfortably Objective Vitals and Measurements T: 36.8 C (Oral) TMIN: 36.7 C (Oral) TMAX: 36.9 C (Oral) HR: 73 (Monitored) RR: 16 BP: 169/85 SpO2:95% Intake and Output 7AM Yesterday to 7AM Today Intake and Output (Last 24 hours) Intake Oral Intake 680.00 Output Stool Count 0.00 Urine Count 4.00 Emesis Count 0.00 Total Summary Total Intake 680.00 Total Output 0.00 Fluid Balance 680.00 Physical Exam left foot: wound margins showing some sign of healing finally. no redness, no purulence, no fluctuance, still open wound with packing. right foot: great toe with some granulation in the wound bed now, no odor, no redness, no swelling or purulence Weight Dosing Weight: 86.4 kg (03/20/25) Dosing Weight: 86.4 kg (03/19/25) Medications Medications (16) Active Scheduled: (6) docusate sodium 100 mg Capsule 100 mg 1 cap(s), Oral, BID insulin glargine 100 units/ml solution 10 unit(s) 0.1 mL, Subcutaneous, qHS losartan 25 mg tablet 25 mg 1 tab(s), Oral, Daily magnesium oxide 400 mg Tablet 400 mg 1 tab(s), Oral, qDay metformin 500 mg ER tablet 500 mg 1 tab(s), Oral, BID vancomycin 1,500 mg 30 mL, IV Piggyback, q24h Continuous: (0) PRN: (10) acetaminophen 325 mg Tablet 650 mg 2 tab(s), Oral, q4h acetaminophen 325 mg Tablet 650 mg 2 tab(s), Oral, q4h acetaminophen-OXYcodone 325 mg-5 mg Tablet 2 tab(s), Oral, q6h acetaminophen-OXYcodone 325 mg-5 mg Tablet 1 tab(s), Oral, q6h benzonatate 100 mg Capsule 100 mg 1 cap(s), Oral, TID calcium carbonate 500 mg Chewable 500 mg 1 tab(s), Chewed, TID guaifenesin 100 mg/5 mL Liquid 120 mL 200 mg 10 mL, Oral, q4h melatonin 3 mg tablet 6 mg 2 tab(s), Oral, qHS ondansetron 2 mg/ 1 mL 2 mL INJ 4 mg 2 mL, IV Push, q4h polyethylene glycol 3350 - UD packet 17 gram(s) 15 mL, Oral, BID Lab Results 03/23 05:24 Glucose Level: 193 H Sodium Level: 133 L Potassium Level: 4.2 BUN: 22 H Creatinine Lvl (s): 1.18 H 03/22 05:27 Hgb: 12.3 L Hct: 35.6 L Glucose Level: 167 H Sodium Level: 133 L Potassium Level: 4.1 BUN: 21 H Creatinine Lvl (s): 1.26 H EKG No qualifying data available. Assessment/Plan Acute kidney injury Diabetes mellitus Hypertension Wound of left foot improving, still open Ordered: Culture Wound Deep Aerobe/Anaerobe w Gram Stain, 03/21/25 12:00:00 EDT, Routine collect, Incision, Left Foot, Stop date 03/21/25 12:01:00 EDT, Nurse collect, culture at next dressing changes on 03/22/2025, Wound of left foot Orders: VL Arterial Dopplers Both Legs Rest/PVR, 03/23/25 15:00:00 EDT, PVD, No Physician specified to read, Ambulatory, [facility], 03/23/25 15:00:00 EDT, AOH Ordering Location wound right great toe improving Anticipated Date of Discharge after noninvasive testing, hopefully in the next couple days. Time Spent 45 minutes Digitally Signed by NEO PÉREZ DPM on 03/23/2025 12:43 PM [facility]06-02-2025 Pastoral care Progress note Pastoral Care Note Entered On: 03/23/2025 9:52 EDT Performed On: 03/23/2025 9:51 EDT by Kelby Baca Pastoral Care Type of Pastoral Visit : Initial visit Spiritual Care Visit Initiated by : Consult/Referral Spiritual Care Reason for Visit : General Pastoral Care Referral From : Patient Spiritual Assessment : Faithful, Coping well with illness, Spiritually Strong, Good [employer] Support Spiritual Care Emotional Assessment : Accepting of Situation, Optimistic, Has Support Network Spiritual Care Intervention : Affirmation, Validation of Feelings, Prayer with Patient/Family Spiritual Outcomes : Increased Peace of Mind Spiritual Plan of Care : No Further Action Pastoral Care Visit Length : 10 minute(s) Kelby Baca - 03/23/2025 9:51 EDT Digitally Signed by Kelby Baca on 03/23/2025 09:51 AM [facility]06-02-2025 Note Date of Service 03/23/2025 Chief Complaint bilateral foot wound Subjective Patient seen and evaluated this morning while resting in recliner. He states that he is doing well this morning. He feels that his pain is well-controlled at rest currently. Discussed with patient yesterday going home on an oral antibiotic vs PICC line and IV antibiotics and he seemed agreeable with either plan. He states he is willing to do whatever it takes to get this foot wound healed. Willcheck with [facility] pharmacy this morning to see what they recommend. Dr. Pérez is coming in around noonso we will develop a plan by then for discharge. Patient states that his bowels finally moved this morning. He denies any fever, chills, cough, shortness of breath, chest pain, abdominal pain, nauseaor dysuria. All questions answered. Patient is medically optimized from hospitalist perspective. Recommend that he continues on his Metformin 500 mg PO BID at home plus Lantus 10 units sc qhs. He will need to follow closely with his PCP to monitor his A1c and make adjustments as needed to the Lantus and/or metformin dose. Would stop Zachniravflo at this point as he will likely not be compliant with it due to side effects. Recommend Augmentin 875 mg PO BID x 6 weeks to cover. Objective Vitals and Measurements T: 36.8 C (Oral) TMIN: 36.6 C (Oral) TMAX: 36.9 C (Oral) HR: 73 (Monitored) RR: 16 BP: 169/85 SpO2:95% Intake and Output 7AM Yesterday to 7AM Today Intake and Output (Last 24 hours) Intake Oral Intake 920.00 Output Stool Count 0.00 Urine Count 4.00 Emesis Count 0.00 Total Summary Total Intake 920.00 Total Output 0.00 Fluid Balance 920.00 Physical Exam General: No acute distress. Patient is alert, chronically ill-appearing. Skin: No rash. Skin is warm, dry and intact. HEENT: Head is normocephalic, atraumatic. Pupils are equal, round and reactive. Neck: Supple. No lymphadenopathy, thyromegaly. Lungs: Bilaterally clear but diminished without crepitation or wheeze. Unlabored. Heart: Heart is regular rhythm, S1, S2. No murmurs, gallops or rubs. Abdomen: Abdomen is soft, nontender. Bowels sounds present in all quadrants. Extremities: No clubbing, cyanosis, or edema. Peripheral pulses palpable. No calf tenderness. Dressings in place to left foot and right great toe - dry and intact. Neurological: Patient is awake and alert to person, place and time. Following simple commands, moving all extremities. Weight Dosing Weight: 86.4 kg (03/20/25) Dosing Weight: 86.4 kg (03/19/25) Medications Medications (16) Active Scheduled: (6) docusate sodium 100 mg Capsule 100 mg 1 cap(s), Oral, BID insulin glargine 100 units/ml solution 10 unit(s) 0.1 mL, Subcutaneous, qHS losartan 25 mg tablet 25 mg 1 tab(s), Oral, Daily magnesium oxide 400 mg Tablet 400 mg 1 tab(s), Oral, qDay metformin 500 mg ER tablet 500 mg 1 tab(s), Oral, BID vancomycin 1,500 mg 30 mL, IV Piggyback, q24h Continuous: (0) PRN: (10) acetaminophen 325 mg Tablet 650 mg 2 tab(s), Oral, q4h acetaminophen 325 mg Tablet 650 mg 2 tab(s), Oral, q4h acetaminophen-OXYcodone 325 mg-5 mg Tablet 2 tab(s), Oral, q6h acetaminophen-OXYcodone 325 mg-5 mg Tablet 1 tab(s), Oral, q6h benzonatate 100 mg Capsule 100 mg 1 cap(s), Oral, TID calcium carbonate 500 mg Chewable 500 mg 1 tab(s), Chewed, TID guaifenesin 100 mg/5 mL Liquid 120 mL 200 mg 10 mL, Oral, q4h melatonin 3 mg tablet 6 mg 2 tab(s), Oral, qHS ondansetron 2 mg/ 1 mL 2 mL INJ 4 mg 2 mL, IV Push, q4h polyethylene glycol 3350 - UD packet 17 gram(s) 15 mL, Oral, BID Lab Results 03/23 05:24 Glucose Level: 193 H Sodium Level: 133 L Potassium Level: 4.2 BUN: 22 H Creatinine Lvl (s): 1.18 H 03/22 05:27 Hgb: 12.3 L Hct: 35.6 L Glucose Level: 167 H Sodium Level: 133 L Potassium Level: 4.1 BUN: 21 H Creatinine Lvl (s): 1.26 H Imaging Results and Diagnostics XR Foot Minimum 3 Views Right Result Date: March 19, 2025 Verified By: JOSE DEWITT MD CLINICAL STATEMENT: IMPRESSION: No acute fracture or dislocation. Erosive changes at the base of the 1st distal phalanxconcerning for osteomyelitis. I have personally reviewed the images of this examination and agree with the resident's findings and interpretation. XR Foot Minimum 3 Views Left Result Date: March 19, 2025 Verified By: JOSE DEWITT MD CLINICAL STATEMENT: IMPRESSION: No radiographic evidence of osteomyelitis about the 1st digit amputation site. I have personally reviewed the images of this examination and agree with the resident's findings and interpretation. EKG No qualifying data available. Assessment/Plan 1. Wound of left foot Management per primary team. POD #3. Dr. Pérez performed surgical debridement 03/20. Continue Vancomycin IV - pharmacy to dose. Will reach out to ID pharmacist for recommendation on IV vs oral antibiotics at home. Continue PRN pain medication and antiemetics. 2. Acute kidney injury Resolved. Baseline GFR 72 in 10/2023 - improved to 66 this am. Avoid nephrotoxic agents. Repeat BMP in the am. 3. Diabetes mellitus Chronic, uncontrolled. A1c on 03/18 was 11.1%. ADA diet. Blood glucose goal of 180 or less and avoidhypoglycemia. Patient is below goal - running 160's to 170's. Patient took his Mounjaro on 03/19 prior to admission. Continue Lantus 10 units sc qhs. Continue Metformin to 500 mg PO BID. 4. Hypertension Chronic. Continue current antihypertensive. SBP goal of 140 or less. constipation - Continue colace 100 mg PO BID and Miralax 17 grams PO BID PRN. DVT prophylaxis with SCDs. Code status: Full Code. Labs, diagnostic test and progress notes reviewed as noted in HPI. Plan of care discussed with patient. All questions answered. Patient verbalizes understanding and is agreeable with plan of care. This case was discussed with collaborating physician, Dr. Neo Gibson. Anticipated Date of Discharge today Time Spent 37 minutes spent reviewing past diagnostic tests, reviewing lab results, vital sign trends, medicalhistory, reviewing medications and ordering home medications, examining patient, discussed plan of care with care team, collaborating with physician, and documenting in chart. Digitally Signed by TASHA EMMANUEL on 03/23/2025 10:12 AM Digitally Signed by TASHA EMMANUEL on 03/23/2025 10:33 AM [facility]06-01-2025 Note Date of Service 03/22/2025 Subjective pain improved and under control. Objective Vitals and Measurements T: 36.7 C (Oral) TMIN: 36.6 C (Oral) TMAX: 36.9 C (Oral) HR: 72 RR: 16 BP: 148/77 SpO2: 95% Intake and Output 7AM Yesterday to 7AM Today Intake and Output (Last 24 hours) Intake Oral Intake 1720.00 Output Stool Count 0.00 Urine Count 5.00 Emesis Count 0.00 Total Summary Total Intake 1720.00 Total Output 0.00 Fluid Balance 1720.00 Physical Exam right great toe shows a little granulation for a change, stable wound, toe appears pink and skin color/texture/turgor around wound is good with instant cft. no odor, no drainage, no purulence, no redness, no swelling, no undermining. left great toe amp using less packing but still questionable, there is some yellowish fibrofatty material along the wound interface, sutures intact, no flucutance, adjacent 2nd toe healthy and pink, all other integument if pink, good color and turgor with hair growth. Weight Dosing Weight: 86.4 kg (03/20/25) Dosing Weight: 86.4 kg (03/19/25) Medications Medications (15) Active Scheduled: (5) docusate sodium 100 mg Capsule 100 mg 1 cap(s), Oral, BID insulin glargine 100 units/ml solution 10 unit(s) 0.1 mL, Subcutaneous, qHS losartan 25 mg tablet 25 mg 1 tab(s), Oral, Daily metformin 500 mg ER tablet 500 mg 1 tab(s), Oral, BID vancomycin 1,500 mg 30 mL, IV Piggyback, q24h Continuous: (0) PRN: (10) acetaminophen 325 mg Tablet 650 mg 2 tab(s), Oral, q4h acetaminophen 325 mg Tablet 650 mg 2 tab(s), Oral, q4h acetaminophen-OXYcodone 325 mg-5 mg Tablet 2 tab(s), Oral, q6h acetaminophen-OXYcodone 325 mg-5 mg Tablet 1 tab(s), Oral, q6h benzonatate 100 mg Capsule 100 mg 1 cap(s), Oral, TID calcium carbonate 500 mg Chewable 500 mg 1 tab(s), Chewed, TID guaifenesin 100 mg/5 mL Liquid 120 mL 200 mg 10 mL, Oral, q4h melatonin 3 mg tablet 6 mg 2 tab(s), Oral, qHS ondansetron 2 mg/ 1 mL 2 mL INJ 4 mg 2 mL, IV Push, q4h polyethylene glycol 3350 - UD packet 17 gram(s) 15 mL, Oral, BID Lab Results 03/22 05:27 Hgb: 12.3 L Hct: 35.6 L Glucose Level: 167 H Sodium Level: 133 L Potassium Level: 4.1 BUN: 21 H Creatinine Lvl (s): 1.26 H EKG No qualifying data available. Assessment/Plan Acute kidney injury Diabetes mellitus Hypertension Wound of left foot redress, repack, flush, abrasive debridement with moistened gauze. recultured today, last culture wasnt helpful for abx coverage. will likely send him home on once daily cefipime, discussed care withhospitalist. forming plan. Ordered: Culture Wound Deep Aerobe/Anaerobe w Gram Stain, 03/21/25 12:00:00 EDT, Routine collect, Incision, Left Foot, Stop date 03/21/25 12:01:00 EDT, Nurse collect, culture at next dressing changes on 03/22/2025, Wound of left foot Anticipated Date of Discharge no sure, awaiting more testing and developing care plan Time Spent 30 minutes Digitally Signed by NEO PÉREZ DPM on 03/22/2025 09:58 AM [facility]06-01-2025 Note Date of Service 03/22/2025 Chief Complaint left foot pain Subjective Patient seen and evaluated this morning while resting in recliner. He states that he slept really well last night. He added that it was the first time in quite a while. He states his pain was well-controlled overnight. We had talked about increasing his metformin to 1000 mg yesterday but, due to a technical issue, he was only able to get his 500 mg dose. His blood sugars have been in the 160's - 170's for about 24 hours on the Metformin 500 mg PO BID and the Lantus 10 units sc qhs. We will justmaintain those doses for now. Patient will need to follow-up closely with his PCP to manage this further after discharge. Patient likely is still getting coverage from his Mounjaro. Once that clears his system, he may need adjustments to his Lantus. Patient denies any new problems or concerns this morning. His bowels have still not moved. Nursing at the bedside plans to give patient Miralax. All questions answered. Objective Vitals and Measurements T: 36.7 C (Oral) TMIN: 36.6 C (Oral) TMAX: 36.9 C (Oral) HR: 72 RR: 16 BP: 148/77 SpO2: 95% Intake and Output 7AM Yesterday to 7AM Today Intake and Output (Last 24 hours) Intake Oral Intake 1480.00 Output Stool Count 0.00 Urine Count 5.00 Emesis Count 0.00 Total Summary Total Intake 1480.00 Total Output 0.00 Fluid Balance 1480.00 Physical Exam General: No acute distress. Patient is alert, chronically ill-appearing. Skin: No rash. Skin is warm, dry and intact. HEENT: Head is normocephalic, atraumatic. Pupils are equal, round and reactive. Neck: Supple. No lymphadenopathy, thyromegaly. Lungs: Bilaterally clear but diminished without crepitation or wheeze. Unlabored. Heart: Heart is regular rhythm, S1, S2. No murmurs, gallops or rubs. Abdomen: Abdomen is soft, nontender. Bowels sounds present in all quadrants. Extremities: No clubbing, cyanosis, or edema. Peripheral pulses palpable. No calf tenderness. Left foot dressing is dry and intact. Neurological: Patient is awake and alert to person, place and time. Following simple commands, moving all extremities. Weight Dosing Weight: 86.4 kg (03/20/25) Dosing Weight: 86.4 kg (03/19/25) Medications Medications (15) Active Scheduled: (5) docusate sodium 100 mg Capsule 100 mg 1 cap(s), Oral, BID insulin glargine 100 units/ml solution 10 unit(s) 0.1 mL, Subcutaneous, qHS losartan 25 mg tablet 25 mg 1 tab(s), Oral, Daily metformin 500 mg ER tablet 500 mg 1 tab(s), Oral, BID vancomycin 1,500 mg 30 mL, IV Piggyback, q24h Continuous: (0) PRN: (10) acetaminophen 325 mg Tablet 650 mg 2 tab(s), Oral, q4h acetaminophen 325 mg Tablet 650 mg 2 tab(s), Oral, q4h acetaminophen-OXYcodone 325 mg-5 mg Tablet 2 tab(s), Oral, q6h acetaminophen-OXYcodone 325 mg-5 mg Tablet 1 tab(s), Oral, q6h benzonatate 100 mg Capsule 100 mg 1 cap(s), Oral, TID calcium carbonate 500 mg Chewable 500 mg 1 tab(s), Chewed, TID guaifenesin 100 mg/5 mL Liquid 120 mL 200 mg 10 mL, Oral, q4h melatonin 3 mg tablet 6 mg 2 tab(s), Oral, qHS ondansetron 2 mg/ 1 mL 2 mL INJ 4 mg 2 mL, IV Push, q4h polyethylene glycol 3350 - UD packet 17 gram(s) 15 mL, Oral, BID Lab Results 03/22 05:27 Hgb: 12.3 L Hct: 35.6 L Glucose Level: 167 H Sodium Level: 133 L Potassium Level: 4.1 BUN: 21 H Creatinine Lvl (s): 1.26 H Imaging Results and Diagnostics XR Foot Minimum 3 Views Right Result Date: March 19, 2025 Verified By: JOSE DEWITT MD CLINICAL STATEMENT: IMPRESSION: No acute fracture or dislocation. Erosive changes at the base of the 1st distal phalanxconcerning for osteomyelitis. I have personally reviewed the images of this examination and agree with the resident's findings and interpretation. XR Foot Minimum 3 Views Left Result Date: March 19, 2025 Verified By: JOSE DEWITT MD CLINICAL STATEMENT: IMPRESSION: No radiographic evidence of osteomyelitis about the 1st digit amputation site. I have personally reviewed the images of this examination and agree with the resident's findings and interpretation. EKG No qualifying data available. Assessment/Plan 1. Wound of left foot Management per primary team. POD #2. Dr. Pérez performed surgical debridement 03/20. Continue Vancomycin IV - pharmacy to dose. Continue PRN pain medication and antiemetics. 2. Acute kidney injury Acute, new onset vs worsening kidney function from poor glucose control. Last creatinine in [facility] was 1.12 with GFR of 72 in 10/2023. GFR improved to 61 this am. Avoid nephrotoxic agents. Repeat BMP in the am. 3. Diabetes mellitus Chronic, uncontrolled. A1c on 03/18 was 11.1%. ADA diet. Blood glucose goal of 180 or less and avoidhypoglycemia. Patient is below goal - running 160's to 170's. Patient took his Mounjaro on 03/19 prior to admission. Continue Lantus 10 units sc qhs. Continue Metformin to 500 mg PO BID. 4. Hypertension Chronic. Continue current antihypertensive. SBP goal of 140 or less. constipation - Continue colace 100 mg PO BID and Miralax 17 grams PO BID PRN. DVT prophylaxis with SCDs. Labs, diagnostic test and progress notes reviewed as noted in HPI. Plan of care discussed with patient. All questions answered. Patient verbalizes understanding and is agreeable with plan of care. This case was discussed with collaborating physician, Dr. Neo Gibson. Anticipated Date of Discharge next 24 hours Time Spent 37 minutes spent reviewing past diagnostic tests, reviewing lab results, vital sign trends, medicalhistory, reviewing medications and ordering home medications, examining patient, discussed plan of care with care team, collaborating with physician, and documenting in chart. Digitally Signed by TASHA EMMANUEL on 03/22/2025 10:04 AM [facility]05-30-2025 Anesthesiology Consult note Patient: JORY PRITCHARD Age: 69 years Sex: Male : 1955 Associated Diagnoses: None Author: JUDITH NAYAK Preoperative Information Anesthesia history Patient's history: negative. Family's history: negative. Health Status Allergies: Allergic Reactions (Selected) No Known Medication Allergies, Allergies (1) ActiveSeverityReaction No Known Medication AllergiesNone Documented Current medications: (Selected) Inpatient Medications Ordered Lantus: 10 unit(s), 0.1 mL, Subcutaneous, qHS NS 1,000 mL: 50 mL/hr, Intravenous, Stop: 03/20/25 13:30:00 EDT Percocet 325/5: 1 tab(s), Oral, q6h, PRN: Pain, scale 4-6 Percocet 325/5: 2 tab(s), Oral, q6h, PRN: Pain, scale 7-10 Tessalon Perles: 100 mg, 1 cap(s), Oral, TID, PRN: Cough Tums: 500 mg, 1 tab(s), Chewed, TID, PRN: Heartburn Tylenol: 650 mg, 2 tab(s), Oral, q4h, PRN: Pain, scale 1-3 Tylenol: 650 mg, 2 tab(s), Oral, q4h, PRN: TEMP greater than 38.6 degrees Celsius Zofran: 4 mg, 2 mL, IV Push, q4h, PRN: Nausea/Vomiting guaiFENesin: 200 mg, 10 mL, Oral, q4h, PRN: Cough losartan: 25 mg, 1 tab(s), Oral, Daily melatonin: 6 mg, 2 tab(s), Oral, qHS, PRN: Sleep metFORMIN: 500 mg, 1 tab(s), Oral, BID vancomycin: 1,500 mg, 30 mL, 200 mL/hr, IV Piggyback, q24h Suspended HumaLOG 100 units/mL subcutaneous solution: Give 0-10 units/dose, Subcutaneous, achs Documented Medications Documented MetFORMIN (Eqv-Fortamet) 500 mg oral tablet, EXTENDED RELEASE: 500 mg, 1 tab(s), Oral, BID, Okay tosubstitute for generic Glucophage XR, 30 tab(s), 0 Refill(s) Mounjaro 5 mg/0.5 mL subcutaneous solution: INJECT 5mg DOSE (0.5ml) SUBCUTANEOUSLY ONCE A WEEK acetaminophen-oxyCODONE 325 mg-5 mg oral tablet: TAKE ONE TABLET BY MOUTH EVERY 6 HOURS NEEDED losartan 25 mg oral tablet: 25 mg, 1 tab(s), Oral, Daily, 100 tab(s), 0 Refill(s) sulfamethoxazole-trimethoprim 800 mg-160 mg oral tablet: TAKE ONE TABLET BY MOUTH TWICE DAILY, Medications (14) Active Scheduled: (4) insulin glargine 100 units/ml solution 10 unit(s) 0.1 mL, Subcutaneous, qHS losartan 25 mg tablet 25 mg 1 tab(s), Oral, Daily metformin 500 mg ER tablet 500 mg 1 tab(s), Oral, BID vancomycin 1,500 mg 30 mL, IV Piggyback, q24h Continuous: (1) NS (0.9% nacl) 1,000 mL 1,000 mL, Intravenous, 50 mL/hr PRN: (9) acetaminophen 325 mg Tablet 650 mg 2 tab(s), Oral, q4h acetaminophen 325 mg Tablet 650 mg 2 tab(s), Oral, q4h acetaminophen-OXYcodone 325 mg-5 mg Tablet 2 tab(s), Oral, q6h acetaminophen-OXYcodone 325 mg-5 mg Tablet 1 tab(s), Oral, q6h benzonatate 100 mg Capsule 100 mg 1 cap(s), Oral, TID calcium carbonate 500 mg Chewable 500 mg 1 tab(s), Chewed, TID guaifenesin 100 mg/5 mL Liquid 120 mL 200 mg 10 mL, Oral, q4h melatonin 3 mg tablet 6 mg 2 tab(s), Oral, qHS ondansetron 2 mg/ 1 mL 2 mL INJ 4 mg 2 mL, IV Push, q4h Problem list: Active Problems (2) Diabetes mellitus Hypertension Histories Past Medical History: No active or resolved past medical history items have been selected or recorded. Family History: Entire family history is negative. Procedure history: Hernia repair ([id number]). Comments: 03/10/2025 10:26 EDT - Savanah Mclaughlin RN left Appendectomy ([id number]). Social History: Social & Psychosocial Habits Alcohol 03/19/2025 Use: Never Substance Abuse 03/19/2025 Use: Never Tobacco 03/19/2025 Tobacco Use: Former smoker, quit more Home/Environment 03/19/2025 Living situation: Home/Independent Financial concerns: No Domestic Concerns None Lives In 1st floor laundry, Single level home, basement laundry Current Home Treatments Blood Glucose monitoring Spouse Name Savanah Marital Status of Patient if Patient Independent Adult: Nutrition/Health 03/19/2025 Type of diet: Diabetic Appetite Good Physical Examination Vital Signs 03/20/2025 4:35 EDT Temperature Oral 36.7 DegC Heart Rate Monitored 72 bpm Respiratory Rate 18 br/min Systolic Blood Pressure Non-Invasive 148 mmHg HI Diastolic Blood Pressure Non-Invasive 85 mmHg 03/20/2025 0:01 EDT Temperature Oral 36.8 DegC Heart Rate Monitored 76 bpm Respiratory Rate 18 br/min Systolic Blood Pressure Non-Invasive 142 mmHg HI Diastolic Blood Pressure Non-Invasive 75 mmHg 03/19/2025 20:20 EDT Temperature Oral 37.0 DegC Heart Rate Monitored 73 bpm Respiratory Rate 18 br/min Systolic Blood Pressure Non-Invasive 140 mmHg Diastolic Blood Pressure Non-Invasive 92 mmHg VT 03/19/2025 15:00 EDT Temperature Oral 36.7 DegC Heart Rate Monitored 66 bpm Respiratory Rate 18 br/min Systolic Blood Pressure Non-Invasive 171 mmHg HI Diastolic Blood Pressure Non-Invasive 82 mmHg 03/19/2025 12:32 EDT Systolic Blood Pressure Non-Invasive 162 mmHg HI Diastolic Blood Pressure Non-Invasive 92 mmHg VT 03/19/2025 11:40 EDT Temperature Oral 36.4 DegC Apical Heart Rate 74 bpm Respiratory Rate 18 br/min Systolic Blood Pressure Non-Invasive 195 mmHg HI Diastolic Blood Pressure Non-Invasive 101 mmHg >HHI Vital Signs (last 24 hrs) Last Charted Temp Oral36.7 DegC (MARCH 20 04:35) Heart Rate Vipfozcsx12 bpm (MARCH 20 04:35) SBPH 148 mmHg (MARCH 20 04:35) DBP85 mmHg (MARCH 20 04:35) BMI25.83 (MARCH 19 14:11) Measurements from flowsheet : Measurements 03/19/2025 14:11 EDT Height 182.9 cm Height in inches 72 inch(es) Admission Weight 86.4 kg Weight Lbs 190.1 lb [place] Body Weight 77.62 kg BSA Admission 2.09 Body Mass Index 25.83 kg/m2 Pain assessment: Pain Assessment 03/19/2025 22:15 EDT Pain Scale Assessment 0-10 Pain scale Primary Pain Location Foot Primary Pain Intensity 3 Pain Scale Type 0-10 Pain scale 03/19/2025 21:15 EDT Primary Pain Location Foot Primary Pain Laterality Left Primary Pain Intensity 4 Pain Scale Type 0-10 Pain scale 03/19/2025 14:32 EDT Primary Pain Location Foot Primary Pain Laterality Left Primary Pain Intensity 3 Primary Pain Time Pattern constant Pain Scale Type 0-10 Pain scale 03/19/2025 11:40 EDT Primary Pain Intensity 0 Pain Scale Type 0-10 Pain scale . General: Alert and oriented. Airway: Normal temporomandibular joint mobility. Mallampati classification: II (soft palate, fauces, uvula visible). Dentition Evaluation: Dentures, lower, Dentures, upper. Respiratory: Lungs are clear to auscultation, Respirations are non-labored. Cardiovascular: Normal rate, Regular rhythm. Neurologic: Alert, Oriented. Review / Management Results review: No qualifying data available , Lab results 03/20/2025 6:16 EDT SN - SP - Prep Agents Betadine Solution, Betadine Scrub 03/20/2025 6:13 EDT SN - Proc - Anesthesia Type MAC SN - Proc - Actual Procedure DEBRIDEMENT BILATERAL FOOT WOUNDS 03/20/2025 6:13 EDT SN - SP - HR - Method N/A 03/20/2025 6:12 EDT IV Present Present Consent Form Signed Yes Patient Dressed In Hospital gown Preop Nasal Swab Povidone-Iodine History & Physical Update On Chart Yes History & Physical On Chart Yes NPO Status Maintained Implants Verified Yes Pacemaker/AICD Verified Yes Site Verified by Patient/Family Yes Anesthesia Consent Signed Yes Blood Consent Signed Yes Last Fluid Intake 03/19/2025 17:00 Last Food Intake 03/19/2025 17:00 03/20/2025 6:11 EDT SN - PP - Body Position Supine Standard Intra-op 03/20/2025 6:11 EDT SN - Assess - LOC Alert SN - Assess - Orientation Oriented X 3 SN - Assess - Post-op Skin Integrity Intact/Dry 03/20/2025 6:11 EDT Mechanical VTE Prophylaxis Education Not Done: Not Appropriate at this Time (NotDone) Sequential Compression Device Not Done: Not Appropriate at this Time (Not Done) Nurse Safety Checks q2hrs Performed 7pm-7am Standard Safety Safety level maintained High Risk Safety Room check performed Sequential Compression Device Form Not Done (Not Done) 03/20/2025 6:10 EDT SN - GCD - Post-operative Diagnosis BILATERAL FOOT WOUNDS SN - GCD - Case Level Level 2 03/20/2025 6:09 EDT Oxygen Therapy Room air Oxygen Activity Room air Oxygen Flow Rate 0 L/min 03/20/2025 6:08 EDT SN - CAt - Case Attendee SN - CAt - Case Attendee SN - CAt - Role Performed Environmental Emergencies Assistant 1 03/20/2025 6:08 EDT SN - CAt - Case Attendee SN - CAt - Case Attendee SN - CAt - Case Attendee SN - CAt - Case Attendee SN - CAt - Case Attendee SN - CAt - Case Attendee SN - CAt - Case Attendee SN - CAt - Case Attendee SN - CAt - Role Performed Primary Surgeon SN - CAt - Role Performed Cuff Matcher 1 SN - CAt - Role Performed Scrub 1 SN - CAt - Role Performed ELECTRONIC TESTER 03/20/2025 4:35 EDT Temperature Oral 36.7 DegC Heart Rate Monitored 72 bpm Respiratory Rate 18 br/min Systolic Blood Pressure Non-Invasive 148 mmHg HI Diastolic Blood Pressure Non-Invasive 85 mmHg Oxygen Saturation 96 % 03/20/2025 4:08 EDT Mechanical VTE Prophylaxis Education Not Done: Patient Refused (Not Done) Mechanical VTE Prophylaxis Education Not Done: Patient Refused (Not Done) Sequential Compression Device Not Done: Patient Refused (Not Done) Sequential Compression Device Not Done: Patient Refused (Not Done) Sequential Compression Device Form Not Done (Not Done) Sequential Compression Device Form Not Done (Not Done) 03/20/2025 0:01 EDT Temperature Oral 36.8 DegC Heart Rate Monitored 76 bpm Respiratory Rate 18 br/min Systolic Blood Pressure Non-Invasive 142 mmHg HI Diastolic Blood Pressure Non-Invasive 75 mmHg Oxygen Therapy Room air Oxygen Saturation 95 % CHG Preoperative Wash/Wipe Night before procedure NPO Status Initiated Linen Change Done Standard Safety Safety level maintained High Risk Safety Room check performed 03/19/2025 22:15 EDT Pain Scale Assessment 0-10 Pain scale Primary Pain Location Foot Primary Pain Intensity 3 Pain Scale Type 0-10 Pain scale Reason for PRN medication Pain management PRN medication effectiveness Yes PRN Medication Effectiveness Evaluation PRN Medication Effectiveness Evaluation 03/19/2025 21:15 EDT Primary Pain Location Foot Primary Pain Laterality Left Primary Pain Intensity 4 Pain Scale Type 0-10 Pain scale Standard Safety Safety level maintained High Risk Safety Room check performed acetaminophen-oxycodone 1 tab(s) tab(s) insulin glargine 10 unit(s) unit(s) 03/19/2025 21:11 EDT Blood Glucose, Capillary 181 mg/dL HI Blood Glucose Testing Reason Routine 03/19/2025 20:20 EDT Temperature Oral 37.0 DegC Heart Rate Monitored 73 bpm Respiratory Rate 18 br/min Systolic Blood Pressure Non-Invasive 140 mmHg Diastolic Blood Pressure Non-Invasive 92 mmHg HI Nail Bed Color [place] Capillary Refill < 2 seconds Radial Pulse, Left 2+ Normal Radial Pulse, Right 2+ Normal Respirations Unlabored Respiratory Pattern Regular Breath Sounds Auscultated Anterior and posterior All Lobes Breath Sounds Clear Oxygen Therapy Room air Oxygen Saturation 95 % Abdomen Description Non-distended Abdomen Palpation Non-Tender Bowel Sounds All Quadrants Present Urinary Elimination Voiding, no difficulties Facial Movement Symmetric resting/crying Skin Description [place], Normal for ethnicity Skin Temperature Warm Skin Integrity Not intact Skin Turgor Elastic All Extremity Description [place] Temperature All Extremities Warm Mucous Membrane Color [place] Mucous Membrane Description Moist Sensory Perception Rayray No impairment Moisture Rayray Rarely moist Activity Rayray Walks occasionally Mobility Rayray Slightly limited Nutrition Rayray Adequate Friction and Shear Rayray No apparent problem Rayray Score 20 Hospital Acquired Pressure Injury Risk None/minimal risk (score 19-23) Foot Left Incision, Wound Dressing/Activity: Assessed Incision, Wound Dressing Assessment: Clean, Dry, Intact Incision, Wound Dressing: Compression wrap, Gauze bandage roll Wound Status: No complications Foot Right Incision, Wound Dressing/Activity: Assessed Incision, Wound Dressing Assessment: Clean, Dry, Intact Incision, Wound Dressing: Compression wrap, Gauze bandage roll Wound Status: No complications Forearm Left 03/19/2025 20 gauge Peripheral IV Activity: Assessed Peripheral IV Dressing Condition: Clean, Dry, Intact Peripheral IV Dressing Activity: Transparent dressing Peripheral IV Line Status/Patency: Continuous infusion Peripheral IV Line Care: Secured with tape Peripheral IV Site Condition: No complications Peripheral IV Equipment: IV Pump Neurological Language Able to speak clearly Neurological Symptoms Patient denies Gait Unable to assess Extremity Movement Equal Swallowing Difficulty None Characteristics of Communication Appropriate Characteristics of Speech Clear Facial Symmetry Symmetric Level of Consciousness Alert Aspiration Risk None Strength All Extremities Moderate Tone All Extremities Normal Left Upper Extremity Sensation Intact Right Upper Extremity Sensation Intact Left Lower Extremity Sensation Intact Right Lower Extremity Sensation Intact Marks Screen Daily History of Fall in Last 3 Months Marks No Presence of Secondary Diagnosis Marks Yes Use of Ambulatory Aid Marks None, bedrest, wheelchair, nurse IV/PRN Adapter Fall Risk Marks Yes Gait Weak or Impaired Fall Risk Marks Normal, bedrest, immobile Mental Status Fall Risk Marks Oriented to own ability Marks Fall Risk Score 35 Affect/Behavior Appropriate, Calm, Cooperative Orientation Oriented x 4 Orientation Assessment Oriented x 4 Positioning Repositions self Activity Status ADL Awake, Other: visitors at bedside Standard Safety ID band on, Allergy Band on, Call device within reach, Bed in low position, Wheels locked, Upper/Half-Length side-rails up, Phone within reach, personal items within reach, Visitor atbedside, Safety level maintained High Risk Safety Door open, Bathroom light on, Non-Slip footwear, Room check performed Demonstrates Correct Call Light Use Yes 03/19/2025 18:52 EDT Nurse Safety Checks q2hrs Performed 11am-7pm 03/19/2025 17:50 EDT metFORMIN 500 mg mg 03/19/2025 17:46 EDT insulin lispro 4 unit(s) unit(s) 03/19/2025 17:08 EDT Blood Glucose, Capillary 201 mg/dL HI Blood Glucose Testing Reason Routine Mechanical VTE Prophylaxis Education Not done this session Sequential Compression Device bilateral knee high removed/off Reason SCD Removed/Off Patient refused Sequential Compression Device Form Sequential Compression Device Form 03/19/2025 16:18 EDT Individuals Taught Patient Learning Readiness Willing to learn Barriers to Learning None evident Preferred Spoken Language Trinidadian Preferred Written Language Trinidadian Patient Education Form Patient Education Form 03/19/2025 15:00 EDT Temperature Oral 36.7 DegC Heart Rate Monitored 66 bpm Respiratory Rate 18 br/min Systolic Blood Pressure Non-Invasive 171 mmHg HI Diastolic Blood Pressure Non-Invasive 82 mmHg Oxygen Therapy Room air Oxygen Saturation 93 % 03/19/2025 14:55 EDT Mechanical VTE Prophylaxis Education Not done this session Sequential Compression Device bilateral knee high removed/off Reason SCD Removed/Off Patient refused Sequential Compression Device Form Sequential Compression Device Form 03/19/2025 14:49 EDT losartan 25 mg mg Sodium Chloride 0.9% Begin Bag 1,000 mL mL 03/19/2025 14:39 EDT Sensory Perception Rayray No impairment Moisture Rayray Rarely moist Activity Rayray Walks occasionally Mobility Rayray Slightly limited Nutrition Rayray Adequate Friction and Shear Rayray No apparent problem Rayray Score 20 Hospital Acquired Pressure Injury Risk None/minimal risk (score 19-23) Continuous IV Infusions NS Forearm Left 03/19/2025 20 gauge Peripheral IV Activity: Assessed Peripheral IV Dressing Condition: Clean, Dry, Intact Peripheral IV Dressing Activity: Transparent dressing Peripheral IV Line Status/Patency: Continuous infusion Peripheral IV Line Care: Secured with tape Peripheral IV Site Condition: No complications Peripheral IV Equipment: IV Pump, PRN Adaptor Marks Screen Daily History of Fall in Last 3 Months Marks No Presence of Secondary Diagnosis Marks Yes Use of Ambulatory Aid Marks None, bedrest, wheelchair, nurse IV/PRN Adapter Fall Risk Marks Yes Gait Weak or Impaired Fall Risk Marks Normal, bedrest, immobile Mental Status Fall Risk Marks Oriented to own ability Marks Fall Risk Score 35 Violence Risk Confused No Violence Risk Irritable No Violence Risk Boisterous No Violence Risk Verbal Threats No Violence Risk Physical Threats No Violence Risk Attacking Objects No Violence Risk Predictor Score 0 Violence Risk Intervention None Violence Risk Current Interventions None Positioning Repositions self Activity Status ADL Resting Standard Safety ID band on, Call device within reach, Bed in low position, Wheels locked, Upper/Half-Length side-rails up, Phone within reach, personal items within reach, Safety level maintained, Non-Slip footwear Demonstrates Correct Call Light Use Yes 03/19/2025 14:32 EDT Primary Pain Location Foot Primary Pain Laterality Left Primary Pain Intensity 3 Primary Pain Time Pattern constant Pain Scale Type 0-10 Pain scale Nail Bed Color [place] Capillary Refill < 2 seconds Passing Flatus No Bowel Movement Last Date 03/18/2025 Swallowing Disorder None Genitourinary Symptoms Frequency Facial Movement Symmetric resting/crying Skin Description [place], Normal for ethnicity, Dry Skin Temperature Warm Skin Integrity Not intact Skin Turgor Elastic Temperature All Extremities Warm Mucous Membrane Color [place] Mucous Membrane Description Moist Foot Left Skin Abnormality Type: Fungal infection Incision, Wound Dressing/Activity: Assessed Incision, Wound Dressing Assessment: Clean, Dry, Intact Incision, Wound Dressing: Compression wrap, Gauze bandage roll Wound Status: No complications Foot Right Skin Abnormality Type: Fungal infection Incision, Wound Dressing/Activity: Assessed Incision, Wound Dressing Assessment: Clean, Dry, Intact Incision, Wound Dressing: Compression wrap, Gauze bandage roll, Gauze dressing Wound Status: No complications Neurological Language Able to speak clearly Neurological Symptoms Patient denies Gait Steady Extremity Movement Equal Swallowing Difficulty None Characteristics of Communication Appropriate Characteristics of Speech Clear Facial Symmetry Symmetric Level of Consciousness Alert Aspiration Risk None Strength All Extremities Moderate Left Upper Extremity Sensation Intact Right Upper Extremity Sensation Intact Left Lower Extremity Sensation Intact Right Lower Extremity Sensation Intact Affect/Behavior Appropriate, Calm, Cooperative Orientation Oriented x 4 Orientation Assessment Oriented x 4, Identifies self Memory Recall Ability Month, Year, Place, Self Appetite Good Eating Difficulties None 03/19/2025 14:11 EDT Designated Person #1 We May Share [facility] [place] [phone] Designated Person #1 Relationship Spouse Privacy Restrictions Requested None Height 182.9 cm Height in inches 72 inch(es) Admission Weight 86.4 kg Weight Lbs 190.1 lb [place] Body Weight 77.62 kg BSA Admission 2.09 Body Mass Index 25.83 kg/m2 Patient Type Inpatient Thrombosis Risk Factors (2) Age 61-75 years old Thrombosis Risk Factor Add'l Assessment NA Thrombosis Risk Score 2 Status N/A Do You Wish/Go to Sleep/Never Wake Up No Thoughts of Harming Others - History No Thoughts of Suicide - History No Hospital Clergy to Visit Requests Visit from Spiritual Care Staff Sensory Deficits None Palliative Total Score 0 Palliative Screen Applicable for This Pt Yes - screened, n/a Advanced Directives Yes Advance Directive Type [place] Durable Power of Hospitality [facility] [place] Declaration (Living Will) Advance Directive Location Patient instructed to bring in copy Infectious Disease Symptoms Patient states no symptoms Infectious Disease Recent Exposure No Alcohol and Drug Use No Employee of Institutional Living No Health Care Employee No History of Exposure to TB No History of Positive Chest X-Ray for TB No History of Positive TB Skin Test No Homeless No Known Immunosuppression No Recent Immigrant No Resident of Institutional Living No Bloody Sputum No Fatigue No Fever No Loss of Appetite No Night Sweats No Persistent Cough > 3 Weeks No Weight Loss No Barriers to Learning None evident Teaching Method Explanation Preferred Spoken Language Trinidadian Preferred Written Language Trinidadian Teaching Evaluation Verbalizes/Nonverbally indicates understanding Safety Brochure Information Reviewed Yes Lauren Nails Video Viewed No Patient's Current Physicians Dr. ALVAREZ Belongings At Bedside Dentures, lower, Dentures, upper, Glasses, Other: surgical shoes 2 (black) Personal Home Medications Received No home medications were brought in Discharge To, Anticipated Home independently Prev Test Positive/Diagnosis w/COVID-19 No Current Quarantine/Isolated any Illness No Any Contact with Sick Animals/Birds No Traveled Anywhere in Last 30 Days No Lost Weight Unintentionally Recently No Eat Poorly Due to Decreased Appetite No Total MST Score 0 N/A Personal Devices, Patient Valuables Dentures, lower, Dentures, upper, Glasses Admission Note-Nursing Patient History (AO) 03/19/2025 13:44 EDT Vanco Therapy Summary Vanco Therapy Summary Vanco Therapy Indication Osteomyelitis Vanco Therapy Target Level AUC:LUIS CARLOS 400-600 Consult to Pharmacist Pharmacist Initial Consult 03/19/2025 13:10 EDT vancomycin 1,500 mg mg Sodium Chloride 0.9% 250 mL mL 03/19/2025 13:06 EDT Living Situation Home independently, Lives with family 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 Current Issues Living Environment None [facility] Worried Food Running Out P12M Never true [facility] Food Gone, No Money To Buy P12M Never true [facility] No Transport Med/Appt/Work P12M No [facility] Utilities Threaten Shut Off P12M No [facility] Anyone Physically Hurt You Never (1) [facility] Anyone Insult Or Talk Down To You Never (1) [facility] Anyone Threaten You With Harm Never (1) [facility] Anyone Scream Or Curse At You Never (1) C Safety Total Score 4 insulin lispro 6 unit(s) unit(s) 03/19/2025 12:59 EDT [facility] Length of Stay 2 days [facility] Acute Admission Inpatient [facility] ED Visits 0 [facility] CoMorbidity Score 2 [facility] Score 7 Readmission Risk Screening Note Readmission Risk Screening 03/19/2025 12:54 EDT [facility] Consultation Note Consult Note (Modified) 03/19/2025 12:47 EDT Oxygen Therapy Room air Oxygen Activity Room air Oxygen Flow Rate 0 L/min 03/19/2025 12:32 EDT Systolic Blood Pressure Non-Invasive 162 mmHg HI Diastolic Blood Pressure Non-Invasive 92 mmHg HI 03/19/2025 12:25 EDT Blood Glucose, Capillary 235 mg/dL HI Blood Glucose Testing Reason Routine 03/19/2025 12:21 EDT XR Foot Minimum 3 Views Left XR FOOT MINIMUM 3 VIEWS LEFT 03/19/2025 12:21 EDT XR Foot Minimum 3 Views Right XR FOOT MINIMUM 3 VIEWS RIGHT 03/19/2025 12:14 EDT Notify date/time 03/19/2025 12:14 Provider Notified TASHA EMMANUEL APRN-[employer]NA[employer] Notification Method Phone Information Communicated Consult Details Communicated pt has diabetes and is poorly managed 03/19/2025 11:55 EDT Forearm Left 03/19/2025 20 gauge Peripheral IV Activity: Insert new site Peripheral IV Dressing Condition: Clean, Dry, Intact Peripheral IV Dressing Activity: Applied, Transparent dressing Peripheral IV Line Status/Patency: Flushes easily, 10ml normal saline flush, Good blood return Peripheral IV Line Care: Secured with tape Peripheral IV Site Condition: No complications Peripheral IV Equipment: PRN Adaptor Peripheral IV Number of Attempts: 1 03/19/2025 11:40 EDT Temperature Oral 36.4 DegC Apical Heart Rate 74 bpm Respiratory Rate 18 br/min Systolic Blood Pressure Non-Invasive 195 mmHg HI Diastolic Blood Pressure Non-Invasive 101 mmHg >HHI Primary Pain Intensity 0 Pain Scale Type 0-10 Pain scale Oxygen Therapy Room air Oxygen Saturation 95 % 03/19/2025 0:52 EDT CSummary CSUMMARY . Assessment and Plan [place] [employer] (ASA) physical status classification: Class III. Anesthetic Preoperative Plan Anesthetic technique: MAC. Postoperative pain management: Per surgeon. Risks discussed: nausea, vomiting, serious complications. Informed consent: signed by patient. Digitally Signed by JUDITH NAYAK LoreleiHoracio LAM on 03/20/2025 06:17 AM [facility]05-29-2025 Note* Exam Date Time Procedure Performing Provider Status 03/19/25 12:21 PM XR Foot Minimum 3 Views Left JOSE DEWITT MD; Auth (Verified) [id number] ORIGINAL EXAMINATION: THREE XRAY VIEWS OF THE LEFT FOOT03/19/2025 12:21 pm COMPARISON: None HISTORY: ORDERING SYSTEM PROVIDED HISTORY: Reason for Exam: pain FINDINGS: Amputation changes of the 1st digit. No cortical lucencies or erosions at the head of the 1st metatarsal to suggest osteomyelitis. No fracture or dislocation is seen. Vascular calcifications. Soft tissue swelling about the amputation site. IMPRESSION: No radiographic evidence of osteomyelitis about the 1st digit amputation site. I have personally reviewed the images of this examination and agree with the resident's findings and interpretation. Interpreted by: Jose Dewitt Preliminary Report By: Norma Lang Electronically signed By Jose Dewitt Dictated Date: 03/19/2025 2:36:42 PM Prelim Date: 03/19/2025 2:51:03 PM Sign Date: 03/19/2025 2:51:03 PM Ordering Provider: NEO PÉREZ [facility]05-29-2025 Note* Exam Date Time Procedure Performing Provider Status 03/19/25 12:21 PM XR Foot Minimum 3 Views Right JOSE DEWITT MD; Auth (Verified) [id number] ORIGINAL EXAMINATION: THREE XRAY VIEWS OF THE RIGHT FOOT03/19/2025 12:21 pm COMPARISON: None HISTORY: ORDERING SYSTEM PROVIDED HISTORY: Reason for Exam: pain FINDINGS: No fracture or dislocation is seen. Cortical haziness and erosive changes are noted at the medial base of the 1st distal phalanx. The joint spaces are preserved and normal alignment. Widespread atherosclerotic calcifications. No suspicious osseous lesions seen. Soft tissue swelling of the 1st distal phalanx.. IMPRESSION: No acute fracture or dislocation. Erosive changes at the base of the 1st distal phalanx concerning for osteomyelitis. I have personally reviewed the images of this examination and agree with the resident's findings and interpretation. Interpreted by: Jose Dewitt Preliminary Report By: Norma Lang Electronically signed By Jose Dewitt Dictated Date: 03/19/2025 1:13:34 PM Prelim Date: 03/19/2025 1:48:20 PM Sign Date: 03/19/2025 1:48:20 PM Ordering Provider[facility]05-24-2025 Note. MICRO - Microbiology PROCEDURE: Culture Wound Deep Aerobe/Anaerobe w Gram Stain [O1 *1] SOURCE: Wound (deep) BODY SITE: Toe COLLECTED DATE/TIME: 03/10/2025 11:57 EDT RECEIVED DATE/TIME: 03/10/2025 18:41 EDT START DATE/TIME: 03/10/2025 18:41 EDT FREE TEXT SOURCE: LEFT GREAT TOE AMENDED REPORTS Amended Report [] Verified Date/Time/Personnel: 03/14/2025 15:01 EDT Few Staphylococcus aureus Moderate Peptostreptococcus anaerobius Susceptibility testing on anaerobic bacteria not done. Many technical and interpretive difficulties are associated with this testing and in many cases antimicrobial therapy is used as an adjunct to primary surgical management. Please contact Microbiology with any questions ([phone]). FINAL REPORTS Final Report [] Verified Date/Time/Personnel: 03/12/2025 08:46 EDT Few Staphylococcus aureus No anaerobes isolated to date. PRELIMINARY REPORTS Preliminary Report [] Verified Date/Time/Personnel: 03/11/2025 12:28 EDT Few Staphylococcus aureus LUIS CARLOS to follow STAINS GS [] Verified Date/Time/Personnel: 03/10/2025 19:06 EDT 1+ Polymorphonuclear cells 3+ Gram Positive Cocci SUSCEPTIBILITY RESULTS Staphylococcus aureus Antibiotic LUIS CARLOS Dilut LUIS CARLOS Inter Ampicillin >8 Beta Lactamase Positive Ampicillin/ <=8/4 Susceptible Sulbactam Azithromycin <=2 Susceptible Cefazolin <=8 Susceptible Ceftriaxone <=4 Susceptible Ciprofloxacin <=1 Susceptible Clindamycin <=0.25 Susceptible Erythromycin <=0.25 Susceptible Levofloxacin <=1 Susceptible Oxacillin <=0.25 Susceptible Penicillin >2 Beta Lactamase Positive Tetracycline <=4 Susceptible Trimethoprim/ <=0.5/9.5 Susceptible Sulfa Vancomycin 0.5 Susceptible MICRO - Microbiology SUSCEPTIBILITY RESULTS Peptostreptococcus anaerobius Antibiotic LUIS CARLOS Dilut LUIS CARLOS Inter ID Panel Not Not Applicable Applicable Order Comments O1: Culture Wound Deep Aerobe/Anaerobe w Gram Stain AEROBE AND ANAEROBE Performing Locations *1: This test was performed at: [facility], [address] [place] [address], [facility] , [facility]05-20-2025 Hospital Discharge instructions Patient Education 03/10/2025 12:32:31 How to Use Cold Therapy, [id number] How to Use Cold Therapy Cold therapy, or cryotherapy, is a treatment that uses cold temperatures to treat an injury or medical condition. It includes using cold packs or ice packs to reduce pain and swelling. Only use cold therapy if your doctor says it is okay. What are the risks? Generally, cold therapy is a safe treatment. However, it is not safe for: People who are not able to say they are in pain. These include small children and people who have memory problems. People who have certain conditions, such as: ?A problem in the vessels that slows blood flow to the fingers and toes (Raynaud's syndrome). ?Feeling very cold easily (cold hypersensitivity). ?Lack of feeling in the area being iced. Cold therapy may not be safe for people who have other conditions. Do not use it without talking toyour doctor if you have: A heart condition. High blood pressure. Open or healing wounds. An infection. Pain and swelling in your joints (rheumatoid arthritis). Poor blood flow in the body. Diabetes. Certain skin conditions. How can I make a cold pack? When using a cold pack at home to reduce pain and swelling, you can use: A silica gel cold pack that has been left in the freezer. You can buy this online or in stores. A sealable plastic bag that has been filled with crushed ice. A washcloth or paper towels soaked in cold (or ice) water. A plastic bag of frozen vegetables. Throw them away when you are finished using them as a cold pack. Supplies needed: A cold pack. A towel. This can be dry or damp, based on what you like. How to use cold therapy 1.Have your cold pack ready. 2.Place a towel between the cold pack and your skin. You may also wrap the cold pack in a towel. 3.Put the cold pack on the affected area. Keep it on for no more than 20 minutes at a time. 4.Check your skin after 5 minutes to make sure that there is no damage to the area. Check for: White spots on your skin. Your skin may look blotchy or mottled. Skin that looks blue or pale. Skin that feels waxy or hard. 5.Repeat these steps as many times each day as told by your doctor. Always use a towel to avoid direct contact with your skin. Contact a doctor if: You start to have white spots on your skin. This may give your skin a blotchy or mottled look. Your skin turns blue or pale. Your skin becomes waxy or hard. Your swelling gets worse. Summary Cold therapy, or cryotherapy, is used to treat an injury or other conditions. It includes using cold packs or ice packs to reduce pain and swelling. Cold therapy is not safe for people who are not able to say they are in pain. When using cold packs or ice packs, always place a towel between the cold source and your skin. Check your skin after 5 minutes of icing it. This is to make sure that there is no skin damage. Contact your doctor if you notice changes in your skin or your swelling gets worse. This information is not intended to replace advice given to you by your health care provider. Make sure you discuss any questions you have with your health care provider. Document Released: 03/26/2009 Document Revised: 07/07/2019 Document Reviewed: 07/07/2019 Status Overload Patient Education 2020 [employer]. 03/10/2025 12:28:07 Toe Amputation, Care After Toe Amputation, Care After This sheet gives you information about how to care for yourself after your procedure. Your health care provider may also give you more specific instructions. If you have problems or questions, contact your health care provider. What can I expect after the procedure? After the procedure, it is common to have some pain. Pain usually improves within a week. Follow these instructions at home: Medicines Take sasm-lea-[id number] and prescription medicines only as told by your health care provider. If you were prescribed an antibiotic medicine, take it as told by your health care provider. Do notstop taking the antibiotic even if you start to feel better. Ask your health care provider if the medicine prescribed to you: ?Requires you to avoid driving or using heavy machinery. ?Can cause constipation. You may need to take actions to prevent or treat constipation, such as: ?Drink enough fluid to keep your urine pale yellow. ?Take bjho-kbs-dmysrva or prescription medicines. ? Eat foods that are high in fiber, such as beans, whole grains, and fresh fruits and vegetables. ?Limit foods that are high in fat and processed sugars, such as fried or sweet foods. Managing pain, stiffness, and swelling If directed, put ice on the painful area. ?Put ice in a plastic bag. ?Place a towel between your skin and the bag. ?Leave the ice on for 20 minutes, 2 3 times a day. Move your other toes often to reduce stiffness and swelling. Raise (elevate) your foot above the level of your heart while you are sitting or lying down. Incision care Follow instructions from your health care provider about how to take care of your incision. Make sure you: ?Wash your hands with soap and water before and after you change your bandage (dressing). If soap and water are not available, use hand executive vp. ?Change your dressing as told by your health care provider. ?Leave stitches (sutures), skin glue, or adhesive strips in place. These skin closures may need to stay in place for 2 weeks or longer. If adhesive strip edges start to loosen and curl up, you may trim the loose edges. Do not remove adhesive strips completely unless your health care provider tells you to do that. Check your incision area every day for signs of infection. Check for: ?More redness, swelling, or pain. ?Fluid or blood. ?Warmth. ?Pus or a bad smell. Bathing Do not take baths, swim, use a hot tub, or soak your foot until your health care provider approves.Ask your health care provider if you may take showers. You may only be allowed to take sponge baths. If your dressing has been removed, you may wash your skin with warm water and soap. Activity Rest as told by your health care provider. Avoid sitting for a long time without moving. Get up to take short walks every 1 2 hours. This is important to improve blood flow and breathing. Ask for help if you feel weak or unsteady. If you have been given crutches, use them as told by your health care provider. Do exercises as told by your health care provider. Return to your normal activities as told by your health care provider. Ask your health care provider what activities are safe for you. General instructions Do not drive for 24 hours if you were given a sedative during your procedure. Do not use any products that contain nicotine or tobacco, such as cigarettes, e- cigarettes, and chewing tobacco. If you need help quitting, ask your health care provider. Ask your health care provider about wearing supportive shoes or using inserts to help with your balance when walking. If you have diabetes, keep your blood sugar under good control and check your feet daily for sores or open areas. Keep all follow-up visits as told by your health care provider. This is important. Contact a health care provider if: You have signs of infection at your incision, such as: ?Redness, swelling, or pain. ?Fluid or blood. ?Warmth. ?Pus or a bad smell. You have a fever or chills. Your dressing is soaked with blood. Your sutures tear or they separate. You have numbness or tingling in your toes or foot. Your foot is cool or pale, or it changes color. Your pain does not improve after you take your medicine. Get help right away if you have: Pain or swelling near your incision that gets worse or does not go away. Red streaks on your skin near your toes, foot, or leg. Pain in your calf or behind your knee. Shortness of breath. Chest pain. Summary After the procedure, it is common to have some pain. Pain usually improves within a week. If you were prescribed an antibiotic medicine, take it as told by your health care provider. Do notstop taking the antibiotic even if you start to feel better. Change your dressing as told by your health care provider. Contact a health care provider if you have signs of infection. Keep all follow-up visits as told by your health care provider. This is important. This information is not intended to replace advice given to you by your health care provider. Make sure you discuss any questions you have with your health care provider. Document Released: 09/18/2016 Document Revised: 01/28/2020 Document Reviewed: 09/30/2019 Status Overload Patient Education 2020 [employer]. 03/10/2025 12:27:54 Monitored Anesthesia Care, Care After Monitored Anesthesia Care, Care After These instructions provide you with information about caring for yourself after your procedure. Your health care provider may also give you more specific instructions. Your treatment has been plannedaccording to current medical practices, but problems sometimes occur. Call your health care provider if you have any problems or questions after your procedure. What can I expect after the procedure? After your procedure, you may: Feel sleepy for several hours. Feel clumsy and have poor balance for several hours. Feel forgetful about what happened after the procedure. Have poor judgment for several hours. Feel nauseous or vomit. Have a sore throat if you had a breathing tube during the procedure. Follow these instructions at home: For at least 24 hours after the procedure: Have a responsible adult stay with you. It is important to have someone help care for you until youare awake and alert. Rest as needed. Do not: ?Participate in activities in which you could fall or become injured. ?Drive. ?Use heavy machinery. ?Drink alcohol. ?Take sleeping pills or medicines that cause drowsiness. ?Make important decisions or sign legal documents. ?Take care of children on your own. Eating and drinking Follow the diet that is recommended by your health care provider. If you vomit, drink water, juice, or soup when you can drink without vomiting. Make sure you have little or no nausea before eating solid foods. General instructions Take klbs-hkp-pggqzai and prescription medicines only as told by your health care provider. If you have sleep apnea, surgery and certain medicines can increase your risk for breathing problems. Follow instructions from your health care provider about wearing your sleep device: ?Anytime you are sleeping, including during daytime naps. ?While taking prescription pain medicines, sleeping medicines, or medicines that make you drowsy. If you smoke, do not smoke without supervision. Keep all follow-up visits as told by your health care provider. This is important. Contact a health care provider if: You keep feeling nauseous or you keep vomiting. You feel light-headed. You develop a rash. You have a fever. Get help right away if: You have trouble breathing. Summary For several hours after your procedure, you may feel sleepy and have poor judgment. Have a responsible adult stay with you for at least 24 hours or until you are awake and alert. This information is not intended to replace advice given to you by your health care provider. Make sure you discuss any questions you have with your health care provider. Document Released: 01/28/2017 Document Revised: 01/06/2019 Document Reviewed: 01/28/2017 Status Overload Patient Education 2020 [employer]. Follow Up Care 03/09/2025 15:24:26 With:NEO PÉREZ Address: [address], [address] [facility] [place] [address]- dooub (1) When: Unknown [facility] 05-20-2025 Note Discharge Instructions Thank you for allowing [facility] to assist you with your healthcare needs. The following is importantdischarge information regarding your hospital visit. Your Care Team HESHAM ALVAREZ MD What to do next Follow Up Appointments Follow Up with NEO PÉREZ Where:[address], [address] [facility] [place] [address]- doou[place] (1) Allergies No Known Medication Allergies Medications Please ask your primary doctor or pharmacist before taking any other medication not listed, including over the counter drugs, herbal medications, vitamins and or supplements as they may interact withyour home medications. What How Much When Instructions Last Dose Unchanged acetaminophen-oxyCODONE (acetaminophen-oxyCODONE 325 mg-5 mg oral tablet) 1 tab(s) by mouth Every 6 hours as needed for for pain Unchanged losartan (losartan 25 mg oral tablet) 1 tab(s) by mouth Every day Unchanged metFORMIN (MetFORMIN (Eqv-Fortamet) 500 mg oral tablet, EXTENDED RELEASE) 1 tab(s) by mouth Once a day Okay to substitute for generic Glucophage XR Please take this list to your next doctor s visit. Bring all medications you take, including over the counter medications, herbals and other supplements with you to your doctor s visit. Patients and families are reminded to discard old lists and to update any records with all medication providers or retail pharmacies. Education Materials How to Use Cold Therapy Cold therapy, or cryotherapy, is a treatment that uses cold temperatures to treat an injury or medical condition. It includes using cold packs or ice packs to reduce pain and swelling. Only use cold therapy if your doctor says it is okay. What are the risks? Generally, cold therapy is a safe treatment. However, it is not safe for: People who are not able to say they are in pain. These include small children and people who have memory problems. People who have certain conditions, such as: ? A problem in the vessels that slows blood flow to the fingers and toes (Raynaud's syndrome). ? Feeling very cold easily (cold hypersensitivity). ? Lack of feeling in the area being iced. Cold therapy may not be safe for people who have other conditions. Do not use it without talking toyour doctor if you have: A heart condition. High blood pressure. Open or healing wounds. An infection. Pain and swelling in your joints (rheumatoid arthritis). Poor blood flow in the body. Diabetes. Certain skin conditions. How can I make a cold pack? When using a cold pack at home to reduce pain and swelling, you can use: A silica gel cold pack that has been left in the freezer. You can buy this online or in stores. A sealable plastic bag that has been filled with crushed ice. A washcloth or paper towels soaked in cold (or ice) water. A plastic bag of frozen vegetables. Throw them away when you are finished using them as a cold pack. Supplies needed: A cold pack. A towel. This can be dry or damp, based on what you like. How to use cold therapy 1. Have your cold pack ready. 2. Place a towel between the cold pack and your skin. You may also wrap the cold pack in a towel. 3. Put the cold pack on the affected area. Keep it on for no more than 20 minutes at a time. 4. Check your skin after 5 minutes to make sure that there is no damage to the area. Check for: White spots on your skin. Your skin may look blotchy or mottled. Skin that looks blue or pale. Skin that feels waxy or hard. 5. Repeat these steps as many times each day as told by your doctor. Always use a towel to avoid direct contact with your skin. Contact a doctor if: You start to have white spots on your skin. This may give your skin a blotchy or mottled look. Your skin turns blue or pale. Your skin becomes waxy or hard. Your swelling gets worse. Summary Cold therapy, or cryotherapy, is used to treat an injury or other conditions. It includes using cold packs or ice packs to reduce pain and swelling. Cold therapy is not safe for people who are not able to say they are in pain. When using cold packs or ice packs, always place a towel between the cold source and your skin. Check your skin after 5 minutes of icing it. This is to make sure that there is no skin damage. Contact your doctor if you notice changes in your skin or your swelling gets worse. This information is not intended to replace advice given to you by your health care provider. Make sure you discuss any questions you have with your health care provider. Document Released: 03/26/2009 Document Revised: 07/07/2019 Document Reviewed: 07/07/2019 Status Overload Patient Education 2020 [employer]. Toe Amputation, Care After This sheet gives you information about how to care for yourself after your procedure. Your health care provider may also give you more specific instructions. If you have problems or questions, contact your health care provider. What can I expect after the procedure? After the procedure, it is common to have some pain. Pain usually improves within a week. Follow these instructions at home: Medicines Take hcyp-isa-wnmezrr and prescription medicines only as told by your health care provider. If you were prescribed an antibiotic medicine, take it as told by your health care provider. Do notstop taking the antibiotic even if you start to feel better. Ask your health care provider if the medicine prescribed to you: ? Requires you to avoid driving or using heavy machinery. ? Can cause constipation. You may need to take actions to prevent or treat constipation, such as: ? Drink enough fluid to keep your urine pale yellow. ? Take xege-xxy-ubhzfla or prescription medicines. ? Eat foods that are high in fiber, such as beans, whole grains, and fresh fruits and vegetables. ? Limit foods that are high in fat and processed sugars, such as fried or sweet foods. Managing pain, stiffness, and swelling If directed, put ice on the painful area. ? Put ice in a plastic bag. ? Place a towel between your skin and the bag. ? Leave the ice on for 20 minutes, 2 3 times a day. Move your other toes often to reduce stiffness and swelling. Raise (elevate) your foot above the level of your heart while you are sitting or lying down. Incision care Follow instructions from your health care provider about how to take care of your incision. Make sure you: ? Wash your hands with soap and water before and after you change your bandage (dressing). If soap and water are not available, use hand executive vp. ? Change your dressing as told by your health care provider. ? Leave stitches (sutures), skin glue, or adhesive strips in place. These skin closures may need to stay in place for 2 weeks or longer. If adhesive strip edges start to loosen and curl up, you may trim the loose edges. Do not remove adhesive strips completely unless your health care provider tells you to do that. Check your incision area every day for signs of infection. Check for: ? More redness, swelling, or pain. ? Fluid or blood. ? Warmth. ? Pus or a bad smell. Bathing Do not take baths, swim, use a hot tub, or soak your foot until your health care provider approves.Ask your health care provider if you may take showers. You may only be allowed to take sponge baths. If your dressing has been removed, you may wash your skin with warm water and soap. Activity Rest as told by your health care provider. Avoid sitting for a long time without moving. Get up to take short walks every 1 2 hours. This is important to improve blood flow and breathing. Ask for help if you feel weak or unsteady. If you have been given crutches, use them as told by your health care provider. Do exercises as told by your health care provider. Return to your normal activities as told by your health care provider. Ask your health care provider what activities are safe for you. General instructions Do not drive for 24 hours if you were given a sedative during your procedure. Do not use any products that contain nicotine or tobacco, such as cigarettes, e- cigarettes, and chewing tobacco. If you need help quitting, ask your health care provider. Ask your health care provider about wearing supportive shoes or using inserts to help with your balance when walking. If you have diabetes, keep your blood sugar under good control and check your feet daily for sores or open areas. Keep all follow-up visits as told by your health care provider. This is important. Contact a health care provider if: You have signs of infection at your incision, such as: ? Redness, swelling, or pain. ? Fluid or blood. ? Warmth. ? Pus or a bad smell. You have a fever or chills. Your dressing is soaked with blood. Your sutures tear or they separate. You have numbness or tingling in your toes or foot. Your foot is cool or pale, or it changes color. Your pain does not improve after you take your medicine. Get help right away if you have: Pain or swelling near your incision that gets worse or does not go away. Red streaks on your skin near your toes, foot, or leg. Pain in your calf or behind your knee. Shortness of breath. Chest pain. Summary After the procedure, it is common to have some pain. Pain usually improves within a week. If you were prescribed an antibiotic medicine, take it as told by your health care provider. Do notstop taking the antibiotic even if you start to feel better. Change your dressing as told by your health care provider. Contact a health care provider if you have signs of infection. Keep all follow-up visits as told by your health care provider. This is important. This information is not intended to replace advice given to you by your health care provider. Make sure you discuss any questions you have with your health care provider. Document Released: 09/18/2016 Document Revised: 01/28/2020 Document Reviewed: 09/30/2019 Status Overload Patient Education 2020 [employer] Monitored Anesthesia Care, Care After These instructions provide you with information about caring for yourself after your procedure. Your health care provider may also give you more specific instructions. Your treatment has been plannedaccording to current medical practices, but problems sometimes occur. Call your health care provider if you have any problems or questions after your procedure. What can I expect after the procedure? After your procedure, you may: Feel sleepy for several hours. Feel clumsy and have poor balance for several hours. Feel forgetful about what happened after the procedure. Have poor judgment for several hours. Feel nauseous or vomit. Have a sore throat if you had a breathing tube during the procedure. Follow these instructions at home: For at least 24 hours after the procedure: Have a responsible adult stay with you. It is important to have someone help care for you until youare awake and alert. Rest as needed. Do not: ? Participate in activities in which you could fall or become injured. ? Drive. ? Use heavy machinery. ? Drink alcohol. ? Take sleeping pills or medicines that cause drowsiness. ? Make important decisions or sign legal documents. ? Take care of children on your own. Eating and drinking Follow the diet that is recommended by your health care provider. If you vomit, drink water, juice, or soup when you can drink without vomiting. Make sure you have little or no nausea before eating solid foods. General instructions Take ghhe-jix-ftivgnj and prescription medicines only as told by your health care provider. If you have sleep apnea, surgery and certain medicines can increase your risk for breathing problems. Follow instructions from your health care provider about wearing your sleep device: ? Anytime you are sleeping, including during daytime naps. ? While taking prescription pain medicines, sleeping medicines, or medicines that make you drowsy. If you smoke, do not smoke without supervision. Keep all follow-up visits as told by your health care provider. This is important. Contact a health care provider if: You keep feeling nauseous or you keep vomiting. You feel light-headed. You develop a rash. You have a fever. Get help right away if: You have trouble breathing. Summary For several hours after your procedure, you may feel sleepy and have poor judgment. Have a responsible adult stay with you for at least 24 hours or until you are awake and alert. This information is not intended to replace advice given to you by your health care provider. Make sure you discuss any questions you have with your health care provider. Document Released: 01/28/2017 Document Revised: 01/06/2019 Document Reviewed: 01/28/2017 Elsevier Patient Education 2020 [employer] Additional Information VACCINATE! IT SAVES LIVES! Members of the community who have not yet received the COVID-19 vaccine and would like to receive it can visit one of [facility] vaccine clinics. There are many vaccine clinic locations within the [facility]. For locations and available times, please visit https://gettheshot.coronavirus.[place].gov/. It is important to note that some COVID mobile vaccine clinics are held outdoors and may be canceled in rainy or stormy conditions. To learn more about pediatric vaccinations (ages 5-11), we invite you to visit the [facility] webpage. https://www.[facility].org/pages/3767-Twctj-Qssbjxwizuj-Uhtcbascwv-Cilft-Aao stions.htmlTo learn more about the COVID-19 vaccine, we invite you to visit the CDC website for a list of frequently asked questions.https://www.cdc.gov/coronavirus/2019-ncov/vaccines/faq.html [facility] Patient Portal Access Instructions: Stay connected with your healthcare team and access your personal medical information anytime with the [facility] Patient Portal. Please follow the directions below to create your [employer] account: 1.Access the email account you provided upon registration to the hospital/physician office.2.Look for an invitation email from [facility].3.Open the email and access the invitation link: AcceptInvitation to [facility].4.Fill in the required simmons to create your account. To access your account, visit [employer]. Click the blue button labeled Access Patient Portal and then log in with the username and password that you created in the steps above. You will be able to view your test results, lab results, a summary of your visits, upcoming appointments and more. There is also a convenient messaging option where you can send secure messages to your p When You Wishvider. In addition, you will have the ability to download any documents or summaries to your computer and/or send the information securely to a physician. Remember that your healthcare information is confidential, so carefully consider who you will allowto register on the [facility] Patient Portal for access to your information. You can also access the [facility] Patient Portal on the [employer] rose marie. Simply click on Patient Portal and then log into your account. If you would like to receive a full copy of your medical records, please contact the [facility] Medical Records Department by calling [phone], Sunday through Sunday between 8 a.m. and 4:30 p.m. HOW TO SAFELY DISPOSE OF PRESCRIPTION MEDICATIONS Please use one of the following methods to safely dispose of your unused medications. 1.Use a drug disposal kit: the drug disposal pouch allows you to safely discard your old and unuseddrugs. Ask your nurse to give you one when you are discharged.2.Visit a local take-back location: Many local pharmacies and police departments have programs that collect old and unwanted prescriptiondrugs. Call your local pharmacy or go to http://A vida é feita de [place].[employer]/5Z6Rg0v to find one close to you.3.Make use of household items: Use cat litter or old coffee grounds to dispose medications if other options arenot available. Mix your drugs with these household products, seal them in an airtight container andthrow it into the garbage. Call [facility]: [phone] to be sure your drugs can be disposed of in this way. Some medicines may require a different approach.4.Never flush your medications down the toilet. IF YOU HAVE BEEN PRESCRIBED AN OPIOID FOR PAIN If you have been prescribed an opioid (such as hydrocodone, oxycodone or morphine), it is critical to understand the possible side effects and risks of opioid pain medications. Even when taken as directed, opioids can have several side effects including: Tolerance, meaning you might need to take more of a medication for the same pain relief. Nausea, vomiting and/or constipation. Sleepiness, dizziness, dry mouth, confusion, depression or itching. Physical dependence, meaning you have withdrawal symptoms when a medication is stopped, can develop within a few days. KNOW YOUR RESPONSIBILITIES It is important to know exactly how much and how often to take the opioid pain medications you are prescribed. Never take opioids in higher amounts or more often than prescribed. Do not combine opioids with alcohol or other drugs that cause drowsiness, such as benzodiazepines, also known as benzos, including diazepam and alprazolam, muscle relaxants or sleep aids. Never sell or share prescription opioids. This is illegal. Store opioids in a secure place and out of reach of others (including children, family, friends and visitors). The last page of this document has been signed and retained as a CHART COPY. Signatures Patient Education Materials How to Use Cold Therapy, Hznf-tl-Biav Toe Amputation, Care After Monitored Anesthesia Care, Care After Medication Leaflets My discharge plan and instructions have been reviewed and explained to me and IDIAMANTE PETE understand my current condition and have read and understand these discharge instructions. I have received a written copy of the plan/instructions. If I have questions, I am aware that I should contact my doc tor. Patient/Correction Officer Signature: Date/Time: Relationship to Patient: Witness Name/Signature: Date/Time: [facility]05-20-2025 Anesthesiology Consult note Patient: JORY PRITCHARD Age: 69 years Sex: Male : 1955 Associated Diagnoses: None Author: STANLEY CYR Preoperative Information Time of last food or liquid consumption: 03/10/2025 00:00:00 Anesthesia history Patient's history: negative. Family's history: negative. Review of Systems Ear/Nose/Mouth/Throat: Negative. Respiratory: Negative. Cardiovascular: htn. Gastrointestinal: obese. Genitourinary: Negative. Endocrine: DM. Musculoskeletal: Negative. Integumentary: Negative. Neurologic: Negative. Health Status Allergies: Allergic Reactions (Selected) No Known Medication Allergies, Allergies (1) ActiveSeverityReaction No Known Medication AllergiesNone Documented Current medications: (Selected) Inpatient Medications Ordered LR 1000 mL: 125 mL/hr, Intravenous Documented Medications Documented MetFORMIN (Eqv-Fortamet) 500 mg oral tablet, EXTENDED RELEASE: 500 mg, 1 tab(s), Oral, qDay, Okay to substitute for generic Glucophage XR, 30 tab(s), 0 Refill(s) acetaminophen-oxyCODONE 325 mg-5 mg oral tablet: 1 tab(s), Oral, q6h, PRN: for pain, 12 tab(s), 0 Refill(s) losartan 25 mg oral tablet: 25 mg, 1 tab(s), Oral, Daily, 100 tab(s), 0 Refill(s), Medications (1) Active Scheduled: (0) Continuous: (1) Lactated Ringers Infusion 1000 mL 1,000 mL, Intravenous, 125 mL/hr PRN: (0) Problem list: Active Problems (2) Diabetes mellitus Hypertension Histories Past Medical History: No active or resolved past medical history items have been selected or recorded. Family History: Entire family history is negative. Procedure history: Hernia repair ([id number]). Comments: 03/10/2025 10:26 EDT - Savanah Mclaughlin RN left Appendectomy ([id number]). Social History: Social & Psychosocial Habits Alcohol 03/10/2025 Use: Never Substance Abuse 03/10/2025 Use: Never Tobacco 03/10/2025 Tobacco Use: Former smoker, quit more Physical Examination Vital Signs 03/10/2025 11:25 EDT Heart Rate Monitored 87 bpm bpm Respiratory Rate - Anes 0 br/min br/min 03/10/2025 11:23 EDT Systolic Blood Pressure Non-Invasive 152 mmHg mmHg Diastolic Blood Pressure Non-Invasive 79 mmHg mmHg 03/10/2025 11:20 EDT Respiratory Rate - Anes 0 br/min br/min 03/10/2025 9:59 EDT Temperature Temporal Artery 36.6 DegC Apical Heart Rate 86 bpm Respiratory Rate 21 br/min HI Systolic Blood Pressure Non-Invasive 180 mmHg HI Diastolic Blood Pressure Non-Invasive 91 mmHg HI Vital Signs (last 24 hrs) Last Charted Temp Qtjktfhm92.6 DegC (MARCH 10 09:59) Heart Rate Scprxxybm13 bpm (MARCH 10 11:25) UNK111 mmHg (MARCH 10 11:23) DBP79 mmHg (MARCH 10 11:23) Measurements from flowsheet : Measurements 03/10/2025 9:59 EDT Height 182.9 cm Admission Weight 88.6 kg Sparks Body Weight 77.62 kg Admission Body Mass Index 26.49 m2 Pain assessment: Pain Assessment 03/10/2025 9:59 EDT Primary Pain Location Leg Primary Pain Laterality Left Primary Pain Intensity 8 Pain Scale Type 0-10 Pain scale . General: Alert and oriented. Airway: Normal temporomandibular joint mobility. Mallampati classification: II (soft palate, fauces, uvula visible). Head: Normocephalic. Dentition Evaluation: Dentures, lower, Dentures, upper. Neck: Supple. Respiratory: Lungs are clear to auscultation. Cardiovascular: Normal rate. Heart Sounds: Normal. Gastrointestinal: Soft. Musculoskeletal Normal range of motion. Integumentary: Intact. Neurologic: Alert, Oriented. Review / Management Results review: No qualifying data available , Lab results 03/10/2025 11:30 EDT SN - [place] - Route of Administration Local SN - [place] - By (Single) SN - [place] - By (Single) SN - [place] - Time Administered 03/10/2025 11:28 03/10/2025 11:29 EDT SN - GCD - Post-operative Diagnosis OSTEOMYELITIS, LEFT GREAT TOE SN - GCD - Case Level Level 3 03/10/2025 11:25 EDT Heart Rate Monitored 87 bpm bpm Respiratory Rate - Anes 0 br/min br/min Oxygen Saturation 98 % % 03/10/2025 11:23 EDT Systolic Blood Pressure Non-Invasive 152 mmHg mmHg Diastolic Blood Pressure Non-Invasive 79 mmHg mmHg 03/10/2025 11:21 EDT cefOXitin 1 gram(s) gram(s) Sodium Chloride 0.9% 100 mL mL 03/10/2025 11:20 EDT Respiratory Rate - Anes 0 br/min br/min 03/10/2025 11:17 EDT SN - CAt - Case Attendee SN - CAt - Case Attendee SN - CAt - Case Attendee SN - CAt - Case Attendee SN - CAt - Case Attendee SN - CAt - Case Attendee SN - CAt - Case Attendee SN - CAt - Case Attendee SN - CAt - Role Performed Environmental Emergencies Assistant 2 SN - CAt - Role Performed Scrub 1 SN - CAt - Role Performed Cuff Matcher 1 SN - CAt - Role Performed ELECTRONIC TESTER 03/10/2025 11:13 EDT SN - CAt - Case Attendee SN - CAt - Case Attendee SN - CAt - Case Attendee SN - CAt - Case Attendee SN - CAt - Role Performed Primary Surgeon SN - CAt - Role Performed Environmental Emergencies Assistant 1 03/10/2025 10:32 EDT SN - Preop - CTm Pt Ready for OR/Proced 03/10/2025 10:32 03/10/2025 10:32 EDT Lactated Ringers Injection Begin Bag 1,000 mL mL 03/10/2025 10:31 EDT Blood Glucose, Capillary 189 mg/dL HI 03/10/2025 10:28 EDT Continuous IV Infusions LR Antecubital Left 03/10/2025 20 gauge Peripheral IV Activity: Insert new site Peripheral IV Dressing Condition: Clean, Dry, Intact Peripheral IV Dressing Activity: Applied, Transparent dressing Peripheral IV Line Status/Patency: Continuous infusion Peripheral IV Line Care: Secured with tape Peripheral IV Site Condition: No complications Peripheral IV Site Care: Direct pressure applied Peripheral IV Equipment: Extension set Peripheral IV Number of Attempts: 2 03/10/2025 10:18 EDT Designated Person #1 We May Share ZANDRA Pavon [phone] Designated Person #1 Relationship Spouse Privacy Restrictions Requested None Status N/A Sensory Deficits None Sleep Apnea Snore Yes Sleep Apnea Tired No Sleep Apnea Obstruction No Sleep Apnea Pressure Yes Sleep Apnea BMI No Sleep Apnea Age Yes Sleep Apnea Neck No Sleep Apnea Gender Yes Sleep Apnea Score 4 Diagnosed With Sleep Apnea No Advanced Directives Unable to obtain Infectious Disease Symptoms Patient states no symptoms Infectious Disease Recent Exposure No Alcohol and Drug Use No Employee of Institutional Living No Health Care Employee No History of Exposure to TB No History of Positive Chest X-Ray for TB No History of Positive TB Skin Test No Homeless No Known Immunosuppression No Recent Immigrant No Resident of Institutional Living No Bloody Sputum No Fatigue No Fever No Loss of Appetite No Night Sweats No Persistent Cough > 3 Weeks No Weight Loss No Barriers to Learning None evident Teaching Method Explanation Preferred Spoken Language Trinidadian Preferred Written Language Trinidadian Teaching Evaluation Needs further teaching Safety Brochure Information Reviewed Unable to complete Lauren Nails Video Viewed No Patient's Current Physicians Dr. ALVAREZ History of Malignant Hyperthermia No Discharge To, Anticipated Home with family care Prev Test Positive/Diagnosis w/COVID-19 Yes Previous COVID-19 Positive Date 2019 Current Quarantine/Isolated any Illness No Any Contact with Sick Animals/Birds No Traveled Anywhere in Last 30 Days No Lost Weight Unintentionally Recently No Eat Poorly Due to Decreased Appetite No Total MST Score 0 N/A Personal Devices, Patient Valuables Glasses Anesthesia/Transfusions None Admission Note-Nursing Same Day Patient History 03/10/2025 9:59 EDT Height 182.9 cm Admission Weight 88.6 kg Sparks Body Weight 77.62 kg Admission Body Mass Index 26.49 m2 Temperature Temporal Artery 36.6 DegC Apical Heart Rate 86 bpm Respiratory Rate 21 br/min HI Systolic Blood Pressure Non-Invasive 180 mmHg HI Diastolic Blood Pressure Non-Invasive 91 mmHg HI Primary Pain Location Leg Primary Pain Laterality Left Primary Pain Intensity 8 Pain Scale Type 0-10 Pain scale Heart Sounds ICU [id number] Heart Rhythm Regular Dorsalis Pedis Pulse, Left 0 Absent Dorsalis Pedis Pulse, Right 0 Absent Respirations Unlabored All Lobes Breath Sounds Clear Oxygen Therapy Room air Oxygen Saturation 97 % Oxygen Flow Rate 98 L/min Bowel Sounds All Quadrants Present Skin Description [place], Dry Skin Temperature Warm Mucous Membrane Color [place] Characteristics of Speech Clear Level of Consciousness Alert Strength All Extremities Moderate Affect/Behavior Appropriate, Calm, Cooperative Orientation Oriented x 4 Patient Identified Identification band, Verbal Arrival Mode Ambulatory Leeanne Motor (2) Moves 4 extremities voluntarily or on command Leenane Respirations (2) Spontaneous respiration without support, RR > 10 Leeanne Blood Pressure (2) BP 20% above or below preanesthetic level Leeanne Pulse (2) Pulse 20% above or below preanesthetic level Leeanne Oxygen Saturation (2) 94% or more Leeanne Level of Consciousness (2) Fully awake Leeanne III Score 12 Orientation Assessment Oriented x 4 Assistive Equipment Other: Post op shoe X 2 Standard Safety ID band on, Call device within reach, Bed in low position, Wheels locked 03/10/2025 9:49 EDT SN - Preop - CTm Pt in SDS Room 03/10/2025 9:46 03/10/2025 9:49 EDT Urinary Elimination Voiding, no difficulties IV Present Present Allergies No Anesthesia Extension Set Applied Yes Theater Education Teacher On Yes Consent Form Signed Yes Patient Dressed In Hospital gown Pre-op Preparation Glasses removed, Dentures not removed, Undergarments removed History & Physical Update On Chart Yes History & Physical On Chart Yes Obstructive Sleep Apnea Assess Completed No Belongings At Bedside Pants, Shirt, Shoes, Socks, Undergarments Personal Home Medications Received No home medications were brought in Belongings Sent Home None Belongings to Security/Secured in Dept None NPO Status Maintained Allergy Band on and Verified No Blood Band on and Verified No Patient ID Band on and Verified Yes Implants Verified Yes Pacemaker/AICD Verified Yes Site Verified by Patient/Family Yes Anesthesia Consent Signed Yes Blood Consent Signed Yes Last Fluid Intake 03/09/2025 21:00 Last Food Intake 03/09/2025 21:00 Last Void 03/10/2025 9:50 . Assessment and Plan [place] [employer] (ASA) physical status classification: Class III. Anesthetic Preoperative Plan Premedication: intravenous. Anesthetic technique: MAC. Induction: intravenously. Maintenance airway: 40% FM. Postoperative pain management: Per surgeon. Informed consent: signed by patient. Digitally Signed by KLARISSA STANLEY Kelby FLORNArnieELECTRONIC TESTER on 03/10/2025 11:32 AM [facility]12-05-2022 NoteHNO ID: [id number] Author: Esdras Hendrickson MD Service: ? Author Type: Physician Type: Procedures Filed: 09/25/2022 3:55 PM Note Text: CYSTOSCOPY PROCEDURE NOTE : Jory Pritchard is a 66 year old male who presents with urinary urgency and frequency. PRE-OP/PRE-PROCEDURE DIAGNOSIS: Urinary frequency POST-OP/POST-PROCEDURE DIAGNOSIS: Urinary frequency; fossa navicularis stricture SURGERY/PROCEDURE(S): Urethral dilation and cystoscopy Pt ID verified with patient: Yes Procedure verified with patient: Yes Procedure confirmed with physician and customer support coordinator: Yes The benefits, risks, alternatives of the cystoscopy procedure and personnel were discussed with the patient. The verbal consent was obtained and the patient agrees to proceed. Procedure: The patient was placed on the procedure table in the supine position and prepped and draped in the usual sterile fashion. 2% Lidocaine Jelly was placed per urethra as an anesthetic in the standard fashion. Once adequate local anesthesia was achieved, I attempted to place the flexible cystoscope however the meatus would not accept this. I dilated the fossa navicularis with [place] sounds starting with 10 [place] up to 20 [place]. The tip of the flexible cystoscope was carefully placed into the urethra under direct visual guidance. The scope was negotiated through the pendulous urethra to the level of the bulbar urethra with no evidence of stricture. The verumontanum came into view and the scope was negotiated through the prostatic urethra which showed evidence of a patent prostatic urethra. The bladder was entered and careful murcia endoscopy was carried out. The posterior, superior and lateral padron and dome of the bladder were all well visualized and the scope was retroflexed upon itself. The findings were consistent with no evidence of bladder mucosal pathology. The findings were consistent with smooth, not trabeculated bladder. At the conclusion of the procedure, the flexible cystoscope was removed atraumatically. The patient tolerated the procedure without complications. Patient was given standard post-procedure instructions, and was directed to complete the course of oral antibiotics and increase oral fluid intake as directed. IMPRESSION: Overactive bladder. Open prostatic urethra status post ablation. PLAN: I will start him on anticholinergics and have him come back to the office in 6 weeks for follow-up. Esdras Hendrickson MD Electronically Signed: Esdras Hendrickson MD September 25, 2022 3:51 PM This note was partially created using voice recognition software and is inherently subject to errors including those of syntax and sound-alike substitutions which may escape proofreading. In such instances, original meaning may be extrapolated by contextual derivation.[facility] 09-25-2022 NoteHNO ID: [id number] Author: Esdras Hendrickson MD Service: ? Author Type: Physician Type: Progress Notes Filed: 09/25/2022 3:55 PM Note Text: ESTABLISHED PATIENT OFFICE VISIT The patient is here for evaluation of lower urinary tract symptoms. He is status post aqua ablation approximately 3 years ago. Over the past 6 months he has noticed an increase in urinary urgency and frequency as well as nocturia. He does have a good force of stream. He denies hematuria. LAB RESULTS Creatinine Date Value Ref Range Status 11/17/2020 1.17 0.5 - 1.4 MG/DL Final Comment: NOTE NEW NORMAL RANGE DUE TO REAGENT CHANGE Patients receiving either N-Acetylcysteine (NAC) or Metamizole prior to venipuncture, may have falsely depressed results. No results found for: PSA, PSASC GLUCOSE UA (POCT) (mg/dL) Date Value 09/25/2022 >=1000 (A) BILIRUBIN UA (POCT) (no units) Date Value 09/25/2022 Negative KETONE UA (POCT) (mg/dL) Date Value 09/25/2022 Negative SPECIFIC GRAVITY UA (POCT) (no units) Date Value 09/25/2022 1.020 HEMOGLOBIN/BLOOD UA (POCT) (no units) Date Value 09/25/2022 Negative PH UA (POCT) (no units) Date Value 09/25/2022 5.0 PROTEIN UA (POCT) (mg/dL) Date Value 09/25/2022 Negative UROBILINOGEN UA (POCT) (E.U./dL) Date Value 09/25/2022 0.2 NITRITE UA (POCT) (no units) Date Value 09/25/2022 Negative LEUKOCYTES UA (POCT) (no units) Date Value 09/25/2022 Negative COLOR UA (POCT) (no units) Date Value 09/25/2022 Yellow CLARITY UA (POCT) (no units) Date Value 09/25/2022 Clear ] ALLERGIES No Known Allergies MEDICATIONS: losartan (COZAAR) 50 mg tablet Take 50 mg by mouth once daily. REVIEW OF SYSTEMS GENERAL: No unintentional weight loss, malaise or fevers. NEUROLOGIC: pt is alert and oriented GASTROINTESTINAL: No nausea, vomiting, or diarrhea GENITOURINARY: See history of present illness MUSCULOSKELETAL: Negative for joint pain or swelling, back pain or muscle pain SKIN: Negative for lesions, rash, and itching. 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 No family history on file. No past surgical history on file. SOCIAL HISTORY Social History Tobacco Use Smoking status: Never Smokeless tobacco: Never PHYSICAL EXAMINATION General appearance: Well appearing, alert, in no acute distress, well-hydrated, well nourished Psych Alert and oriented to person, place and time ASSESSMENT/PLAN: 1. BPH with obstruction/lower urinary tract symptoms - ICD9: 600.01, 599.69, ICD10: N40.1, N13.8 (primary diagnosis) Cystoscopy today showed his prostatic urethra was open. He did have narrowing at the fossa navicularis which I dilated with Erica sounds. 2. 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 3. OAB (overactive bladder) - ICD9: 596.51, ICD10: N32.81 I discussed Kegel exercises. I will trial oxybutynin XR 10 mg. Esdras Hendrickson [facility]12-05-2022 Procedure note* Esdras Hendrickson MD - 09/25/2022 3:51 PM EST CYSTOSCOPY PROCEDURE NOTE : Jory Pritchard is a 66 year old male who presents with urinary urgency and frequency. PRE-OP/PRE-PROCEDURE DIAGNOSIS: Urinary frequency POST-OP/POST-PROCEDURE DIAGNOSIS: Urinary frequency; fossa navicularis stricture SURGERY/PROCEDURE(S): Urethral dilation and cystoscopy Pt ID verified with patient: Yes Procedure verified with patient: Yes Procedure confirmed with physician and customer support coordinator: Yes The benefits, risks, alternatives of the cystoscopy procedure and personnel were discussed with thepatient. The verbal consent was obtained and the patient agrees to proceed. Procedure: The patient was placed on the procedure table in the supine position and prepped and draped in the usual sterile fashion. 2% Lidocaine Jelly was placed per urethra as an anesthetic in the standard fashion. Once adequate local anesthesia was achieved, I attempted to place the flexible cystoscope however the meatus would not accept this. I dilated the fossa navicularis with [place] sounds starting with 10 [place] up to 20 [place]. The tip of the flexible cystoscope was carefully placedinto the urethra under direct visual guidance. The scope was negotiated through the pendulous urethra to the level of the bulbar urethra with no evidence of stricture. The verumontanum came into viewand the scope was negotiated through the prostatic urethra which showed evidence of a patent prostatic urethra. The bladder was entered and careful murcia endoscopy was carried out. The posterior, superior and lateral padron and dome of the bladder were all well visualized and the scope was retroflexedupon itself. The findings were consistent with no evidence of bladder mucosal pathology. The findings were consistent with smooth, not trabeculated bladder. At the conclusion of the procedure, the flexible cystoscope was removed atraumatically. The patienttolerated the procedure without complications. Patient was given standard post-procedure instructions, and was directed to complete the course of oral antibiotics and increase oral fluid intake as directed. IMPRESSION: Overactive bladder. Open prostatic urethra status post ablation. PLAN: I will start him on anticholinergics and have him come back to the office in 6 weeks for follow-up. Esdras Hendrickson MD Electronically Signed: Esdras Hendrickson MD September 25, 2022 3:51 PM This note was partially created using voice recognition software and is inherently subject to errors including those of syntax and sound-alike substitutions which may escape proofreading. In such instances, original meaning may be extrapolated by contextual derivation. [facility] History of Present illness Narrative* Esdras Hendrickson MD - 09/25/2022 3:21 PM EST ESTABLISHED PATIENT OFFICE VISIT The patient is here for evaluation of lower urinary tract symptoms. He is status post aqua ablationapproximately 3 years ago. Over the past 6 months he has noticed an increase in urinary urgency andfrequency as well as nocturia. He does have a good force of stream. He denies hematuria. LAB RESULTS Creatinine Date Value Ref Range Status 11/17/2020 1.17 0.5 - 1.4 MG/DL Final Comment: NOTE NEW NORMAL RANGE DUE TO REAGENT CHANGE Patients receiving either N-Acetylcysteine (NAC) or Metamizole prior to venipuncture, may have falsely depressed results. No results found for: PSA, PSASC GLUCOSE UA (POCT) (mg/dL) Date Value 09/25/2022 >=1000 (A) BILIRUBIN UA (POCT) (no units) Date Value 09/25/2022 Negative KETONE UA (POCT) (mg/dL) Date Value 09/25/2022 Negative SPECIFIC GRAVITY UA (POCT) (no units) Date Value 09/25/2022 1.020 HEMOGLOBIN/BLOOD UA (POCT) (no units) Date Value 09/25/2022 Negative PH UA (POCT) (no units) Date Value 09/25/2022 5.0 PROTEIN UA (POCT) (mg/dL) Date Value 09/25/2022 Negative UROBILINOGEN UA (POCT) (E.U./dL) Date Value 09/25/2022 0.2 NITRITE UA (POCT) (no units) Date Value 09/25/2022 Negative LEUKOCYTES UA (POCT) (no units) Date Value 09/25/2022 Negative COLOR UA (POCT) (no units) Date Value 09/25/2022 Yellow CLARITY UA (POCT) (no units) Date Value 09/25/2022 Clear ] ALLERGIES No Known Allergies MEDICATIONS: losartan (COZAAR) 50 mg tablet Take 50 mg by mouth once daily. REVIEW OF SYSTEMS GENERAL: No unintentional weight loss, malaise or fevers. NEUROLOGIC: pt is alert and oriented GASTROINTESTINAL: No nausea, vomiting, or diarrhea GENITOURINARY: See history of present illness MUSCULOSKELETAL: Negative for joint pain or swelling, back pain or muscle pain SKIN: Negative for lesions, rash, and itching. 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 No family history on file. No past surgical history on file. SOCIAL HISTORY Social History Tobacco Use Smoking status: Never Smokeless tobacco: Never PHYSICAL EXAMINATION General appearance: Well appearing, alert, in no acute distress, well-hydrated, well nourished Psych Alert and oriented to person, place and time ASSESSMENT/PLAN: 1. BPH with obstruction/lower urinary tract symptoms - ICD9: 600.01, 599.69, ICD10: N40.1, N13.8 (primary diagnosis) Cystoscopy today showed his prostatic urethra was open. He did have narrowing at the fossa navicularis which I dilated with [place] sounds. 2. 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 3. OAB (overactive bladder) - ICD9: 596.51, ICD10: N32.81 I discussed Kegel exercises. I will trial oxybutynin XR 10 mg. 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 OAB (overactive bladder) Hypertonicity of bladder [facility] No data available for this section [facility] Progress note No data available for this section [facility] Reason for referral (narrative)No reason for referral information availableWCleveland Clinic [facility] Work Phone: Medications Administered Section Inactive Administered Medications - up to 3 most recent administrations Medication Order MAR Action Action Date Dose Rate Site lidocaine urojet 2 % 10 mL topical gel (XYLOCAINE, GLYDO) 10 mL, URETHRAL, ONCE (UP TO 30 DAYS AMB), 1 dose, On 09/25/22 at 1600, FOR EXTERNAL USE ONLY APPLY TO: PENIS Given 09/25/2022 4:01 PM EST 10 mL Summary Purpose Family History No Family History Records FoundNo Family History Records FoundNo Family History Records FoundNo Family History Records Found No data available for this section No data available for this section No data available for this section No Family History Records Found No data available for this section No Family History Records Found Advance Directives No Advanced Directives Records FoundNo Advanced Directives Records FoundNo Advanced Directives Records FoundNo Advanced Directives Records FoundNo Advanced Directives Records FoundNo Advanced Directives Records Found Chief Complaint and Reason for Visit Chief Complaint Admit Date L FOOT ULCER April 08, 2025 9:00 am R FOOT ULCER May 12, 2025 2:20 pm Reason for Visit Admit Date Other specified peripheral vascular dise ases April 08, 2025 9:00am Type 2 diabetes mellitus with foot ulcer April 08, 2025 9:00am 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 April 08, 2025 9:00am Non-pressure chronic ulcer o f other part of right foot with fat layer exposed April 08, 2025 9:00am Chief Complaint Admit Date L FOOT ULCER April 08, 2025 9:00 am Additional Source Comments Source Comments (unrecognize d section and content) In the event this informatio n is protected by the Federal Confidentiality of Alcohol and Drug Abuse Patient Records regulations: The Federal rules restrict any use of the information to criminally investigate or prosecute any alcohol or drug abuse patient.[facility] Reason for Visit (unrecogniz ed section and content) Reason Comments BPH (unrecognized sect ion and content) No Status Records FoundNo Status Records FoundNo Status Records FoundNo Status Records FoundNo Status Records FoundNo Status Records Found INFORMATION SOURCE (unrecogn ized section and content) DATE CREATED AUTHOR 09/26/2022 [facility] DATE CREATED AUTHOR AUTHOR'S ORGANIZ ATION 06/05/2024 [facility] DATE CREATED AUTHOR AUTHOR'S ORGANIZ ATION 06/07/2024 [facility] ([place]) DATE CREATED AUTHOR AUTHOR'S ORGANIZ ATION 11/09/2024 [facility] DATE CREATED AUTHOR AUTHOR'S ORGANIZ ATION 03/29/2025 [facility] DATE CREATED AUTHOR AUTHOR'S ORGANIZ ATION 05/22/2025 [facility] Patient Care team informatio n (unrecognized section and content) Team Status: Active Member Role/Relationship Status Dates Dr. Hesham Alvarez MD Primary Care Provider Active Team Status: Inactive Member Role/Relationship Status Dates Dr. Colin Mcgregor DPM Attending Provider Active Start: April 08, 2025 End: April 20, 2025 Dr. Hesham Alvarez MD Primary Care Provider Active Start: April 08, 2025 End: April 20, 2025 Dr. Neo Pérez DPM Referring Provider Active Start: April 08, 2025 End: April 20, 2025 Team Status: Inactive Member Role/Relationship Status Dates Dr. Hesham Alvarez MD Primary Care Provider Active Start: May 12, 2025 End: May 12, 2025 Dr. Colin Mcgregor DPM Attending Provider Active Start: May 12, 2025 End: May 12, 2025 Dr. Colin Mcgregor DPM Referring Provider Active Start: May 12, 2025 End: May 12, 2025 Goals (unrecognized section and content) Goals may be documented in a n alternate section FOR RECORDS PERTAINING TO PATIENTS WHO ARE OR HAVE BEEN ENROLLED IN A CHEMICAL DEPENDENCY/SUBSTANCEABUSE PROGRAM, SOME INFORMATION MAY BE OMITTED. This clinical summary was aggregated from multiple sources. Caution should be exercised in using it in the provision of clinical care. This summary normalizes information from multiple sources, and as a consequence, information in this document may materially change the coding, format and clinical context of patient data. In addition, data may be omitted in some cases. CLINICAL DECISIONS SHOULD BE BASED ON THE PRIMARY CLINICAL RECORDS. [email or web address]. provides no warranty or guarantee of the accuracy or completeness of information in this document.
[2025-05-22] MEDS: Lactated Ringers 1,000 ML 15 ML IV (07:45)
--- NOTE | 2025-05-22 08:07 | PCM.PRE.AN2 ---
ASA Classification* ASA Classification ASA Classification: 3 Assessment & Plan Anesthesia* Anesthesia Assessment Anesthesia Assessment: Discussed sedation and/or anesthesia options, risks, benefits, and alternatives with patient/parents/legal guardian/POA. Questions invited. The patient/parents/legal guardian/POA seems to understand and agrees to proceed with anesthesia plan. Reviewed the physical assessment, medical history, allergy history and patient home medications list prior to surgery/procedure/anesthetic and documented any changes. Performed airway and anesthesia risk assessments. Anesthesia Type Anesthesia Type: General Anesthesia Focused Assessment* Temperature: 97.8 F Pulse Rate: 59 Blood Pressure: 124/65 Respiratory Rate: 17 Pulse Ox: 98 Airway Assessment Mouth opens: >3 cm Mallampati Score: II Labs Anesthesia Preop lab: CBC CHEMISTRY COAG Pre-Assessment Diagnosis/Proposed Procedure Planned Operative Procedure(s): (R) Right hallux incision of the bone cortex with advancement flap closure. 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 When Was Last Pacemaker Check QUESTION #4 FULL TEXT: You/Your Family Experience fever (hyperthermia) with Anesthesia Last Oral Intake Last Oral intake: Last Oral Intake NPO since 00:00 05/22/25 07:45 Meds taken in AM with sips of No 05/22/25 07:45 water? Meds patient instructed to take am of surgery PONV PONV - sticker machine operator: PONV - sticker machine operator Female No 05/20/25 16:07 HX of Motion Sickness No 05/20/25 16:07 HX of N/V After Surgery No 05/20/25 16:07 Non-Smoker Yes 05/20/25 16:07 Duration of Surgery greater No 05/20/25 16:07 than 60 minutes Number of Risk Factors 1 05/20/25 16:07 PONV Score Low Risk 05/20/25 16:07 Height & Weight Height & Weight: Anesthesia: Height & Weight Height 6 ft 05/22/25 07:45 Weight: 83.8 kg 05/22/25 07:45 Body Mass Index (BMI) 25.0 05/22/25 07:45 Respiratory Assessment Respiratory Assessment - sticker machine operator: Respiratory Tract Infection Hx - sticker machine operator Hx Respiratory Tract Infection No 05/20/25 16:07 STOP Sleep Apnea STOP Sleep Apnea - sticker machine operator: STOP Sleep Apnea - sticker machine operator Hx Hypertension Yes: CONTROLLED ON MED 05/20/25 16:07 Hx Sleep Apnea No 05/20/25 16:07 CPAP BIPAP Do you snore loudly (louder Yes 05/20/25 16:07 than talking or can be heard Do you often feel tired/ No 05/20/25 16:07 fatigued/ sleepy during daytime? Has anyone observed you stop No 05/20/25 16:07 breathing during sleep? STOP Results Positive 05/20/25 16:07 QUESTION #5 FULL TEXT : Do you snore loudly (louder than talking or can be heard through closed doors)? 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 Specify any problems Hx of Preganancy in last 3 N/A 05/20/25 16:07 Months Nurse Filling Out Transfusion VCHRISTIN 05/20/25 16:07 & Questions: Date: 05/20/25 05/20/25 16:07 Time: 16:09 05/20/25 16:07 Patient unable to answer at this time (ie. confused, unrespo /Reproduction History /Reproductive History - sticker machine operator: /Reproductive Hx- sticker machine operator Hx Now Gestational Age (in weeks): EDC: Hx Hx Para Hx Section SAB Active Medications Active Medications: Current Medications Generic Name Dose Route Start Last Admin Trade Name Freq PRN Reason Stop Dose Admin Cefazolin Sodium 2 gm/ Sodium 110 mls @ 200 mls/hr 05/22/25 08:45 Chloride IV 05/22/25 09:17 INTRAOP ONE Lactated Ringer's 1,000 mls @ 15 mls/hr 05/22/25 07:30 05/22/25 07:45 IV 15 mls/hr .Q48H KARLEE Administration PFSH Medical History (Updated 05/20/25 @ 16:07 by Francy Green) Wears dentures Wears glasses Cancer Insulin dependent diabetes mellitus Diabetes Dietary restriction Hypertension History of skin cancer Home Medications ?Medication ?Instructions ?Recorded ?Last Taken ?Type oxycodone-acetaminophen 5 mg-325 1 tab PO Q12H PRN pain 7 days #28 05/12/25 05/18/25 Rx mg tablet (Percocet) tabs ciprofloxacin HCl 750 mg tablet 750 mg PO BID 05/20/25 Unknown History insulin glargine-yfgn 100 unit/mL 15 unit subcut QHS 05/20/25 05/21/25 History (3 mL) subcutaneous pen losartan 50 mg tablet 50 mg PO DAILY 05/20/25 05/21/25 History metformin 500 mg tablet 1,000 mg PO .QAM 05/20/25 05/21/25 History metformin 500 mg tablet 500 mg PO 1700 05/20/25 05/21/25 History Allergy/AdvReac Type Severity Reaction Status Date / Time lisinopril Allergy Severe Other Verified 05/22/25 07:44 Surgical History (Updated 05/20/25 @ 16:07 by Francy Green) Hx of toe surgery Hx of hernia repair Social History Smoking Status: Never smoker Review of Systems (Anesthesia) ROS Narrative System reviewed and no additional complaints, except as documented.
--- NOTE | 2025-05-22 08:21 | OP.PCM_ITS ---
Problems Associated Problem List Diagnoses (1) Type 2 diabetes mellitus with foot ulcer: (2) Non-pressure chronic ulcer of other part of right foot with necrosis of bone: (3) Acute osteomyelitis of phalanx of right foot: Operative Report (Standard) Operative Information Date of Procedure: 05/22/25 Pre-Operative Diagnosis: 1. Type 2 diabetes mellitus with peripheral 2. Full-thickness wound to bone, right hallux 3. Acute osteomyelitis, left hallux Post-Operative Diagnosis: 1. Type 2 diabetes mellitus with peripheral 2. Full-thickness wound to bone, right hallux 3. 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 machine operator: Yes Vault Worker: Maria C Joshi PGY2 Tasks completed by activities assistant: Retracting Additional special events assistant?: Yes Additional Bowling Ball Finisher #2: Dai Pink PGY2 Tasks completed by special events assistant #2: Retracting Additional special events assistant?: No Type of Anesthesia: General and Local RN Documented Start/Stop Times: Operation Date: 05/22/25 08:45 Case Time Into Pre-Op 05/22/25 07:20 Out of Pre-Op 05/22/25 08:31 Anesthesia Start 05/22/25 08:35 Into Room 05/22/25 08:35 Procedure Start 05/22/25 08:55 Procedure End 05/22/25 09:39 Anesthesia End 05/22/25 09:43 Out of Room 05/22/25 09:43 Into Recovery 05/22/25 09:46 Out of Recovery 05/22/25 10:25 Into Phase II Recovery 05/22/25 10:27 Out of Phase II 05/22/25 11:01 Procedure Start Time: 08:55 Procedure Stop Time: 09:39 Select all DRAINS/GRAFTS/IMPLANTS that apply: None Special Medications: Per anesthesia Estimated Blood Loss: 25 mL Fluids Replaced: Per anesthesia Specimen collected: Yes Description of specimen(s) removed: Incision of bone cortex of right hallux half sent to microbiology, have sent to pathology. Description of surgery: Indications For Operation: Mr. Pritchard is a 69-year-old diabetic male who is admitted to [facility] for right foot surgery due to worsening of full-thickness wound with positive probe to bone. Patient is well-known to my service and has been seen in the office for excisional debridement and treatment. The patient wound has not improved over the course of 1 month and the patient has gone through 2 rounds of oral antibiotics. During the patient's last visit, excisional debridement of the wound down to bone showed evidence of soft bone with positive probe to bone. At that time I educated the patient that we need to move forward with elective amputation of the right great toe which she is understanding of. Chart review and consent signed. All risk and benefits were discussed with the patient in great detail. Due to concern for worsening infection it was deemed necessary at this time to take the patient operating room to full perform the above procedure to help rid the patient of her infection and decrease her chronic pain. The nature of the problem, anticipated procedures, postop recovery/convalences and risk/complications include but not limited to infection, wound healing complications, digital amputation, hypertrophic scarring, numbness, tingling, chronic pain, CRPS, over and under correction, recurrence of deformity, DVT and or PE and the need for further surgery have been discussed in great detail with the patient. All questions have been answered to the patient's satisfaction. There are no guarantees given as to the outcome of the procedure. Description of Procedure: Under mild sedation, the patient was brought into the operating room and placed on the operating table in supine position. Once the patient was under general anesthesia with laryngeal mask airway, the right lower extremity was blocked using approximately 20 cc 0.5% Marcaine plain. Next, a well-padded calf tourniquet was applied to the right lower extremity. Next, the right lower extremity was prepped and draped in normal aseptic manner. Next, a timeout was then undertaken verifying the correct patient, extremity, visibility of preoperative markings, availability of the equipment. Next, attention was directed to the right lower extremity. Using a full Esmarch, right lower extremity was exsanguinated and elevated to 60 degrees for 1 minute. Procedure #1: Incision of bone cortex, right hallux (CPT code: 31489 - T5) Next, attention was directed to the level of the right hallux. The full- thickness wound to the medial aspect of the great toe showed to be necrotic in nature with evidence of malodor and positive probe to bone. A skin marker was used to luis a out the incision on dorsal aspect of the great toe along the first metatarsal phalangeal joint going distally. Next using a #10 blade, full- thickness is down to bone was performed. Continue sharp dissection was carried down and around the proximal phalanx. There showed evidence of of periosteal action and softening with necrosis to the head and body of the proximal phalanx. The proximal phalanx was disarticulated and incision bone cortex was performed on the back table the head of the proximal phalanx with half going to microbiology and the other half going to pathology for evaluation. The area was flushed with copious normal saline. Procedure #2: Advancement flap closure, right hallux (CPT code: 85956 - T5) Next, attention was directed back to the remaining tissue, the distal portion of the right hallux soft tissue was removed and discarded. Rearrangement of the tissue as well as undermining the soft tissue was performed to allow for advancement flap closure. Next, the area was flushed with copious normal saline. The tourniquet was deflated at this time and reperfusion was noted instantly to the right lower extremity. Again, the incision was flushed with normal saline. Healthy granular tissue was noted with healthy sanguinous drainage. The deep layer was reapproximated closed with 3-0 Vicryl in a running locking suture technique. The subcutaneous layer was reapproximated closed with 3-0 Vicryl and running suture technique. Advancement flap closure was performed with the epidermis which was reapproximated and closed with a combination of 3-0 and 2-0 nylon in simple erupted suture technique. The patient tolerated the procedure and anesthesia well and apparent satisfactory condition and was transported to the PACU for further monitoring prior to discharge home. Vital signs stable and vascular status intact to all digits bilateral. Post Operative Plan: Weightbearing: Partial weightbearing to right heel with surgical shoe. Full weightbearing left lower extremity. Antibiotics: 2 gram Ancef through the IV DVT Prophylaxis: Aspirin 81 mg BID Torres: None Dressing: Betadine soaked Adaptic, dry sterile dressing single-layer Vazquez compression bandage to right lower extremity. X-Rays: Post-operative films taken on the operating room. Pain Medication: Percocet 5/325 mg Follow-up: The patient will follow-up in private office with Dr. Mcgregor next week for evaluation and dressing change. Surgical Findings: Once the hallux was exposed there is evidence of necrotic tissue as well as necrotic bone throughout the hallux/proximal phalanx. All bone infection was removed and discarded. All necrotic tissue was also removed. Once the incision was flushed with saline there was healthy granular tissue and sanguinous drainage was the tourniquet was deflated. Good closure with advancement flap tissue. Complications Complications: No Admit VTE Documentation VTE Present on Admission: No VTE Mechan Device Prophylaxis: SCD's VTE Pharm Prophylaxis ordered?: Yes
--- NOTE | 2025-05-22 08:45 | RAD_ITS ---
EXAM: XR Right Foot, 2 Views CLINICAL INDICATION: RT HALLUX INCISION OF THE BONE CORTEX TECHNIQUE: Frontal and lateral views of the right foot. COMPARISON: No relevant prior studies available. FINDINGS: BONES/JOINTS: Unremarkable. No acute fracture. No dislocation. SOFT TISSUES: Unremarkable. OTHER FINDINGS: Total of 2 fluoroscopic spot images. Total radiation dose 0.4567 mGy. Total fluoroscopy time 2 seconds. RAD/Foot 2 Views IMPRESSION: Fluoroscopic guidance was used intraoperatively. Please refer to the operative note for further details. Reading Location: [facility]
--- NOTE | 2025-05-22 08:45 | AMP_PTH ---
PATIENT: JORY BOBBY LOC: [facility] U#:[id number] AGE/SX: 69/M ROOM: RE05/22/[address]: Dr. Colin Mcgregor DPM : 1955 BED: DIS: 05/22/2025 SPEC #: [id number] RECD: 05/22/25 10:40 STATUS: ANNALEE REQ #: [id number] BLANCA: 05/22/25 08:[address]: Colin Mcgregor DEPT: SURGICAL PATHOLOGY RECD BY: Sinan Mckee ENTERED: 05/22/25 13:08 SP TYPE: Amputation OTHR DR: Dr. Hesham Mishra MD Tissues: A - Bone of lower extremity, NOS Procedures: Decalcification bone/plaque Surgery Specimen Level V HEADER OPERATION: Right hallux incision of bone cortex with advancement PRE-OP DIAGNOSIS: Osteomyelitis TISSUE SUBMITTED: A- Incision bone cortex right hallux MICROSCOPIC DIAGNOSIS A. Bone, right hallux, incisional biopsy: - Fragments of trabecular bone with granulation tissue, active chronic inflammation and reactive/degenerative changes, consistent with chronic osteomyelitis. MICROSCOPIC DESCRIPTION Slides are reviewed. GROSS DESCRIPTION A. Received fresh and subsequently placed in formalin, labeled with the patient's name and date of . Designated as incision bone cortex R hallux are 3 irregular joseph-yellow to red bone fragments, 1.1 x 0.6 x 0.1 cm to 2.0 x 1.2 x 0.5 cm. The specimen is sectioned and entirely submitted in 2 cassettes, following decalcification. MN 05/22/2025 CPT:10810,53004
[2025-05-22 08:47] LABS: Vitamin D,25 Hydroxy 58.3 ng/mL (30-100)
--- NOTE | 2025-05-22 09:48 | PCM.POST.ANE ---
Anesthesia: Postop Eval I Current Vital Signs Temperature: 98.0 F Pulse Rate: 93 Blood Pressure: 158/85 Respiratory Rate: 20 Pulse Ox: 95 Oxygen Delivery Method: Room Air Assessment Airway patent: Yes Spontaneous unlabored respirations: Yes Mental status: Asleep nausea: No Vomiting: No Anesthesia Complication: No Fluid Hydration Crystalloid volume administer (ml): 900 Total IV fluid infused: 900 Progress Note Anesthesia document: Postop Eval 1 completed: Yes
--- NOTE | 2025-05-22 10:53 | POSTOPAN2_ITS ---
Anesthesia Postop Eval I Sum Postop Eval Completion status Anesthesia document: Postop Eval 1 completed: Yes Anesthesia Postop Eval I Summary Anesthesia Postop Eval I Summary: Anesthesia Postop Eval I: Assessment Summary Airway patent Yes 05/22/25 09:49 BOTTLE [email or web address] Spontaneous unlabored Yes 05/22/25 09:49 BOTTLE [email or web address] respirations Mental status Asleep 05/22/25 09:49 BOTTLE [email or web address] nausea No 05/22/25 09:49 BOTTLE INSPECTOR.[email or web address] Vomiting No 05/22/25 09:49 BOTTLE INSPECTOR.[email or web address] Anesthesia Postop Eval I: Fluid Summary Crystalloid volume administer 900 05/22/25 09:49 BOTTLE INSPECTOR.[email or web address] (ml) Colloids volume administered ( ml) Blood Product volume administered (ml) Total IV fluid infused 900 05/22/25 09:49 BOTTLE [email or web address] Anesthesia Postop Eval I: Summary Notes Anesthesia Complication No 05/22/25 09:49 BOTTLE [email or web address].[email or web address] Anesthesia Complication Comment: Post-operative progress note Anesthesia: Postop Eval II Evaluation Mental status: Awake Pain Level: 2 nausea: No Vomiting: No
--- NOTE | 2025-05-22 10:53 | PCM.POSTANE2 ---
Anesthesia Postop Eval I Sum Postop Eval Completion status Anesthesia document: Postop Eval 1 completed: Yes Anesthesia Postop Eval I Summary Anesthesia Postop Eval I Summary: Anesthesia Postop Eval I: Assessment Summary Airway patent Yes 05/22/25 09:49 ELECTRONIC WARFARE OPERATOR.[email or web address] Spontaneous unlabored Yes 05/22/25 09:49 ELECTRONIC WARFARE OPERATOR.[email or web address] respirations Mental status Asleep 05/22/25 09:49 ELECTRONIC WARFARE OPERATOR.PKEL nausea No 05/22/25 09:49 ELECTRONIC WARFARE OPERATOR.PKEL Vomiting No 05/22/25 09:49 ELECTRONIC WARFARE OPERATOR.[email or web address] Anesthesia Postop Eval I: Fluid Summary Crystalloid volume administer 900 05/22/25 09:49 ELECTRONIC WARFARE OPERATOR.PKEL (ml) Colloids volume administered ( ml) Blood Product volume administered (ml) Total IV fluid infused 900 05/22/25 09:49 ELECTRONIC WARFARE OPERATOR.PKEL Anesthesia Postop Eval I: Summary Notes Anesthesia Complication No 05/22/25 09:49 ELECTRONIC WARFARE OPERATOR.PKEL Anesthesia Complication Comment: Post-operative progress note Anesthesia: Postop Eval II Evaluation Mental status: Awake Pain Level: 2 nausea: No Vomiting: No
== END 2025-05-22 11:02 | disposition home or self-care (01) ==
LOC: SDC 07:03 → AC 07:04
PROVIDERS: PCP Family Medicine; Referring Provider Podiatrist Foot & Ankle Surgery; Visit Provider Podiatrist Foot & Ankle Surgery
PROC: (CPT 28005; principal; 2025-05-22 08:30)
DX: E11.621 Type 2 diabetes mellitus with foot ulcer (principal); L97.514 Non-pressure chronic ulcer of other part of right foot with necrosis of bone; M86.171 Other acute osteomyelitis, right ankle and foot; Z79.4 Long term (current) use of insulin; E11.69 Type 2 diabetes mellitus with other specified complication; I10 Essential (primary) hypertension; Z79.84 Long term (current) use of oral hypoglycemic drugs; Z79.899 Other long term (current) drug therapy; Z89.421 Acquired absence of other right toe(s); Z87.891 Personal history of nicotine dependence
CPT/HCPCS: 28005; 14040; 01480; 73620; 76000; 82306; 82962; 87070; 87075; 87077; 87102; 87176; 87186; 87205; 87206; 88307; 88311; J2405

== ENCOUNTER → 2025-07-08 | Outpatient (CLI) | payer SELFPAY ==
--- NOTE | 2025-07-08 09:37 | ART_ITS ---
Reason For Study Reason For Study: LE WOund Procedure A bilateral lower extremity continuous wave Doppler with analog waveform analysis,segmental pressures,and ankle brachial indexes without exercise. Left Segmental Pressures Left brachial= 140mmHg. Left calf = 165mmHg. Left posterior tibial artery = 136mmHg. Left dorsalis pedis artery = 130mmHg. The left posterior tibial artery waveforms are monophasic. The left dorsalis pedis waveforms are biphasic. Right Segmental Pressures Right brachial= 147mmHg. Right calf = 192mmHg. Right posterior tibial artery = 125mmHg. Right dorsalis pedis artery = 92mmHg. The right posterior tibial artery waveforms are monophasic. The right dorsalis pedis waveforms are monophasic. Indices The right ankle brachial index by the posterior tibial artery is 0.85. The right ankle brachial index by the dorsalis pedis is 0.63. The left ankle brachial index by the posterior tibial artery is 0.93. The left ankle brachial index by the dorsalis pedis is 0.88. VL/Lower Ext Art Exam w/o Exercis Interpretation Summary Monophasic Doppler waveforms are noted at ankle level on the right. Monophasic and biphasic Doppler waveforms are noted at ankle level on the left. Pulse-volume recordings appear diminished at ankle level bilaterally, but satisfactory at thigh and calf level bilaterally. The resting right ankle-brachial index is mod erately diminished. The resting left ankle-brachial index is minimally diminished. 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 There is evidence of minimal arterial occlusive disease at ankle level on the left. Ordering Physician: Colin Mcgregor Referring Physician: Hesham Mishra Performed By: Marino Vicente RVT
--- NOTE | 2025-07-08 09:37 | VDLE_ITS ---
Reason For Study Reason For Study: LE Wound RIGHT LEFT CFV is compressible, spontaneous, phasic, competent CFV is compressible, spontaneous, phasic, competent, and demonstrates normal augmentation. and demonstrates normal augmentation. FV is compressible, spontaneous, phasic, competent FV is compressible, spontaneous, phasic, competent and demonstrates normal augmentation. and demonstrates normal augmentation. POP V is compressible, spontaneous, phasic, competent POP V is compressible, spontaneous, phasic, competent and demonstrates normal augmentation. and demonstrates normal augmentation. T/P Trunk is compressible. T/P Trunk is compressible. PTV is compressible. PTV is compressible. RT PerV is compressible. LT PerV is compressible. SFJ is competent and measures 0.63 cm. SFJ is competent and measures 0.65 cm. GSV proximal thigh measures 0.42 x 0.44 cm. GSV proximal thigh measures 0.41 x 0.38 cm. GSV at knee measures 0.46 x 0.54 cm. GSV at knee measures 0.24 x 0.24 cm. GSV above knee is competent. GSV is competent throughout. GSV below knee is INCOMPETENT for greater than 0.5 SSV mid calf is competent and measures 0.32 x 0.35 seconds. cm. SSV mid calf is competent and measures 0.38 x 0.45 cm. Procedure Exam performed in department. This is a venous duplex using B-mode, color flow and spectral Doppler. The exam was diagnostic. Patient was scanned in reverse Trendelenburg position during reflux assessment. VL/Venous Duplex US - Skip Extrem Interpretation Summary Deep veins of the lower extremities are bilaterally patent and compressible seg mentally. There is no evidence of deep vein thrombosis on either side. Valvular competence appears intact within the p roximal deep venous systems bilaterally. The great saphenous veins appear bilaterally patent and compressible segmentall y. Sapheno-femoral junctions are bilaterally competent . The right great saphenous vein appears competent above the knee. The right great saphenous vein appears incompetent below the knee. The left great saphenous vein appears segme ntally competent. Small saphenous veins are patent and competent bilaterally. Ordering Physician: Colin Mcgregor Referring Physician: Hesham Mishra Performed By: Marino Vicente RVT
== END | disposition home or self-care (01) ==
PROVIDERS: PCP Family Medicine; Referring Provider Podiatrist Foot & Ankle Surgery; Visit Provider Podiatrist Foot & Ankle Surgery
DX: L97.512 Non-pressure chronic ulcer of other part of right foot with fat layer exposed (principal); L97.522 Non-pressure chronic ulcer of other part of left foot with fat layer exposed
CPT/HCPCS: 93923; 93970

== ENCOUNTER 2025-07-15 09:41 | Inpatient (IN) | payer OTHER, SELFPAY ==
[2025-07-15] VITALS (12 sets, daily range): BP systolic 147–183; BP diastolic 70–91; PULSE 64–77; RESP 14–19; TEMP 36.5–36.7; O2SAT 92–100; BMI 24.7; BMI 24.5
--- NOTE | 2025-07-15 09:44 | ED.RN ---
No stroke alert called from presenting symptoms per Dr Stevens
--- NOTE | 2025-07-15 10:54 | RAD_ITS ---
PROCEDURE: CHEST 1 VIEW (PORTABLE) 07/15/2025 REASON FOR EXAM: COUGH TECHNIQUE: Frontal view of the chest. COMPARISON: None FINDINGS: Heart size and mediastinal configuration are within normal limits. There is no focal infiltrate or consolidation. There is no pneumothorax or effusion. There is no acute bony abnormality. Aortic calcifications are noted. RAD/Chest 1 View (Portable) IMPRESSION: No acute process is identified in the chest. Reading Location: [facility]
--- NOTE | 2025-07-15 10:55 | EKG12_ITS ---
Test Reason : NEURO Blood Pressure : */* mmHG Vent. Rate : 63 BPM Atrial Rate : 63 BPM P-R Int : 174 ms QRS Dur : 104 ms QT Int : 452 ms P-R-T Axes : 54 37 40 degrees QTcB Int : 462 ms Normal sinus rhythm Normal ECG Confirmed by Gabe Perez ([id number]), editor magazine MASON MARIE ([id number]) on 07/17/2025 5:44:07 AM Referred By: Confirmed By: Gabe Perez
--- NOTE | 2025-07-15 10:56 | EDS_ITS ---
HPI History of Present Illness Chief Complaint: Neuro S/Sx Informant: patient Onset/Context/Timing Onset: Days (2) Context: Gradual Onset Timing: Continuous Quality: Stinging Location: Right upper extremity Worsened by: Nothing Relieved by: Nothing Narrative Narrative: Patient presents with right hand and arm weakness and paresthesias that began 2 days ago. Patient states it came on gradually. Patient also noted some slurred speech that became worse today. Patient describes his sensation as a stinging sensation in his right upper extremity. Patient states he had recent toe amputations of his right foot. 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 Patient denies any headaches. Patient denies any nausea or vomiting. Patient denies any fevers or chills. [facility] Medical History (Updated 07/15/25 @ 14:[address] Refugio Lema, DO) Wears dentures Wears glasses Cancer Insulin dependent diabetes mellitus Diabetes Dietary restriction Hypertension History of skin cancer Home Medications ?Medication ?Instructions ?Recorded ?Last Taken ?Type oxycodone-acetaminophen 5 mg-325 1 tab PO Q12H PRN doug n 7 days #28 05/12/25 05/18/25 Rx mg tablet (Percocet) tabs insulin glargine-yfgn 100 unit/mL 12 unit subcut QHS 0 05/20/25 05/21/25 History (3 mL) subcutaneous pen losartan 50 mg tablet 50 mg PO DAILY 05/20/2504/23 History metformin 500 mg tablet 1,000 mg PO .QAM 05/20/25 History metformin 500 mg tablet 500 mg PO 1700 05/20/2504/23 History ascorbic acid (vitamin C) 1,000 mg 1 g PO DAILY 90 day s #90 tabs 05/22/25 Unknown Rx tablet (Vitamin C) aspirin 81 mg tablet,delayed 81 mg PO BID 30 days #60 tabs 05/22/25 Unknown Rx release calcium 500 mg (as 1 tab PO DAILY 90 days #90 t abs 05/22/25 Unknown Rx carbonate)-vitamin D3 15 mcg (600 unit) tablet (Os-Will 500 + D3) docusate sodium 100 mg capsule 100 mg PO DAILY 10 days #10 caps 05/22/25 Unknown Rx (Colace) Allergy/AdvReac Type Severity Reaction Status Date / Time lisinopril Allergy Severe Other Verified 07/15/25 09:43 Surgical History (Updated 07/15/25 @ 13:[address] Refugio Lema DO) Hx of appendectomy Status post surgical removal of malignant neoplasm of skin Hx of toe surgery Hx of hernia repair Social History Smoking Status: Never smoker ROS ROS ED Constitutional Constitutional ED: Denies chills or fever(s) Eyes Eyes: Denies blurry vision or change in vision ENT ENT ED: Denies rhinorrhea or sore throat Cardiovascular Cardiovascular: Denies chest pain or palpitations Respiratory/Chest Respiratory/Chest: Denies cough or dyspnea Gastrointestinal Gastrointestinal: Denies nausea or vomiting Genitourinary Genitourinary ED: Denies dysuria or hematuria Musculoskeletal Musculoskeletal: Denies back pain or neck pain Integumentary Denies abscess or rash Neurologic Neurologic: Reports paresthesias RUE; Denies headache(s) or weakness Allergic/Immunologic Allergic/Immunologic ED: Denies mouth swelling or urticaria EXAM Physical Exam Const Vital Signs: 07/15/25 09:41 07/15/25 10:14 07/15/25 11:00 Temperature 98 F Temperature Source Oral Pulse Rate 77 66 64 Respiratory Rate 18 19 H Blood Pressure 167/78 H 152/70 H 176/80 H Blood Pressure Mean 107 97 112 Pulse Ox 99 96 Oxygen Delivery Method Room Air Room Air 07/15/25 12:00 07/15/25 13:16 07/15/25 14:00 Temperature Temperature Source Pulse Rate 66 69 69 Respiratory Rate 14 16 16 Blood Pressure 163/80 H 156/80 H 147/81 H Blood Pressure Mean 106 105 103 Pulse Ox 96 92 Oxygen Delivery Method Room Air Room Air Positive well nourished and well developed Constitutional Narrative: BMI is 24.7 General Appearance ED: well developed and NAD HEENT Reports moist mucous membranes Neck supple and no JVD Resp normal respiratory effort and clear to auscultation bilaterally Cardio regular rate and regular rhythm GI non-tender and non-distended Palpation: soft Extremity General Extremety ED: Negative for edema or tenderness General Extremity: Negative for edema Neuro oriented x3, CN's II-XII intact bilaterally and no sensory deficits noted Sensorium / Orientation: alert Motor Exam: strength 5/5 throughout Psych mental status grossly normal Skin no rashes or lesions noted MDM MDM MDM Narrative Medical decision making narrative: Stroke alert was not called because of his symptoms starting 2 days ago. Differential diagnosis includes stroke, electrolyte abnormality, intracranial bleeding, cardiac dysrhythmia, cardiac ischemia, pneumonia, and anxiety. CT scan of the brain will be obtained to assess for intracranial bleeding. CTA of the head and neck will be obtained to assess for large vessel occlusion and carotid stenosis. Chest x-ray will be obtained to assess for pneumonia or bronchitis. CBC will be obtained to assess for leukocytosis and anemia. Basic metabolic profile will be obtained to assess for electrolyte abnormality and renal function. PT with INR and PTT will be obtained to assess for coagulopathy. High-sensitivity troponin will be obtained to assess for cardiac ischemia. 2-hour repeat high-sensitivity troponin will be obtained to assess for ongoing cardiac ischemia. Lab Data Attestation: I reviewed the patient's lab results. Lab results narrative: CBC was reviewed and was essentially within normal limits. Basic metabolic profile was reviewed. BUN was slightly elevated at 27. CO2 was slightly low at 20.2. Glucose was slightly elevated at 138. The remainder was within normal limits. Initial high-sensitivity troponin was reviewed and was slightly elevated at 25. 2-hour repeat high-sensitivity troponin was reviewed and was normal at 22. Labs: Laboratory Results - last 24 hr 07/15/25 07/15/25 07/15/25 10:45 10:55 13:15 WBC 7.0 RBC 4.78 Hgb 14.9 Hct 43.3 MCV 90.6 MCH 31.2 MCHC 34.4 RDW Std Deviation 44.4 H RDW Coeff of Kiya 13.4 Plt Count 254 MPV 9.0 Immature Gran % (Auto) 0.400 Neut % (Auto) 66.9 Lymph % (Auto) 24.5 [place] % (Auto) 7.1 Eos % (Auto) 0.7 Baso % (Auto) 0.4 Absolute Neuts (auto) 4.7 Absolute Lymphs (auto) 1.72 Nucleated RBC % 0 PT 12.7 INR 0.9 APTT 30.0 Sodium 136 Potassium 4.2 Chloride 101 Carbon Dioxide 20.2 L Anion Gap 16 H BUN 27 H Creatinine 1.11 Estim Creat Clear Calc 67.97 Est GFR (MDRD) Non-Af 71 BUN/Creatinine Ratio 24.1 H Glucose 138 H Calcium 9.9 Troponin T High Sens 25 H Troponin T Hi Sens 2 Hr 22 Radiography Chest X-Ray - ED: 1 View, Read by ED Physician, Read by Radiologist and No Acute Disease Diagnostic Testing: Clinical Impression(s) from Imaging Studies Chest X-Ray 07/15/25 10:54 IMPRESSION: No acute process is identified in the chest. Reading Location: [facility] Brain CT 07/15/25 12:40 IMPRESSION: Negative for acute intracranial pathology. 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 Bilateral basal ganglia, bilateral cerebellar and bilateral deep white matter calcifications. Differential considerations including Fahrs disease and vascular calcifications. Reading Location: [place] [id number] Head/Neck CTA 07/15/25 12:40 IMPRESSION: There is a 90% stenosis at the origin of the left ICA. There is a 50% stenosis at the origin of the right ICA. Critical results were discussed with Dr. Lema by Dr. Genao at the time of dictation. Reading Location: [facility] CT scan of the brain was obtained. There is no acute intracranial abnormality. This was interpreted by the radiologist and was also independently reviewed by myself. Portable 1 view chest x-ray was obtained. On my independent interpretation, lung simmons are clear. There is normal cardiac silhouette. Bony thorax is normal. There is no acute process noted. Radiologist also interpreted the x- ray and agrees. CTA of the head and neck was obtained. There is 90% stenosis at the origin of the left internal carotid and 50% stenosis at the origin of the right internal carotid artery. EKG Initial EKG: Attestation: I personally reviewed and interpreted this EKG as follows: Interpretation: Sinus Rhythm (63) and No Acute Injury Pattern Comments: EKG was obtained. On my independent interpretation, it showed a normal sinus rhythm with a rate of 63. RI interval, QRS interval, and QTc intervals were all normal. [place] was normal. There are no acute ST or T wave changes. Prior EKG tracings: not available for review Prior: No Prior Management Discussion w/another healthcare provider: Hospitalist (Dr. Cisneros) Treatment and Re-Evaluation :: Patient was advised of his findings. Patient was advised of the need for hospitalization for further evaluation of possible stroke. Patient is agreeable with this. Case was discussed with the hospitalist. She will admit the patient to her service. Patient and family understood and were agreeable with the plan. All questions were answered. Discharge Plan Dx/Rx/DC Orders Clinical Impression: Paresthesia of right upper extremity, Diabetes mellitus, Slurred speech Disposition Disposition: Acute Care Hospital [facility]
[2025-07-15 11:14] LABS: Hematocrit 43.3 % (40-54); Hemoglobin 14.9 g/dL (13.0-16.5); Immature Granulocytes Count 0.030 X10^3/uL (0.0-0.0); Mean Corp Hgb Conc 34.4 g/dL (32-36); Mean Corpuscular Volume 90.6 fL (80-94); Mean Platelet Vol. 9.0 fl (6.2-12.0); NRBC Flagged by Analyzer 0 % (0-5); Platelet Count 254 K/mm3 (150-450); RBC Distribution Width CV 13.4 % (11.6-14.6); RBC Distribution Width SD 44.4 fl (35.1-43.9); Red Blood Count 4.78 M/mm3 (4.6-6.2); White Blood Count 7.0 K/mm3 (4.4-11.0)
[2025-07-15 11:22] LABS: Prothrombin Time (Protime)PT. 12.7 SECONDS (11.7-14.9)
[2025-07-15 11:23] LABS: Partial Thromboplast Time 30.0 Seconds (24.1-36.2)
[2025-07-15 12:24] LABS: Troponin T High Sensitivity 25 ng/L (<=22)
[2025-07-15 12:26] LABS: Anion Gap 16 (5-15); BUN 27 mg/dL (4-19); BUN/Creat Ratio 24.1 RATIO (10-20); Calcium,Total 9.9 mg/dL (7.6-11.0); Carbon Dioxide 20.2 mmol/L (21.0-32.0); Chloride 101 mmol/L (98-108); Estimated Creatinine Clearance 67.97 ml/min (50-250); Glucose 138 mg/dL (70-99); Potassium 4.2 mmol/L (3.3-5.1)
--- NOTE | 2025-07-15 12:40 | CT_ITS ---
PROCEDURE: BRAIN/HEAD WITHOUT CONTRAST 07/15/2025 REASON FOR EXAM: RIGHT ARM PARESTHESIAS TECHNIQUE: Procedure Code: CTBR Modality: CT Procedure: BRAIN/HEAD WITHOUT CONTRAST Coronal and Sagittal reconstruction series were provided. One or more dose reduction techniques were used (e.g., Automated exposure control, adjustment of the mA and/or kV according to patient size, use of iterative reconstruction technique. RADIATION DOSE SUMMARY: CTDlvol: 90 mGy DLP: 1295 mGycm COMPARISON: None. FINDINGS: Cerebrum: Normalcerebral volume. Negative for mass the frontal, parietal, temporal and occipital lobes otherwisenegative. White matter: Old right cm central evaluate and vines radiata infarction. Wispy calcifications in the centrum semiovale bilaterally. Periventricular white matter changes. Cerebellum: Cerebellar calcifications. Negative for mass. Negative for acute infarction. CSF pathways and ventricles: Negative. Negative for ventricular dilatation or obstruction. Basal ganglia and thalami: Coarse bilateral basal ganglia calcifications. No acute infarctions. Brainstem: Midbrain, garrison and medulla otherwisenegative. Calvarium: Negative. Negative for fractures. Orbital structures: Globes negative. Extraocular muscles negative. Paranasal sinuses: No air fluid levels. Remainder of the sinuses negative. Vascular structures: Mild calcifications of the distal intracranial internal carotid arteries. Soft tissues: Negative. Other: : Negative for acute intracranial hemorrhage. Negative for acute infarction. Remainder of exam negative. CT/Brain/Head without Contrast IMPRESSION: Negative for acute intracranial pathology. Old right frontal white matter infa rction. Bilateral basal ganglia, bilateral cerebellar and bilateral deep white matter c alcifications. Differential considerations including Fahrs disease and vascular calcifications . Reading Location: [place] [id number]
--- NOTE | 2025-07-15 12:40 | CT_ITS ---
PROCEDURE: CTA HEAD AND NECK W/ CONTRAST 07/15/2025 REASON FOR EXAM: RIGHT ARM PARESTHESIAS TECHNIQUE: Procedure Code: CTCTA.HDNCK Modality: CT Procedure: CTA HEAD AND NECK W/ CONTRAST Multiplanar Sagittal and Coronal images were obtained. CONTRAST: 100 cc Isovue 370 One or more dose reduction techniques were used (e.g., Automated exposure control, adjustment of the mA and/or kV according to patient size, use of iterative reconstruction technique). RADIATION DOSE SUMMARY: DLP: 1295 mGycm COMPARISON: None FINDINGS: Aortic Arch: Brachiocephalic and Subclavians: RIGHT Carotid: Right CCA: Patent Right ICA: Patent Maximum stenosis (NASCET): 50 % Right ECA: LEFT Carotid: Left CCA: Patent Left ICA: Patent Maximum stenosis (NASCET): 90 % image 262/587 Left ECA: Patent Vertebrals: Patent RIGHT Vertebral: Patent LEFT Vertebral: Patent Anatomy: Within normal limits Aneurysm or avm: None Anterior cerebral arteries: Patent Middle cerebral arteries: Patent Basilar artery: Patent Posterior cerebral arteries: Patent Other major branches of the posterior circulation: Patent Major venous structures: Patent Other findings: Neck: Unremarkable lungs: Clear bones: CT/CTA Head AND Neck W/ Contrast IMPRESSION: There is a 90% stenosis at the origin of the left ICA. There is a 50% stenosis at the origin of the right ICA. Critical results were discussed with Dr. Lema by Dr. Genao at the time of dictation. Reading Location: [place]
[2025-07-15 13:49] LABS: Troponin T High Sens 2 HR 22 ng/L (<=22)
--- NOTE | 2025-07-15 15:20 | HP.PCM.HOS_ITS ---
HPI - General General Date of Admission: 07/15/25 Date of Service: 07/15/25 Chief Complaint: Right arm paresthesias HPI Narrative JORY BOBBY, is a 69-year-old male history of diabetes, hypertension, suspected peripheral vascular disease presented to [facility] ED for right arm paresthesias and weakness as well as some slurred speech today. In the ED temp 98, heart rate 77, blood pressure 167/78, respiratory 18 pulse ox 99% on room air. CBC with white count of 7 and hemoglobin 14.9, troponin 25 with a repeat of 22, slightly low bicarb at 20.2 and slightly elevated anion gap at 16, BUN 27 creatinine 1.11, glucose 138, no previous labs available for comparison in our system. Chest x-ray no acute process. Head CT negative for acute pathology, did show old right frontal white matter infarction, bilateral calcifications of unclear significance. CTA head and neck with 90% stenosis at the origin of the left ICA and 50% stenosis of the origin of the right ICA. Hospitalist contacted for admission for stroke rule out. Patient evaluated bedside. He reports that since yesterday he has had some right arm numbness and tingling that has been pretty consistent but last night had weakness in his right hand and some incoordination and it was hard to control his movements, but did improve with somewhat overnight and is little bit better today but this morning he had some difficulty getting his words out prompting him to come to the ED. Reports right now he mostly has the subjective feeling of some numbness and tingling in that right arm with improved weakness but still feels he has some incoordination. Only other complaint is that he did have recent toe amputations secondary to osteo with Dr. Mcgregor and has problems with pain in his legs when they are elevated more so right than left and he often has to sleep in a recliner due to the pain. Was referred to Dr. Dent on an outpatient basis but is yet to see him. [facility] Medical History (Updated 07/15/25 @ 14:[address] Refugio Lema, DO) Cancer Diabetes Dietary restriction History of skin cancer Hypertension Insulin dependent diabetes mellitus Wears dentures Wears glasses Home Medications ?Medication ?Instructions ?Recorded ?Last Taken ?Type oxycodone-acetaminophen 5 mg-325 1 tab PO Q12H PRN doug n 7 days #28 05/12/25 05/18/25 Rx mg tablet (Percocet) tabs insulin glargine-yfgn 100 unit/mL 12 unit subcut QHS 0 05/20/25 05/21/25 History (3 mL) subcutaneous pen losartan 50 mg tablet 50 mg PO DAILY 05/20/2504/23 History metformin 500 mg tablet 1,000 mg PO .QAM 05/20/25 History metformin 500 mg tablet 500 mg PO 1700 05/20/2504/23 History ascorbic acid (vitamin C) 1,000 mg 1 g PO DAILY 90 day s #90 tabs 05/22/25 Unknown Rx tablet (Vitamin C) aspirin 81 mg tablet,delayed 81 mg PO BID 30 days #60 tabs 05/22/25 Unknown Rx release calcium 500 mg (as 1 tab PO DAILY 90 days #90 t abs 05/22/25 Unknown Rx carbonate)-vitamin D3 15 mcg (600 unit) tablet (Os-Will 500 + D3) docusate sodium 100 mg capsule 100 mg PO DAILY 10 days #10 caps 05/22/25 Unknown Rx (Colace) Allergy/AdvReac Type Severity Reaction Status Date / Time lisinopril Allergy Severe Other Verified 07/15/25 09:43 Surgical History (Updated 07/15/25 @ 13:[address] Refugio Lema DO) Hx of appendectomy Hx of hernia repair Hx of toe surgery Status post surgical removal of malignant neoplasm of skin Social History Smoking Status: Never smoker ROS ROS Narrative General: Denies fever/chills HENT: Denies headache, denies stuffy nose, denies sore throat EYES: Denies changes in vision Resp: Denies cough, denies shortness of breath Cardiac: Denies chest pain GI: Denies abdominal pain, denies changes in bowel, denies nausea/vomiting : Denies changes in urination Extremity: Denies swelling, does have pain in the legs when they are elevated MSK: Had some weakness in coordination in right arm but weakness is improved from last night Neuro: Reports some paresthesias in right upper extremity but no other extremities Heme: Denies any bleeding or bruising Skin: Denies rashes Psychiatric: No complaints voiced Vital Signs Vital Signs Vital Signs: 07/15/25 09:41 07/15/25 10:14 07/15/25 11:00 Temperature 98 F Temperature Source Oral Pulse Rate 77 66 64 Respiratory Rate 18 19 H Blood Pressure 167/78 H 152/70 H 176/80 H Blood Pressure Mean 107 97 112 Pulse Ox 99 96 Oxygen Delivery Method Room Air Room Air 07/15/25 12:00 07/15/25 13:16 07/15/25 14:00 Temperature Temperature Source Pulse Rate 66 69 69 Respiratory Rate 14 16 16 Blood Pressure 163/80 H 156/80 H 147/81 H Blood Pressure Mean 106 105 103 Pulse Ox 96 92 Oxygen Delivery Method Room Air Room Air 07/15/25 15:00 Temperature Temperature Source Pulse Rate 73 Respiratory Rate 16 Blood Pressure 152/91 H Blood Pressure Mean 111 Pulse Ox 98 Oxygen Delivery Method Room Air Weight Weight: 82.6 kg Body Mass Index (BMI) 24.7 Physical Exam Narrative General: Alert, oriented, no apparent distress HEENT: Atraumatic, normocephalic Eyes: Anicteric, normal conjunctiva, extraocular movements intact, pupils equal Neck: Supple Respiratory: Clear to auscultation bilaterally, normal respiratory effort Cardiovascular: Regular rate and rhythm GI: Soft, nontender, nondistended Extremities: No edema Musculoskeletal: Strength 5 out of 5 in right upper extremity, 5 out of 5 left upper extremity, 5 out of 5 right lower extremity, 5 out of 5 left lower extremity Neuro: No overt focal neurological deficits, cranial nerves II through XII intact, [id number] without significant difficulty bilaterally, on my exam did not report a difference in feeling to light touch bilaterally Skin: No rashes appreciated Psych: Cooperative Results Lab / Micro Data 07/15/25 10:45 07/15/25 10:45 Labs: Laboratory Results - last 24 hr 07/15/25 10:45: WBC 7.0, RBC 4.78, Hgb 14.9, Hct 43.3, MCV 90.6, MCH 31.2, MCHC 34.4, RDW Std Deviation 44.4 H, RDW Coeff of Kiya 13.4, Plt Count 254, MPV 9.0, Immature Gran % (Auto) 0.400, Neut % (Auto) 66.9, Lymph % (Auto) 24.5, [place] % (Auto) 7.1, Eos % (Auto) 0.7, Baso % (Auto) 0.4, Absolute Neuts (auto) 4.7, Absolute Lymphs (auto) 1.72, Nucleated RBC % 0, PT 12.7, INR 0.9, APTT 30.0, Sodium 136, Potassium 4.2, Chloride 101, Carbon Dioxide 20.2 L, Anion Gap 16 H, BUN 27 H, Creatinine 1.11, Estim Creat Clear Calc 67.97, Est GFR (MDRD) Non-Af 71, BUN/Creatinine Ratio 24.1 H, Glucose 138 H, Calcium 9.9 07/15/25 10:55: Troponin T High Sens 25 H 07/15/25 13:15: Troponin T Hi Sens 2 Hr 22 Imaging Radiology Impression Chest X-Ray 07/15/25 10:54 IMPRESSION: No acute process is identified in the chest. Reading Location: [facility] Brain CT 07/15/25 12:40 IMPRESSION: Negative for acute intracranial pathology. 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 Bilateral basal ganglia, bilateral cerebellar and bilateral deep white matter calcifications. Differential considerations including Fahrs disease and vascular calcifications. Reading Location: [place] [id number] Head/Neck CTA 07/15/25 12:40 IMPRESSION: There is a 90% stenosis at the origin of the left ICA. There is a 50% stenosis at the origin of the right ICA. Critical results were discussed with Dr. Lema by Dr. Genao at the time of dictation. Reading Location: [facility] Assessment & Plan Assessment/Plan (1) Paresthesia of right upper extremity: PLAN: Plan # Right arm paresthesias, right arm weakness and incoordination -Admit to tele -CT head w/ old right frontal infarct, and bilateral white matter calcifications -CTA head and neck with 90% stenosis at origin of left ICA and 50% stenosis at origin of right ICA -MRI ordered -NIH q4hr -asa, statin -Echo -PT/OT/Speech eval -Teleneuro consult placed -Hold BP medications to allow for permissive hypertension for 24 hours unless SBP greater than 220 or DBP greater than 120 or until stroke is ruled out - Lipid panel, TSH, A1c # Left ICA stenosis -Unclear if this is the cause or contributor to his symptoms however it is a left-sided lesion he does have right-sided symptoms -Will pursue stroke rule out as above -Did discuss with vascular surgery, high-dose statin and DAPT recommended -Obtain carotid ultrasound -Vascular consult placed -Will check lipid panel #Type 2 diabetes mellitus -Glucose checks and sliding scale insulin # Recent right toe amputation -With Dr. Mcgregor 05/22/2025 secondary to osteomyelitis in the setting of diabetes -There was concern the patient has peripheral vascular disease as well and has been referred to Dr. Price on an outpatient basis and has yet to follow-up -Patient to be on aspirin, statin, Plavix -Diabetes control #DVT ppx: SCDs Daniela Cisneros MD Charges/Coding Visit Charges Inpatient E&M: 09727 Init Hosp L2
[2025-07-15 16:03] LABS: Troponin T High Sens 4 HR 22 ng/L (<=22)
--- NOTE | 2025-07-15 16:14 | ECHOD_ITS ---
Reason For Study Reason For Study: TIA/CVA Procedure This was a 2D Doppler, Color Flow transthoracic echocardiogram. Exam performed portable in patient room. Left Ventricle Mildly dilated left ventricle. Mild concentric left ventricular hypertrophy. Anterior septal and posterior hypokinesis. Estimated LVEF 45%. Stage I diastolic dysfunction. Right Ventricle Normal right ventricle. Atria The left and right atria are normal. Mitral Valve Mild diffuse mitral valve thickening. Trivial mitral valve insufficiency. Tricuspid Valve Normal tricuspid valve. Aortic Valve Trisinus/trileaflet aortic valve. Mild focal aortic valve calcification. Pulmonic Valve The pulmonic valve is not well visualized. Great Vessels Normal sized aortic root. Pericardium/Pleural No pericardial effusion. MMode/2D Measurements & Calculations LVIDd: 5.4 cm IVSd: 1.2 cm Ao root diam: 3.8 cm LVIDs: 3.6 cm LVPWd: 1.0 cm RVDd: 3.4 cm FS: 34.4 % LAV(MOD-bp): 46.5 ml LVAd ap4: 35.9 cm2 LVAd ap2: 27.6 cm2 LAV(MOD-bp) Indexed: 23.1 ml/m2 LVLd ap4: 9.0 cm LVLd ap2: 8.4 cm LAV(MOD-sp2): 46.2 ml EDV(MOD-sp4): 121.1 ml EDV(MOD-sp2): 80.8 ml LAV(MOD-sp4): 46.0 ml EDV(sp4-el): 121.1 ml EDV(sp2-el): 76.7 ml LVAs ap4: 23.1 cm2 LVAs ap2: 17.6 cm2 LVLs ap4: 8.2 cm LVLs ap2: 7.7 cm ESV(MOD-sp4): 57.6 ml ESV(MOD-sp2): 37.3 ml ESV(sp4-el): 55.4 ml ESV(sp2-el): 34.2 ml EF(MOD-sp4): 52.4 % EF(MOD-sp2): 53.8 % EF(sp4-el): 54.3 % SV(MOD-sp4): 63.5 ml SV(MOD-sp2): 43.5 ml SV(sp4-el): 65.7 ml SI(MOD-sp4): 31.5 ml/m2 SI(MOD-sp2): 21.6 ml/m2 LA A4 area: 18.1 cm2 LA dimension(2D): 3.8 cm RA A4 area: 17.7 cm2 TAPSE: 2.8 cm Time Measurements MV dec time: 0.30 sec Doppler Measurements & Calculations MV E max jaun: 49.7 cm/sec Lat Peak E' Jaun: 5.4 cm/sec Med Peak E' Jaun: 4.8 cm/sec MV A max jaun: 90.8 cm/sec E/E' lat: 9.2 E/E' med: 10.4 MV E/A: 0.55 MV V2 max: 98.9 cm/sec MV P1/2t max jaun: 46.8 cm/sec Ao V2 max: 112.3 cm/sec MV max P.9 mmHg MV P1/2t: 61.7 msec Ao max P.0 mmHg MV V2 mean: 49.3 cm/sec Ao V2 mean: 87.5 cm/sec MV mean P.2 mmHg MV dec slope: 222.4 cm/sec2 Ao mean P.2 mmHg MV V2 VTI: 18.5 cm MVA(P1/2t): 3.6 cm2 Ao V2 VTI: 25.3 cm AV (velocity ratio): 0.74 LV V1 max: 74.8 cm/sec PA V2 max: 112.4 cm/sec LV V1 max P.2 mmHg LV V1 mean P.3 mmHg LV V1 mean: 53.9 cm/sec LV V1 VTI: 18.7 cm ECHO/Echo Complete Interpretation Summary Mildly dilated left ventricle. Mild concentric left ventricular hypertrophy. Anterior septal and posterior hypokinesis. Estimated LVEF 45%. Stage I diastoli c dysfunction. Mild focal aortic valve calcification. Ordering Physician: Daniela Cisneros Referring Physician: Hesham Mishra Performed By: Santa Mcknight RDCS, RVT
--- NOTE | 2025-07-15 16:14 | MRI_ITS ---
PROCEDURE: MRI BRAIN WITHOUT CONTRAST 07/15/2025 REASON FOR EXAM: CONCERN FOR CVA TECHNIQUE: Procedure Code: MRIBR Modality: MR Procedure: BRAIN WITHOUT CONTRAST Multiplanar and multisequential MRI of the brain was performed without contrast. COMPARISON: CT head/angiography 07/15/2025. FINDINGS: Several small areas of acute infarct involving the posterior left frontoparietal cortex, including the left precentral and postcentral gyri, and the posterior left occipital lobe. Moderate chronic small-vessel ischemic-gliotic changes elsewhere in the supratentorial white matter, with additional small foci of chronic cortical infarct in the right middle frontal gyrus, and small focus in the anterior left frontal lobe. Major intracranial vascular flow voids appear grossly preserved. No evidence of acute intracranial hemorrhage, extra-axial collection, mass- effect, or hydrocephalus. Mild generalized brain parenchymal volume loss. 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 Grossly unremarkable orbits. Well-aerated paranasal sinuses and mastoid air cells. MRI/Brain without Contrast IMPRESSION: Several scattered small acute infarcts involving the posterior left frontoparie sebas cortex involving the left pre and postcentral gyri, and in the posterior left occipital lobe. Moderate chronic small-vessel ischemic changes elsewhere in the cerebral white matter with old cortical infarcts in the right frontal and anterior left frontal lobes. No acute intracranial hemorrhage, extra-axial collection, or mass-effect. 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 Numerous potential causes. Reading Location: [id number]
--- NOTE | 2025-07-15 16:16 | CDU_ITS ---
Reason For Study Reason For Study: ICA Stenosis Rt. Velocities/BP Lt. Velocities/BP Prox CCA 81.5/10.7 cm/sec. Prox CCA 74.0/13.5 cm/sec. Mid CCA 79.6/12.6 cm/sec. Mid CCA 86.1/16.8 cm/sec. Dist CCA 81.7/21.2 cm/sec. Dist CCA 57.5/12.4 cm/sec. Prox ICA 228.9/52.6 cm/sec. Prox ICA 92.5/16.3 cm/sec. Mid ICA 66.1/15.8 cm/sec. Mid ICA 363.1/94.1 cm/sec. Dist ICA 93.3/20.8 cm/sec. Dist ICA 148.3/33.6 cm/sec. Rt. ICA/CCA = 2.9. Lt. ICA/CCA = 4.2. Prox ECA 78.4/9.1 cm/sec. Prox ECA 82.8/6.9 cm/sec. Rt. Vert. 36.6/10.2 cm/sec. Lt. Vert. 44.6/16.0 cm/sec. Right Extracranial There is heterogeneous, irregular atherosclerotic plaque noted in the right common carotid artery. There is heterogeneous, irregular atherosclerotic plaque noted in the right internal carotid artery. There is intimal thickening but no significant atherosclerotic plaque noted in the right external carotid artery. Antegrade flow is noted in the right vertebral artery. Left Extracranial There is heterogeneous, irregular atherosclerotic plaque noted in the left common carotid artery. There is heterogeneous, irregular atherosclerotic plaque noted in the left internal carotid artery. The left internal carotid artery is very tortuous. There is heterogeneous, irregular atherosclerotic plaque noted in the left external carotid artery. Antegrade flow is noted in the left vertebral artery. Procedure Carotid Duplex 73355. This is a Carotid Duplex examination using B-mode, color flow and specral Doppler. Exam performed portable in patient room. VL/Carotid Duplex Ultrasound Interpretation Summary Moderate (50-69%) stenosis right extracranial internal carotid. Severe (>70%) stenosis left extracranial internal carotid. Patent and antegrade vertebrals bilaterally. Ordering Physician: Daniela Cisneros Referring Physician: Hesham Mishra MD Performed By: Aranza Gottlieb RVT
[2025-07-15] MEDS: Insulin Glargine-YFGN 100 UNIT/ML Pen 10 UNIT SC (20:01)
[2025-07-16] VITALS (9 sets, daily range): BP systolic 132–176; BP diastolic 70–79; PULSE 66–72; RESP 14–18; TEMP 2.7–37; O2SAT 93–100; BMI 24.5
[2025-07-16 05:50] LABS: Hematocrit 39.5 % (40-54); Hemoglobin 13.6 g/dL (13.0-16.5); Immature Granulocytes Count 0.010 X10^3/uL (0.0-0.0); Mean Corp Hgb Conc 34.4 g/dL (32-36); Mean Corpuscular Volume 90.4 fL (80-94); Mean Platelet Vol. 9.2 fl (6.2-12.0); NRBC Flagged by Analyzer 0 % (0-5); Platelet Count 238 K/mm3 (150-450); RBC Distribution Width CV 13.6 % (11.6-14.6); RBC Distribution Width SD 44.7 fl (35.1-43.9); Red Blood Count 4.37 M/mm3 (4.6-6.2); White Blood Count 5.6 K/mm3 (4.4-11.0)
[2025-07-16 05:57] LABS: Prothrombin Time (Protime)PT. 13.2 SECONDS (11.7-14.9)
[2025-07-16 06:13] LABS: Anion Gap 12 (5-15); BUN 22 mg/dL (4-19); BUN/Creat Ratio 20.2 RATIO (10-20); Calcium,Total 9.2 mg/dL (7.6-11.0); Carbon Dioxide 20.8 mmol/L (21.0-32.0); Chloride 104 mmol/L (98-108); Cholesterol 129 mg/dL (<=200); Estimated Creatinine Clearance 68.42 ml/min (50-250); Glucose 138 mg/dL (70-99); Low Density Lipoprotein Calc. 52 mg/dL; Potassium 4.0 mmol/L (3.3-5.1); Triglycerides 113 mg/dL; Very Low Density Lipoprotein 23 mg/dL (5-40); cholesterol:hdl ratio screen 2.37
--- NOTE | 2025-07-16 07:31 | PN.HOSP_ITS ---
Reason for Visit Chief Complaint: Right arm paresthesias Subjective Subjective Patient has no complaints at this time. Disappointed he cannot go home prior to surgery. We did discuss the plan is for stress test in the morning due to his abnormal echocardiogram and may need cardiology involvement depending on this. We did also discuss tentative plan for carotid endarterectomy on Sunday. Patient is disappointed but agreeable. Complaining of only some right hand paresthesias at this time. All other symptoms have resolved. Objective Data Objective Data Vital Signs: Vital Signs Temp Pulse Resp BP Pulse Ox O2 Del Method 98.5 F 72 18 135/77 H 98 Room Air 07/16/25 04:00 07/16/25 04:00 07/16/25 04:00 07/16/25 04:00 07/16/25 04:00 07/16/25 04:00 Oxygen Delivery Method Room Air Weight: 79.8 kg Body Mass Index (BMI) 24.5 Intake & Output: Intake and Output for Last 24 Hours 07/14/25 07/15/25 07/16/25 23:59 23:59 23:59 Output Total 0 / 0 Balance 0 / 0 Lab / Micro Data 07/16/25 05:05 07/16/25 05:05 Labs: Laboratory Results - last 24 hr 07/15/25 10:45: WBC 7.0, RBC 4.78, Hgb 14.9, Hct 43.3, MCV 90.6, MCH 31.2, MCHC 34.4, RDW Std Deviation 44.4 H, RDW Coeff of Kiya 13.4, Plt Count 254, MPV 9.0, Immature Gran % (Auto) 0.400, Neut % (Auto) 66.9, Lymph % (Auto) 24.5, Sargent % (Auto) 7.1, Eos % (Auto) 0.7, Baso % (Auto) 0.4, Absolute Neuts (auto) 4.7, Absolute Lymphs (auto) 1.72, Nucleated RBC % 0, PT 12.7, INR 0.9, APTT 30.0, Sodium 136, Potassium 4.2, Chloride 101, Carbon Dioxide 20.2 L, Anion Gap 16 H, BUN 27 H, Creatinine 1.11, Estim Creat Clear Calc 67.97, Est GFR (MDRD) Non-Af 71, BUN/Creatinine Ratio 24.1 H, Glucose 138 H, Calcium 9.9 07/15/25 10:55: Troponin T High Sens 25 H 07/15/25 13:15: Troponin T Hi Sens 2 Hr 22 07/15/25 15:35: Troponin T Hi Sens 4Hr 22 07/15/25 16:30: Lactic Acid < 1.0 07/15/25 19:55: POC Glucose 143 H 07/16/25 05:05: WBC 5.6, RBC 4.37 L, Hgb 13.6, Hct 39.5 L, MCV 90.4, MCH 31.1, MCHC 34.4, RDW Std Deviation 44.7 H, RDW Coeff of Kiya 13.6, Plt Count 238, MPV 9.2, Immature Gran % (Auto) 0.200, Neut % (Auto) 67.7, Lymph % (Auto) 21.1, Sargent % (Auto) 8.5, Eos % (Auto) 2.0, Baso % (Auto) 0.5, Absolute Neuts (auto) 3.8, Absolute Lymphs (auto) 1.19, Nucleated RBC % 0, PT 13.2, INR 1.0, Sodium 137, Potassium 4.0, Chloride 104, Carbon Dioxide 20.8 L, Anion Gap 12, BUN 22 H, Creatinine 1.07, Estim Creat Clear Calc 68.42, Est GFR (MDRD) Non-Af 75, B UN/Creatinine Ratio 20.2 H, Glucose 138 H, Hemoglobin A1c 6.3 H, Calcium 9.2, Triglycerides 113, Cholesterol 129, LDL Cholesterol, Calc 52, VLDL Cholesterol 23, HDL Cholesterol 55, Cholesterol/HDL Ratio 2.37, TSH 2.540 Radiography Diagnostic Testing: Radiology Impression Chest X-Ray 07/15/25 10:54 IMPRESSION: No acute process is identified in the chest. Reading Location: [facility] Brain CT 07/15/25 12:40 IMPRESSION: Negative for acute intracranial pathology. 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 Bilateral basal ganglia, bilateral cerebellar and bilateral deep white matter calcifications. Differential considerations including Fahrs disease and vascular calcifications. Reading Location: [place] [id number] Head/Neck CTA 07/15/25 12:40 IMPRESSION: There is a 90% stenosis at the origin of the left ICA. There is a 50% stenosis at the origin of the right ICA. Critical results were discussed with Dr. Lema by Dr. Genao at the time of dictation. Reading Location: [facility] Brain MRI 07/15/25 16:14 IMPRESSION: Several scattered small acute infarcts involving the posterior left frontoparietal cortex involving the left pre and postcentral gyri, and in the posterior left occipital lobe. Moderate chronic small-vessel ischemic changes elsewhere in the cerebral white matter with old cortical infarcts in the right frontal and anterior left frontal lobes. No acute intracranial hemorrhage, extra-axial collection, or mass-effect. 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 Numerous potential causes. Reading Location: [facility] Physical Exam Const alert, oriented x3, no apparent distress, average body habitus and well nourished Constitutional Narrative: Pleasant, white male, sitting up in bed, appears comfortable, nontoxic, at bedside HEENT head/scalp atraumatic and moist oral mucous membranes Head and Scalp: normocephalic Resp normal respiratory effort, no retractions, no use of accessory muscles and clear to auscultation bilaterally Auscultation: Negative for rales, rhonchi or wheezes Cardio regular rate, regular rhythm, S1 normal heart sound, S2 normal heart sound, no murmurs, no rub, no gallops and no clicks GI normal to inspection, nondistended, normoactive bowel sounds, soft to palpation and non-tender Extremity no clubbing, cyanosis or edema Extremity Narrative: 2+ radial pulses Neuro moves all extremities Neuro Narrative: Patient with some paresthesias in the right hand, no motor deficits noted at this time, speech is normal Psych Psych Narrative: Affect is slightly flat, eye contact is good patient interacts appropriately Assessment & Plan Assessment/Plan (1) Acute stroke due to ischemia: (2) Carotid stenosis: PLAN: Plan Acute ischemic stroke - Right arm paresthesias and we have coordination - Residual symptoms at this point are paresthesias in the hand - Multiple infarcts found likely related to showering of plaque from his carotid artery - Left carotid artery with severe stenosis - Continue aspirin and Plavix - Hemoglobin A1c well-controlled diabetes at 6.3 - Continue high intensity dose statin - Echocardiogram done today and shows mildly dilated LV with an EF of 45% and stage I diastolic dysfunction there is anterior septal and posterior hypokinesis - Neurology following/vascular surgery following - Plan tentatively now is for carotid endarterectomy on the left on Sunday Abnormal echocardiogram - EF is depressed with wall motion abnormality -mildly dilated LV with an EF of 45% and stage I diastolic dysfunction there is anterior septal and posterior hypokinesis - Check stress test - if stress test is abnormal will need cardiology consultation for perioperative optimization Severe left carotid artery stenosis - Patient with bilateral carotid artery stenosis - Ultrasound shows moderate stenosis on the right at 50 to 69% and severe greater than 70% on the left with patent and antegrade vertebrals bilaterally DM-2 - Hemoglobin A1c shows well-controlled diabetes at 6.3 - Hold home oral agents and likely restart at discharge - Add subcu basal insulin - Continue sliding scale - Accu-Cheks as ordered 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 - Patient with significant peripheral vascular disease - continue aspirin/Plavix/statin - Disease risk factor modification Essential hypertension/hyperlipidemia - Losartan on hold - Continue statin DVT prophylaxis - Start enoxaparin 40 daily CODE STATUS - Full code Charges/Coding Visit Charges Inpatient E&M: 73609 Subs Hosp L2 NIHSS NIHSS Nursing Documentation NIHSS Nursing Documentation: NIHSS: Ischemic Stroke/TIA Start: 07/15/25 16:16 Text: For PCU Patients: NIH and Neuro Check every 4 Status: Active hours, PRN and with change in RN caregiver. Freq: [id number] Protocol: Activity Type Activity Date Activity User E-sign Co-sign Detail Recorded Client Recorded Date Recorded By Document 07/16/25 04:00 [id number] 07/16/25 04:25 CW 07/16/25 04:00 NIH Stroke Scale [NIHSS] A score of 0 is normal or asymptomatic . Total possible score is 42. Inpatient: RN or Physician to activate a stroke alert for onset of new stroke symptoms or with NIHSS increase >/= 3 points. Following change in neurological status, NIHSS will be performed per physician order or more frequently PRN. -1a. Level of Consciousness 0 - Alert; keenly responsive -1b. LOC Questions 0 - Answers BOTH questions correctly -1c. LOC Commands 0 - Performs BOTH tasks correctly -2. Best Gaze 0 - Normal -3. Visual 0 - No visual loss -4. Facial Palsy 0 - Normal symmetrical movements -5a. Left Arm 0 - No drift; arm holds 90 ( or 45) degrees for full 10 seconds -5b. Right Arm 0 - No drift; arm holds 90 ( or 45) degrees for full 10 seconds -6a. Left Leg 0 - No drift; leg holds 30- degree position for full 5 seconds -6b. Right Leg 0 - No drift; leg holds 30- degree position for full 5 seconds -7. Limb Ataxia 0 - Absent -8. Sensory 0 - Normal; no sensory loss -9. Best Language 0 - No aphasia; normal -10. Dysarthria 0 - Normal -11. Extinction and Inattention 0 - No abnormality -Total 0 Query Text:A score of 0 is normal or asymptomatic. Total possible score is 42 . ED: Notify Physician for NIHSS increase by > / = 3 points. Inpatient: RN or Physician to activate a stroke alert for NIHSS increase of > / = 3 points. Coma Scale [Assess] -Eye Opening Spontaneous -Motor Obeys Commands -Verbal Oriented [Total] -Coma Scale Total 15
--- NOTE | 2025-07-16 10:13 | CASEMGMT ---
Social Work Patient was not interested in resources for prescriptions or medical assistance. Patient reported he does not think he would qualify financially. He reported he has a PCP. JUANIS Siegel
--- NOTE | 2025-07-16 10:45 | CASEMGMT ---
RN CM Face to Face with patient for initial transition planning/care coordination assessment. RN CM introduced self and role at [facility]. Patient lying in bed, alert and oriented, at bedside. Patient willing to participate in assessment and is able to answer all questions appropriately. Care providers, pharmacy, and demographics verified. 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 Patient is independent at home. Transportation: self, daughter, sons, DIL DME/HHC: Patient has shower chair, raised toilet, glucometer at home. No previous HHC or SNF. Patient wishes to discharge home, denies need for home health at this time. Patient states he has no further needs or concerns at this time. CM to follow for discharge planning needs that may arise. Disposition Plan: Patient to discharge home with family support and follow-up plans in place. Porsha GE, RN, CM
--- NOTE | 2025-07-16 10:55 | CASEMGMT ---
Social Work SW meet with the patient regarding lack of insurance and providing resources. Patient was not interested in resources for prescriptions assistance or a medical clinic. Patient reported he does not think he would qualify financially. He reported he has a PCP. SW completed a PHQ9 and the patient scored a 0. He reported no concerns with depression. JUANIS Siegel
--- NOTE | 2025-07-16 11:26 | EX.PCM.CON.S ---
Assessment & Plan Assessment/Plan (1) Symptomatic stenosis of left carotid artery: PLAN: Reviewed CTA images which show severe L ICA stenosis at threshold for surgical intervention in the setting of L hemispheric CVA. I discussed all findings and recommendation for carotid intervention with patient and his who was at bedside. Based on CTA appearance, recommendation is for carotid endarterectomy. CEA procedure details including risks (including but not limited to risk for stroke, cranial nerve injury, bleeding, infection), benefits, recovery, and alternatives were discussed with patient and his . He does wish to proceed with L CEA. Will plan tentatively for L CEA Friday 07/20; he is able to complete 4 METs of activity without symptoms but we discussed possible need for further cardiology evaluation pending echo results of which he was understanding. Continue ASA, Plavix, and statin. HPI Consult Data Date of Consult: 07/16/25 HPI Narrative HPI Narrative: JORY BOBBY, is a 69 M who presented to [facility] ER yesterday with a ~48 hours history of RUE weakness and paresthesias and ~24 hour history of slurred speech/dysarthria. He reports that both symptoms are much improved today compared to yesterday, feels his speech is near baseline but he still has R hand paresthesias. He reports he had similar symptoms of R hand paresthesias/weakness/clumsiness for about 4 days in the spring of this year, he sought no medical attention for those symptoms at the time. He reports no other episodes of focal neurologic symptoms or known prior strokes. He reports no prior history of vascular surgical intervention. He was taking ASA 81mg daily at home at the time of these episodes. He is diabetic, on insulin, reports his blood sugar control historically has not been great but is much improved the last few months. He denies any history of Afib or other arrythmia. He had Head/Neck CTA with radiology reported L ICA stenosis 90% and R ICA stenosis 50%. He had Brain MRI showing several small scattered acute infarcts in the L frontoparietal cortex and occipital lobe as well has chronic infarcts in the R and L frontal lobes. Echocardiogram is pending. Carotid duplex final report is pending, preliminary report demonstrates critical >70% L ICA stenosis with max PSV 363/94.1 cm/s and 50-69% R ICA stenosis with max PSV 228.9/52.6 cm/s. He also has concerns regarding PAD. He follows with Dr. Mcgregor [facility]; he had wounds and what sounds like osteomyelitis to his bilateral 1st toes and is now s/p bilateral 1st toe amputations. The L amputation site has healed. The R amputation site has had delayed healing; he reports surgery was 05/22. He had vascular testing last week that demonstrated R ASHLEY 0.85 with monophasic waveforms and L ASHLEY 0.93 with mono/biphasic waveforms. He reports that he is generally very active at home. He can walk a few flights of stairs carrying a heavy load without any CP, SOB, or other symptoms. [facility] Medical History (Updated 07/16/25 @ 12:06 by DONNELL Almanzar) Wears dentures Wears glasses Cancer Insulin dependent diabetes mellitus Diabetes Dietary restriction Hypertension History of skin cancer Home Medications ?Medication ?Instructions ?Recorded ?Last Taken ?Type oxycodone-acetaminophen 5 mg-325 1 tab PO Q12H PRN pain 7 days #28 05/12/25 05/18/25 Rx mg tablet (Percocet) tabs insulin glargine-yfgn 100 unit/mL 12 unit subcut QHS 05/20/25 05/21/25 History (3 mL) subcutaneous pen losartan 50 mg tablet 50 mg PO DAILY 05/20/25 05/21/25 History metformin 500 mg tablet 1,000 mg PO .QAM 05/20/25 05/21/25 History metformin 500 mg tablet 500 mg PO 1700 05/20/25 05/21/25 History ascorbic acid (vitamin C) 1,000 mg 1 g PO DAILY 90 days #90 tabs 05/22/25 Unknown Rx tablet (Vitamin C) aspirin 81 mg tablet,delayed 81 mg PO BID 30 days #60 tabs 05/22/25 Unknown Rx release calcium 500 mg (as 1 tab PO DAILY 90 days #90 tabs 05/22/25 Unknown Rx carbonate)-vitamin D3 15 mcg (600 unit) tablet (Os-Will 500 + D3) docusate sodium 100 mg capsule 100 mg PO DAILY 10 days #10 caps 05/22/25 Unknown Rx (Colace) Allergy/AdvReac Type Severity Reaction Status Date / Time lisinopril Allergy Severe Other Verified 07/15/25 09:43 Surgical History (Updated 07/15/25 @ 13:[address] Refugio Lema, DO) Hx of appendectomy Status post surgical removal of malignant neoplasm of skin Hx of toe surgery Hx of hernia repair Social History Smoking Status: Former smoker Physical Exam Const alert, oriented x3 and no apparent distress General Appearance: cooperative HEENT normocephalic, head/scalp atraumatic, TM's normal bilaterally and external nose normal Eyes EOMs intact bilaterally Neck General: normal visual inspection Resp normal respiratory effort and no retractions Effort and Inspection: able to speak in complete sentences Cardio Rate: regular rate Rhythm: regular rhythm Skin Skin Narrative: Noted wound to the R great toe amputation stump, dressings in place, not examined Neuro CN's II-XII intact bilaterally Speech: speech normal Psych mental status grossly normal Appearance: grossly normal Lab / Micro Data 07/16/25 05:05 07/16/25 05:05 Labs: Laboratory Results - last 24 hr 07/15/25 10:45: Sodium 136, Potassium 4.2, Chloride 101, Carbon Dioxide 20.2 L, Anion Gap 16 H, BUN 27 H, Creatinine 1.11, Estim Creat Clear Calc 67.97, Est GFR (MDRD) Non-Af 71, BUN/Creatinine Ratio 24.1 H, Glucose 138 H, Calcium 9.9 07/15/25 10:55: Troponin T High Sens 25 H 07/15/25 13:15: Troponin T Hi Sens 2 Hr 22 07/15/25 15:35: Troponin T Hi Sens 4Hr 22 07/15/25 16:30: Lactic Acid < 1.0 07/15/25 19:55: POC Glucose 143 H 07/16/25 05:05: WBC 5.6, RBC 4.37 L, Hgb 13.6, Hct 39.5 L, MCV 90.4, MCH 31.1, MCHC 34.4, RDW Std Deviation 44.7 H, RDW Coeff of Kiya 13.6, Plt Count 238, MPV 9.2, Immature Gran % (Auto) 0.200, Neut % (Auto) 67.7, Lymph % (Auto) 21.1, [place] % (Auto) 8.5, Eos % (Auto) 2.0, Baso % (Auto) 0.5, Absolute Neuts (auto) 3.8, Absolute Lymphs (auto) 1.19, Nucleated RBC % 0, PT 13.2, INR 1.0, Sodium 137, Potassium 4.0, Chloride 104, Carbon Dioxide 20.8 L, Anion Gap 12, BUN 22 H, Creatinine 1.07, Estim Creat Clear Calc 68.42, Est GFR (MDRD) Non-Af 75, BUN/Creatinine Ratio 20.2 H, Glucose 138 H, Hemoglobin A1c 6.3 H, Calcium 9.2, Triglycerides 113, Cholesterol 129, LDL Cholesterol, Calc 52, VLDL Cholesterol 23, HDL Cholesterol 55, Cholesterol/HDL Ratio 2.37, TSH 2.540 07/16/25 07:48: POC Glucose 136 H Imaging Radiology Impression Chest X-Ray 07/15/25 10:54 IMPRESSION: No acute process is identified in the chest. Reading Location: [facility] Brain CT 07/15/25 12:40 IMPRESSION: Negative for acute intracranial pathology. 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 Bilateral basal ganglia, bilateral cerebellar and bilateral deep white matter calcifications. Differential considerations including Fahrs disease and vascular calcifications. Reading Location: [place] [id number] Head/Neck CTA 07/15/25 12:40 IMPRESSION: There is a 90% stenosis at the origin of the left ICA. There is a 50% stenosis at the origin of the right ICA. Critical results were discussed with Dr. Lema by Dr. Genao at the time of dictation. Reading Location: [facility] Brain MRI 07/15/25 16:14 IMPRESSION: Several scattered small acute infarcts involving the posterior left frontoparietal cortex involving the left pre and postcentral gyri, and in the posterior left occipital lobe. Moderate chronic small-vessel ischemic changes elsewhere in the cerebral white matter with old cortical infarcts in the right frontal and anterior left frontal lobes. No acute intracranial hemorrhage, extra-axial collection, or mass-effect. 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 Numerous potential causes. Reading Location: [id number] Charges/Coding Visit Charges Inpatient E&M: 62879 Init Hosp L2
--- NOTE | 2025-07-16 13:10 | STROKE.CONS ---
Assessment and Plan: Stroke Assessment/Plan JORY BOBBY is a 69 M with a history of PVD who presents for evaluation of R arm numbness. Neurological examination shows NIH 2 . Neuroimaging shows L MCA, multifocal. LICA Stenosis 90%. NORBERT stenosis 50% Etiology - SUSAN - Anti-platelet medication: Aspirin 81 mg daily and Plavix 75mg - Vascular c/s for Sx Carotid - CEA on Sunday - Occupational/ Physical therapy consults - NPO until swallow evaluation. IVF until able to take po - DVT prophylaxis with SCDs and heparin SQ - Vascular risk factor modification. The following are the recommended guidelines: LDL Goal < 70 Smoking Cessation Diabetes Management long term acute care registered nurse blood pressure control should achieve <130/80 mmHg. BP management should aim to achieve middle or intermediate school principal control in a reasonable amount of time, taking into consideration the individual patient's requirements and characteristics. Weight Management: Goal for BMI is 18.5 -24.9 kg/m2 Alcohol: No more than 2 drinks/day for men or 1 drink/day for non- women - Promote lifestyle modification: weight control, physical activity, moderation of alcohol intake, moderate sodium intake. - Referral to Sleep medicine Followup with PCP in 1-2 weeks, and in Neurology clinic in 6-12 weeks HPI Consult Data Date of Consult: 07/16/25 HPI Narrative HPI Narrative: JORY BOBBY, is a 69 M who presents [facility] Medical History (Updated 07/16/25 @ 12:06 by DONNELL Almanzar) Wears dentures Wears glasses Cancer Insulin dependent diabetes mellitus Diabetes Dietary restriction Hypertension History of skin cancer Home Medications ?Medication ?Instructions ?Recorded ?Last Taken ?Type oxycodone-acetaminophen 5 mg-325 1 tab PO Q12H PRN pain 7 days #28 05/12/25 05/18/25 Rx mg tablet (Percocet) tabs insulin glargine-yfgn 100 unit/mL 12 unit subcut QHS 05/20/25 05/21/25 History (3 mL) subcutaneous pen losartan 50 mg tablet 50 mg PO DAILY 05/20/25 05/21/25 History metformin 500 mg tablet 1,000 mg PO .QAM 05/20/25 05/21/25 History metformin 500 mg tablet 500 mg PO 1700 05/20/25 05/21/25 History ascorbic acid (vitamin C) 1,000 mg 1 g PO DAILY 90 days #90 tabs 05/22/25 Unknown Rx tablet (Vitamin C) aspirin 81 mg tablet,delayed 81 mg PO BID 30 days #60 tabs 05/22/25 Unknown Rx release calcium 500 mg (as 1 tab PO DAILY 90 days #90 tabs 05/22/25 Unknown Rx carbonate)-vitamin D3 15 mcg (600 unit) tablet (Os-Will 500 + D3) docusate sodium 100 mg capsule 100 mg PO DAILY 10 days #10 caps 05/22/25 Unknown Rx (Colace) Allergy/AdvReac Type Severity Reaction Status Date / Time lisinopril Allergy Severe Other Verified 07/15/25 09:43 Surgical History (Updated 07/15/25 @ 13:[address] Refugio Lema DO) Hx of appendectomy Status post surgical removal of malignant neoplasm of skin Hx of toe surgery Hx of hernia repair Social History Smoking Status: Former smoker Vital Signs Vital Signs Vital Signs: 07/15/25 13:16 07/15/25 14:00 07/15/25 15:00 Temperature Temperature Source Pulse Rate 69 69 73 Pulse Strength Respiratory Rate 16 16 16 Respiratory Effort Respiratory Depth Respiratory Pattern Blood Pressure 156/80 H 147/81 H 152/91 H Blood Pressure Mean 105 103 111 Blood Pressure Source Blood Pressure Position Blood Pressure Location Pulse Ox 96 92 98 Oxygen Delivery Method Room Air Room Air Room Air 07/15/25 16:21 07/15/25 16:40 07/15/25 19:00 Temperature 97.7 F L Temperature Source Oral Pulse Rate 68 67 Pulse Strength Respiratory Rate 14 Respiratory Effort Normal Non-Labored Respiratory Depth Normal Respiratory Pattern Normal Blood Pressure 156/82 H Blood Pressure Mean 106 Blood Pressure Source Monitor Blood Pressure Position Semi-Fowlers Blood Pressure Location Right Arm Pulse Ox 98 Oxygen Delivery Method Room Air Room Air 07/15/25 19:44 07/15/25 19:49 07/15/25 20:48 Temperature 98.0 F Temperature Source Temporal Pulse Rate 72 72 Pulse Strength Normal (2+) Respiratory Rate 16 Respiratory Effort Respiratory Depth Respiratory Pattern Blood Pressure 183/90 H 183/90 H Blood Pressure Mean 121 Blood Pressure Source Monitor Blood Pressure Position Sitting Blood Pressure Location Right Arm Pulse Ox 100 Oxygen Delivery Method Room Air 07/15/25 20:50 07/15/25 20:50 07/16/25 00:48 Temperature 98.2 F Temperature Source Oral Pulse Rate 68 Pulse Strength Respiratory Rate 16 Respiratory Effort Normal Non-Labored Respiratory Depth Normal Respiratory Pattern Normal Blood Pressure 134/71 H Blood Pressure Mean 92 Blood Pressure Source Monitor Blood Pressure Position Blood Pressure Location Pulse Ox 100 98 Oxygen Delivery Method Room Air Room Air Room Air 07/16/25 01:01 07/16/25 04:00 07/16/25 07:43 Temperature 98.5 F 98.4 F Temperature Source Oral Oral Pulse Rate 72 72 Pulse Strength Respiratory Rate 18 14 Respiratory Effort Respiratory Depth Respiratory Pattern Blood Pressure 135/77 H 132/79 H Blood Pressure Mean 96 96 Blood Pressure Source Monitor Monitor Blood Pressure Position Semi-Fowlers Blood Pressure Location Right Arm Pulse Ox 93 98 95 Oxygen Delivery Method Room Air Room Air Room Air 07/16/25 07:49 07/16/25 08:52 07/16/25 11:28 Temperature 97.7 F L Temperature Source Oral Pulse Rate 69 Pulse Strength Normal (2+) Respiratory Rate 16 Respiratory Effort Normal Non-Labored Respiratory Depth Normal Respiratory Pattern Normal Blood Pressure 175/78 H Blood Pressure Mean 110 Blood Pressure Source Monitor Blood Pressure Position Semi-Fowlers Blood Pressure Location Right Arm Pulse Ox 98 Oxygen Delivery Method Room Air Room Air Weight Weight: 79.8 kg Body Mass Index (BMI) 24.5 EEG Results Procedure Details EEG Procedure Details: JORY BOBBY is a 69 year old M with a past medical history of , who presents for evaluation of Electroencephalogram on DATE at TIME Lab / Micro Data 07/16/25 05:05 07/16/25 05:05 Labs: Laboratory Results - last 24 hr 07/15/25 13:15: Troponin T Hi Sens 2 Hr 22 07/15/25 15:35: Troponin T Hi Sens 4Hr 22 07/15/25 16:30: Lactic Acid < 1.0 07/15/25 19:55: POC Glucose 143 H 07/16/25 05:05: WBC 5.6, RBC 4.37 L, Hgb 13.6, Hct 39.5 L, MCV 90.4, MCH 31.1, MCHC 34.4, RDW Std Deviation 44.7 H, RDW Coeff of Kiya 13.6, Plt Count 238, MPV 9.2, Immature Gran % (Auto) 0.200, Neut % (Auto) 67.7, Lymph % (Auto) 21.1, Lander % (Auto) 8.5, Eos % (Auto) 2.0, Baso % (Auto) 0.5, Absolute Neuts (auto) 3.8, Absolute Lymphs (auto) 1.19, Nucleated RBC % 0, PT 13.2, INR 1.0, Sodium 137, Potassium 4.0, Chloride 104, Carbon Dioxide 20.8 L, Anion Gap 12, BUN 22 H, Creatinine 1.07, Estim Creat Clear Calc 68.42, Est GFR (MDRD) Non-Af 75, BUN/Creatinine Ratio 20.2 H, Glucose 138 H, Hemoglobin A1c 6.3 H, Calcium 9.2, Triglycerides 113, Cholesterol 129, LDL Cholesterol, Calc 52, VLDL Cholesterol 23, HDL Cholesterol 55, Cholesterol/HDL Ratio 2.37, TSH 2.540 07/16/25 07:48: POC Glucose 136 H 07/16/25 11:34: POC Glucose 132 H Imaging Radiology Impression Chest X-Ray 07/15/25 10:54 IMPRESSION: No acute process is identified in the chest. Reading [facility] Head/Neck CTA 07/15/25 12:40 IMPRESSION: There is a 90% stenosis at the origin of the left ICA. There is a 50% stenosis at the origin of the right ICA. Critical results were discussed with Dr. Lema by Dr. Genao at the time of dictation. Reading Location: [facility] Brain MRI 07/15/25 16:14 IMPRESSION: Several scattered small acute infarcts involving the posterior left frontoparietal cortex involving the left pre and postcentral gyri, and in the posterior left occipital lobe. Moderate chronic small-vessel ischemic changes elsewhere in the cerebral white matter with old cortical infarcts in the right frontal and anterior left frontal lobes. No acute intracranial hemorrhage, extra-axial collection, or mass-effect. 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 Numerous potential causes. Reading Location: [facility] Echocardiogram 07/15/25 16:14 Interpretation Summary Mildly dilated left ventricle. Mild concentric left ventricular hypertrophy. Anterior septal and posterior hypokinesis. Estimated LVEF 45%. Stage I diastolic dysfunction. Mild focal aortic valve calcification. Ordering Physician: Daniela Cisneros Referring Physician: Hesham Mishra Performed By: Santa Mcknight RDCS, RVT Carotid Duplex 07/15/25 16:16 Interpretation Summary Moderate (50-69%) stenosis right extracranial internal carotid. Severe (>70%) stenosis left extracranial internal carotid. Patent and antegrade vertebrals bilaterally. Ordering Physician: Daniela iCsneros Referring Physician: Hesham Mishra MD Performed By: Aranza Gottlieb, RVT Active Medications Active Medications Active Medications: Current Medications Generic Name Dose Route Start Last Admin Trade Name Freq PRN Reason Stop Dose Admin Acetaminophen 650 mg 07/15/25 16:16 Acetaminophen 325 Mg Tablet PO Q6H PRN PRN Pain 1-10 Or Fever >100.7 Albuterol Sulfate 2.5 mg 07/15/25 16:16 Albuterol 2.5 Mg/3 Ml Vial.Neb. INHALATION Q2H PRN PRN SOB &/OR WHEEZING Aspirin 81 mg 07/16/25 08:00 07/16/25 07:55 Aspirin 81 Mg Tab.Chew PO 81 mg BREAKFAST KARLEE Administration Atorvastatin Calcium 80 mg 07/15/25 22:00 07/15/25 19:47 Atorvastatin Calcium 80 Mg Tablet PO 80 mg QHS KARLEE Administration Clopidogrel Bisulfate 75 mg 07/16/25 10:00 07/16/25 07:51 Clopidogrel Bisulfate 75 Mg Tablet PO 75 mg DAILY KARLEE Administration Glucagon 1 mg 07/15/25 16:16 Glucagon 1 Mg/Ml Syringe IM X1 PRN HYPOGLYCEMIA Protocol Hydralazine HCl 5 mg 07/15/25 16:16 07/15/25 19:49 Hydralazine 20 Mg/Ml Vial IV 07/16/25 16:17 5 mg Q30M PRN Administration maintain BP parameters with HR <60 Dextrose 250 mls @ 0 mls/hr 07/15/25 16:16 Dextrose 10%-Water IV .Q0M PRN HYPOGLYCEMIA Protocol As Directed Sodium Chloride 250 mls @ 15 mls/hr 07/15/25 17:11 IV .[id number] PRN Saline Flush Sodium Chloride 250 mls @ 15 mls/hr 07/15/25 17:11 IV .[id number] PRN Additional IVPB Infusion Insulin Glargine 10 unit 07/15/25 22:00 07/15/25 20:01 Insulin Glargine-Yfgn 100 Unit/Ml Pen SC 10 unit QHS KARLEE Administration Insulin Human Lispro 0 unit 07/15/25 22:00 07/16/25 11:34 Insulin Lispro 100 Unit/Ml Insuln.Pen SC Not Given ACHS [facility] Protocol Labetalol HCl 10 - 20 mg 07/15/25 16:16 Labetalol 20 Mg/4 Ml Vial IV 07/16/25 16:17 Q10M PRN PRN maintain BP parameters with HR >/=60 Melatonin 10 mg 07/15/25 16:16 Melatonin 10 Mg Tablet PO QHS PRN PRN INSOMNIA Ondansetron HCl 4 mg 07/15/25 16:16 Ondansetron 4 Mg/2 Ml Vial IV Q8H PRN PRN NAUSEA/VOMITING Oxycodone HCl 5 mg 07/15/25 16:16 Oxycodone 5 Mg Tablet PO Q4H PRN PRN Pain Score 4-10 Senna/Docusate Sodium 2 tablet 07/15/25 16:16 Senna/Docusate Sodium 1 Tablet PO BID PRN PRN Constipation Sodium Chloride 10 - 40 ml 07/15/25 17:11 0.9% Saline Lock 10 Ml Syringe IV UD PRN SALINE FLUSH NIHSS NIHSS Nursing Documentation NIHSS Nursing Documentation: NIHSS: Ischemic Stroke/TIA Start: 07/15/25 16:16 Text: For PCU Patients: NIH and Neuro Check every 4 Status: Active hours, PRN and with change in RN caregiver. Freq: [id number] Protocol: Activity Type Activity Date Activity User E-sign Co-sign Detail Recorded Client Recorded Date Recorded By Document 07/16/25 11:31 POPEYE [id number] 07/16/25 11:31 POPEYE 07/16/25 11:31 NIH Stroke Scale [NIHSS] A score of 0 is normal or asymptomatic . Total possible score is 42. Inpatient: RN or Physician to activate a stroke alert for onset of new stroke symptoms or with NIHSS increase >/= 3 points. Following change in neurological status, NIHSS will be performed per physician order or more frequently PRN. -1a. Level of Consciousness 0 - Alert; keenly responsive -1b. LOC Questions 0 - Answers BOTH questions correctly -1c. LOC Commands 0 - Performs BOTH tasks correctly -2. Best Gaze 0 - Normal -3. Visual 0 - No visual loss -4. Facial Palsy 0 - Normal symmetrical movements -5a. Left Arm 0 - No drift; arm holds 90 ( or 45) degrees for full 10 seconds -5b. Right Arm 0 - No drift; arm holds 90 ( or 45) degrees for full 10 seconds -6a. Left Leg 0 - No drift; leg holds 30- degree position for full 5 seconds -6b. Right Leg 0 - No drift; leg holds 30- degree position for full 5 seconds -7. Limb Ataxia 0 - Absent -8. Sensory 0 - Normal; no sensory loss -9. Best Language 0 - No aphasia; normal -10. Dysarthria 0 - Normal -11. Extinction and Inattention 0 - No abnormality -Total 0 Query Text:A score of 0 is normal or asymptomatic. Total possible score is 42 . ED: Notify Physician for NIHSS increase by > / = 3 points. Inpatient: RN or Physician to activate a stroke alert for NIHSS increase of > / = 3 points. Coma Scale [Assess] -Eye Opening Spontaneous -Motor Obeys Commands -Verbal Oriented [Total] -Coma Scale Total 15
--- NOTE | 2025-07-16 16:03 | CHAPLAIN ---
Type of Pastoral Visit _x__ Initial Visit ___ Follow-up Visit ___ On-call Visit ___ General Patient Visit ___ Spiritual Assessment ___ Family Conference ___ Bereavement ___ Rapid Response ___ Code Blue ___ Other (describe below) Pastoral Care Referral From _x__ Patient ___ Family ___ Nurse ___ Physician ___ Settlement Worker ___ Captain Room Service ___ Other (describe below) Sacrament/Intervention _x__ Active listening ___ Anointing ___ Buddhism ___ Bereavement ___ Communion ___ Aranza exploration ___ ___ Life review _x__ Prayer ___ Reconciliation ___ Sacrament of Sick ___ Supportive presence ___ Wedding ___ Other (describe below) Pastoral Comments patient and spouse are in the room; pt is pleasant and answers questions but does not engage in a conversation; pt denies needs or concerns but says that everyone should have a prayer; spouse is offered support too
[2025-07-16] MEDS: Insulin Glargine-YFGN 100 UNIT/ML Pen 12 UNIT SC (21:05)
[2025-07-17] VITALS (9 sets, daily range): BP systolic 138–168; BP diastolic 70–89; PULSE 67–78; RESP 16–18; TEMP 2.7–36.8; O2SAT 98–99; BMI 24.5
[2025-07-17 05:07] LABS: Hematocrit 41.1 % (40-54); Hemoglobin 14.3 g/dL (13.0-16.5); Immature Granulocytes Count 0.020 X10^3/uL (0.0-0.0); Mean Corp Hgb Conc 34.8 g/dL (32-36); Mean Corpuscular Volume 90.1 fL (80-94); Mean Platelet Vol. 8.9 fl (6.2-12.0); NRBC Flagged by Analyzer 0 % (0-5); Platelet Count 255 K/mm3 (150-450); RBC Distribution Width CV 13.7 % (11.6-14.6); RBC Distribution Width SD 45.0 fl (35.1-43.9); Red Blood Count 4.56 M/mm3 (4.6-6.2); White Blood Count 6.8 K/mm3 (4.4-11.0)
--- NOTE | 2025-07-17 05:55 | EKG12_ITS ---
Test Reason : STRESS TEST Blood Pressure : */* mmHG Vent. Rate : 75 BPM Atrial Rate : 75 BPM P-R Int : 174 ms QRS Dur : 106 ms QT Int : 434 ms P-R-T Axes : 61 8 22 degrees QTcB Int : 484 ms Normal sinus rhythm Prolonged QT Abnormal ECG When compared with ECG of 15-Jul-2025 11:12, No significant change was found Confirmed by KATIE RAJAN, DUKE ([id number]), desk editor MASON MARIE ([id number]) on 07/17/2025 1:12:14 PM Referred By: Confirmed By: DUKE WILSON MD
[2025-07-17 06:19] LABS: Anion Gap 13 (5-15); BUN 26 mg/dL (4-19); BUN/Creat Ratio 22.5 RATIO (10-20); Calcium,Total 9.6 mg/dL (7.6-11.0); Carbon Dioxide 21.2 mmol/L (21.0-32.0); Chloride 103 mmol/L (98-108); Estimated Creatinine Clearance 64.22 ml/min (50-250); Glucose 127 mg/dL (70-99); Magnesium 2.3 mg/dL (1.5-2.2); Potassium 4.0 mmol/L (3.3-5.1)
--- NOTE | 2025-07-17 09:11 | PCM.PN.HOSP ---
Reason for Visit Chief Complaint: Right arm paresthesias Objective Data Objective Data Vital Signs: Vital Signs Temp Pulse Resp BP Pulse Ox O2 Del Method 97.3 F L 78 16 152/88 H 99 Room Air 07/17/25 07:35 07/17/25 07:35 07/17/25 07:35 07/17/25 07:35 07/17/25 07:35 07/17/25 07:35 Oxygen Delivery Method Room Air Weight: 175 lb 14.862 oz Body Mass Index (BMI) 24.5 Intake & Output: Intake and Output for Last 24 Hours 07/15/25 07/16/25 07/17/25 23:59 23:59 23:59 Output Total 0 / 0 Balance 0 / 0 Lab / Micro Data 07/17/25 04:47 07/17/25 04:47 Labs: Laboratory Results - last 24 hr 07/16/25 11:34: POC Glucose 132 H 07/16/25 16:40: POC Glucose 102 07/16/25 21:04: POC Glucose 130 H 07/17/25 04:47: WBC 6.8, RBC 4.56 L, Hgb 14.3, Hct 41.1, MCV 90.1, MCH 31.4, MCHC 34.8, RDW Std Deviation 45.0 H, RDW Coeff of Kiya 13.7, Plt Count 255, MPV 8.9, Immature Gran % (Auto) 0.300, Neut % (Auto) 62.2, Lymph % (Auto) 24.7, [place]osa % (Auto) 9.3, Eos % (Auto) 2.6, Baso % (Auto) 0.9, Absolute Neuts (auto) 4.2, Absolute Lymphs (auto) 1.68, Nucleated RBC % 0, Sodium 137, Potassium 4.0, Chloride 103, Carbon Dioxide 21.2, Anion Gap 13, BUN 26 H, Creatinine 1.14, Estim Creat Clear Calc 64.22, Est GFR (MDRD) Non-Af 69, BUN/Creatinine Ratio 22.5 H, Glucose 127 H, Calcium 9.6, Phosphorus 4.0, Magnesium 2.3 H Radiography Diagnostic Testing: Radiology Impression Echocardiogram 07/15/25 16:14 Interpretation Summary Mildly dilated left ventricle. Mild concentric left ventricular hypertrophy. Anterior septal and posterior hypokinesis. Estimated LVEF 45%. Stage I diastolic dysfunction. Mild focal aortic valve calcification. Ordering Physician: Daniela Cisneros Referring Physician: Hesham Mishra Performed By: Santa Mcknight RDCS, RVT Carotid Duplex 07/15/25 16:16 Interpretation Summary Moderate (50-69%) stenosis right extracranial internal carotid. Severe (>70%) stenosis left extracranial internal carotid. Patent and antegrade vertebrals bilaterally. Ordering Physician: Daniela Cisneros Referring Physician: Hesham Mishra MD Performed By: Aranza Gottlieb, RVT Physical Exam Narrative Patient is stated that his language function, speech came back and his baseline. His right upper side strength is also improved. Physical exam General: Alert, Oriented x3, Cooperative HEENT: Atraumatic, PERRLA, EOMI, Normocephalic. Oral: No Gingival or Mucosal Lesions/ Ulcerations Neck: Supple, No JVD, Negative Carotid Bruits Chest wall/Lungs: Air entry diminished in bilateral lung bases. No crepitation/rhonchi Cardiovascular: Regular rate and rhythm, Normal S1,S2, No M/G/R Abdomen: Bowel Sounds Present, Soft, Non Tender, Non-Distended : No dysuria. No renal angle tenderness. No suprapubic tenderness. Extremities: No edema, Capillary Refill Less than 3 Seconds Skin: No rashes, No breakdown Musculoskeletal: No Tenderness to Palpation of Joints or Extremities Neurological: Cranial nerves II-XII grossly intact, DTR 2+/4. NIH stroke scale 0.GCS 15 Psych/Mental Status: Normal Affect, Appropriate. Assessment & Plan Assessment/Plan (1) Acute stroke due to ischemia: (2) Carotid stenosis: PLAN: Plan 69-year-old gentleman came to ED with right arm weakness, numbness and tingling since 07/13. He woke up in the morning of 07/15 with slurred speech. Stroke alert was called. 1. Acute ischemic stroke - Right arm paresthesias but has coordination - Residual symptoms at this point are paresthesias in the hand - Multiple infarcts found likely related to showering of plaque from his carotid artery - Left carotid artery with severe stenosis - Continue aspirin and Plavix - Hemoglobin A1c well-controlled diabetes at 6.3 - Continue high intensity dose statin - Echocardiogram on 07/16/2025 and shows mildly dilated LV with an EF of 45% and stage I diastolic dysfunction there is anterior septal and posterior hypokinesis - Neurology following/vascular surgery following -07/17: Plan for carotid endarterectomy on the left on Sunday 2. Abnormal echocardiogram - EF is depressed with wall motion abnormality -mildly dilated LV with an EF of 45% and stage I diastolic dysfunction there is anterior septal and posterior hypokinesis -Stress test was reviewed. No reversible myocardial ischemia on nuclear stress test. Fixed perfusion defect present on rest and stress imaging therefore old IA and fixed inferior wall defect/artifact plan for coronary anatomy on Sunday 3. Severe left carotid artery stenosis - Patient with bilateral carotid artery stenosis - Ultrasound shows moderate stenosis on the right at 50 to 69% and severe greater than 70% on the left with patent and antegrade vertebrals bilaterally. 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 Continue medical treatment 4. DM-2 - Hemoglobin A1c shows well-controlled diabetes at 6.3 - Hold home oral agents and likely restart at discharge - Add subcu basal insulin - Continue sliding scale -Glucose 131. 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 - Patient with significant peripheral vascular disease - continue aspirin/Plavix/statin - Disease risk factor modification Essential hypertension/hyperlipidemia - Losartan on hold - Continue statin DVT prophylaxis - Start enoxaparin 40 daily CODE STATUS - Full code Laboratory Results 07/16/25 16:40: POC Glucose 102 07/16/25 21:04: POC Glucose 130 H 07/17/25 04:47: WBC 6.8, RBC 4.56 L, Hgb 14.3, Hct 41.1, MCV 90.1, MCH 31.4, MCHC 34.8, RDW Std Deviation 45.0 H, RDW Coeff of Kiya 13.7, Plt Count 255, MPV 8.9, Immature Gran % (Auto) 0.300, Neut % (Auto) 62.2, Lymph % (Auto) 24.7, [place] % (Auto) 9.3, Eos % (Auto) 2.6, Baso % (Auto) 0.9, Absolute Neuts (auto) 4.2, Absolute Lymphs (auto) 1.68, Nucleated RBC % 0, Sodium 137, Potassium 4.0, Chloride 103, Carbon Dioxide 21.2, Anion Gap 13, BUN 26 H, Creatinine 1.14, Estim Creat Clear Calc 64.22, Est GFR (MDRD) Non-Af 69, BUN/Creatinine Ratio 22.5 H, Glucose 127 H, Calcium 9.6, Phosphorus 4.0, Magnesium 2.3 H 07/17/25 12:12: POC Glucose 131 H Clinical Impression(s) from Imaging Studies Chest X-Ray 07/15/25 10:54 IMPRESSION: No acute process is identified in the chest. Brain CT 07/15/25 12:40 IMPRESSION: Negative for acute intracranial pathology. 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 Bilateral basal ganglia, bilateral cerebellar and bilateral deep white matter calcifications. Differential considerations including Fahrs disease and vascular calcifications. Head/Neck CTA 07/15/25 12:40 IMPRESSION: There is a 90% stenosis at the origin of the left ICA. There is a 50% stenosis at the origin of the right ICA. Brain MRI 07/15/25 16:14 IMPRESSION: Several scattered small acute infarcts involving the posterior left frontoparietal cortex involving the left pre and postcentral gyri, and in the posterior left occipital lobe. Moderate chronic small-vessel ischemic changes elsewhere in the cerebral white matter with old cortical infarcts in the right frontal and anterior left frontal lobes. No acute intracranial hemorrhage, extra-axial collection, or mass-effect. 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 Numerous potential causes Echocardiogram 07/15/25 16:14 Interpretation Summary Mildly dilated left ventricle. Mild concentric left ventricular hypertrophy. Anterior septal and posterior hypokinesis. Estimated LVEF 45%. Stage I diastolic dysfunction. Mild focal aortic valve calcification. Carotid Duplex 07/15/25 16:16 Interpretation Summary Moderate (50-69%) stenosis right extracranial internal carotid. Severe (>70%) stenosis left extracranial internal carotid. Patent and antegrade vertebrals bilaterally. Charges/Coding Visit Charges Inpatient E&M: 66581 Subs Hosp L2 NIHSS NIHSS Nursing Documentation NIHSS Nursing Documentation: NIHSS: Ischemic Stroke/TIA Start: 07/15/25 16:16 Text: For PCU Patients: NIH and Neuro Check every 4 Status: Active hours, PRN and with change in RN caregiver. Freq: [id number] Protocol: Activity Type Activity Date Activity User E-sign Co-sign Detail Recorded Client Recorded Date Recorded By Document 07/17/25 07:20 ML [id number] 07/17/25 07:41 ML 07/17/25 07:20 NIH Stroke Scale [NIHSS] A score of 0 is normal or asymptomatic . Total possible score is 42. Inpatient: RN or Physician to activate a stroke alert for onset of new stroke symptoms or with NIHSS increase >/= 3 points. Following change in neurological status, NIHSS will be performed per physician order or more frequently PRN. -1a. Level of Consciousness 0 - Alert; keenly responsive -1b. LOC Questions 0 - Answers BOTH questions correctly -1c. LOC Commands 0 - Performs BOTH tasks correctly -2. Best Gaze 0 - Normal -3. Visual 0 - No visual loss -4. Facial Palsy 0 - Normal symmetrical movements -5a. Left Arm 0 - No drift; arm holds 90 ( or 45) degrees for full 10 seconds -5b. Right Arm 0 - No drift; arm holds 90 ( or 45) degrees for full 10 seconds -6a. Left Leg 0 - No drift; leg holds 30- degree position for full 5 seconds -6b. Right Leg 0 - No drift; leg holds 30- degree position for full 5 seconds -7. Limb Ataxia 0 - Absent -8. Sensory 0 - Normal; no sensory loss -9. Best Language 0 - No aphasia; normal -10. Dysarthria 0 - Normal -11. Extinction and Inattention 0 - No abnormality -Total 0 Query Text:A score of 0 is normal or asymptomatic. Total possible score is 42 . ED: Notify Physician for NIHSS increase by > / = 3 points. Inpatient: RN or Physician to activate a stroke alert for NIHSS increase of > / = 3 points. Coma Scale [Assess] -Eye Opening Spontaneous -Motor Obeys Commands -Verbal Oriented [Total] -Coma Scale Total 15
--- NOTE | 2025-07-17 10:50 | STRESSREP ---
Stress Test Report Pharmacologic myocardial perfusion stress test. Indication; 69-year-old patient with acute stroke, symptomatic stenosis of left internal carotid artery 90% Patient with slurred speech Has diabetes mellitus. Cardiac risk assessment Stress protocol: Resting EKG demonstrates. Normal sinus rhythm. Change in the EKG in V1 V2, possible anteroseptal IL 0.4 mg of regadenoson was infused per usual protocol followed by rapid intravenous saline flush injection continuous EKG monitoring was performed. The maximum heart rate attained was 75 bpm which was 59% of maximum predicted heart . Stress EKG showed[, no significant change from the resting EKG, with maximum heart rate of 75 bpm. Arrhythmia: No arrhythmia demonstrated Symptoms: Patient had no symptoms of chest pain Blood pressure at rest: 152/94 mmHg blood pressure at the end of stress: 152/94 mmHg Myocardial perfusion protocol. 12.9 mCi ]of Technetium 99m Sestamibi was injected at rest. [ 0.4 mg ]of Regadenoson was infused per usual protocol peak infusion[36 mCi ]of Technetium 99m sestamibi was injected. Stress images were obtained stress and rest images were reconstructed and compared in the short axis vertical and horizontal long axis. Gated images were also obtained Perfusion SPECT analysis: Review of the images demonstrate fixed perfusion defect, anteroseptal, both at rest and following stress/Lexiscan infusion As well inferior attenuation artifact is noted. No reversible myocardial perfusion defect noted. Gated SPECT analysis: The gated ejection fraction is 38% Global LV hypokinesia Conclusion: Abnormal Lexiscan stress test with fixed anteroseptal defect at the specified As well as inferior attenuation artifact Reduced LV systolic function, global LV hypokinesia calculated ejection fraction of 38%. Consistent with moderate LV systolic dysfunction Filiberto Biggs MD,FACC,[facility] [place]
--- NOTE | 2025-07-17 12:13 | PN.SURG_ITS ---
Subjective Subjective I saw Mr. Pritchard resting in bed this afternoon. His was at bedside, and RN present as well at bedside. We discussed the findings from the stress test in general. He reports that he still has some paresthesias in the R hand but otherwise feels back to baseline. Objective Data Objective Data Vital Signs: Vital Signs Temp Pulse Resp BP Pulse Ox O2 Del Method 97.6 F L 71 18 159/86 H 98 Room Air 07/17/25 11:20 07/17/25 11:20 07/17/25 11:20 07/17/25 11:20 07/17/25 11:20 07/17/25 11:20 Oxygen Delivery Method Room Air Weight: 175 lb 14.862 oz Body Mass Index (BMI) 24.5 Intake & Output: Intake and Output for Last 24 Hours 07/15/25 07/16/25 07/17/25 23:59 23:59 23:59 Output Total 0 / 0 Balance 0 / 0 Lab / Micro Data 07/17/25 04:47 07/17/25 04:47 Labs: Laboratory Results - last 24 hr 07/16/25 16:40: POC Glucose 102 07/16/25 21:04: POC Glucose 130 H 07/17/25 04:47: WBC 6.8, RBC 4.56 L, Hgb 14.3, Hct 41.1, MCV 90.1, MCH 31.4, MCHC 34.8, RDW Std Deviation 45.0 H, RDW Coeff of Kiya 13.7, Plt Count 255, MPV 8.9, Immature Gran % (Auto) 0.300, Neut % (Auto) 62.2, Lymph % (Auto) 24.7, [place] % (Auto) 9.3, Eos % (Auto) 2.6, Baso % (Auto) 0.9, Absolute Neuts (auto) 4.2, Absolute Lymphs (auto) 1.68, Nucleated RBC % 0, Sodium 137, Potassium 4.0, Chloride 103, Carbon Dioxide 21.2, Anion Gap 13, BUN 26 H, Creatinine 1.14, Estim Creat Clear Calc 64.22, Est GFR (MDRD) Non-Af 69, BUN/Creatinine Ratio 22.5 H, Glucose 127 H, Calcium 9.6, Phosphorus 4.0, Magnesium 2.3 H Radiography Diagnostic Testing: Radiology Impression Echocardiogram 07/15/25 16:14 Interpretation Summary Mildly dilated left ventricle. Mild concentric left ventricular hypertrophy. Anterior septal and posterior hypokinesis. Estimated LVEF 45%. Stage I diastolic dysfunction. Mild focal aortic valve calcification. Ordering Physician: Daniela Cisneros Referring Physician: Hesham Mishra Performed By: Santa Mcknight RDCS, RVT Carotid Duplex 07/15/25 16:16 Interpretation Summary Moderate (50-69%) stenosis right extracranial internal carotid. Severe (>70%) stenosis left extracranial internal carotid. Patent and antegrade vertebrals bilaterally. Ordering Physician: Daniela Cisneros Referring Physician: Hesham Mishra MD Performed By: Aranza Gottlieb, RVT Physical Exam Const alert, oriented x3 and no apparent distress General Appearance: cooperative HEENT normocephalic, head/scalp atraumatic, TM's normal bilaterally and external nose normal Eyes EOMs intact bilaterally Neck General: normal visual inspection Resp normal respiratory effort and no retractions Effort and Inspection: able to speak in complete sentences Cardio Rate: regular rate Rhythm: regular rhythm Skin Skin Narrative: Noted wound to the R great toe amputation stump, dressings in place, not examined Neuro CN's II-XII intact bilaterally Speech: speech normal Psych mental status grossly normal Appearance: grossly normal Assessment & Plan Assessment/Plan (1) Symptomatic stenosis of left carotid artery: PLAN: His stress test was abnormal. Consulted cardiology and will await their evaluation and recommendations. I discussed with patient and his that we will want to ensure he is cleared from cardiac perspective prior to proceeding with carotid surgery and so pending cardiology recommendations we may need to postpone surgery that is currently tentatively scheduled for and they acknowledged understanding though he is disappointed. Continue ASA, statin, plavix. Will follow-up on cardiology consult and adjust surgical plans accordingly. Charges/Coding Visit Charges Inpatient E&M: 62038 Subs Hosp L1
[2025-07-17] MEDS: Calcium Carb/Vitamin D 1 TABLET Tablet PO (12:23)
--- NOTE | 2025-07-17 15:06 | CON.PCM.CA_ITS ---
<Statement entered by Filiberto Biggs MD - 07/18/25 07:52> Pt seen & evaluated w/JAMEL. I personally interviewed & exam the pt. I was involved in all aspects of pt's orders, interpretation of results & treatment Assessment & Plan Assessment/Plan (1) Acute stroke due to ischemia: (2) Symptomatic stenosis of left carotid artery: (3) Slurred speech: (4) Diabetes mellitus: (5) Paresthesia of right upper extremity: (6) Moderate left ventricular systolic dysfunction (LVSD): PLAN: Cardiac care plan recommendation; 69-year-old patient admitted with slurred speech and right-sided weakness With a diagnosis of acute stroke due to ischemia And symptomatic stenosis of the left carotid artery around 90%. Symptoms of slurred speech improved as well as the weakness on the right upper extremity. Patient had a history of diabetes mellitus. 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 Patient denied any symptoms of chest pain no shortness of breath or dizziness. Cardiac exam essentially normal I reviewed the cardiac evaluation with EKG, nuclear monitoring technician echocardiogram And Lexiscan sestamibi. The EKG revealed normal sinus with possible age-indeterminate anteroseptal RI. The echocardiogram showed moderate LV dysfunction EF around 40?45% with anteroseptal and inferior hypokinesia No pericardial effusion and no significant valve abnormality The nuclear stress test revealed calculated EF 38% Cardiac care plan; Based on the cardiac evaluation patient is asymptomatic The finding of possible could explain silent myocardial infarction at some point Would recommend medical therapy to improve the LV function in the form of Entresto, carvedilol, low-dose aspirin Aldactone and Farxiga From cardiac standpoint he is cleared to undergo left carotid endarterectomy with moderate risk. Will continue to monitor post surgery With the plan of possible cardiac catheterization which can be set up as an elective with the cardiac team at [facility]. HPI Consult Data Date of Consult: 07/18/25 HPI Narrative Reason for Consultation: Cardiac risk stratification for left carotid endarterectomy. HPI Narrative: JORY BOBBY, is a 69 M who presents [facility] [place] Medical History (Updated 07/17/25 @ 15:[address] Filiberto Biggs MD) Wears dentures Wears glasses Cancer Insulin dependent diabetes mellitus Diabetes Dietary restriction Hypertension History of skin cancer Home Medications ?Medication ?Instructions ?Recorded ?Last Taken ?Type oxycodone-acetaminophen 5 mg-325 1 tab PO Q12H PRN doug n 7 days #28 05/12/25 05/18/25 Rx mg tablet (Percocet) tabs insulin glargine-yfgn 100 unit/mL 12 unit subcut QHS 0 05/20/25 05/21/25 History (3 mL) subcutaneous pen losartan 50 mg tablet 50 mg PO DAILY 05/20/2504/23 History metformin 500 mg tablet 1,000 mg PO .QAM 05/20/25 History metformin 500 mg tablet 500 mg PO 1700 05/20/2504/23 History ascorbic acid (vitamin C) 1,000 mg 1 g PO DAILY 90 day s #90 tabs 05/22/25 Unknown Rx tablet (Vitamin C) aspirin 81 mg tablet,delayed 81 mg PO BID 30 days #60 tabs 05/22/25 Unknown Rx release calcium 500 mg (as 1 tab PO DAILY 90 days #90 t abs 05/22/25 Unknown Rx carbonate)-vitamin D3 15 mcg (600 unit) tablet (Os-Will 500 + D3) docusate sodium 100 mg capsule 100 mg PO DAILY 10 days #10 caps 05/22/25 Unknown Rx (Colace) Allergy/AdvReac Type Severity Reaction Status Date / Time lisinopril Allergy Severe Other Verified 07/15/25 09:43 Surgical History (Updated 07/15/25 @ 13:[address] Refugio Lema, ) Hx of appendectomy Status post surgical removal of malignant neoplasm of skin Hx of toe surgery Hx of hernia repair Social History Smoking Status: Former smoker Physical Exam Cardio Cardio Narrative: Seen and evaluated at bedside along with the and the RN/nursing staff Sitting out in a chair comfortable no symptoms reported apart from mild numbness on the right upper extremity. Cardiac exam S1-S2 is regular No systolic or diastolic murmur Chest exam clear to auscultation bilateral. Objective Data Vital Signs: Vital Signs Temp Pulse Resp BP Pulse Ox O2 Del Method 97.6 F L 71 18 159/86 H 98 Room Air 07/17/25 11:20 07/17/25 11:20 07/17/25 11:20 07/17/25 11:20 07/17/25 11:20 07/17/25 14:35 Oxygen Delivery Method Room Air Weight: 175 lb 14.862 oz Body Mass Index (BMI) 24.5 Intake & Output: Intake and Output for Last 24 Hours 07/15/25 07/16/25 07/17/25 23:59 23:59 23:59 Intake Total 480 / 480 Output Total 0 / 0 Balance 0 / 0 480 / 480 Lab / Micro Data 07/17/25 04:47 07/17/25 04:47 Labs: Laboratory Results - last 24 hr 07/16/25 16:40: POC Glucose 102 07/16/25 21:04: POC Glucose 130 H 07/17/25 04:47: WBC 6.8, RBC 4.56 L, Hgb 14.3, Hct 41.1, MCV 90.1, MCH 31.4, MCHC 34.8, RDW Std Deviation 45.0 H, RDW Coeff of Kiya 13.7, Plt Count 255, MPV 8.9, Immature Gran % (Auto) 0.300, Neut % (Auto) 62.2, Lymph % (Auto) 24.7, [place] % (Auto) 9.3, Eos % (Auto) 2.6, Baso % (Auto) 0.9, Absolute Neuts (auto) 4.2, Absolute Lymphs (auto) 1.68, Nucleated RBC % 0, Sodium 137, Potassium 4.0, Chloride 103, Carbon Dioxide 21.2, Anion Gap 13, BUN 26 H, Creatinine 1.14, Estim Creat Clear Calc 64.22, Est GFR (MDRD) Non-Af 69, BUN/Creatinine Ratio 22.5 H, Glucose 127 H, Calcium 9.6, Phosphorus 4.0, Magnesium 2.3 H 07/17/25 12:12: POC Glucose 131 H Cardiology Labs/Tests 07/17/25 04:47: WBC 6.8, RBC 4.56 L, Hgb 14.3, Hct 41.1, MCV 90.1, MCH 31.4, MCHC 34.8, Plt Count 255, MPV 8.9, Immature Gran % (Auto) 0.300, Neut % (Auto) 62.2, Lymph % (Auto) 24.7, [place] % (Auto) 9.3, Eos % (Auto) 2.6, Baso % (Auto) 0.9, Absolute Neuts (auto) 4.2, Nucleated RBC % 0, Sodium 137, Potassium 4.0, Chloride 103, Carbon Dioxide 21.2, Anion Gap 13, BUN 26 H, Creatinine 1.14, Est GFR (MDRD) Non-Af 69, BUN/Creatinine Ratio 22.5 H, Glucose 127 H, Calcium 9.6, Phosphorus 4.0, Magnesium 2.3 H Rhythm: EKG: ECHO: Stress Test: Cardiac Cath: PCI: CT Surgery: Holter monitor: EPS: PPM: CXR: Chest CT Scan: RAJINDER Risk Score for UA/STEMI Assesmment (YES = 1) Risk Stratification Applicable: No
[2025-07-17] MEDS: Insulin Glargine-YFGN 100 UNIT/ML Pen 12 UNIT SC (22:15)
[2025-07-17] MEDS: SACUBITRIL/VALSARTAN 24/26 MG TABLET 1 EACH PO (22:15)
[2025-07-18 00:35] VITALS: BMI 24.5
[2025-07-18 02:00] VITALS: BP 158/80; PULSE 79; RESP 16; TEMP 35.9; O2SAT 99
[2025-07-18 06:00] VITALS: BP 123/85; PULSE 78; RESP 17; TEMP 36.7; O2SAT 98
[2025-07-18 10:00] VITALS: BP 135/78; PULSE 74; RESP 18; TEMP 36.3; O2SAT 99
[2025-07-18] MEDS: SACUBITRIL/VALSARTAN 24/26 MG TABLET 1 EACH PO ×2 (10:01→21:07)
[2025-07-18] MEDS: Calcium Carb/Vitamin D 1 TABLET Tablet PO (10:03)
--- NOTE | 2025-07-18 12:51 | PN.HOSP_ITS ---
Reason for Visit Chief Complaint: Right arm paresthesias Objective Data Objective Data Vital Signs: Vital Signs Temp Pulse Resp BP Pulse Ox O2 Del Method 97.3 F L 74 18 135/78 H 99 Room Air 07/18/25 10:00 07/18/25 10:00 07/18/25 10:00 07/18/25 10:00 07/18/25 10:00 07/18/25 10:00 Oxygen Delivery Method Room Air Weight: 175 lb 14.862 oz Body Mass Index (BMI) 24.5 Intake & Output: Intake and Output for Last 24 Hours 07/16/25 07/17/25 07/18/25 23:59 23:59 23:59 Intake Total 960 / 960 360 / 360 Balance 960 / 960 360 / 360 Lab / Micro Data 07/17/25 04:47 07/17/25 04:47 Labs: Laboratory Results - last 24 hr 07/17/25 16:47: POC Glucose 127 H 07/17/25 22:06: POC Glucose 144 H 07/18/25 06:14: POC Glucose 163 H 07/18/25 11:40: POC Glucose 127 H Physical Exam Narrative Patient is stated that his language function, speech came back and his baseline. His right upper side strength is also improved. No acute issues. Left carotid/CEA surgery planned on Sunday Physical exam General: Alert, Oriented x3, Cooperative HEENT: Atraumatic, PERRLA, EOMI, Normocephalic. Oral: No Gingival or Mucosal Lesions/ Ulcerations Neck: Supple, No JVD, Negative Carotid Bruits Chest wall/Lungs: Air entry diminished in bilateral lung bases. No crepitation/rhonchi Cardiovascular: Regular rate and rhythm, Normal S1,S2, No M/G/R Abdomen: Bowel Sounds Present, Soft, Non Tender, Non-Distended : No dysuria. No renal angle tenderness. No suprapubic tenderness. Extremities: No edema, Capillary Refill Less than 3 Seconds Skin: No rashes, No breakdown Musculoskeletal: No Tenderness to Palpation of Joints or Extremities Neurological: Cranial nerves II-XII grossly intact, DTR 2+/4. NIH stroke scale 0.GCS 15 Psych/Mental Status: Normal Affect, Appropriate. Assessment & Plan Assessment/Plan (1) Acute stroke due to ischemia: (2) Carotid stenosis: PLAN: Plan 69-year-old gentleman came to ED with right arm weakness, numbness and tingling since 07/13. He woke up in the morning of 07/15 with slurred speech. Stroke alert was called. 1. Acute ischemic stroke - Right arm paresthesias but has coordination - Residual symptoms at this point are paresthesias in the hand - Multiple infarcts found likely related to showering of plaque from his carotid artery - Left carotid artery with severe stenosis - Continue aspirin and Plavix - Hemoglobin A1c well-controlled diabetes at 6.3 - Continue high intensity dose statin - Echocardiogram on 07/16/2025 and shows mildly dilated LV with an EF of 45% and stage I diastolic dysfunction there is anterior septal and posterior hypokinesis - Neurology following/vascular surgery following -07/17: Plan for carotid endarterectomy on the left on Wednesday 07/18: No acute issues. Patient is doing well. Blood pressure is controlled. 2. Abnormal echocardiogram - EF is depressed with wall motion abnormality -mildly dilated LV with an EF of 45% and stage I diastolic dysfunction there is anterior septal and posterior hypokinesis -Stress test was reviewed. No reversible myocardial ischemia on nuclear stress test. Fixed perfusion defect present on rest and stress imaging therefore old VT and fixed inferior wall defect/artifact plan for coronary anatomy on Sunday 3. Severe left carotid artery stenosis - Patient with bilateral carotid artery stenosis - Ultrasound shows moderate stenosis on the right at 50 to 69% and severe greater than 70% on the left with patent and antegrade vertebrals bilaterally. 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 Continue medical treatment 4. DM-2 - Hemoglobin A1c shows well-controlled diabetes at 6.3 - Hold home oral agents and likely restart at discharge - Add subcu basal insulin - Continue sliding scale -Glucose 131. 07/18 blood sugar is 127. 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 - Patient with significant peripheral vascular disease - continue aspirin/Plavix/statin - Disease risk factor modification Essential hypertension/hyperlipidemia - Losartan on hold - Continue statin DVT prophylaxis - Start enoxaparin 40 daily CODE STATUS - Full code Laboratory Results 07/16/25 16:40: POC Glucose 102 07/16/25 21:04: POC Glucose 130 H 07/17/25 04:47: WBC 6.8, RBC 4.56 L, Hgb 14.3, Hct 41.1, MCV 90.1, MCH 31.4, MCHC 34.8, RDW Std Deviation 45.0 H, RDW Coeff of Kiya 13.7, Plt Count 255, MPV 8.9, Immature Gran % (Auto) 0.300, Neut % (Auto) 62.2, Lymph % (Auto) 24.7, [place] % (Auto) 9.3, Eos % (Auto) 2.6, Baso % (Auto) 0.9, Absolute Neuts (auto) 4.2, Absolute Lymphs (auto) 1.68, Nucleated RBC % 0, Sodium 137, Potassium 4.0, Chloride 103, Carbon Dioxide 21.2, Anion Gap 13, BUN 26 H, Creatinine 1.14, Estim Creat Clear Calc 64.22, Est GFR (MDRD) Non-Af 69, BUN/Creatinine Ratio 22.5 H, Glucose 127 H, Calcium 9.6, Phosphorus 4.0, Magnesium 2.3 H 07/17/25 12:12: POC Glucose 131 H Clinical Impression(s) from Imaging Studies Chest X-Ray 07/15/25 10:54 IMPRESSION: No acute process is identified in the chest. Brain CT 07/15/25 12:40 IMPRESSION: Negative for acute intracranial pathology. 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 Bilateral basal ganglia, bilateral cerebellar and bilateral deep white matter calcifications. Differential considerations including Fahrs disease and vascular calcifications. Head/Neck CTA 07/15/25 12:40 IMPRESSION: There is a 90% stenosis at the origin of the left ICA. There is a 50% stenosis at the origin of the right ICA. Brain MRI 07/15/25 16:14 IMPRESSION: Several scattered small acute infarcts involving the posterior left frontoparietal cortex involving the left pre and postcentral gyri, and in the posterior left occipital lobe. Moderate chronic small-vessel ischemic changes elsewhere in the cerebral white matter with old cortical infarcts in the right frontal and anterior left frontal lobes. No acute intracranial hemorrhage, extra-axial collection, or mass-effect. 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 Numerous potential causes Echocardiogram 07/15/25 16:14 Interpretation Summary Mildly dilated left ventricle. Mild concentric left ventricular hypertrophy. Anterior septal and posterior hypokinesis. Estimated LVEF 45%. Stage I diastolic dysfunction. Mild focal aortic valve calcification. Carotid Duplex 07/15/25 16:16 Interpretation Summary Moderate (50-69%) stenosis right extracranial internal carotid. Severe (>70%) stenosis left extracranial internal carotid. Patent and antegrade vertebrals bilaterally. Charges/Coding Visit Charges Inpatient E&M: 87316 Subs Hosp L2 NIHSS NIHSS Nursing Documentation NIHSS Nursing Documentation: NIHSS: Ischemic Stroke/TIA Start: 07/15/25 16:16 Text: For PCU Patients: NIH and Neuro Check every 4 Status: Active hours, PRN and with change in RN caregiver. Freq: [id number] Protocol: Activity Type Activity Date Activity User E-sign Co-sign Detail Recorded Client Recorded Date Recorded By Document 07/18/25 10:00 [email or web address] [id number] 07/18/25 10:00 CATARINA 07/18/25 10:00 NIH Stroke Scale [NIHSS] A score of 0 is normal or asymptomatic . Total possible score is 42. Inpatient: RN or Physician to activate a stroke alert for onset of new stroke symptoms or with NIHSS increase >/= 3 points. Following change in neurological status, NIHSS will be performed per physician order or more frequently PRN. -1a. Level of Consciousness 0 - Alert; keenly responsive -1b. LOC Questions 0 - Answers BOTH questions correctly -1c. LOC Commands 0 - Performs BOTH tasks correctly -2. Best Gaze 0 - Normal -3. Visual 0 - No visual loss -4. Facial Palsy 0 - Normal symmetrical movements -5a. Left Arm 0 - No drift; arm holds 90 ( or 45) degrees for full 10 seconds -5b. Right Arm 0 - No drift; arm holds 90 ( or 45) degrees for full 10 seconds -6a. Left Leg 0 - No drift; leg holds 30- degree position for full 5 seconds -6b. Right Leg 0 - No drift; leg holds 30- degree position for full 5 seconds -7. Limb Ataxia 0 - Absent -8. Sensory 0 - Normal; no sensory loss -9. Best Language 0 - No aphasia; normal -10. Dysarthria 0 - Normal -11. Extinction and Inattention 0 - No abnormality -Total 0 Query Text:A score of 0 is normal or asymptomatic. Total possible score is 42 . ED: Notify Physician for NIHSS increase by > / = 3 points. Inpatient: RN or Physician to activate a stroke alert for NIHSS increase of > / = 3 points. Coma Scale [Assess] -Eye Opening Spontaneous -Motor Obeys Commands -Verbal Oriented [Total] -Coma Scale Total 15
[2025-07-18 14:00] VITALS: BP 137/73; PULSE 64; RESP 18; TEMP 36.3; O2SAT 94
[2025-07-18 15:26] VITALS: BMI 24.5
[2025-07-18 21:00] VITALS: BP 144/74; PULSE 70; RESP 18; TEMP 36.3; O2SAT 97
[2025-07-18] MEDS: Insulin Glargine-YFGN 100 UNIT/ML Pen 12 UNIT SC (21:06)
[2025-07-19 03:16] VITALS: BP 127/70; PULSE 81; RESP 18; TEMP 36.6; O2SAT 98
[2025-07-19 03:28] VITALS: BMI 24.5
[2025-07-19 09:05] VITALS: BP 121/73; PULSE 70; RESP 18; TEMP 36.3; O2SAT 98
[2025-07-19] MEDS: SACUBITRIL/VALSARTAN 24/26 MG TABLET 1 EACH PO ×2 (09:10→21:10)
[2025-07-19] MEDS: Calcium Carb/Vitamin D 1 TABLET Tablet PO (09:11)
--- NOTE | 2025-07-19 11:40 | PCM.PN.HOSP ---
Reason for Visit Chief Complaint: Right arm paresthesias Objective Data Objective Data Vital Signs: Vital Signs Temp Pulse Resp BP Pulse Ox O2 Del Method 97.4 F L 70 18 121/73 H 98 Room Air 07/19/25 09:05 07/19/25 09:05 07/19/25 09:05 07/19/25 09:05 07/19/25 09:05 07/19/25 09:05 Oxygen Delivery Method Room Air Weight: 175 lb 14.862 oz Body Mass Index (BMI) 24.5 Intake & Output: Intake and Output for Last 24 Hours 07/17/25 07/18/25 07/19/25 23:59 23:59 23:59 Intake Total 960 / 960 840 / 840 Balance 960 / 960 840 / 840 Lab / Micro Data 07/17/25 04:47 07/17/25 04:47 Labs: Laboratory Results - last 24 hr 07/18/25 11:40: POC Glucose 127 H 07/18/25 12:53: Blood Type A POSITIVE, Antibody Screen NEGATIVE 07/18/25 16:27: POC Glucose 135 H 07/18/25 21:04: POC Glucose 144 H 07/19/25 06:31: POC Glucose 144 H Physical Exam Narrative Seen and examined. No acute issues. Patient is stated that his language function, speech came back and his baseline. His right upper side strength has improved, back to baseline. Left carotid/CEA surgery planned on Sunday Physical exam General: Alert, Oriented x3, Cooperative HEENT: Atraumatic, PERRLA, EOMI, Normocephalic. Oral: No Gingival or Mucosal Lesions/ Ulcerations Neck: Supple, No JVD, Negative Carotid Bruits Chest wall/Lungs: Air entry equal in both lungs. No crepitation/rhonchi Cardiovascular: Regular rate and rhythm, Normal S1,S2, No M/G/R Abdomen: Bowel Sounds Present, Soft, Non Tender, Non-Distended : No dysuria. No renal angle tenderness. No suprapubic tenderness. Extremities: No edema, Capillary Refill Less than 3 Seconds Skin: No rashes, No breakdown Musculoskeletal: No Tenderness to Palpation of Joints or Extremities Neurological: Cranial nerves II-XII grossly intact, DTR 2+/4. NIH stroke scale 0.GCS 15 Psych/Mental Status: Normal Affect, Appropriate. Assessment & Plan Assessment/Plan (1) Acute stroke due to ischemia: (2) Carotid stenosis: PLAN: Plan 69-year-old gentleman came to ED with right arm weakness, numbness and tingling since 07/13. He woke up in the morning of 07/15 with slurred speech. Stroke alert was called. 1. Acute ischemic stroke - Right arm paresthesias but has coordination - Residual symptoms at this point are paresthesias in the hand - Multiple infarcts found likely related to showering of plaque from his carotid artery - Left carotid artery with severe stenosis - Continue aspirin and Plavix - Hemoglobin A1c well-controlled diabetes at 6.3 - Continue high intensity dose statin - Echocardiogram on 07/16/2025 and shows mildly dilated LV with an EF of 45% and stage I diastolic dysfunction there is anterior septal and posterior hypokinesis - Neurology following/vascular surgery following -07/17: Plan for carotid endarterectomy on the left on Wednesday 07/18: No acute issues. Patient is doing well. Blood pressure is controlled. 07/19: No acute issues. Patient is doing well. N.p.o. past midnight for carotid surgery tomorrow morning. 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 2. Abnormal echocardiogram - EF is depressed with wall motion abnormality -mildly dilated LV with an EF of 45% and stage I diastolic dysfunction there is anterior septal and posterior hypokinesis -Stress test was reviewed. No reversible myocardial ischemia on nuclear stress test. Fixed perfusion defect present on rest and stress imaging therefore old [place] and fixed inferior wall defect/artifact plan for coronary anatomy on Sunday 3. Severe left carotid artery stenosis - Patient with bilateral carotid artery stenosis - Ultrasound shows moderate stenosis on the right at 50 to 69% and severe greater than 70% on the left with patent and antegrade vertebrals bilaterally. 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 Continue medical treatment 4. DM-2 - Hemoglobin A1c shows well-controlled diabetes at 6.3 - Hold home oral agents and likely restart at discharge - Add subcu basal insulin - Continue sliding scale -Glucose 131. 07/18 blood sugar is 127. 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 - Patient with significant peripheral vascular disease - continue aspirin/Plavix/statin - Disease risk factor modification Essential hypertension/hyperlipidemia - Losartan on hold - Continue statin DVT prophylaxis - Start enoxaparin 40 daily CODE STATUS - Full code Laboratory Results 07/16/25 16:40: POC Glucose 102 07/16/25 21:04: POC Glucose 130 H 07/17/25 04:47: WBC 6.8, RBC 4.56 L, Hgb 14.3, Hct 41.1, MCV 90.1, MCH 31.4, MCHC 34.8, RDW Std Deviation 45.0 H, RDW Coeff of Kiya 13.7, Plt Count 255, MPV 8.9, Immature Gran % (Auto) 0.300, Neut % (Auto) 62.2, Lymph % (Auto) 24.7, [place] % (Auto) 9.3, Eos % (Auto) 2.6, Baso % (Auto) 0.9, Absolute Neuts (auto) 4.2, Absolute Lymphs (auto) 1.68, Nucleated RBC % 0, Sodium 137, Potassium 4.0, Chloride 103, Carbon Dioxide 21.2, Anion Gap 13, BUN 26 H, Creatinine 1.14, Estim Creat Clear Calc 64.22, Est GFR (MDRD) Non-Af 69, BUN/Creatinine Ratio 22.5 H, Glucose 127 H, Calcium 9.6, Phosphorus 4.0, Magnesium 2.3 H 07/17/25 12:12: POC Glucose 131 H Clinical Impression(s) from Imaging Studies Chest X-Ray 07/15/25 10:54 IMPRESSION: No acute process is identified in the chest. Brain CT 07/15/25 12:40 IMPRESSION: Negative for acute intracranial pathology. 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 Bilateral basal ganglia, bilateral cerebellar and bilateral deep white matter calcifications. Differential considerations including Fahrs disease and vascular calcifications. Head/Neck CTA 07/15/25 12:40 IMPRESSION: There is a 90% stenosis at the origin of the left ICA. There is a 50% stenosis at the origin of the right ICA. Brain MRI 07/15/25 16:14 IMPRESSION: Several scattered small acute infarcts involving the posterior left frontoparietal cortex involving the left pre and postcentral gyri, and in the posterior left occipital lobe. Moderate chronic small-vessel ischemic changes elsewhere in the cerebral white matter with old cortical infarcts in the right frontal and anterior left frontal lobes. No acute intracranial hemorrhage, extra-axial collection, or mass-effect. 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 Numerous potential causes Echocardiogram 07/15/25 16:14 Interpretation Summary Mildly dilated left ventricle. Mild concentric left ventricular hypertrophy. Anterior septal and posterior hypokinesis. Estimated LVEF 45%. Stage I diastolic dysfunction. Mild focal aortic valve calcification. Carotid Duplex 07/15/25 16:16 Interpretation Summary Moderate (50-69%) stenosis right extracranial internal carotid. Severe (>70%) stenosis left extracranial internal carotid. Patent and antegrade vertebrals bilaterally. Charges/Coding Visit Charges Inpatient E&M: 90186 Subs Hosp L2 NIHSS NIHSS Nursing Documentation NIHSS Nursing Documentation: NIHSS: Ischemic Stroke/TIA Start: 07/15/25 16:16 Text: For PCU Patients: NIH and Neuro Check every 4 Status: Active hours, PRN and with change in RN caregiver. Freq: PRN Protocol: Activity Type Activity Date Activity User E-sign Co-sign Detail Recorded Client Recorded Date Recorded By Document 07/18/25 20:50 DC [id number] 07/18/25 20:54 DC 07/18/25 20:50 NIH Stroke Scale [NIHSS] A score of 0 is normal or asymptomatic . Total possible score is 42. Inpatient: RN or Physician to activate a stroke alert for onset of new stroke symptoms or with NIHSS increase >/= 3 points. Following change in neurological status, NIHSS will be performed per physician order or more frequently PRN. -1a. Level of Consciousness 0 - Alert; keenly responsive -1b. LOC Questions 0 - Answers BOTH questions correctly -1c. LOC Commands 0 - Performs BOTH tasks correctly -2. Best Gaze 0 - Normal -3. Visual 0 - No visual loss -4. Facial Palsy 0 - Normal symmetrical movements -5a. Left Arm 0 - No drift; arm holds 90 ( or 45) degrees for full 10 seconds -5b. Right Arm 0 - No drift; arm holds 90 ( or 45) degrees for full 10 seconds -6a. Left Leg 0 - No drift; leg holds 30- degree position for full 5 seconds -6b. Right Leg 0 - No drift; leg holds 30- degree position for full 5 seconds -7. Limb Ataxia 0 - Absent -8. Sensory 0 - Normal; no sensory loss -9. Best Language 0 - No aphasia; normal -10. Dysarthria 0 - Normal -11. Extinction and Inattention 0 - No abnormality -Total 0 Query Text:A score of 0 is normal or asymptomatic. Total possible score is 42 . ED: Notify Physician for NIHSS increase by > / = 3 points. Inpatient: RN or Physician to activate a stroke alert for NIHSS increase of > / = 3 points. Coma Scale [Assess] -Eye Opening Spontaneous -Motor Obeys Commands -Verbal Oriented [Total] -Coma Scale Total 15
[2025-07-19 15:04] VITALS: BMI 24.5
[2025-07-19 15:05] VITALS: BP 154/77; PULSE 70; RESP 18; TEMP 36.7; O2SAT 98
[2025-07-19 21:07] VITALS: BP 146/75; PULSE 70; RESP 16; TEMP 36.2; O2SAT 98
[2025-07-19] MEDS: 0.9% Saline Lock 10 ML Syringe IV (21:09)
[2025-07-19] MEDS: Insulin Glargine-YFGN 100 UNIT/ML Pen 12 UNIT SC (21:11)
[2025-07-19 23:56] VITALS: BMI 24.5
[2025-07-20] VITALS (22 sets, daily range): BP systolic 80–185; BP diastolic 49–103; PULSE 51–94; RESP 12–20; TEMP 36.1–37.1; O2SAT 91–100; BMI 24.5
[2025-07-20 05:12] LABS: Hematocrit 43.7 % (40-54); Hemoglobin 14.6 g/dL (13.0-16.5); Immature Granulocytes Count 0.020 X10^3/uL (0.0-0.0); Mean Corp Hgb Conc 33.4 g/dL (32-36); Mean Corpuscular Volume 91.6 fL (80-94); Mean Platelet Vol. 8.8 fl (6.2-12.0); NRBC Flagged by Analyzer 0 % (0-5); Platelet Count 242 K/mm3 (150-450); RBC Distribution Width CV 13.3 % (11.6-14.6); RBC Distribution Width SD 45.1 fl (35.1-43.9); Red Blood Count 4.77 M/mm3 (4.6-6.2); White Blood Count 7.3 K/mm3 (4.4-11.0)
[2025-07-20 05:26] LABS: Prothrombin Time (Protime)PT. 13.6 SECONDS (11.7-14.9)
[2025-07-20 06:06] LABS: Anion Gap 12 (5-15); BUN 42 mg/dL (4-19); BUN/Creat Ratio 30.7 RATIO (10-20); Calcium,Total 9.4 mg/dL (7.6-11.0); Carbon Dioxide 23.0 mmol/L (21.0-32.0); Chloride 102 mmol/L (98-108); Estimated Creatinine Clearance 53.05 ml/min (50-250); Glucose 126 mg/dL (70-99); Potassium 4.4 mmol/L (3.3-5.1)
--- NOTE | 2025-07-20 07:41 | PCM.PN.SRG ---
Subjective Subjective No issues over the weekend. Stress test revealed perfusion defect without inducible ischemia. Seen by cardiology, is moderate risk for surgery, able to proceed without further imaging. Objective Data Objective Data A&O x 3, NAD RRR Resp Non labored CN II-XII intact no motor/sensory deficits Vital Signs: Vital Signs Temp Pulse Resp BP Pulse Ox O2 Del Method 98.7 F 73 14 144/80 H 99 Room Air 07/20/25 05:32 07/20/25 05:32 07/20/25 05:32 07/20/25 05:32 07/20/25 05:32 07/20/25 05:32 Oxygen Delivery Method Room Air Weight: 175 lb 14.862 oz Body Mass Index (BMI) 24.5 Intake & Output: Intake and Output for Last 24 Hours 07/18/25 07/19/25 07/20/25 23:59 23:59 23:59 Intake Total 840 / 840 1140 / 1140 Balance 840 / 840 1140 / 1140 Lab / Micro Data 07/20/25 04:53 07/20/25 04:53 Labs: Laboratory Results - last 24 hr 07/19/25 11:52: POC Glucose 194 H 07/19/25 16:24: POC Glucose 130 H 07/19/25 21:05: POC Glucose 142 H 07/20/25 04:53: WBC 7.3, RBC 4.77, Hgb 14.6, Hct 43.7, MCV 91.6, MCH 30.6, MCHC 33.4, RDW Std Deviation 45.1 H, RDW Coeff of Kiya 13.3, Plt Count 242, MPV 8.8, Immature Gran % (Auto) 0.300, Neut % (Auto) 63.5, Lymph % (Auto) 26.1, [place] % (Auto) 7.7, Eos % (Auto) 1.9, Baso % (Auto) 0.5, Absolute Neuts (auto) 4.6, Absolute Lymphs (auto) 1.91, Nucleated RBC % 0, PT 13.6, INR 1.0, Sodium 137, Potassium 4.4, Chloride 102, Carbon Dioxide 23.0, Anion Gap 12, BUN 42 H, Creatinine 1.38 H, Estim Creat Clear Calc 53.05, Est GFR (MDRD) Non-Af 55 L, BUN/Creatinine Ratio 30.7 H, Glucose 126 H, Calcium 9.4 07/20/25 06:38: POC Glucose 141 H Assessment & Plan Assessment/Plan (1) Symptomatic stenosis of left carotid artery: PLAN: -left CEA today -ICU post op
--- NOTE | 2025-07-20 09:45 | CASEMGMT ---
Tertiary Insurance review for hospitals In-network with SELF PAY insurance if transfer is recommended is as follows: [facility], [facility], [place], [facility], [facility], [facility], , [place], [facility], [facility], and [place]. Natalia Stiles, Discharge Planning Asst.
[2025-07-20] MEDS: Lactated Ringers 1,000 ML 15 ML IV (10:51)
--- NOTE | 2025-07-20 11:09 | PCM.PRE.AN2 ---
ASA Classification* ASA Classification ASA Classification: 4 Assessment & Plan Anesthesia* Anesthesia Assessment Anesthesia Assessment: Discussed sedation and/or anesthesia options, risks, benefits, and alternatives with patient/parents/legal guardian/POA. Questions invited. The patient/parents/legal guardian/POA seems to understand and agrees to proceed with anesthesia plan. Reviewed the physical assessment, medical history, allergy history and patient home medications list prior to surgery/procedure/anesthetic and documented any changes. Performed airway and anesthesia risk assessments. Procedural Plan Add'l anesthesia plan details: Arterial line discussed with patient as well as placement of another IV. All questions answered about GA Anesthesia Type Anesthesia Type: General History Source History Obtained from:: Patient and Chart Anesthesia Focused Assessment* Temperature: 97.7 F Pulse Rate: 67 Blood Pressure: 128/73 Respiratory Rate: 16 Pulse Ox: 98 Oxygen Delivery Method: Room Air Airway Assessment Mouth opens: >3 cm Mallampati Score: II Labs Anesthesia Preop lab: CBC WBC, (4.4-11.0) 7.3 K/mm3 Today, 04:53 RBC, (4.6-6.2) 4.77 M/mm3 Today, 04:53 Hgb, (13.0-16.5) 14.6 g/dL Today, 04:53 Hct, (40-54) 43.7 % Today, 04:53 Plt Count, (150-450) 242 K/mm3 Today, 04:53 CHEMISTRY Potassium, (3.3-5.1) 4.4 mmol/L Today, 04:53 Sodium, (133-145) 137 mmol/L Today, 04:53 Magnesium, (1.5-2.2) 2.3 mg/dL H 07/17/25, 04:47 Phosphorus, (2.7-4.5) 4.0 mg/dL 07/17/25, 04:47 BUN, (4-19) 42 mg/dL H Today, 04:53 Creatinine, (0.70-1.20) 1.38 mg/dL H Today, 04:53 Glucose, (70-99) 126 mg/dL H Today, 04:53 POC Glucose, (74-106) 149 mg/dL H Today, 10:55 TSH, (0.300-4.200) 2.540 uIU/mL 07/16/25, 05:05 COAG PT, (11.7-14.9) 13.6 SECONDS Today, 04:53 Pre-Assessment Diagnosis/Proposed Procedure Planned Operative Procedure(s): Left Carotid Endarterectomy Anesthesia History Anesthesia History - finishing frame runner: Anesthesia History - finishing frame runner Hx Hospitalization Yes: 02/202505/20/25 16:07 Any Problems With Anesthesia No 07/20/25 09:54 Cholinesterase deficiency No 07/20/25 09:54 You/Your Family Experience No 07/20/25 09:54 fever (hyperthermia) with Relationship Recent Exposure to Contagious No 07/20/25 09:54 Disease Does patient have nerve No 07/20/25 09:54 stimulator Patient instructed to have device shut off --Does patient have Pacemaker No 07/20/25 09:54 or ICD? When Was Last Pacemaker Check QUESTION #4 FULL TEXT: You/Your Family Experience fever (hyperthermia) with Anesthesia Last Oral Intake Last Oral intake: Last Oral Intake NPO since 00:00 07/20/25 09:54 Meds taken in AM with sips of No 07/20/25 09:54 water? Meds patient instructed to take am of surgery PONV PONV - finishing frame runner: PONV - finishing frame runner Female HX of Motion Sickness HX of N/V After Surgery Non-Smoker Duration of Surgery greater than 60 minutes Number of Risk Factors PONV Score Height & Weight Height & Weight: Anesthesia: Height & Weight Height 5 ft 11 in 07/20/25 09:54 Weight: 79.8 kg 07/20/25 09:54 Body Mass Index (BMI) 24.5 07/20/25 09:54 Respiratory Assessment Respiratory Assessment - finishing frame runner: Respiratory Tract Infection Hx - finishing frame runner Hx Respiratory Tract Infection No 07/20/25 09:54 STOP Sleep Apnea STOP Sleep Apnea - finishing frame runner: STOP Sleep Apnea - finishing frame runner Hx Hypertension Yes 07/20/25 08:07 Hx Sleep Apnea No 07/15/25 16:19 CPAP BIPAP Do you snore loudly (louder No 07/15/25 16:19 than talking or can be heard Do you often feel tired/ No 07/15/25 16:19 fatigued/ sleepy during daytime? Has anyone observed you stop No 07/15/25 16:19 breathing during sleep? STOP Results Negative 07/15/25 16:19 QUESTION #5 FULL TEXT : Do you snore loudly (louder than talking or can be heard through closed doors)? 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 Specify any problems Hx of Preganancy in last 3 N/A 07/15/25 16:19 Months Nurse Filling Out Transfusion JNORRIS 07/15/25 16:19 & Questions: Date: 07/15/25 07/15/25 16:19 Time: 16:31 07/15/25 16:19 Patient unable to answer at this time (ie. confused, unrespo /Reproduction History /Reproductive History - finishing frame runner: /Reproductive Hx- finishing frame runner Hx Now No 07/20/25 09:54 Gestational Age (in weeks): EDC: Hx Hx Para Hx Section SAB No 07/20/25 09:54 Active Medications Active Medications: Current Medications Generic Name Dose Route Start Last Admin Trade Name Freq PRN Reason Stop Dose Admin Acetaminophen 650 mg 07/15/25 16:16 Acetaminophen 325 Mg Tablet PO Q6H PRN PRN Pain 1-10 Or Fever >100.7 Albuterol Sulfate 2.5 mg 07/15/25 16:16 Albuterol 2.5 Mg/3 Ml Vial.Neb. INHALATION Q2H PRN PRN SOB &/OR WHEEZING Ascorbic Acid 1,000 mg 07/17/25 10:00 07/19/25 09:10 Ascorbic Acid 500 Mg Tablet PO 1,000 mg DAILY KARLEE Administration Aspirin 81 mg 07/16/25 08:00 07/19/25 09:11 Aspirin 81 Mg Tab.Chew PO 81 mg BREAKFAST KARLEE Administration Atorvastatin Calcium 80 mg 07/15/25 22:00 07/19/25 21:10 Atorvastatin Calcium 80 Mg Tablet PO 80 mg QHS KARLEE Administration Calcium/Vitamin D 1 tablet 07/17/25 10:00 07/19/25 09:11 Calcium Carb/Vitamin D 1 Tablet Tablet PO 1 tablet DAILY KARLEE Administration Carvedilol 3.125 mg 07/17/25 17:00 07/19/25 16:25 Carvedilol 3.125 Mg Tablet PO 3.125 mg BIDCM KARLEE Administration Protocol Clopidogrel Bisulfate 75 mg 07/16/25 10:00 07/19/25 15:58 Clopidogrel Bisulfate 75 Mg Tablet PO Not Given DAILY [facility] Docusate Sodium 100 mg 07/17/25 10:00 07/19/25 09:11 Docusate Sodium 100 Mg Capsule PO 100 mg DAILY KARLEE Administration Empagliflozin 10 mg 07/18/25 10:00 07/19/25 09:11 Empagliflozin 10 Mg Tablet PO 10 mg DAILY KARLEE Administration Glucagon 1 mg 07/15/25 16:16 Glucagon 1 Mg/Ml Syringe IM X1 PRN HYPOGLYCEMIA Protocol Dextrose 250 mls @ 0 mls/hr 07/15/25 16:16 Dextrose 10%-Water IV .Q0M PRN HYPOGLYCEMIA Protocol As Directed Sodium Chloride 250 mls @ 15 mls/hr 07/15/25 17:11 IV .[id number] PRN Saline Flush Sodium Chloride 250 mls @ 15 mls/hr 07/15/25 17:11 IV .[id number] PRN Additional IVPB Infusion Dextrose/Sodium Chloride 1,000 mls @ 75 mls/hr 07/20/25 09:00 Dextrose 5%/0.9% Nacl IV 07/20/25 22:19 .[id number] KARLEE Lactated Ringer's 1,000 mls @ 15 mls/hr 07/20/25 11:00 07/20/25 10:51 IV 15 mls/hr .Q48H KARLEE Administration Insulin Glargine 12 unit 07/16/25 22:00 07/19/25 21:11 Insulin Glargine-Yfgn 100 Unit/Ml Pen SC 12 unit QHS KARLEE Administration Insulin Human Lispro 0 unit 07/15/25 22:00 07/20/25 06:48 Insulin Lispro 100 Unit/Ml Insuln.Pen SC Not Given ACHS [facility] Protocol Melatonin 10 mg 07/15/25 16:16 Melatonin 10 Mg Tablet PO QHS PRN PRN INSOMNIA Ondansetron HCl 4 mg 07/15/25 16:16 Ondansetron 4 Mg/2 Ml Vial IV Q8H PRN PRN NAUSEA/VOMITING Oxycodone HCl 5 mg 07/15/25 16:16 Oxycodone 5 Mg Tablet PO Q4H PRN PRN Pain Score 4-10 Sacubitril/Valsartan 1 each 07/17/25 22:00 07/19/25 21:10 Sacubitril/Valsartan 24/26 Mg Tablet PO 1 each BID KARLEE Administration Senna/Docusate Sodium 2 tablet 07/15/25 16:16 Senna/Docusate Sodium 1 Tablet PO BID PRN PRN Constipation Sodium Chloride 10 - 40 ml 07/15/25 17:11 07/19/25 21:09 0.9% Saline Lock 10 Ml Syringe IV 10 ml UD PRN Administration SALINE FLUSH Spironolactone 25 mg 07/18/25 10:00 07/19/25 09:10 Spironolactone 25 Mg Tablet PO 25 mg DAILY [facility] Administration Protocol PFSH Medical History Wears dentures Wears glasses Cancer Insulin dependent diabetes mellitus Diabetes Dietary restriction Hypertension History of skin cancer Home Medications ?Medication ?Instructions ?Recorded ?Last Taken ?Type oxycodone-acetaminophen 5 mg-325 1 tab PO Q12H PRN pain 7 days #28 05/12/25 05/18/25 Rx mg tablet (Percocet) tabs insulin glargine-yfgn 100 unit/mL 12 unit subcut QHS 05/20/25 05/21/25 History (3 mL) subcutaneous pen losartan 50 mg tablet 50 mg PO DAILY 05/20/25 05/21/25 History metformin 500 mg tablet 1,000 mg PO .QAM 05/20/25 05/21/25 History metformin 500 mg tablet 500 mg PO 1700 05/20/25 05/21/25 History ascorbic acid (vitamin C) 1,000 mg 1 g PO DAILY 90 days #90 tabs 05/22/25 Unknown Rx tablet (Vitamin C) aspirin 81 mg tablet,delayed 81 mg PO BID 30 days #60 tabs 05/22/25 Unknown Rx release calcium 500 mg (as 1 tab PO DAILY 90 days #90 tabs 05/22/25 Unknown Rx carbonate)-vitamin D3 15 mcg (600 unit) tablet (Os-Will 500 + D3) docusate sodium 100 mg capsule 100 mg PO DAILY 10 days #10 caps 05/22/25 Unknown Rx (Colace) Allergy/AdvReac Type Severity Reaction Status Date / Time lisinopril Allergy Severe Other Verified 07/15/25 09:43 Surgical History Hx of appendectomy Status post surgical removal of malignant neoplasm of skin Hx of toe surgery Hx of hernia repair Social History Smoking Status: Former smoker Prior Cardiac Testing/Procedures Prior Cardiac Testing/Procedures: Echocardiogram (Diastolic dysfunction EF of 45%) Addt'l Information Additional Findings: NS on EKG Review of Systems (Anesthesia) ROS Narrative System reviewed and no additional complaints, except as documented. Physical Exam Const alert and oriented x3 Orientation / Consciousness: awake Resp normal respiratory effort and normal air movement Cardio regular rate and regular rhythm Back/Spine normal ROM Extremity full ROM
[2025-07-20] MEDS: Midazolam 2 MG/2 ML Syringe IV (11:30)
--- NOTE | 2025-07-20 11:30 | PLAQ_PTH ---
PATIENT: JORY BOBBY LOC: ICU U#:[id number] AGE/SX: 69/M ROOM: [place] [address] RE07/15/[address]: Dr. Jabari Nuñez MD : 1955 BED: 1 DIS: 07/21/2025 SPEC #: [id number] RECD: 07/21/25 07:53 STATUS: ANNALEE REQ #: [id number] BLANCA: 07/20/25 11:[address]: Refugio Price DEPT: SURGICAL PATHOLOGY RECD BY: Sinan Mckee ENTERED: 07/21/25 10:02 SP TYPE: PLAQUE OTHR DR: DO Dr. Jabari Dejesus MD Dr. Paige Pierce, MD Dr. Scott Brown, MD Tissues: A - PLAQUE Procedures: Decalcification bone/plaque Surgery Specimen Level III HEADER OPERATION: Carotid endarterectomy PRE-OP DIAGNOSIS: Symptomatic stenosis of left carotid artery TISSUE SUBMITTED: A- Left carotid plaque MICROSCOPIC DIAGNOSIS A. Left carotid artery endarterectomy: * Fibrointimal hyperplasia with calcification and cholesterol clefts, consistent with atherosclerotic plaque. GROSS DESCRIPTION A. Received in formalin labeled with the patient's name and date of . Designated as left carotid plaque is a joseph-yellow, fragmented and bifurcated plaque, collectively measuring 3.1 x 1.8 x 1.0 cm in aggregate. Doughnut Icer sections are submitted in 1 cassette, following decalcification. HI 07/21/2025 CPT:[id number]
[2025-07-20] MEDS: Lidocaine 1% (5 ml sdv) 5 ML Vial IV (11:50)
[2025-07-20] MEDS: Cefazolin 1 GM/5 ML Vial 2 GM IV (11:55)
[2025-07-20] MEDS: SUFentanil 50 MCG/ML Ampul 10 MCG IV (12:18)
[2025-07-20] MEDS: Heparin Injection 5,000 UNITS/ML Syringe 8000 UNITS IV (12:39)
[2025-07-20] MEDS: Lactated Ringers 2,000 ML 2000 ML IV (12:56)
[2025-07-20] MEDS: Heparin Injection (Vial) 5,000 UNIT/ML VIAL 1000 UNIT IV (13:26)
[2025-07-20 14:19] LABS: ACT Activated Clotting Time 204 sec (74-137)
[2025-07-20 14:19] LABS: ACT Activated Clotting Time 130 sec (74-137)
[2025-07-20 14:19] LABS: ACT Activated Clotting Time 285 sec (74-137)
[2025-07-20 14:19] LABS: ACT Activated Clotting Time 233 sec (74-137)
[2025-07-20] MEDS: Lidocaine 1% (2ml-nursery) 2 ML VIAL (14:23)
--- NOTE | 2025-07-20 14:37 | PCM.OPRPT ---
Operative Report (Standard) Operative Information Date of Procedure: 07/20/25 Pre-Operative Diagnosis: left carotid stenosis, symptomatic with infarct Post-Operative Diagnosis: same Surgery/Procedure Performed: left carotid endarterectomy supervisor enrobing: Yes Glassware Maker Demonstrator: Kay Kaufman Tasks completed by personnel assistant: Opening, Closing, Opening & closing, Hemostasis: Tie and Retracting Type of Anesthesia: General RN Documented Start/Stop Times: Operation Date: 07/20/25 11:30 Case Time Into Pre-Op 07/20/25 10:47 Anesthesia Start 07/20/25 11:45 Into Room 07/20/25 11:45 Procedure Start 07/20/25 12:17 Procedure End 07/20/25 14:57 Anesthesia End 07/20/25 15:08 Out of Room 07/20/25 15:08 Into Recovery 07/20/25 15:10 Out of Recovery 07/20/25 16:23 Procedure Start Time: 12:15 Procedure Stop Time: 14:40 Select all DRAINS/GRAFTS/IMPLANTS that apply: Drains Drain details: 19 Fr SHAKIRA and Graft Graft details: bovine pericardial patch Estimated Blood Loss: 24 Specimen collected: Yes Description of specimen(s) removed: plaque Description of surgery: HPI: Patient is a 69-year-old male who presented with left hemispheric stroke symptoms. CT angiography and duplex confirmed severe carotid artery stenosis and MRI revealed small scattered infarcts. He is taken now for carotid endarterectomy for stroke risk reduction. Description of procedure: Upon obtaining informed consent and verification correct patient procedure site the patient was taken the operating where he was placed under general anesthesia. He was then positioned prepped and draped in usual sterile fashion timeouts performed. Oblique incision was made along the anterior border sternocleidomastoid and Bovie electrocautery used to dissect down through subcutaneous tissue to level the platysma. The platysma was divided and self-retaining retractors put in position with further dissection then carried down to the sternocleidomastoid. This was dissected free along its anterior border likely related retraction and exposing the carotid sheath. Sharp dissection was then used to dissect free the jugular vein along with anterior border with sidebranches identified, ligated with silk ties and divided. The jugular vein was then retracted laterally exposing the carotid vessels. At this point the patient was heparinized and allowed to circulate for 3 minutes with subsequent heparin dosing based on ACT results. Sharp dissection was used dissect free the proximal common carotid artery with care taken to identify and protect the vagus nerve. A right angle was then used to place a vessel dislocation attention turned to the internal carotid artery. Sharp dissection was used to dissect free the distal internal carotid artery beyond the area of plaque with care taken to identify and protect the hypoglossal nerve. The vessel was circumferentially mobilized and a right angle used to place a vessel loop. Finally the external carotid artery was dissected free and a right angle used to place a vessel loop. Vessels were then occluded first the internal followed by the common the external. A longitudinal arteriotomy was created with 11 blade on the distal common carotid artery and extended with Curran scissors on the internal carotid artery beyond the plaque. A 12 Chinese Esperance shunt was then placed first distally in the internal carotid artery and allowed to backbleed before placing proximally in the common carotid artery. The shunt was interrogated with Doppler and found repeat with low resistance signal. We then performed her endarterectomy with a freer elevator with satisfactory endpoint distally on the internal carotid artery and eversion endarterectomy of the external carotid artery. The lumen was then flushed with heparinized saline to clear debris and distal endpoint tacked with 7-0 Prolene interrupted sutures. A bovine pericardial patch was then secured in position using 6-0 Prolene in a running fashion. Prior to completing suture line the shunt was removed and the vessel was backbled. After completing the suture line the internal carotid artery was allowed to backbleed and the bifurcation and then reoccluded at the origin. Clamps were then removed from the external and the common carotid artery allowing 10 heartbeats of antegrade flow to flush into the external carotid artery before reestablishing flow into the internal carotid artery. After clamps were removed the vessels were interrogated with Doppler and found to be patent with appropriate signal. Heparin was then reversed with protamine and the incision inspected for hemostasis. Hemoblast topical hemostatic was applied and a 19 Chinese channel SHAKIRA placed via separate stab incision. The incision was then closed with 2-0 Vicryl, 3-0 Vicryl, 4-0 Monocryl and Dermabond for the skin. At the conclusion of case patient was awake from anesthesia moving around all extremities to command with cranial nerves intact. He was then taken to the recovery room with anticipated admission to the intensive care unit for hemodynamic and neurologic monitoring. Surgical Findings: see above Complications Complications: No
--- NOTE | 2025-07-20 15:16 | PCM.POST.ANE ---
Anesthesia: Postop Eval I Current Vital Signs Temperature: 97.0 F Pulse Rate: 80 Blood Pressure: 175/79 Respiratory Rate: 20 Pulse Ox: 98 Oxygen Delivery Method: Room Air Assessment Airway patent: Yes Spontaneous unlabored respirations: Yes Mental status: Awake and Calm nausea: No Vomiting: No Anesthesia Complication: No Fluid Hydration Crystalloid volume administer (ml): 1,900 Total IV fluid infused: 1,900 Progress Note Anesthesia document: Postop Eval 1 completed: Yes
--- NOTE | 2025-07-20 15:42 | PCM.PN.HOSP ---
Reason for Visit Chief Complaint: Right arm paresthesias Objective Data Objective Data Vital Signs: Vital Signs Temp Pulse Resp BP Pulse Ox O2 Del Method 97.0 F L 80 20 H 175/79 H 98 Room Air 07/20/25 15:16 07/20/25 15:16 07/20/25 15:16 07/20/25 15:16 07/20/25 15:16 07/20/25 15:16 Oxygen Delivery Method Room Air Weight: 175 lb 14.862 oz Body Mass Index (BMI) 24.5 Intake & Output: Intake and Output for Last 24 Hours 07/18/25 07/19/25 07/20/25 23:59 23:59 23:59 Intake Total 840 / 840 1140 / 1140 Output Total 425 / 425 Balance 840 / 840 1140 / 1140 -425 / -425 Lab / Micro Data 07/20/25 04:53 07/20/25 04:53 Labs: Laboratory Results - last 24 hr 07/19/25 16:24: POC Glucose 130 H 07/19/25 21:05: POC Glucose 142 H 07/20/25 04:53: WBC 7.3, RBC 4.77, Hgb 14.6, Hct 43.7, MCV 91.6, MCH 30.6, MCHC 33.4, RDW Std Deviation 45.1 H, RDW Coeff of Kiya 13.3, Plt Count 242, MPV 8.8, Immature Gran % (Auto) 0.300, Neut % (Auto) 63.5, Lymph % (Auto) 26.1, [place]ton % (Auto) 7.7, Eos % (Auto) 1.9, Baso % (Auto) 0.5, Absolute Neuts (auto) 4.6, Absolute Lymphs (auto) 1.91, Nucleated RBC % 0, PT 13.6, INR 1.0, Sodium 137, Potassium 4.4, Chloride 102, Carbon Dioxide 23.0, Anion Gap 12, BUN 42 H, Creatinine 1.38 H, Estim Creat Clear Calc 53.05, Est GFR (MDRD) Non-Af 55 L, BUN/Creatinine Ratio 30.7 H, Glucose 126 H, Calcium 9.4 07/20/25 06:38: POC Glucose 141 H 07/20/25 10:55: POC Glucose 149 H 07/20/25 11:57: Activated Clotting Time 130 07/20/25 12:47: Activated Clotting Time 285 H 07/20/25 13:23: Activated Clotting Time 233 H 07/20/25 13:58: Activated Clotting Time 204 H Physical Exam Narrative Seen and examined. Seen in the morning before surgery and then in afternoon in PACU after surgery. Patient had left CEA with dressing on it. Drain present. Mild drowsy just returned from surgery. Physical exam General: Alert, Oriented x3, Cooperative but drowsy and lethargic after surgery, anesthesia. HEENT: Atraumatic, PERRLA, EOMI, Normocephalic. Oral: No Gingival or Mucosal Lesions/ Ulcerations Neck: Supple, left carotid dressing dry. Drain present, expected sanguinous drainage. Chest wall/Lungs: Air entry equal in both lungs. No crepitation/rhonchi. Cardiovascular: Regular rate and rhythm, Normal S1,S2, No M/G/R Abdomen: Bowel Sounds Present, Soft, Non Tender, Non-Distended : No dysuria. No renal angle tenderness. No suprapubic tenderness. Extremities: No edema, Capillary Refill Less than 3 Seconds Skin: No rashes, No breakdown Musculoskeletal: No Tenderness to Palpation of Joints or Extremities Neurological: Cranial nerves II-XII grossly intact, DTR 2+/4. NIH stroke scale 0.GCS 15 Psych/Mental Status: Prescription given for Xifaxan 550 mg 3 times daily for 2 weeks with 2 refills. Assessment & Plan Assessment/Plan (1) Acute stroke due to ischemia: (2) Carotid stenosis: PLAN: Plan 69-year-old gentleman came to ED with right arm weakness, numbness and tingling since 07/13. He woke up in the morning of 07/15 with slurred speech. Stroke alert was called. 1. Acute ischemic stroke - Right arm paresthesias but has coordination - Residual symptoms at this point are paresthesias in the hand - Multiple infarcts found likely related to showering of plaque from his carotid artery - Left carotid artery with severe stenosis - Continue aspirin and Plavix - Hemoglobin A1c well-controlled diabetes at 6.3 - Continue high intensity dose statin - Echocardiogram on 07/16/2025 and shows mildly dilated LV with an EF of 45% and stage I diastolic dysfunction there is anterior septal and posterior hypokinesis - Neurology following/vascular surgery following -07/17: Plan for carotid endarterectomy on the left on Wednesday 07/18: No acute issues. Patient is doing well. Blood pressure is controlled. 07/19: No acute issues. Patient is doing well. N.p.o. past midnight for carotid surgery tomorrow morning. Patient cleared for surgery by buying agent. 07/20: Seen and examined preop in the room and then PACU. Had left CEA, SHAKIRA drain. Bovine pericardial patch. 24 mL expected blood loss. Expected drowsy lethargic after surgery. Denies any acute change in vision, numbness, tingling or weakness after surgery. Patient is going to be transferred to ICU for overnight monitoring. Will wait for full consciousness before diet for hourly liquid to soft diet today. 2. Abnormal echocardiogram - EF is depressed with wall motion abnormality -mildly dilated LV with an EF of 45% and stage I diastolic dysfunction there is anterior septal and posterior hypokinesis -Stress test was reviewed. No reversible myocardial ischemia on nuclear stress test. Fixed perfusion defect present on rest and stress imaging therefore old WA and fixed inferior wall defect/artifact plan for coronary anatomy on Sunday 3. Severe left carotid artery stenosis - Patient with bilateral carotid artery stenosis - Ultrasound shows moderate stenosis on the right at 50 to 69% and severe greater than 70% on the left with patent and antegrade vertebrals bilaterally. Patient would not be a buying agent. Continue medical treatment 4. DM-2 - Hemoglobin A1c shows well-controlled diabetes at 6.3 - Hold home oral agents and likely restart at discharge - Add subcu basal insulin - Continue sliding scale -Glucose 131. 9/ blood sugar is 127. 9/: Glucoses adequately controlled about 130-150. 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 - Patient with significant peripheral vascular disease - continue aspirin/Plavix/statin - Disease risk factor modification Essential hypertension/hyperlipidemia - Losartan on hold - Continue statin DVT prophylaxis - Start enoxaparin 40 daily CODE STATUS - Full code Laboratory Results 07/19/25 16:24: POC Glucose 130 H 07/19/25 21:05: POC Glucose 142 H 07/20/25 04:53: WBC 7.3, RBC 4.77, Hgb 14.6, Hct 43.7, MCV 91.6, MCH 30.6, MCHC 33.4, RDW Std Deviation 45.1 H, RDW Coeff of Kiya 13.3, Plt Count 242, MPV 8.8, Immature Gran % (Auto) 0.300, Neut % (Auto) 63.5, Lymph % (Auto) 26.1, Overton % (Auto) 7.7, Eos % (Auto) 1.9, Baso % (Auto) 0.5, Absolute Neuts (auto) 4.6, Absolute Lymphs (auto) 1.91, Nucleated RBC % 0, PT 13.6, INR 1.0, Sodium 137, Potassium 4.4, Chloride 102, Carbon Dioxide 23.0, Anion Gap 12, BUN 42 H, Creatinine 1.38 H, Estim Creat Clear Calc 53.05, Est GFR (MDRD) Non-Af 55 L, BUN/Creatinine Ratio 30.7 H, Glucose 126 H, Calcium 9.4 07/20/25 06:38: POC Glucose 141 H 07/20/25 10:55: POC Glucose 149 H 07/20/25 11:57: Activated Clotting Time 130 07/20/25 12:47: Activated Clotting Time 285 H 07/20/25 13:23: Activated Clotting Time 233 H 07/20/25 13:58: Activated Clotting Time 204 H Clinical Impression(s) from Imaging Studies Chest X-Ray 07/15/25 10:54 IMPRESSION: No acute process is identified in the chest. Brain CT 07/15/25 12:40 IMPRESSION: Negative for acute intracranial pathology. 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 Bilateral basal ganglia, bilateral cerebellar and bilateral deep white matter calcifications. Differential considerations including Fahrs disease and vascular calcifications. Head/Neck CTA 07/15/25 12:40 IMPRESSION: There is a 90% stenosis at the origin of the left ICA. There is a 50% stenosis at the origin of the right ICA. Brain MRI 07/15/25 16:14 IMPRESSION: Several scattered small acute infarcts involving the posterior left frontoparietal cortex involving the left pre and postcentral gyri, and in the posterior left occipital lobe. Moderate chronic small-vessel ischemic changes elsewhere in the cerebral white matter with old cortical infarcts in the right frontal and anterior left frontal lobes. No acute intracranial hemorrhage, extra-axial collection, or mass-effect. 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 Numerous potential causes Echocardiogram 07/15/25 16:14 Interpretation Summary Mildly dilated left ventricle. Mild concentric left ventricular hypertrophy. Anterior septal and posterior hypokinesis. Estimated LVEF 45%. Stage I diastolic dysfunction. Mild focal aortic valve calcification. Carotid Duplex 07/15/25 16:16 Interpretation Summary Moderate (50-69%) stenosis right extracranial internal carotid. Severe (>70%) stenosis left extracranial internal carotid. Patent and antegrade vertebrals bilaterally. Charges/Coding Visit Charges Inpatient E&M: 32367 Subs Hosp L2 NIHSS NIHSS Nursing Documentation NIHSS Nursing Documentation: NIHSS: Ischemic Stroke/TIA Start: 07/15/25 16:16 Text: For PCU Patients: NIH and Neuro Check every 4 Status: Active hours, PRN and with change in RN caregiver. Freq: PRN Protocol: Activity Type Activity Date Activity User E-sign Co-sign Detail Recorded Client Recorded Date Recorded By Document 07/18/25 20:50 DC [id number] 07/18/25 20:54 DC 07/18/25 20:50 NIH Stroke Scale [NIHSS] A score of 0 is normal or asymptomatic . Total possible score is 42. Inpatient: RN or Physician to activate a stroke alert for onset of new stroke symptoms or with NIHSS increase >/= 3 points. Following change in neurological status, NIHSS will be performed per physician order or more frequently PRN. -1a. Level of Consciousness 0 - Alert; keenly responsive -1b. LOC Questions 0 - Answers BOTH questions correctly -1c. LOC Commands 0 - Performs BOTH tasks correctly -2. Best Gaze 0 - Normal -3. Visual 0 - No visual loss -4. Facial Palsy 0 - Normal symmetrical movements -5a. Left Arm 0 - No drift; arm holds 90 ( or 45) degrees for full 10 seconds -5b. Right Arm 0 - No drift; arm holds 90 ( or 45) degrees for full 10 seconds -6a. Left Leg 0 - No drift; leg holds 30- degree position for full 5 seconds -6b. Right Leg 0 - No drift; leg holds 30- degree position for full 5 seconds -7. Limb Ataxia 0 - Absent -8. Sensory 0 - Normal; no sensory loss -9. Best Language 0 - No aphasia; normal -10. Dysarthria 0 - Normal -11. Extinction and Inattention 0 - No abnormality -Total 0 Query Text:A score of 0 is normal or asymptomatic. Total possible score is 42 . ED: Notify Physician for NIHSS increase by > / = 3 points. Inpatient: RN or Physician to activate a stroke alert for NIHSS increase of > / = 3 points. Coma Scale [Assess] -Eye Opening Spontaneous -Motor Obeys Commands -Verbal Oriented [Total] -Coma Scale Total 15
--- NOTE | 2025-07-20 16:08 | POSTOPAN2_ITS ---
Anesthesia Postop Eval I Sum Postop Eval Completion status Anesthesia document: Postop Eval 1 completed: Yes Anesthesia Postop Eval I Summary Anesthesia Postop Eval I Summary: Anesthesia Postop Eval I: Assessment Summary Airway patent Yes 07/20/25 15:16 [email or web address] [email or web address] Spontaneous unlabored Yes 07/20/25 15:16 [email or web address] [email or web address] respirations Mental status Awake,Calm 07/20/25 15:16 [email or web address] nausea No 07/20/25 15:16 [email or web address] Vomiting No 07/20/25 15:16 [email or web address] [email or web address] Anesthesia Postop Eval I: Fluid Summary Crystalloid volume administer 1,900 07/20/25 15:16 [email or web address] [email or web address] (ml) Colloids volume administered ( ml) Blood Product volume administered (ml) Total IV fluid infused 1,900 07/20/25 15:16 [email or web address] [email or web address] Anesthesia Postop Eval I: Summary Notes Anesthesia Complication No 07/20/25 15:16 [email or web address] Anesthesia Complication Comment: Post-operative progress note Anesthesia: Postop Eval II Evaluation Mental status: Awake and Calm Pain Level: 0 nausea: No Vomiting: No Complications Anesthesia Complication: No
--- NOTE | 2025-07-20 16:08 | PCM.POSTANE2 ---
Anesthesia Postop Eval I Sum Postop Eval Completion status Anesthesia document: Postop Eval 1 completed: Yes Anesthesia Postop Eval I Summary Anesthesia Postop Eval I Summary: Anesthesia Postop Eval I: Assessment Summary Airway patent Yes 07/20/25 15:16 [email or web address] Spontaneous unlabored Yes 07/20/25 15:16 VIDEOTAPE [email or web address] respirations Mental status Awake,Calm 07/20/25 15:16 [email or web address] [email or web address] nausea No 07/20/25 15:16 [email or web address] Vomiting No 07/20/25 15:16 [email or web address] Anesthesia Postop Eval I: Fluid Summary Crystalloid volume administer 1,900 07/20/25 15:16 [email or web address] (ml) Colloids volume administered ( ml) Blood Product volume administered (ml) Total IV fluid infused 1,900 07/20/25 15:16 [email or web address] Anesthesia Postop Eval I: Summary Notes Anesthesia Complication No 07/20/25 15:16 [email or web address] Anesthesia Complication Comment: Post-operative progress note Anesthesia: Postop Eval II Evaluation Mental status: Awake and Calm Pain Level: 0 nausea: No Vomiting: No Complications Anesthesia Complication: No
[2025-07-20] MEDS: Cefazolin 1 GM/50 ML BAG IV (20:22)
[2025-07-20] MEDS: 0.9% Normal Saline (250mL Bag) 250 ML 15 ML IV (20:22)
[2025-07-20] MEDS: 0.9% Saline Lock 10 ML Syringe IV (20:23)
[2025-07-20] MEDS: Insulin Glargine-YFGN 100 UNIT/ML Pen 12 UNIT SC (21:52)
[2025-07-21] VITALS (18 sets, daily range): BP systolic 84–118; BP diastolic 42–59; PULSE 55–66; RESP 12–19; TEMP 36.5–36.8; O2SAT 93–100; BMI 24.3
[2025-07-21] MEDS: Cefazolin 1 GM/50 ML BAG IV (03:50)
[2025-07-21 04:48] LABS: Hematocrit 33.7 % (40-54); Hemoglobin 11.6 g/dL (13.0-16.5); Immature Granulocytes Count 0.020 X10^3/uL (0.0-0.0); Mean Corp Hgb Conc 34.4 g/dL (32-36); Mean Corpuscular Volume 92.3 fL (80-94); Mean Platelet Vol. 9.7 fl (6.2-12.0); NRBC Flagged by Analyzer 0 % (0-5); Platelet Count 224 K/mm3 (150-450); RBC Distribution Width CV 13.6 % (11.6-14.6); RBC Distribution Width SD 46.0 fl (35.1-43.9); Red Blood Count 3.65 M/mm3 (4.6-6.2); White Blood Count 9.5 K/mm3 (4.4-11.0)
[2025-07-21] MEDS: Calcium Carb/Vitamin D 1 TABLET Tablet PO (07:57)
--- NOTE | 2025-07-21 08:35 | EX.PCM.CONCC ---
Assessment & Plan Assessment/Plan (1) Carotid stenosis: PLAN: Plan RECOMMENDATIONS: 1. Continue current supportive care. 2. Continue to hold antihypertensives until hemodynamic status improves. 3. Additional management per hospitalist. 4. Will sign off from a critical care perspective. Please call with any additional questions. IMPRESSIONS: 1. Postoperative hypotension Most likely related to lingering effects of general anesthesia coupled with generalized dysautonomia related to carotid endarterectomy performed yesterday. The patient is mentating appropriately. There is no evidence of end organ hypoperfusion. Accordingly, continue current supportive care. There is no indication for vasopressor support. Will defer ongoing management to hospitalist and vascular surgery. Please call with any additional questions. This note was generated with [employer] dictation software. It may contain incorrect words, spelling, and punctuation that were not noted in checking the note before signing. HPI Consult Data Date of Consult: 07/21/25 HPI Narrative Reason for Consultation: Postoperative hypotension HPI Narrative: The patient is a 69-year-old male, with a history as outlined below, who was initially admitted to the hospital on July 15 with right arm paresthesias. The patient does have a known history of diabetes mellitus, hypertension and peripheral vascular disease. There was initial concern for CVA at presentation. However, head CT was negative for acute pathology. Subsequent CTA head and neck revealed 90% stenosis of the left ICA and 50% stenosis of the right ICA. The patient was subsequently admitted to the hospital with consultations placed to vascular surgery and neurology. Subsequent workup with echocardiogram revealed a mildly dilated LV with an ejection fraction of 45% and stage I diastolic dysfunction. Given the patient's LV dysfunction, cardiology saw the patient in consultation with medical therapy initiated. After being cleared for surgery by cardiology, the patient was taken to the OR on July 20, where he underwent left carotid endarterectomy. Postoperatively, the patient's blood pressures were noted to be in the 80s and 90s systolic. Accordingly, I was consulted as the etiology for the patient's hypotension was apparently unclear. [facility] Medical History Wears dentures Wears glasses Cancer Insulin dependent diabetes mellitus Diabetes Dietary restriction Hypertension History of skin cancer Home Medications ?Medication ?Instructions ?Recorded ?Last Taken ?Type oxycodone-acetaminophen 5 mg-325 1 tab PO Q12H PRN pain 7 days #28 05/12/25 05/18/25 Rx mg tablet (Percocet) tabs insulin glargine-yfgn 100 unit/mL 12 unit subcut QHS 05/20/25 05/21/25 History (3 mL) subcutaneous pen losartan 50 mg tablet 50 mg PO DAILY 05/20/25 05/21/25 History metformin 500 mg tablet 1,000 mg PO .QAM 05/20/25 05/21/25 History metformin 500 mg tablet 500 mg PO 1700 05/20/25 05/21/25 History ascorbic acid (vitamin C) 1,000 mg 1 g PO DAILY 90 days #90 tabs 05/22/25 Unknown Rx tablet (Vitamin C) aspirin 81 mg tablet,delayed 81 mg PO BID 30 days #60 tabs 05/22/25 Unknown Rx release calcium 500 mg (as 1 tab PO DAILY 90 days #90 tabs 05/22/25 Unknown Rx carbonate)-vitamin D3 15 mcg (600 unit) tablet (Os-Will 500 + D3) docusate sodium 100 mg capsule 100 mg PO DAILY 10 days #10 caps 05/22/25 Unknown Rx (Colace) Allergy/AdvReac Type Severity Reaction Status Date / Time lisinopril Allergy Severe Other Verified 07/15/25 09:43 Surgical History Hx of appendectomy Status post surgical removal of malignant neoplasm of skin Hx of toe surgery Hx of hernia repair Social History Smoking Status: Former smoker ROS ROS Narrative 10 systems were reviewed with pertinent positives as noted in the HPI above. Physical Exam Const alert and no apparent distress General Appearance: cooperative HEENT normocephalic and head/scalp atraumatic Eyes PERRL, EOMs intact bilaterally and conjunctivae normal Neck supple General: trachea midline Resp normal respiratory effort Auscultation: Negative for rales, rhonchi or wheezes Cardio regular rate and regular rhythm GI normal to inspection, nondistended, normoactive bowel sounds Extremity no clubbing, cyanosis or edema Skin no rashes or lesions noted Psych cooperative and affect normal Lab / Micro Data 07/21/25 04:30 07/20/25 04:53 Labs: Laboratory Results - last 24 hr 07/20/25 10:55: POC Glucose 149 H 07/20/25 11:57: Activated Clotting Time 130 07/20/25 12:47: Activated Clotting Time 285 H 07/20/25 13:23: Activated Clotting Time 233 H 07/20/25 13:58: Activated Clotting Time 204 H 07/20/25 15:57: POC Glucose 142 H 07/20/25 17:04: POC Glucose 145 H 07/20/25 21:48: POC Glucose 200 H 07/21/25 04:30: WBC 9.5, RBC 3.65 L, Hgb 11.6 L, Hct 33.7 L, MCV 92.3, MCH 31.8, MCHC 34.4, RDW Std Deviation 46.0 H, RDW Coeff of Kiya 13.6, Plt Count 224, MPV 9.7, Immature Gran % (Auto) 0.200, Neut % (Auto) 75.3 H, Lymph % (Auto) 17.2 L, [place] % (Auto) 6.9, Eos % (Auto) 0.2, Baso % (Auto) 0.2, Absolute Neuts (auto) 7.2, Absolute Lymphs (auto) 1.63, Nucleated RBC % 0 07/21/25 07:40: POC Glucose 117 H Charges/Coding Visit Charges Inpatient E&M: 68047 Init Hosp L2
--- NOTE | 2025-07-21 09:26 | CASEMGMT ---
This RN CM collaborated with the pt and pt's during ICU rounds. Pt reports that he is feeling more weak since his admission. Advised the pt to get up with nursing as well as therapy throughout the day as tolerated. Nursing and therapy are aware. CM to follow for rx costs. Pt and pt's decline further questions or concerns at this time.
--- NOTE | 2025-07-21 12:32 | PCM.PN.HOSP ---
Reason for Visit Chief Complaint: Right arm paresthesias Objective Data Objective Data Vital Signs: Vital Signs Temp Pulse Resp BP Pulse Ox O2 Del Method 98.2 F 56 L 18 108/59 L 99 Room Air 07/21/25 08:00 07/21/25 11:00 07/21/25 11:00 07/21/25 11:00 07/21/25 11:00 07/21/25 11:00 Oxygen Delivery Method Room Air Weight: 174 lb 6.17 oz Body Mass Index (BMI) 24.3 Intake & Output: Intake and Output for Last 24 Hours 07/19/25 07/20/25 07/21/25 23:59 23:59 23:59 Intake Total 1140 / 1140 2050 / 2050 251.5 / 251.5 Output Total 705 / 705 Balance 1140 / 1140 1345 / 1345 221.5 / 221.5 Lab / Micro Data 07/21/25 04:30 07/20/25 04:53 Labs: Laboratory Results - last 24 hr 07/20/25 11:57: Activated Clotting Time 130 07/20/25 12:47: Activated Clotting Time 285 H 07/20/25 13:23: Activated Clotting Time 233 H 07/20/25 13:58: Activated Clotting Time 204 H 07/20/25 15:57: POC Glucose 142 H 07/20/25 17:04: POC Glucose 145 H 07/20/25 21:48: POC Glucose 200 H 07/21/25 04:30: WBC 9.5, RBC 3.65 L, Hgb 11.6 L, Hct 33.7 L, MCV 92.3, MCH 31.8, MCHC 34.4, RDW Std Deviation 46.0 H, RDW Coeff of Ki[place] 13.6, Plt Count 224, MPV 9.7, Immature Gran % (Auto) 0.200, Neut % (Auto) 75.3 H, Lymph % (Auto) 17.2 L, [place] % (Auto) 6.9, Eos % (Auto) 0.2, Baso % (Auto) 0.2, Absolute Neuts (auto) 7.2, Absolute Lymphs (auto) 1.63, Nucleated RBC % 0 07/21/25 07:40: POC Glucose 117 H 07/21/25 11:18: POC Glucose 111 H Physical Exam Narrative Seen and examined. Patient had left CEA with dressing on it on 07/20. Drain was removed on 07/04 morning. Patient has arterial line which shows blood pressure in low 90s, improved to 108/59 after arterial line removal. Expected mild pain and discomfort over neck. Possible low BP and bradycardia from carotid surgery/carotid sinus response after surgery. Denies shortness of breath or dysphagia. No acute strokelike symptoms/numbness tingling or language deficit. Vision is good Physical exam General: Alert, Oriented x3, Cooperative HEENT: Atraumatic, PERRLA, EOMI, Normocephalic. Oral: No Gingival or Mucosal Lesions/ Ulcerations Neck: Supple, left carotid dressing dry. Chest wall/Lungs: Air entry equal in both lungs. No crepitation/rhonchi. Cardiovascular: Regular rate and rhythm, Normal S1,S2, No M/G/R Abdomen: Bowel Sounds Present, Soft, Non Tender, Non-Distended : No dysuria. No renal angle tenderness. No suprapubic tenderness. Extremities: No edema, Capillary Refill Less than 3 Seconds Skin: No rashes, No breakdown Musculoskeletal: No Tenderness to Palpation of Joints or Extremities Neurological: Cranial nerves II-XII grossly intact, DTR 2+/4. NIH stroke scale 0.GCS 15 Psych/Mental Status: appropriate. Assessment & Plan Assessment/Plan (1) Acute stroke due to ischemia: (2) Carotid stenosis: PLAN: Plan 69-year-old gentleman came to ED with right arm weakness, numbness and tingling since 07/13. He woke up in the morning of 07/15 with slurred speech. Stroke alert was called. 1. Acute ischemic stroke - Right arm paresthesias but has coordination - Residual symptoms at this point are paresthesias in the hand - Multiple infarcts found likely related to showering of plaque from his carotid artery - Left carotid artery with severe stenosis - Continue aspirin and Plavix - Hemoglobin A1c well-controlled diabetes at 6.3 - Continue high intensity dose statin - Echocardiogram on 07/16/2025 and shows mildly dilated LV with an EF of 45% and stage I diastolic dysfunction there is anterior septal and posterior hypokinesis - Neurology following/vascular surgery following -07/17: Plan for carotid endarterectomy on the left on Wednesday 07/18: No acute issues. Patient is doing well. Blood pressure is controlled. 07/19: No acute issues. Patient is doing well. N.p.o. past midnight for carotid surgery tomorrow morning. Patient cleared for surgery by certified pharmacist assistant. 07/20: Seen and examined preop in the room and then PACU. Had left CEA, SHAKIRA drain. Bovine pericardial patch. 24 mL expected blood loss. Expected drowsy lethargic after surgery. Denies any acute change in vision, numbness, tingling or weakness after surgery. Patient is going to be transferred to ICU for overnight monitoring. Will wait for full consciousness before diet for hourly liquid to soft diet today. 07/21: Postop hypotension: Overall patient is doing well. Low BP. 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 Heart rate chronically low/sinus bradycardia. Blood pressure recovering. Left carotid drain was removed. Arterial line also removed. Legal Mediator was consulted. The consult note reviewed and appreciated 2. Abnormal echocardiogram - EF is depressed with wall motion abnormality -mildly dilated LV with an EF of 45% and stage I diastolic dysfunction there is anterior septal and posterior hypokinesis -Stress test was reviewed. No reversible myocardial ischemia on nuclear stress test. Fixed perfusion defect present on rest and stress imaging therefore old AR and fixed inferior wall defect/artifact plan for coronary anatomy on Sunday 3. Severe left carotid artery stenosis - Patient with bilateral carotid artery stenosis - Ultrasound shows moderate stenosis on the right at 50 to 69% and severe greater than 70% on the left with patent and antegrade vertebrals bilaterally. 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 Continue medical treatment 4. DM-2 - Hemoglobin A1c shows well-controlled diabetes at 6.3 - Hold home oral agents and likely restart at discharge - Add subcu basal insulin - Continue sliding scale -Glucose 131. 9/27 blood sugar is 127. 9/29: Glucoses adequately controlled about 130-150. 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 - Patient with significant peripheral vascular disease - continue aspirin/Plavix/statin - Disease risk factor modification Essential hypertension/hyperlipidemia - Losartan on hold - Continue statin DVT prophylaxis - Start enoxaparin 40 daily CODE STATUS - Full code Laboratory Results 07/20/25 11:57: Activated Clotting Time 130 07/20/25 12:47: Activated Clotting Time 285 H 07/20/25 13:23: Activated Clotting Time 233 H 07/20/25 13:58: Activated Clotting Time 204 H 07/20/25 15:57: POC Glucose 142 H 07/20/25 17:04: POC Glucose 145 H 07/20/25 21:48: POC Glucose 200 H 07/21/25 04:30: WBC 9.5, RBC 3.65 L, Hgb 11.6 L, Hct 33.7 L, MCV 92.3, MCH 31.8, MCHC 34.4, RDW Std Deviation 46.0 H, RDW Coeff of [place] 13.6, Plt Count 224, MPV 9.7, Immature Gran % (Auto) 0.200, Neut % (Auto) 75.3 H, Lymph % (Auto) 17.2 L, [place] % (Auto) 6.9, Eos % (Auto) 0.2, Baso % (Auto) 0.2, Absolute Neuts (auto) 7.2, Absolute Lymphs (auto) 1.63, Nucleated RBC % 0 07/21/25 07:40: POC Glucose 117 H 07/21/25 11:18: POC Glucose 111 H Clinical Impression(s) from Imaging Studies Chest X-Ray 07/15/25 10:54 IMPRESSION: No acute process is identified in the chest. Brain CT 07/15/25 12:40 IMPRESSION: Negative for acute intracranial pathology. 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 Bilateral basal ganglia, bilateral cerebellar and bilateral deep white matter calcifications. Differential considerations including Fahrs disease and vascular calcifications. Head/Neck CTA 07/15/25 12:40 IMPRESSION: There is a 90% stenosis at the origin of the left ICA. There is a 50% stenosis at the origin of the right ICA. Brain MRI 07/15/25 16:14 IMPRESSION: Several scattered small acute infarcts involving the posterior left frontoparietal cortex involving the left pre and postcentral gyri, and in the posterior left occipital lobe. Moderate chronic small-vessel ischemic changes elsewhere in the cerebral white matter with old cortical infarcts in the right frontal and anterior left frontal lobes. No acute intracranial hemorrhage, extra-axial collection, or mass-effect. 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 Numerous potential causes Echocardiogram 07/15/25 16:14 Interpretation Summary Mildly dilated left ventricle. Mild concentric left ventricular hypertrophy. Anterior septal and posterior hypokinesis. Estimated LVEF 45%. Stage I diastolic dysfunction. Mild focal aortic valve calcification. Carotid Duplex 07/15/25 16:16 Interpretation Summary Moderate (50-69%) stenosis right extracranial internal carotid. Severe (>70%) stenosis left extracranial internal carotid. Patent and antegrade vertebrals bilaterally. Charges/Coding Visit Charges Inpatient E&M: 63783 Subs Hosp L3 NIHSS NIHSS Nursing Documentation NIHSS Nursing Documentation: NIHSS: Ischemic Stroke/TIA Start: 07/15/25 16:16 Text: For PCU Patients: NIH and Neuro Check every 4 Status: Active hours, PRN and with change in RN caregiver. Freq: PRN Protocol: Activity Type Activity Date Activity User E-sign Co-sign Detail Recorded Client Recorded Date Recorded By Document 07/20/25 20:00 GW desktop 07/20/25 20:05 GW 07/20/25 20:00 NIH Stroke Scale [NIHSS] A score of 0 is normal or asymptomatic . Total possible score is 42. Inpatient: RN or Physician to activate a stroke alert for onset of new stroke symptoms or with NIHSS increase >/= 3 points. Following change in neurological status, NIHSS will be performed per physician order or more frequently PRN. -1a. Level of Consciousness 0 - Alert; keenly responsive -1b. LOC Questions 0 - Answers BOTH questions correctly -1c. LOC Commands 0 - Performs BOTH tasks correctly -2. Best Gaze 0 - Normal -3. Visual 0 - No visual loss -4. Facial Palsy 0 - Normal symmetrical movements -5a. Left Arm 0 - No drift; arm holds 90 ( or 45) degrees for full 10 seconds -5b. Right Arm 0 - No drift; arm holds 90 ( or 45) degrees for full 10 seconds -6a. Left Leg 0 - No drift; leg holds 30- degree position for full 5 seconds -6b. Right Leg 0 - No drift; leg holds 30- degree position for full 5 seconds -7. Limb Ataxia 0 - Absent -8. Sensory 0 - Normal; no sensory loss -9. Best Language 0 - No aphasia; normal -10. Dysarthria 0 - Normal -Total 0 Query Text:A score of 0 is normal or asymptomatic. Total possible score is 42 . ED: Notify Physician for NIHSS increase by > / = 3 points. Inpatient: RN or Physician to activate a stroke alert for NIHSS increase of > / = 3 points.
--- NOTE | 2025-07-21 14:42 | CHAPLAIN ---
Type of Pastoral Visit ___ Initial Visit _x__ Follow-up Visit ___ On-call Visit ___ General Patient Visit ___ Spiritual Assessment ___ Family Conference ___ Bereavement ___ Rapid Response ___ Code Blue ___ Other (describe below) Pastoral Care Referral From _x__ Patient _x__ Family ___ Nurse ___ Physician ___ Mac Operator ___ Journey Lineman ___ Other (describe below) Sacrament/Intervention ___ Active listening ___ Anointing ___ Gnosticist ___ Bereavement ___ Communion ___ Aranza exploration ___ ___ Life review _x__ Prayer ___ Reconciliation ___ Sacrament of Sick _x__ Supportive presence ___ Wedding ___ Other (describe below) Pastoral Comments patient had surgery and is now in ICU; spouse is at the bedside; pt is awake and answers questions but does not engage in conversation; pt is pleasant and also responds but with little input; both welcome a prayer and deny any further concerns or needs
--- NOTE | 2025-07-21 15:34 | DCINST_ITS ---
Discharge Instructions DC O2, CPAP, BIPAP needs Home O2 Discharge instructions: No Dressing / Incision Discharge Activity: Return to Normal Activity (No exertional work for 1 week) and May Not Drive (For about 1 week) Weight Bearing Status: Weight bearing as tolerated Dressing / Incision Call your doctor if you observe: Fever of 101 or Higher, Coldness, Increased Pain, Numbness or Tingling, Change in Color, Inability to urinate, Inability to have a bowel movement, Shortness of breath, Dizziness, Fainting spells, Swelling in the ankles, Chest pain, Prolonged hiccupping, Increased palpitations (irre gular heartbeat) and Calf discomfort Follow Up Care When: IN 2 WEEKS Test Results: Test results from this visit will be discussed in further detail at your follow- up appointment, if applicable. Discharge Plan Admission Admit Date/Time: 07/15/25 15:20 Primary Reason for Your Visit: TIA left CEA critical stenosis. Status post CEA Attending Provider: Jabari Nuñez Primary Care Provider: Hesham Mishra Consulting Providers: Daniela Cisneros; Susan Farah; Refugio Price Discharge Orders/Prescriptions Prescriptions: New atorvastatin 80 mg Tablet 80 mg PO QHS 30 Days Qty: 30 2RF clopidogrel 75 mg Tablet 75 mg PO DAILY 30 Days Qty: 30 2RF carvedilol 3.125 mg Tablet 3.125 mg PO BIDCM 30 Days Qty: 60 2RF Rx Instructions: Start after 2 days, on 07/24/2025 Hold for heart less than 50 or systolic blood pressure less than 100 mmHg. Jardiance 10 mg Tablet 10 mg PO DAILY 30 Days Qty: 30 2RF sacubitril-valsartan 24-26 mg Tablet 0.5 tab PO BID 30 Days Qty: 30 2RF Rx Instructions: Start on 07/24/2025 Hold for SBP less than 100 mmHg Continued oxycodone-acetaminophen [Percocet] 5-325 mg tablet 1 tab PO Q12H PRN (Reason: pain) 7 Days Qty: 28 0RF insulin glargine-yfgn 100 unit/mL (3 mL) insulin pen 12 unit subcut QHS aspirin 81 mg tablet,delayed release (DR/EC) 81 mg PO BID 30 Days Qty: 60 0RF docusate sodium [Colace] 100 mg capsule 100 mg PO DAILY 10 Days Qty: 10 0RF calcium carbonate-vitamin D3 [Os-Will 500 + D3] 500 mg-15 mcg (600 unit) tablet 1 tab PO DAILY 90 Days Qty: 90 0RF ascorbic acid (vitamin C) [Vitamin C] 1,000 mg tablet 1 g PO DAILY 90 Days Qty: 90 0RF Held metformin 500 mg tablet 1,000 mg PO .QAM Hold Instructions: Hold for 2 days and then resume metformin 500 mg tablet 500 mg PO 1700 Hold Instructions: Hold for 2 days and then resume Discontinued losartan 50 mg tablet 50 mg PO DAILY Referrals / Follow Up: Refugio Price MD [Med Staff - Active Staff, Vascular Surgery] - Within 1 Week Gabe Perez MD [Med Staff - Active Staff, Cardiology] - Within 2 Weeks Referral Note: For heart failure Hesham Mishra MD [Primary Care Provider, Medical] Disposition Disposition (needs filled in before D/C Order can be placed): Home, Self Care
--- NOTE | 2025-07-21 15:45 | DS.PCM_ITS ---
Providers Date of Admission: 07/15/25 Date of Discharge: 07/21/25 Primary Care Physician: Dr. Hesham Mishra MD Consultations 07/15/25 16:16 Consult: Tele-Neurology Routine Consulting Provider: [facility] Reason for Consult: Acute Ischemic Stroke/TIA EMERGENT Consult: No Notified: Yes Date Notified: 07/15/25 Time Notified: 17:59 Method of Notification: Answering Service Nursing Unit Staff Notify [facility] of Tele-Neurology Consult: Yes Consult: Vascular Surgery Routine Consulting Provider: Refugio Price Reason for Consult: left ICA stenosis, R sided neuro symptoms EMERGENT Consult: No MD Notified: Yes Date Notified: 07/15/25 Time Notified: 16:13 Method of Notification: Verbal 07/17/25 11:58 Consult: Cardiology Routine Consulting Provider: Francisca Foreman Reason for Consult: Abnormal stress test performed for pre-operative eval EMERGENT Consult: No Notified: Yes Date Notified: 07/17/25 Time Notified: 13:44 Method of Notification: Verbal 07/21/25 07:28 Consult: Mailing Section Clerk / Pulmonary Medicine Routine Consulting Provider: Intensivists/Pulmonary Med Reason for Consult: hypotension after Left CEA EMERGENT Consult: No Notified: Yes Date Notified: 07/21/25 Time Notified: 07:29 Method of Notification: Text Reason For Visit: CVA, ICA STENOSIS Diagnosis Discharge Diagnosis (1) Acute stroke due to ischemia: Status: Acute Code(s): I63.9 - Cerebral infarction, unspecified (2) Carotid stenosis: Status: Acute Code(s): I65.29 - Occlusion and stenosis of unspecified carotid artery Plan 69-year-old gentleman came to ED with right arm weakness, numbness and tingling since 07/13. He woke up in the morning of 07/15 with slurred speech. Stroke alert was called. 1. Acute ischemic stroke - Right arm paresthesias but has coordination - Residual symptoms at this point are paresthesias in the hand - Multiple infarcts found likely related to showering of plaque from his carotid artery - Left carotid artery with severe stenosis - Continue aspirin and Plavix - Hemoglobin A1c well-controlled diabetes at 6.3 - Continue high intensity dose statin - Echocardiogram on 07/16/2025 and shows mildly dilated LV with an EF of 45% and stage I diastolic dysfunction there is anterior septal and posterior hypokinesis - Neurology following/vascular surgery following -07/17: Plan for carotid endarterectomy on the left on Wednesday 07/18: No acute issues. Patient is doing well. Blood pressure is controlled. 07/19: No acute issues. Patient is doing well. N.p.o. past midnight for carotid surgery tomorrow morning. Patient cleared for surgery by blacksmith apprentice. 07/20: Seen and examined preop in the room and then PACU. Had left CEA, SHAKIRA drain. Bovine pericardial patch. 24 mL expected blood loss. Expected drowsy lethargic after surgery. Denies any acute change in vision, numbness, tingling or weakness after surgery. Patient is going to be transferred to ICU for overnight monitoring. Will wait for full consciousness before diet for hourly liquid to soft diet today. 07/21: Postop hypotension: Overall patient is doing well. Low BP. In brusher operator in ICU but did not require vasopressor. Heart rate chronically low/sinus bradycardia. Blood pressure recovering. Left carotid drain was removed. Arterial line also removed. Mailing Section Clerk was consulted. The consult note reviewed and appreciated Later on the day in the afternoon patient recovered blood pressure. Discussed with vascular surgeon Dr. Adelso madrid with the discharge. Advised gradual resumption of normal activity to days with no exertion. Blood pressure in 100s. 106/54. Heart rate 65/min. Follow-up with Dr. Price vascular surgery clinic in 1 week. 2. Abnormal echocardiogram - EF is depressed with wall motion abnormality -mildly dilated LV with an EF of 45% and stage I diastolic dysfunction there is anterior septal and posterior hypokinesis -Stress test was reviewed. No reversible myocardial ischemia on nuclear stress test. Fixed perfusion defect present on rest and stress imaging therefore old OH and fixed inferior wall defect/artifact plan for coronary anatomy on Saturday 07/21: Chronic HFrEF: Patient was discharged home Entresto, aspirin, Plavix, atorvastatin 80 mg daily, empagliflozin. Advised to start Entresto after 2 days. Consider spironolactone as an outpatient low-dose. Follow-up with Dr. Gabe Perez in 2 weeks 3. Severe left carotid artery stenosis - Patient with bilateral carotid artery stenosis - Ultrasound shows moderate stenosis on the right at 50 to 69% and severe greater than 70% on the left with patent and antegrade vertebrals bilaterally. 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 Continue medical treatment And left carotid enterectomy on 07/20/2025 4. DM-2 - Hemoglobin A1c shows well-controlled diabetes at 6.3 - Hold home oral agents and likely restart at discharge - Add subcu basal insulin - Continue sliding scale -Glucose 131. 9/27 blood sugar is 127. 9/29: Glucoses adequately controlled about 130-150. 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 Discharge follow-up instructions completed. Discharge process discussed with the patient and all questions were answered to patient's satisfaction. Follow with PCP in 1 to 2 weeks Total time spent, exact 35 minutes on discharge meds reconciliation, examination, coordination of care with nurses and ancillary staff, review of imaging and blood test and discussion with the patient on follow-up instructions. Laboratory Results 07/20/25 11:57: Activated Clotting Time 130 07/20/25 12:47: Activated Clotting Time 285 H 07/20/25 13:23: Activated Clotting Time 233 H 07/20/25 13:58: Activated Clotting Time 204 H 07/20/25 15:57: POC Glucose 142 H 07/20/25 17:04: POC Glucose 145 H 07/20/25 21:48: POC Glucose 200 H 07/21/25 04:30: WBC 9.5, RBC 3.65 L, Hgb 11.6 L, Hct 33.7 L, MCV 92.3, MCH 31.8, MCHC 34.4, RDW Std Deviation 46.0 H, RDW Coeff of Kiya 13.6, Plt Count 224, MPV 9.7, Immature Gran % (Auto) 0.200, Neut % (Auto) 75.3 H, Lymph % (Auto) 17.2 L, Frederick % (Auto) 6.9, Eos % (Auto) 0.2, Baso % (Auto) 0.2, Absolute Neuts (auto) 7.2, Absolute Lymphs (auto) 1.63, Nucleated RBC % 0 07/21/25 07:40: POC Glucose 117 H 07/21/25 11:18: POC Glucose 111 H Clinical Impression(s) from Imaging Studies Chest X-Ray 07/15/25 10:54 IMPRESSION: No acute process is identified in the chest. Brain CT 07/15/25 12:40 IMPRESSION: Negative for acute intracranial pathology. 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 Bilateral basal ganglia, bilateral cerebellar and bilateral deep white matter calcifications. Differential considerations including Fahrs disease and vascular calcifications. Head/Neck CTA 07/15/25 12:40 IMPRESSION: There is a 90% stenosis at the origin of the left ICA. There is a 50% stenosis at the origin of the right ICA. Brain MRI 07/15/25 16:14 IMPRESSION: Several scattered small acute infarcts involving the posterior left frontoparietal cortex involving the left pre and postcentral gyri, and in the posterior left occipital lobe. Moderate chronic small-vessel ischemic changes elsewhere in the cerebral white matter with old cortical infarcts in the right frontal and anterior left frontal lobes. No acute intracranial hemorrhage, extra-axial collection, or mass-effect. 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 Numerous potential causes Echocardiogram 07/15/25 16:14 Interpretation Summary Mildly dilated left ventricle. Mild concentric left ventricular hypertrophy. Anterior septal and posterior hypokinesis. Estimated LVEF 45%. Stage I diastolic dysfunction. Mild focal aortic valve calcification. Carotid Duplex 07/15/25 16:16 Interpretation Summary Moderate (50-69%) stenosis right extracranial internal carotid. Severe (>70%) stenosis left extracranial internal carotid. Patent and antegrade vertebrals bilaterally. Medications at Discharge Home Medications oxycodone-acetaminophen 5 mg-325 mg tablet (Percocet) 1 tab PO Q12H PRN pain 7 days #28 tabs 05/12/25 insulin glargine-yfgn 100 unit/mL (3 mL) subcutaneous pen 12 unit subcut QHS 05/20/25 metformin 500 mg tablet 1,000 mg PO .QAM 05/20/25 Held on 07/21/25. Instructions: Hold for 2 days and then resume metformin 500 mg tablet 500 mg PO 1700 05/20/25 Held on 07/21/25. Instructions: Hold for 2 days and then resume ascorbic acid (vitamin C) 1,000 mg tablet (Vitamin C) 1 g PO DAILY 90 days #90 tabs 05/22/25 aspirin 81 mg tablet,delayed release 81 mg PO BID 30 days #60 tabs 05/22/25 calcium 500 mg (as carbonate)-vitamin D3 15 mcg (600 unit) tablet (Os-Will 500 + D3) 1 tab PO DAILY 90 days #90 tabs 05/22/25 docusate sodium 100 mg capsule (Colace) 100 mg PO DAILY 10 days #10 caps 05/22/25 atorvastatin 80 mg tablet 80 mg PO QHS 30 days #30 tabs 07/21/25 carvedilol 3.125 mg tablet 3.125 mg PO BIDCM 30 days #60 tabs 07/21/25 clopidogrel 75 mg tablet 75 mg PO DAILY 30 days #30 tabs 07/21/25 empagliflozin 10 mg tablet (Jardiance) 10 mg PO DAILY 30 days #30 tabs 07/21/25 sacubitril 24 mg-valsartan 26 mg tablet 0.5 tab PO BID 30 days #30 tabs 07/21/25 Hospital Course Summary of Care Provided Hospital Course: Laboratory Results 07/20/25 15:57: POC Glucose 142 H 07/20/25 17:04: POC Glucose 145 H 07/20/25 21:48: POC Glucose 200 H 07/21/25 04:30: WBC 9.5, RBC 3.65 L, Hgb 11.6 L, Hct 33.7 L, MCV 92.3, MCH 31.8, MCHC 34.4, RDW Std Deviation 46.0 H, RDW Coeff of Kiya 13.6, Plt Count 224, MPV 9.7, Immature Gran % (Auto) 0.200, Neut % (Auto) 75.3 H, Lymph % (Auto) 17.2 L, Frederick % (Auto) 6.9, Eos % (Auto) 0.2, Baso % (Auto) 0.2, Absolute Neuts (auto) 7.2, Absolute Lymphs (auto) 1.63, Nucleated RBC % 0 07/21/25 07:40: POC Glucose 117 H 07/21/25 11:18: POC Glucose 111 H Physical Exam Narrative Please see progress note of same date. Blood pressure is recovered Weight / BMI Weight Weight: 174 lb 6.17 oz Body Mass Index (BMI) 24.3 ABG / Lab / Microbiology Data 07/21/25 04:30 07/20/25 04:53 Laboratory: Laboratory Results - last 24 hr 07/20/25 15:57: POC Glucose 142 H 07/20/25 17:04: POC Glucose 145 H 07/20/25 21:48: POC Glucose 200 H 07/21/25 04:30: WBC 9.5, RBC 3.65 L, Hgb 11.6 L, Hct 33.7 L, MCV 92.3, MCH 31.8, MCHC 34.4, RDW Std Deviation 46.0 H, RDW Coeff of Kiya 13.6, Plt Count 224, MPV 9.7, Immature Gran % (Auto) 0.200, Neut % (Auto) 75.3 H, Lymph % (Auto) 17.2 L, Frederick % (Auto) 6.9, Eos % (Auto) 0.2, Baso % (Auto) 0.2, Absolute Neuts (auto) 7.2, Absolute Lymphs (auto) 1.63, Nucleated RBC % 0 07/21/25 07:40: POC Glucose 117 H 07/21/25 11:18: POC Glucose 111 H D/C Instructions Weight Bearing Status: Weight bearing as tolerated Call your doctor if you observe: Fever of 101 or Higher, Coldness, Increased Pain, Numbness or Tingling, Change in Color, Inability to urinate, Inability to have a bowel movement, Shortness of breath, Dizziness, Fainting spells, Swelling in the ankles, Chest pain, Prolonged hiccupping, Increased palpitations (irregular heartbeat) and Calf discomfort DC O2, CPAP, BIPAP Needs Home O2 Discharge instructions: No When: IN 2 WEEKS Meaningful Use Info Meaningful Use Meaningful Use Diagnoses (Choose all that apply): Ischemic CVA CVA Therapy Assessed for PT,OT and/or ST?: Yes Ischemic Stroke Antithrombotic order at d/c?: Yes Dx of Atrial fib/flutter?: No Anticoagulant at discharge?: Yes Statins at discharge?: Yes If patient is 75 or younger, pt will be discharged on HIGH intensity statin.: Y es Primary Dx Acute Ischemic CVA?: Yes Discharge Plan Admission Admit Date/Time: 07/15/25 15:20 Primary Reason for Your Visit: TIA left CEA critical stenosis. Status post CEA Attending Provider: Jabari Nuñez Primary Care Provider: Hesham Mishra Consulting Providers: Daniela Cisneros; Susan Farah; Refugio Price Discharge Orders/Prescriptions Prescriptions: New atorvastatin 80 mg Tablet 80 mg PO QHS 30 Days Qty: 30 2RF clopidogrel 75 mg Tablet 75 mg PO DAILY 30 Days Qty: 30 2RF carvedilol 3.125 mg Tablet 3.125 mg PO BIDCM 30 Days Qty: 60 2RF Rx Instructions: Start after 2 days, on 07/24/2025 Hold for heart less than 50 or systolic blood pressure less than 100 mmHg. Jardiance 10 mg Tablet 10 mg PO DAILY 30 Days Qty: 30 2RF sacubitril-valsartan 24-26 mg Tablet 0.5 tab PO BID 30 Days Qty: 30 2RF Rx Instructions: Start on 07/24/2025 Hold for SBP less than 100 mmHg Continued oxycodone-acetaminophen [Percocet] 5-325 mg tablet 1 tab PO Q12H PRN (Reason: pain) 7 Days Qty: 28 0RF insulin glargine-yfgn 100 unit/mL (3 mL) insulin pen 12 unit subcut QHS aspirin 81 mg tablet,delayed release (DR/EC) 81 mg PO BID 30 Days Qty: 60 0RF docusate sodium [Colace] 100 mg capsule 100 mg PO DAILY 10 Days Qty: 10 0RF calcium carbonate-vitamin D3 [Os-Will 500 + D3] 500 mg-15 mcg (600 unit) tablet 1 tab PO DAILY 90 Days Qty: 90 0RF ascorbic acid (vitamin C) [Vitamin C] 1,000 mg tablet 1 g PO DAILY 90 Days Qty: 90 0RF Held metformin 500 mg tablet 1,000 mg PO .QAM Hold Instructions: Hold for 2 days and then resume metformin 500 mg tablet 500 mg PO 1700 Hold Instructions: Hold for 2 days and then resume Discontinued losartan 50 mg tablet 50 mg PO DAILY Referrals / Follow Up: Refugio Price MD [Med Staff - Active Staff, Vascular Surgery] - Within 1 Week Gabe Perez MD [Med Staff - Active Staff, Cardiology] - Within 2 Weeks Referral Note: For heart failure Hesham Mishra MD [Primary Care Provider, Medical] Disposition Disposition (needs filled in before D/C Order can be placed): Home, Self Care Charges/Coding Visit Charges Inpatient E&M: 75468 Disch Hosp >30min
--- NOTE | 2025-07-21 15:49 | CASEMGMT ---
Addendum entered by Anum Parr 07/21/25 16:17: [facility] returns call and states that the total cost for all of the new meds are 744$ but that the Jardiance is 687$ of that total. Notified Dr Nuñez who suggests the pt to follow up with [facility] and/or the pt's PCP regarding the medication and that the pt does not have to pickup right away. RN CM to the pt's room at this time. Pt's SO at bedside. Pt states that he was able to ambulate with nursing earlier and that he feels safe going home today. Pt informed about his prescription costs. Pt states that he does not want to take Jardiance. Pt states that he plans to follow up with his doctor about this. Pt states that he has a ride home and denies any further DC needs or concerns. Pt's RN updated. Original Note: Pt has an order for DC placed. TC to pt's preferred Pharm[facility], [facility]. [facility] states that they are running the rxs and will call this DAWIT MORGAN back with a cost.
== END 2025-07-21 19:07 | disposition home or self-care (01) | DRG 38 ==
LOC: ED 14:34 → PCU 15:25 → ICU 07-20 14:55
PROVIDERS: Internal Medicine; Surgery Trauma Surgery; Admitting Provider Internal Medicine; Emergency Provider Emergency Medicine; PCP Family Medicine; Visit Provider Internal Medicine
PROC: 03CN0ZZ Extirpation of Matter from Left External Carotid Artery, Open Approach (ICD-10-PCS; CPT 35301; principal; 2025-07-20 11:10)
DX: I63.232 Cerebral infarction due to unspecified occlusion or stenosis of left carotid arteries (principal); M86.9 Osteomyelitis, unspecified; E11.51 Type 2 diabetes mellitus with diabetic peripheral angiopathy without gangrene; I10 Essential (primary) hypertension; E11.69 Type 2 diabetes mellitus with other specified complication; Z79.4 Long term (current) use of insulin; E78.5 Hyperlipidemia, unspecified; I95.81 Postprocedural hypotension; R29.715 NIHSS score 15; Z79.84 Long term (current) use of oral hypoglycemic drugs; Z79.899 Other long term (current) drug therapy; Z79.82 Long term (current) use of aspirin; Z87.891 Personal history of nicotine dependence
CPT/HCPCS: 36415; 70450; 70496; 70498; 70551; 71045; 78452; 80048; 80061; 82962; 83036; 83605; 83735; 84100; 84443; 84484; 85025; 85347; 85610; 85730; 86850; 86900; 86901; 88304; 88311; 92523; 93005; 93017; 93306; 93880; 94668; 94762; 97161; 97166; 97802; 97803; 99252; 99282; A4648; A9500; Q9967; A4216; G0463; J2405; J2785